=== PATIENT | female | born 2000 | race Caucasian/White ===

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

== ENCOUNTER 2022-06-29 21:35 | Emergency (ER) | payer MEDICAID, SELFPAY ==
[2022-06-29 21:36] VITALS: BP 119/89; PULSE 84; RESP 15; TEMP 36.3; O2SAT 100; BMI 39.2
--- NOTE | 2022-06-29 22:28 | EDS_ITS ---
HPI History of Present Illness Chief Complaint: Other, Pain/Inj Informant: patient and parent Narrative Narrative: Patient presents with several concerns today. 1 is that sometimes midday when she is at work she gets headaches. She is not having 1 now. She thinks it is related to her allergies because at work they open the doors to get fresh air in. 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 So she is exposed to lots of chemicals. She has been having these headaches off and on for about a month since she started her new job a month ago. Again, no headache now. Sometimes when the headaches bad she feels mildly nauseated but has never vomited. She has no nausea or vomiting now. Patient is also concerned that over the last 6 or 8 months her menstrual cycles have gotten somewhat irregular and last longer. Her last menstrual cycle was the through 05 June. She is not on her menstrual cycle now. She has no pelvic pain or discomfort now. Patient is also concerned that she has soreness along her back. This is also started since she started her new job. She repetitively lifts 20-60 or occasionally 70 pounds. It is worse with lifting. She is also fallen asleep on a chair a couple times recently. The back is worse if she moves or twists. She has never had numbness tingling weakness. She complains of some mild constipation on occasion but no stool incontinence. No change in urination at all. She has never had a fever through any of this. Her back does gets more sore with motion or palpation. It is mostly lumbar but occasionally will be in the upper back depending on how she moves. She saw urgent care on Tuesday. They started prednisone at 40 mg a day. She took that for 2 days but felt like it made her heart race so she stopped. [facility] Medical History Asthma Home Medications albuterol sulfate 90 mcg/actuation aerosol inhaler (Ventolin HFA) 2 puff inhalation Q4H PRN PRN ASTHMA 12/24/13 [History Last Taken 10/12/17] fluoxetine 10 mg capsule 40 mg PO DAILY AXIETY 10/26/16 [History Last Taken 02/28/18] fluticasone propionate 50 mcg/actuation nasal spray,suspension 2 spray DAILY 10/26/16 [History Last Taken 02/28/18] fexofenadine 180 mg tablet (Fanta Allergy) 180 mg PO DAILY ALLERGIES 10/12/17 [History Last Taken 02/28/18] magnesium oxide 400 mg PO DAILY 02/01/19 [History Last Taken Unknown] prednisone 20 mg tablet (Deltasone) 40 mg PO DAILY #10 tabs 02/01/19 [Rx Last Taken Unknown] cyclobenzaprine 10 mg tablet 10 mg PO BID PRN muscle spasm #10 tabs 06/29/22 [Rx Last Taken Unknown] naproxen 500 mg tablet 500 mg PO BID #14 tabs 06/29/22 [Rx Last Taken Unknown] Allergy/AdvReac Type Severity Reaction Status Date / Time No Known Allergies Allergy Verified 06/29/22 21:40 Social History Smoking Status: Never smoker ROS ROS ED Constitutional Constitutional ED: Denies chills or fever(s) Eyes Eyes: Denies blurry vision, change in vision or diplopia ENT ENT ED: Denies rhinorrhea or sore throat Cardiovascular Cardiovascular: Denies chest pain Respiratory/Chest Respiratory/Chest: Denies cough, dyspnea or sputum Gastrointestinal Gastrointestinal: Reports constipation and nausea; Denies abdominal pain, diarrhea, melena or vomiting Genitourinary Genitourinary ED: Denies dysuria, hematuria or urinary frequency Musculoskeletal Musculoskeletal: Reports back pain and myalgias Integumentary Denies rash Neurologic Neurologic: Reports headache(s); Denies paresthesias or weakness Endocrine Endocrinology: Denies polydipsia or polyuria Hematologic/Lymphatic Hematologic/Lymphatic: Denies easy bleeding or easy bruising Allergic/Immunologic Allergic/Immunologic ED: Denies urticaria EXAM Physical Exam Const Vital Signs: 06/29/22 21:36 06/29/22 21:52 Temperature 97.4 F L Temperature Source Temporal Pulse Rate 84 Respiratory Rate 15 Respiratory Pattern Normal Blood Pressure 119/89 H Blood Pressure Mean 99 Pulse Ox 100 Oxygen Delivery Method Room Air Positive well nourished and well developed General Appearance ED: well developed and NAD HEENT Reports moist mucous membranes Negative for trauma or tenderness Eyes PERRL and EOMs intact bilaterally General Eye ED: Negative for scleral icterus Neck no lymphadenopathy, supple and no JVD Neck Narrative: No meningismus Resp normal respiratory effort and clear to auscultation bilaterally Auscultation: Negative for rales, rhonchi or wheezes Cardio regular rate and regular rhythm GI normal to inspection, nondistended, normoactive bowel sounds, non-tender and non-distended Back/Spine Back/Spine Narrative: Patient does have diffuse paraspinal muscular tenderness even with light palpation. This is not really CVA tenderness. I see no erythema lesions or rashes. No vesicles. Extremity normal to inspection Extremity Narrative: No tenderness edema or cords. Neuro Sensorium / Orientation: alert Psych mental status grossly normal Skin no rashes or lesions noted and no wounds MDM MDM MDM Narrative Medical decision making narrative: Did do blood work. She has a nonspecific elevation of white count. But there is no indication of viral or bacterial illness. Hemoglobin and platelets are normal. Electrolytes are unremarkable. Liver function test including alk phos is normal. is negative. Urine is clean. There is no sign of rhabdo. By history and exam this patient has musculoskeletal back pain. It sore when she moves or twists or press on the area. She has a new job where she is doing a lot of lifting. Patient will be placed on nonsteroidals and muscle relaxants. She will use muscle relaxants at night. I have encouraged her to follow-up with her primary doctor. They also bring up that she has had irregular menstrual cycles. At the end of the visit mom brings up that she has gained weight from 165 to about 235 pounds in 6 or 8 months. I think this also contri butes to the sore back. Mother agrees. But I also stated that she could have polycystic ovarian syndrome contributing to some of this weight gain and irregular menstrual cycles. This is something that can be worked up as an outpatient. She has no pelvic symptoms at all. Lab Data Attestation: I reviewed the patient's lab results. Labs: Laboratory Results - last 24 hr 06/29/22 06/29/22 06/29/22 22:20 22:20 22:20 WBC 13.4 H RBC 4.35 Hgb 12.1 Hct 38.1 MCV 87.6 MCH 27.8 MCHC 31.8 L RDW Std Deviation 43.1 RDW Coeff of Daniel 13.5 Plt Count 299 MPV 9.7 Immature Gran % (Auto) 0.400 Neut % (Auto) 65.6 Lymph % (Auto) 25.8 Cla[place]orne % (Auto) 7.1 Eos % (Auto) 0.8 Baso % (Auto) 0.3 Absolute Neuts (auto) 8.8 H Absolute Lymphs (auto) 3.46 Nucleated RBC % 0 Sodium 141 Potassium 3.6 Chloride 107 Carbon Dioxide 27.0 Anion Gap 7 BUN 12 Creatinine 0.77 Estim Creat Clear Calc 105.74 Est GFR (MDRD) Af Amer 124 Est GFR (MDRD) Non-Af 102 BUN/Creatinine Ratio 15.6 Glucose 91 Calcium 9.0 Total Bilirubin 0.10 L AST 15 ALT 45 Alkaline Phosphatase 76 Total Protein 7.3 Albumin 3.2 Globulin 4.1 Albumin/Globulin Ratio 0.8 L Serum , Qual NEGATIVE Urine Color Urine Clarity Urine pH Ur Specific [place] Urine Protein Urine Glucose (UA) Urine Ketones Urine Occult Blood Urine Nitrite Urine Bilirubin Urine Urobilinogen Ur Leukocyte Esterase Urine RBC Urine WBC Ur Squamous Epith Cells Urine Bacteria Urine Mucus 06/29/22 22:33 WBC RBC Hgb Hct MCV MCH MCHC RDW Std Deviation RDW Coeff of Daniel Plt Count MPV Immature Gran % (Auto) Neut % (Auto) Lymph % (Auto) [place] % (Auto) Eos % (Auto) Baso % (Auto) Absolute Neuts (auto) Absolute Lymphs (auto) Nucleated RBC % Sodium Potassium Chloride Carbon Dioxide Anion Gap BUN Creatinine Estim Creat Clear Calc Est GFR (MDRD) Af Amer Est GFR (MDRD) Non-Af BUN/Creatinine Ratio Glucose Calcium Total Bilirubin AST ALT Alkaline Phosphatase Total Protein Albumin Globulin Albumin/Globulin Ratio Serum , Qual Urine Color Straw Urine Clarity Clear Urine pH 6.5 Ur Specific [place] 1.015 Urine Protein Negative Urine Glucose (UA) Normal Urine Ketones Negative Urine Occult Blood Negative Urine Nitrite Negative Urine Bilirubin Negative Urine Urobilinogen Normal Ur Leukocyte Esterase Negative Urine RBC 0 SEEN Urine WBC 0 SEEN Ur Squamous Epith Cells 0-5 SEEN Urine Bacteria 1+ Urine Mucus 0 SEEN Discharge Plan Triage Chief Complaint: Other, Pain/Inj ED Provider: Roberto Jesus Dx/Rx/DC Orders Clinical Impression: Myofascial low back pain Instructions: ED Back Care Tips, ED Back Pain (Acute or Chronic) Prescriptions: New cyclobenzaprine 10 mg tablet 10 mg PO BID PRN (Reason: muscle spasm) Qty: 10 0RF naproxen 500 mg tablet 500 mg PO BID Qty: 14 0RF No Action albuterol sulfate [Ventolin HFA] 1 INHALER inhaler 2 puff inhalation Q4H PRN PRN (Reason: ASTHMA) fluoxetine 10 MG capsule 40 mg PO DAILY fluticasone propionate 1 SPRAY spray,suspension 2 spray NASAL DAILY fexofenadine [Fanta Allergy] 180 MG tablet 180 mg PO DAILY magnesium oxide 400 MG tablet 400 mg PO DAILY prednisone [Deltasone] 20 MG tablet 40 mg PO DAILY Qty: 10 0RF Rx Instructions: With food Primary Care Provider: Jessica Randall Referrals: Eugenia Mckinley MD [Med Staff - Active Staff] - As soon as possible Jessica Randall MD [Primary Care Provider] - As soon as possible Disposition Disposition: Home, Self Care
[2022-06-29 22:32] LABS: Absolute Lymphocyte Count 3.46 X10^3/uL (0.83-4.51); Absolute Neutrophil Count 8.8 X10^3/uL (2.0-7.7); Basophil# 0.04 X10^3/uL; Basophil% 0.3 % (0-1); Eosinophil# 0.11 X10^3/uL; Eosinophils% 0.8 % (0-5); Hematocrit 38.1 % (37-47); Hemoglobin 12.1 g/dL (12.0-15.0); Lymphocyte # 3.46 X10^3/ul (0.83-4.51); Lymphocyte % 25.8 % (19-41); Mean Corp Hgb Conc 31.8 g/dL (32-36); Mean Corpuscular Hgb 27.8 pg (27.0-32.0); Mean Corpuscular Volume 87.6 fL (81-99); Mean Platelet Vol. 9.7 fl (6.2-12.0); Monocyte# 0.95 X10^3/uL; Monocyte% 7.1 % (0-10); NRBC Flagged by Analyzer 0 % (0-5); Neutrophil # 8.78 X10^3/uL (2.7-7.7); Neutrophil % 65.6 % (47-70); Platelet Count 299 K/mm3 (150-450); RBC Distribution Width CV 13.5 % (11.6-14.6); RBC Distribution Width SD 43.1 fl (35.1-43.9); Red Blood Count 4.35 M/mm3 (4.2-5.4); White Blood Count 13.4 K/mm3 (4.4-11.0)
[2022-06-29 22:38] LABS: Mucous, Urine 0 SEEN /hpf (<or=2+); Red Blood Cells-Urine 0 SEEN /hpf (0-5); White Blood Cells 0 SEEN /hpf (0-5)
[2022-06-29 22:41] LABS: Color, Urine Straw (Yellow); Glucose, Dipstick Normal (Normal); Ketone-Dipstick Negative (Negative); Leukocyte Esterase-Dipstick Negative /ul (Negative); Nitrite-Dipstick Negative (Negative); Occult Blood-Urine Negative /ul (Negative); Protein-Dipstick Negative (Negative); Specific Gravity, Urine 1.015 (1.002-1.030); Urine Bilirubin Dipstick Negative (Negative); Urine Clarity Clear (Clear); Urine Urobilinogen Normal (Normal); Urine pH 6.5 (5.0 - 8.0)
[2022-06-29 22:49] LABS: ALB/GLOB Ratio 0.8 RATIO (0.9-2.4); AST(SGOT) 15 U/L (15-37); Alanine Aminotransfer ALT/SGPT 45 U/L (13-56); Albumin, Serum 3.2 g/dL (3.2-5.0); Alkaline Phosphatase 76 U/L (45-117); Anion Gap 7 (5-15); BUN 12 mg/dL (7-18); BUN/Creat Ratio 15.6 RATIO (10-20); Chloride 107 mmol/L (98-107); Creatinine, Serum 0.77 mg/dL (0.55-1.02); EST Glomerular Filtration Rate 102 mL/min (>60); Est Glom Filt Rate - Afr Amer 124 mL/min (>60); Estimated Creatinine Clearance 105.74 ml/min; Globulin 4.1 g/dL (2.2-4.2); Glucose 91 mg/dL (74-106); Potassium 3.6 mmol/L (3.5-5.1); Protein, Total 7.3 g/dL (6.4-8.2); Sodium Level 141 mmol/L (136-145)
[2022-06-29 22:57] LABS: Bacteria 1+ /hpf (None Seen); Squamous Epithelial Cells - UA 0-5 SEEN /hpf (5-10)
[2022-06-29 23:06] LABS: Internal QC Validated? YES +Cl - CLEAR BKGD; Pregnancy, Serum, hCG Quali. NEGATIVE Negative
[2022-06-29 23:55] VITALS: BP 102/73; PULSE 76; RESP 16; O2SAT 99
[2022-06-30] MEDS: Naproxen 500 MG Tablet PO (01:27)
[2022-06-30] MEDS: cycloBENZAPRine HCl 10 MG Tablet PO (01:27)
== END 2022-06-30 01:30 | disposition home or self-care (01) ==
PROVIDERS: Emergency Provider Emergency Medicine; PCP Pediatrics; Visit Provider Emergency Medicine
DX: M54.50 Low back pain, unspecified (principal); N92.6 Irregular menstruation, unspecified; Z79.52 Long term (current) use of systemic steroids; J45.909 Unspecified asthma, uncomplicated
CPT/HCPCS: 80053; 81001; 84703; 85025; 99284; A4216

== ENCOUNTER 2022-08-24 09:33 | Emergency (ER) | payer MEDICAID, SELFPAY ==
[2022-08-24 09:34] VITALS: BP 134/83; PULSE 92; RESP 16; TEMP 36.2; O2SAT 100; BMI 39.4
--- NOTE | 2022-08-24 09:43 | ED.VIS.GI ---
HPI HPI - GI History of Present Illness Chief Complaint: Abd Pain Detail of Chief Complaint: Intermittent sharp upper abdominal pain Informant: patient and family Abdominal Pain/Flank Pain Onset: Days (Onset August 18) Context: Sudden Onset Timing: Intermittent (2 to 5 minutes in duration) and Waxes and wanes Quality: Sharp Location: RUQ and LUQ Current Severity: Mild Maximum Severity: Moderate Worsened by: Nothing Relieved by: Nothing Nausea/Vomiting/Emesis GI Symptom: Positive for Nausea; Negative for Vomiting Diarrhea/Melena/Hematochezia GI Symptom: Negative for Diarrhea, Melena or Hematochezia Associated Symptoms Associated Symptoms: Negative for Dysuria, Frequency, Hematuria or Urgency Narrative Narrative: Patient is a 21-year-old female who presents with sharp intermittent upper abdominal pain that radiates to her back and lower quadrants that started on August night. Duration is 2 to 5 minutes. She does work at daycare. Numerous children at the daycare have been sick with viral type symptoms and RSV. She does endorse rhinorrhea congestion and mild sore throat. She denies headache, neck pain or neck stiffness. She denies rash. There is a family history cholelithiasis. She did denies intolerance to greasy or fried foods. She has not noted change in the color, consistency or size of her stool. She denies urologic symptoms. There are no alleviating, precipitating or exacerbating factors. Per mother she has a history of GERD. Prior similar symptoms: No Recent Illness/Hospitalization: No [facility] Medical History Asthma Home Medications albuterol sulfate 90 mcg/actuation aerosol inhaler (Ventolin HFA) 2 puff inhalation Q4H PRN PRN ASTHMA 12/24/13 [History Last Taken 10/12/17] fluoxetine 10 mg capsule 40 mg PO DAILY AXIETY 10/26/16 [History Last Taken 02/28/18] fluticasone propionate 50 mcg/actuation nasal spray,suspension 2 spray DAILY 10/26/16 [History Last Taken 02/28/18] fexofenadine 180 mg tablet (Fanta Allergy) 180 mg PO DAILY ALLERGIES 10/12/17 [History Last Taken 02/28/18] magnesium oxide 400 mg PO DAILY 02/01/19 [History Last Taken Unknown] prednisone 20 mg tablet (Deltasone) 40 mg PO DAILY #10 tabs 02/01/19 [Rx Last Taken Unknown] cyclobenzaprine 10 mg tablet 10 mg PO BID PRN muscle spasm #10 tabs 06/29/22 [Rx Last Taken Unknown] naproxen 500 mg tablet 500 mg PO BID #14 tabs 06/29/22 [Rx Last Taken Unknown] pantoprazole 40 mg tablet,delayed release (Protonix) 40 mg PO DAILY #14 tabs 08/24/22 [Rx Last Taken Unknown] Allergy/AdvReac Type Severity Reaction Status Date / Time No Known Allergies Allergy Verified 08/24/22 09:33 Surgical History no surgical history no surgical history (Tonsillectomy) Social History (Updated 08/24/22 @ 09:[address] Sanjeev Kevin MD) household members: family Smoking Status: Never smoker substance use type: does not use ROS ROS ED Constitutional Constitutional ED: Denies chills, fever(s), subjective, sweats or weight loss ENT ENT ED: Reports rhinorrhea; Denies ear pain or sore throat Cardiovascular Cardiovascular: Denies chest pain, orthopnea, palpitations or paroxysmal nocturnal dyspnea Respiratory/Chest Respiratory/Chest: Denies cough, dyspnea, dyspnea on exertion, orthopnea, paroxysmal nocturnal dyspnea or sputum Gastrointestinal Gastrointestinal: Reports abdominal pain and nausea; Denies constipation, diarrhea, melena or vomiting Genitourinary Genitourinary ED: Denies dysuria, hematuria or urinary frequency Musculoskeletal Musculoskeletal: Denies arthralgias, back pain, myalgias or neck pain Integumentary Denies Abrasions or rash Neurologic Neurologic: Denies headache(s) or paresthesias Psychiatric Psychiatric: Reports depression; Denies anxiety or suicidal thoughts Endocrine Endocrinology: Denies polydipsia, polyphagia or polyuria EXAM Physical Exam Const Vital Signs: 08/24/22 09:34 Temperature 97.1 F L Temperature Source Temporal Pulse Rate 92 Respiratory Rate 16 Blood Pressure 134/83 H Blood Pressure Mean 100 Pulse Ox 100 Oxygen Delivery Method Room Air Positive well nourished, well developed and obese General Appearance ED: well developed, NAD and pallor Nutritional Appearance: obese HEENT Reports TM's clear and moist mucous membranes HEENT Narrative: Ears normal. Nares patent. Uvula midline. No erythema exudate the posterior pharynx. normocephalic and atraumatic Tympanic Membrane ED: Yes TM's clear Eyes PERRL and EOMs intact bilaterally General Eye ED: Negative for pale conjunctiva or scleral icterus Neck no lymphadenopathy, supple and no JVD Neck Narrative: Trachea is midline. There is no in-store extra rider. Resp normal respiratory effort and clear to auscultation bilaterally Cardio regular rate, regular rhythm, S1 normal heart sound, S2 normal heart sound and no murmurs GI non-distended and no masses; Negative for non-tender Auscultation: hypoactive bowel sounds Palpation: soft and tender epigastric, McBurney's point, suprapubic and Reyes's sign Back/Spine no CVA tenderness Cervical Spine: Negative for cervical spine tenderness Thoracic Spine / Upper Back: Negative for thoracic spinal tenderness Lumbar Spine / Lower Back: Negative for lumbar spinal tenderness Extremity full ROM General Extremety ED: Negative for edema or tenderness General Extremity: Negative for edema Neuro No CN's II-XII intact bilaterally and No moves all extremities Sensorium / Orientation: alert Psych Mood & Affect: depressed Skin no wounds General Skin Exam: pallor; Negative for jaundice MDM MDM MDM Narrative Medical decision making narrative: Suspect patient has a viral illness. Because there is strong family history of cholelithiasis will obtain comprehensive metabolic panel to assess liver enzymes. Lipase was ordered as well as CBC. Differential diagnosis is viral illness, cholelithiasis, choledocholithiasis, GERD, esophagitis. Lab Data Attestation: I reviewed the patient's lab results. Lab results narrative: CBC and differential are unremarkable. Comprehensive metabolic panel is normal. Lipase is normal. Labs: Laboratory Results - last 24 hr 08/24/22 08/24/22 09:53 09:53 WBC 8.5 RBC 4.66 Hgb 12.7 Hct 39.8 MCV 85.4 MCH 27.3 MCHC 31.9 L RDW Std Deviation 42.5 RDW Coeff of Daniel 13.8 Plt Count 293 MPV 9.7 Immature Gran % (Auto) 0.200 Neut % (Auto) 75.1 H Lymph % (Auto) 15.2 L [place] % (Auto) 6.5 Eos % (Auto) 2.8 Baso % (Auto) 0.2 Absolute Neuts (auto) 6.4 Absolute Lymphs (auto) 1.29 Nucleated RBC % 0 Sodium 139 Potassium 3.9 Chloride 107 Carbon Dioxide 26.0 Anion Gap 6 BUN 8 Creatinine 0.68 Estim Creat Clear Calc 119.74 Est GFR (MDRD) Af Amer 143 Est GFR (MDRD) Non-Af 118 BUN/Creatinine Ratio 11.8 Glucose 92 Calcium 8.5 Total Bilirubin 0.20 AST 16 ALT 51 Alkaline Phosphatase 67 Total Protein 6.8 Albumin 3.1 L Globulin 3.7 Albumin/Globulin Ratio 0.8 L Lipase 70 L Treatment and Re-Evaluation Narrative: Patient was informed the cause of her pain is unknown. Discharge Plan Triage Chief Complaint: Abd Pain ED Provider: Sanjeev Kevin Dx/Rx/DC Orders Clinical Impression: Intermittent right upper quadrant abdominal pain, Intermittent left upper quadrant abdominal pain Prescriptions: New pantoprazole [Protonix] 40 mg tablet,delayed release (DR/EC) 40 mg PO DAILY Qty: 14 0RF No Action albuterol sulfate [Ventolin HFA] 1 INHALER inhaler 2 puff inhalation Q4H PRN PRN (Reason: ASTHMA) fluoxetine 10 MG capsule 40 mg PO DAILY fluticasone propionate 1 SPRAY spray,suspension 2 spray NASAL DAILY fexofenadine [Fanta Allergy] 180 MG tablet 180 mg PO DAILY magnesium oxide 400 MG tablet 400 mg PO DAILY prednisone [Deltasone] 20 MG tablet 40 mg PO DAILY Qty: 10 0RF Rx Instructions: With food cyclobenzaprine 10 mg tablet 10 mg PO BID PRN (Reason: muscle spasm) Qty: 10 0RF naproxen 500 mg tablet 500 mg PO BID Qty: 14 0RF Primary Care Provider: Jessica Randall Referrals: Jessica Randall MD [Primary Care Provider] - 1 Week if not improving Disposition Disposition: Home, Self Care
[2022-08-24 10:03] LABS: Absolute Lymphocyte Count 1.29 X10^3/uL (0.83-4.51); Absolute Neutrophil Count 6.4 X10^3/uL (2.0-7.7); Basophil# 0.02 X10^3/uL; Basophil% 0.2 % (0-1); Eosinophil# 0.24 X10^3/uL; Eosinophils% 2.8 % (0-5); Hematocrit 39.8 % (37-47); Hemoglobin 12.7 g/dL (12.0-15.0); Lymphocyte # 1.29 X10^3/ul (0.83-4.51); Lymphocyte % 15.2 % (19-41); Mean Corp Hgb Conc 31.9 g/dL (32-36); Mean Corpuscular Hgb 27.3 pg (27.0-32.0); Mean Corpuscular Volume 85.4 fL (81-99); Mean Platelet Vol. 9.7 fl (6.2-12.0); Monocyte# 0.55 X10^3/uL; Monocyte% 6.5 % (0-10); NRBC Flagged by Analyzer 0 % (0-5); Neutrophil # 6.37 X10^3/uL (2.7-7.7); Neutrophil % 75.1 % (47-70); Platelet Count 293 K/mm3 (150-450); RBC Distribution Width CV 13.8 % (11.6-14.6); RBC Distribution Width SD 42.5 fl (35.1-43.9); Red Blood Count 4.66 M/mm3 (4.2-5.4); White Blood Count 8.5 K/mm3 (4.4-11.0)
[2022-08-24 10:22] LABS: ALB/GLOB Ratio 0.8 RATIO (0.9-2.4); AST(SGOT) 16 U/L (15-37); Alanine Aminotransfer ALT/SGPT 51 U/L (13-56); Albumin, Serum 3.1 g/dL (3.2-5.0); Alkaline Phosphatase 67 U/L (45-117); Anion Gap 6 (5-15); BUN 8 mg/dL (7-18); BUN/Creat Ratio 11.8 RATIO (10-20); Calcium,Total 8.5 mg/dL (8.5-10.1); Chloride 107 mmol/L (98-107); Creatinine, Serum 0.68 mg/dL (0.55-1.02); EST Glomerular Filtration Rate 118 mL/min (>60); Est Glom Filt Rate - Afr Amer 143 mL/min (>60); Estimated Creatinine Clearance 119.74 ml/min; Globulin 3.7 g/dL (2.2-4.2); Glucose 92 mg/dL (74-106); Lipase 70 U/L (73-393); Potassium 3.9 mmol/L (3.5-5.1); Protein, Total 6.8 g/dL (6.4-8.2); Sodium Level 139 mmol/L (136-145)
== END 2022-08-24 10:35 | disposition home or self-care (01) ==
PROVIDERS: Emergency Provider Emergency Medicine; PCP Pediatrics; Visit Provider Emergency Medicine
DX: R10.11 Right upper quadrant pain (principal); R10.12 Left upper quadrant pain; J45.909 Unspecified asthma, uncomplicated; J34.89 Other specified disorders of nose and nasal sinuses; R11.0 Nausea; F32.A Depression, unspecified; E66.9 Obesity, unspecified
CPT/HCPCS: 80053; 83690; 85025; 99283; A4216

== ENCOUNTER 2022-09-12 14:56 | Emergency (ER) | payer MEDICAID, SELFPAY ==
[2022-09-12 14:59] VITALS: BP 108/72; PULSE 120; RESP 18; TEMP 37.4; O2SAT 99; BMI 34.1
--- NOTE | 2022-09-12 15:20 | EX.ED.DYSGE1 ---
HPI History of Present Illness Chief Complaint: General Illness Narrative Narrative: 21-year-old female presenting with generalized illness for about a week. She states that she had a low-grade fever about a week ago. She now has a mild cough, malaise, body aches, chills. She takes Aleve for body aches and this helps however when it wears off it goes away. Patient states she does not alternate Tylenol. Patient does report that her symptoms have been going on since and she also works at a daycare. She has multiple sick contacts. Patient states that over the course of the week she has vomited a few times but she is able to hold down some food and fluids. She is also able to hold down the Aleve. She states that it now hurts in the left upper quadrant. She has had this in the past. She was told it is likely GERD. She states she was told by the ER physician that saw her at her last visit when she had a work-up. She has not made follow-up. She is not taking anything for acid reflux. [facility] Medical History Asthma Home Medications albuterol sulfate 90 mcg/actuation aerosol inhaler (Ventolin HFA) 2 puff inhalation Q4H PRN PRN ASTHMA 12/24/13 [History Last Taken 10/12/17] fluticasone propionate 50 mcg/actuation nasal spray,suspension 2 spray DAILY 10/26/16 [History Last Taken 02/28/18] fexofenadine 180 mg tablet (Fanta Allergy) 180 mg PO DAILY ALLERGIES 10/12/17 [History Last Taken 02/28/18] Allergy/AdvReac Type Severity Reaction Status Date / Time No Known Allergies Allergy Verified 09/12/22 15:42 Surgical History (Updated 09/12/22 @ 15:42 by Concepción Lua) History of tonsillectomy and adenoidectomy Social History household members: family Smoking Status: Never smoker substance use type: does not use ROS ROS ED Constitutional Constitutional ED: Denies chills or fever(s) Eyes Eyes: Denies change in vision ENT ENT ED: Reports sore throat Cardiovascular Cardiovascular: Denies chest pain or palpitations Respiratory/Chest Respiratory/Chest: Reports cough Gastrointestinal Gastrointestinal: Reports abdominal pain, nausea and vomiting Genitourinary Genitourinary ED: Denies dysuria or hematuria Musculoskeletal Musculoskeletal: Reports myalgias; Denies arthralgias Integumentary Denies abscess or Abrasions Neurologic Neurologic: Reports headache(s); Denies paresthesias or weakness Psychiatric Psychiatric: Denies anxiety or depression EXAM Physical Exam Const Vital Signs: 09/12/22 14:59 09/12/22 16:30 09/12/22 18:12 Temperature 99.3 F H 100.6 F H 99 F Temperature Source Temporal Temporal Temporal Pulse Rate 120 H 136 H 130 H Respiratory Rate 18 18 18 Blood Pressure 108/72 96/60 94/74 Blood Pressure Mean 84 72 80 Pulse Ox 99 96 97 Oxygen Delivery Method Room Air Room Air Room Air Positive well nourished General Appearance ED: Negative for pallor HEENT Reports moist mucous membranes Eyes PERRL and EOMs intact bilaterally General Eye ED: Negative for pale conjunctiva or scleral icterus Chest Wall inspection of chest normal Resp normal respiratory effort and clear to auscultation bilaterally Cardio regular rhythm Rate: tachycardic GI Palpation: tender LUQ Neuro oriented x3 and CN's II-XII intact bilaterally Sensorium / Orientation: alert Psych mental status grossly normal Skin no rashes or lesions noted and no wounds General Skin Exam: Negative for jaundice or pallor MDM MDM MDM Narrative Medical decision making narrative: Patient presenting with left-sided rib pain, cough, chills, generalized fatigue, nausea, vomiting. She initially presented without a fever but then developed a fever of 100.6. I felt that her symptoms are most likely viral however after having symptoms for a whole week I do not believe that testing would be necessary for COVID, influenza, RSV. Her pulse ox is normal and she is not tachypneic. Her lungs are clear to auscultation. I did obtain a chest x-ray which on my interpretation shows no acute cardiopulmonary process and radiologist agree. Basic labs were obtained and she has white blood cell count of 25.1. Her hemoglobin hematocrit are normal. Platelets are normal. Renal function electrolytes within normal limits. LFTs are normal and lipase is normal. Urinalysis was negative for infection. Monospot was negative. I did discuss with the patient that possibly she had an occult pneumonia on her chest x-ray and we can treat her as pneumonia versus getting a CAT scan and she preferred to have a CT scan of her chest. This was negative for pneumonia or other acute processes. She then stated that she thought maybe it was her gallbladder and explained to her that her pain was in the left upper quadrant/left ribs and I had no findings here. Her abdominal exam was otherwise benign. Her mother then stated that maybe she has appendicitis. I told her that she has not had any right lower quadrant pain or any indication that she has appendicitis. Her fever was treated with Toradol and Tylenol. Her nausea was treated with Zofran. She was given a liter normal saline. She does appear nontoxic although she continues to be a little tachycardic. I do suspect this is something viral in nature. I will prescribe her some Zofran and she is to continue to alternate Tylenol and ibuprofen at home. She request antibiotics for home so I will start her on Levaquin. Not really not sure if this is a pulmonary source. She will follow-up with Dr. Jessica Randall to ensure resolution Impression: 1. Leukocytosis 2. Nausea/vomiting 3. Febrile illness Lab Data Attestation: I reviewed the patient's lab results. Labs: Laboratory Results - last 24 hr 09/12/22 09/12/22 09/12/22 15:40 15:40 15:40 WBC 25.1 H RBC 4.92 Hgb 13.2 Hct 41.0 MCV 83.3 MCH 26.8 L MCHC 32.2 RDW Std Deviation 42.2 RDW Coeff of Daniel 14.0 Plt Count 377 MPV 9.8 Immature Gran % (Auto) 0.500 Neut % (Auto) 91.3 H Lymph % (Auto) 4.3 L [place] % (Auto) 3.7 Eos % (Auto) 0.0 Baso % (Auto) 0.2 Absolute Neuts (auto) 22.9 H Absolute Lymphs (auto) 1.09 Nucleated RBC % 0 Differential Comment SCANNED Sodium 135 L Potassium 3.9 Chloride 104 Carbon Dioxide 23.0 Anion Gap 8 BUN 9 Creatinine 1.02 Estim Creat Clear Calc 79.83 Est GFR (MDRD) Af Amer 89 Est GFR (MDRD) Non-Af 74 BUN/Creatinine Ratio 8.8 L Glucose 109 H Calcium 8.8 Total Bilirubin 0.60 AST 14 L ALT 45 Alkaline Phosphatase 85 Total Protein 8.0 Albumin 3.4 Globulin 4.6 H Albumin/Globulin Ratio 0.7 L Lipase 44 L Urine Color Urine Clarity Urine pH Ur Specific Mathews Urine Protein Urine Glucose (UA) Urine Ketones Urine Occult Blood Urine Nitrite Urine Bilirubin Urine Urobilinogen Ur Leukocyte Esterase Urine RBC Urine WBC Ur Squamous Epith Cells Urine Bacteria Urine Mucus Urine Test Monoscreen Negative 09/12/22 17:30 WBC RBC Hgb Hct MCV MCH MCHC RDW Std Deviation RDW Coeff of Daniel Plt Count MPV Immature Gran % (Auto) Neut % (Auto) Lymph % (Auto) [place] % (Auto) Eos % (Auto) Baso % (Auto) Absolute Neuts (auto) Absolute Lymphs (auto) Nucleated RBC % Differential Comment Sodium Potassium Chloride Carbon Dioxide Anion Gap BUN Creatinine Estim Creat Clear Calc Est GFR (MDRD) Af Amer Est GFR (MDRD) Non-Af BUN/Creatinine Ratio Glucose Calcium Total Bilirubin AST ALT Alkaline Phosphatase Total Protein Albumin Globulin Albumin/Globulin Ratio Lipase Urine Color Yellow Urine Clarity Sl. Cloudy Urine pH 7.0 Ur Specific Mathews 1.005 Urine Protein Negative Urine Glucose (UA) Normal Urine Ketones 5 H Urine Occult Blood 10 H Urine Nitrite Negative Urine Bilirubin Negative Urine Urobilinogen Normal Ur Leukocyte Esterase Negative Urine RBC 0-5 SEEN Urine WBC 0 SEEN Ur Squamous Epith Cells 0-5 SEEN Urine Bacteria 0 SEEN Urine Mucus 0 SEEN Urine Test Negative Monoscreen Radiography Diagnostic Testing: Clinical Impression(s) from Imaging Studies Chest X-Ray 09/12/22 15:45 IMPRESSION: No radiographic evidence of acute cardiopulmonary disease. Electronically Signed: Dee Abraham MD at 16:14 EST Reading Location ID and State: Tiara Jacobs MD Tel , Service support , Chest CT 09/12/22 18:28 IMPRESSION: 1. No acute findings. 2. Hepatic steatosis. Electronically Signed: Dee Abraham MD at 19:27 EST Reading Location ID and State: Tiara Jacobs MD Tel , Service support , Discharge Plan Triage Chief Complaint: General Illness ED Provider: Jd Arteaga Dx/Rx/DC Orders Prescriptions: No Action albuterol sulfate [Ventolin HFA] 1 INHALER inhaler 2 puff inhalation Q4H PRN PRN (Reason: ASTHMA) fluticasone propionate 1 SPRAY spray,suspension 2 spray NASAL DAILY fexofenadine [Fanta Allergy] 180 MG tablet 180 mg PO DAILY Primary Care Provider: Jessica Randall Referrals: Jessica Randall MD [Primary Care Provider] -
[2022-09-12] MEDS: Ondansetron 4 MG/2 ML Vial IV (15:39)
[2022-09-12] MEDS: Ketorolac 15 MG/ML Vial IV (15:39)
[2022-09-12] MEDS: 0.9% Normal Saline 1,000 ML 1000 ML IV (15:39)
--- NOTE | 2022-09-12 15:45 | RAD_ITS ---
INDICATION: cough EXAMINATION/TECHNIQUE: X-RAY - XR Chest 1 View COMPARISON: 02/01/2019. FINDINGS: LINES/DEVICES: None. LUNGS: No consolidation, edema or effusion. No pneumothorax. MEDIASTINUM AND CARDIOVASCULAR STRUCTURES: Cardiac silhouette not enlarged. Central airways and mediastinal contour are unremarkable. BONES AND SOFT TISSUES: Unremarkable. RAD/Chest 1 View (Portable) IMPRESSION: No radiographic evidence of acute cardiopulmonary disease. Electronically Signed: Dee Abraham MD at 16:14 EST Reading Location ID and State: [id number] / Tel , Service support ,
[2022-09-12 15:51] LABS: Absolute Lymphocyte Count 1.09 X10^3/uL (0.83-4.51); Absolute Neutrophil Count 22.9 X10^3/uL (2.0-7.7); Basophil# 0.06 X10^3/uL; Basophil% 0.2 % (0-1); Eosinophil# 0.01 X10^3/uL; Hemoglobin 13.2 g/dL (12.0-15.0); Lymphocyte # 1.09 X10^3/ul (0.83-4.51); Lymphocyte % 4.3 % (19-41); Mean Corp Hgb Conc 32.2 g/dL (32-36); Mean Corpuscular Hgb 26.8 pg (27.0-32.0); Mean Corpuscular Volume 83.3 fL (81-99); Mean Platelet Vol. 9.8 fl (6.2-12.0); Monocyte# 0.93 X10^3/uL; Monocyte% 3.7 % (0-10); NRBC Flagged by Analyzer 0 % (0-5); Neutrophil # 22.89 X10^3/uL (2.7-7.7); Neutrophil % 91.3 % (47-70); POSITIVE DIFFERENTIAL YES; Platelet Count 377 K/mm3 (150-450); RBC Distribution Width SD 42.2 fl (35.1-43.9); Red Blood Count 4.92 M/mm3 (4.2-5.4); White Blood Count 25.1 K/mm3 (4.4-11.0)
[2022-09-12 15:59] LABS: Differential Indicated SCAN CRITERIA MET
[2022-09-12 16:17] LABS: ALB/GLOB Ratio 0.7 RATIO (0.9-2.4); AST(SGOT) 14 U/L (15-37); Alanine Aminotransfer ALT/SGPT 45 U/L (13-56); Albumin, Serum 3.4 g/dL (3.2-5.0); Alkaline Phosphatase 85 U/L (45-117); Anion Gap 8 (5-15); BUN 9 mg/dL (7-18); BUN/Creat Ratio 8.8 RATIO (10-20); Calcium,Total 8.8 mg/dL (8.5-10.1); Chloride 104 mmol/L (98-107); Creatinine, Serum 1.02 mg/dL (0.55-1.02); EST Glomerular Filtration Rate 74 mL/min (>60); Est Glom Filt Rate - Afr Amer 89 mL/min (>60); Estimated Creatinine Clearance 79.83 ml/min; Globulin 4.6 g/dL (2.2-4.2); Glucose 109 mg/dL (74-106); Lipase 44 U/L (73-393); Potassium 3.9 mmol/L (3.5-5.1); Sodium Level 135 mmol/L (136-145)
[2022-09-12 16:30] VITALS: BP 96/60; PULSE 136; RESP 18; TEMP 38.1; O2SAT 96
[2022-09-12] MEDS: Acetaminophen 325 MG Tablet 1000 MG PO (16:56)
[2022-09-12 17:03] LABS: Differential Comment SCANNED
[2022-09-12 17:44] LABS: Bacteria 0 SEEN /hpf (None Seen); Mucous, Urine 0 SEEN /hpf (<or=2+); White Blood Cells 0 SEEN /hpf (0-5)
[2022-09-12 17:53] LABS: Color, Urine Yellow (Yellow); Glucose, Dipstick Normal (Normal); Ketone-Dipstick 5 mg/dl (Negative); Leukocyte Esterase-Dipstick Negative /ul (Negative); Nitrite-Dipstick Negative (Negative); Occult Blood-Urine 10 /ul (Negative); Protein-Dipstick Negative (Negative); Specific Gravity, Urine 1.005 (1.002-1.030); Urine Bilirubin Dipstick Negative (Negative); Urine Clarity Sl. Cloudy (Clear); Urine Urobilinogen Normal (Normal)
[2022-09-12 17:56] LABS: Internal QC Validated? YES +Cl - CLEAR BKGD; Pregnancy, Urine Negative Negative
[2022-09-12 18:12] VITALS: BP 94/74; PULSE 130; RESP 18; TEMP 37.2; O2SAT 97
[2022-09-12 18:15] LABS: Red Blood Cells-Urine 0-5 SEEN /hpf (0-5); Squamous Epithelial Cells - UA 0-5 SEEN /hpf (5-10)
--- NOTE | 2022-09-12 18:28 | CT_ITS ---
EXAM: CT CHEST WITHOUT INTRAVENOUS CONTRAST CLINICAL INDICATION: cough TECHNIQUE: Helically acquired images were obtained of the chest without intravenous contrast. This CT exam was performed using one or more of the following dose reduction techniques: automated exposure control, adjustment of the mA and/or kV according to patient size, and/or use of iterative reconstruction technique. This report was created using [employer] report generation technology. COMPARISON: None. FINDINGS: LUNGS AND PLEURAL SPACES: Unremarkable. No mass. No consolidation or edema. No pleural effusion or thickening. No pneumothorax. HEART: Unremarkable. Heart size is normal. No pericardial effusion. No significant coronary artery calcifications. MEDIASTINUM: Unremarkable. No mediastinal or hilar adenopathy. Esophagus is unremarkable. No hiatal hernia. THYROID: Unremarkable. No thyroid lesions. BONES/JOINTS: Unremarkable. No suspicious lytic or blastic abnormality. VASCULATURE: Unremarkable. Thoracic aorta is non-dilated. LIVER: Diffuse fatty infiltration of the liver. No focal lesion. CT/Chest without Contrast IMPRESSION: 1. No acute findings. 2. Hepatic steatosis. Electronically Signed: Dee Abraham MD at 19:27 EST Reading Location ID and State: [id number] / Tel , Service support ,
[2022-09-12 20:36] LABS: Internal QC Validated? YES +Cl - CLEAR BKGD; Monotest Negative (Negative)
[2022-09-12 21:36] VITALS: BP 100/66; PULSE 107; RESP 16; TEMP 37.1; O2SAT 97
[2022-09-12] MEDS: levoFLOXacin 500 MG Tablet PO (21:42)
== END 2022-09-12 22:05 | disposition home or self-care (01) ==
PROVIDERS: Emergency Provider Student in an Organized Health Care Education/Training Program; PCP Pediatrics; Visit Provider Student in an Organized Health Care Education/Training Program
DX: R11.2 Nausea with vomiting, unspecified (principal); D72.829 Elevated white blood cell count, unspecified; R07.81 Pleurodynia; R53.83 Other fatigue; R10.12 Left upper quadrant pain; J45.909 Unspecified asthma, uncomplicated
CPT/HCPCS: 71045; 71250; 80053; 81001; 81025; 83690; 85025; 86308; 87880; 96361; 96374; 96375; 99284; J7030; A4216; J2405

== ENCOUNTER 2022-09-13 17:41 | Emergency (ER) | payer MEDICAID, SELFPAY ==
[2022-09-13 17:42] VITALS: BP 112/79; PULSE 117; RESP 16; TEMP 36.8; O2SAT 95; BMI 34.1
[2022-09-13 18:55] LABS: Absolute Lymphocyte Count 2.01 X10^3/uL (0.83-4.51); Absolute Neutrophil Count 20.4 X10^3/uL (2.0-7.7); Basophil# 0.06 X10^3/uL; Basophil% 0.2 % (0-1); Eosinophil# 0.02 X10^3/uL; Eosinophils% 0.1 % (0-5); Hemoglobin 12.2 g/dL (12.0-15.0); Lymphocyte # 2.01 X10^3/ul (0.83-4.51); Lymphocyte % 8.3 % (19-41); Mean Corp Hgb Conc 32.1 g/dL (32-36); Mean Corpuscular Hgb 26.5 pg (27.0-32.0); Mean Corpuscular Volume 82.4 fL (81-99); Mean Platelet Vol. 9.6 fl (6.2-12.0); Monocyte# 1.63 X10^3/uL; Monocyte% 6.7 % (0-10); NRBC Flagged by Analyzer 0 % (0-5); Neutrophil # 20.41 X10^3/uL (2.7-7.7); Neutrophil % 84.1 % (47-70); POSITIVE DIFFERENTIAL YES; Platelet Count 305 K/mm3 (150-450); RBC Distribution Width CV 14.3 % (11.6-14.6); RBC Distribution Width SD 42.4 fl (35.1-43.9); Red Blood Count 4.61 M/mm3 (4.2-5.4); White Blood Count 24.3 K/mm3 (4.4-11.0)
[2022-09-13 18:56] LABS: Differential Indicated SCAN CRITERIA MET
[2022-09-13 19:03] LABS: Internal QC Validated? YES +Cl - CLEAR BKGD; Pregnancy, Serum, hCG Quali. NEGATIVE Negative
[2022-09-13 19:07] LABS: Anion Gap 5 (5-15); BUN 7 mg/dL (7-18); BUN/Creat Ratio 8.7 RATIO (10-20); Calcium,Total 9.1 mg/dL (8.5-10.1); Chloride 107 mmol/L (98-107); EST Glomerular Filtration Rate 97 mL/min (>60); Est Glom Filt Rate - Afr Amer 117 mL/min (>60); Estimated Creatinine Clearance 101.78 ml/min; Glucose 100 mg/dL (74-106); Potassium 3.7 mmol/L (3.5-5.1); Sodium Level 136 mmol/L (136-145)
[2022-09-13 19:14] LABS: Differential Comment SEE COMMENTS
[2022-09-13 19:15] LABS: Anisocytosis RARE; Platelet Estimate ADEQUATE (ADEQ); Red Cell Morphology N CHROM NORMAL (NORM C&C)
[2022-09-13 19:22] LABS: AST(SGOT) 8 U/L (15-37); Alanine Aminotransfer ALT/SGPT 32 U/L (13-56); Albumin, Serum 3.2 g/dL (3.2-5.0); Alkaline Phosphatase 85 U/L (45-117); Bilirubin, Direct 0.19 mg/dL (0.00-0.30); Lipase 49 U/L (73-393); Protein, Total 8.2 g/dL (6.4-8.2)
--- NOTE | 2022-09-13 19:23 | ED.VIS.GI ---
HPI HPI - GI History of Present Illness Chief Complaint: Abd Pain Narrative Narrative: 21-year-old female presenting for the second day with similar symptoms. She states that she has had recent fever, chills, body aches. She had left lower rib pain and she has been coughing. She had a chest x-ray which was negative. Her blood work showed that she had an elevated white blood cell count but otherwise was all within normal limits. She had a CT scan of the chest which did not show any pneumonia. Since she had a high white blood cell count she was placed prophylactically on Levaquin. She has not taken the second dose yet. She supposed to take this at 9 PM. She reports that she still has the left-sided rib pain. Now she states it radiates [id number] across the upper abdomen along her diaphragm. She states she has had subjective fevers today but cannot check her temperature because she does not have a thermometer. She states that she just feels the heat rating off her. She slept most of the day today. She states she just does not want to eat or drink. She is not nauseous. She states her throat still sore today. She had a negative strep yesterday. He had a negative Monospot yesterday. Her symptoms have been ongoing for several days. She is outside the treatment window for treatment of COVID or influenza so she was not tested. Patient did have a documented fever yesterday while she was in the ER. She states she has been alternating Tylenol and ibuprofen. [facility] Medical History Asthma Home Medications albuterol sulfate 90 mcg/actuation aerosol inhaler (Ventolin HFA) 2 puff inhalation Q4H PRN PRN ASTHMA 12/24/13 [History Last Taken 10/12/17] fluticasone propionate 50 mcg/actuation nasal spray,suspension 2 spray DAILY 10/26/16 [History Last Taken 02/28/18] fexofenadine 180 mg tablet (Fanta Allergy) 180 mg PO DAILY ALLERGIES 10/12/17 [History Last Taken 02/28/18] famotidine 20 mg tablet (Acid Controller) 20 mg PO BID #10 tabs 09/12/22 [Rx Last Taken Unknown] levofloxacin 500 mg tablet 500 mg PO DAILY #7 tabs 09/12/22 [Rx Last Taken Unknown] ondansetron 4 mg disintegrating tablet 4 mg PO Q8H PRN nausea and vomiting #20 tabs 09/12/22 [Rx Last Taken Unknown] benzonatate 200 mg capsule 200 mg PO TID PRN cough #14 caps 09/13/22 [Rx Last Taken Unknown] Allergy/AdvReac Type Severity Reaction Status Date / Time No Known Allergies Allergy Verified 09/13/22 17:42 Surgical History History of tonsillectomy and adenoidectomy Social History household members: family Smoking Status: Never smoker substance use type: does not use ROS ROS ED Constitutional Constitutional ED: Reports chills and fever(s) ENT ENT ED: Reports rhinorrhea and sore throat Cardiovascular Cardiovascular: Denies chest pain Respiratory/Chest Respiratory/Chest: Reports cough; Denies dyspnea Gastrointestinal Gastrointestinal: Reports abdominal pain; Denies nausea or vomiting Genitourinary Genitourinary ED: Denies dysuria or hematuria Musculoskeletal Musculoskeletal: Denies arthralgias Integumentary Denies abscess or Abrasions Neurologic Neurologic: Denies headache(s) or paresthesias Psychiatric Psychiatric: Denies anxiety or depression EXAM Physical Exam Const Vital Signs: 09/13/22 17:42 Temperature 98.3 F Temperature Source Temporal Pulse Rate 117 H Respiratory Rate 16 Blood Pressure 112/79 Blood Pressure Mean 90 Pulse Ox 95 Oxygen Delivery Method Room Air MDM MDM MDM Narrative Medical decision making narrative: Patient presenting for the second in a row with intermittent right upper quadrant and left upper quadrant pain. She was seen in August for similar symptoms and her blood work was normal then. She was worked up yesterday and did have a leukocytosis, but her chest x-ray and her CT of her chest were negative. She was placed on Levaquin due to her symptoms. She reports subjective fevers today but has not checked her temperature. She states he tried to call up with her primary care physician but could not get in today and was referred back to the ER. She is not vomiting but she has decreased p.o. intake. Her white blood cell count today is decreased at 24.3. Hemoglobin hematocrit are stable. Platelets are normal. Renal function electrolytes are improved. LFTs again are normal. Lipase negative. Serum hCG negative. She had a urinalysis yesterday which was negative for infection. Her abdominal exam is benign. I counseled her I do not think she needs a CT scan I did offer 1. She is currently trying to figure out if she wants 1 and is discussing it with her mom. On reevaluation at 8:15 PM she states she wants to hold off on a CT scan. The symptoms have been going on since early August in her abdomen. These are unchanged. She is currently on Levaquin and only had 1 dose. She requested to go home but also requested Tessalon Perles for her cough. Again she has no identifiable pneumonia but is still having URI symptoms. I will speak to the on-call physician for Jessica Randall. She has follow-up arranged on Tuesday. Patient discharged in stable condition. Impression: 1. Leukocytosis?improving 2. Bilateral upper quadrant pain 3. URI Lab Data Attestation: I reviewed the patient's lab results. Labs: Laboratory Results - last 24 hr 09/13/22 09/13/22 09/13/22 18:28 18:38 18:38 WBC 24.3 H RBC 4.61 Hgb 12.2 Hct 38.0 MCV 82.4 MCH 26.5 L MCHC 32.1 RDW Std Deviation 42.4 RDW Coeff of Daniel 14.3 Plt Count 305 MPV 9.6 Immature Gran % (Auto) 0.600 Neut % (Auto) 84.1 H Lymph % (Auto) 8.3 L Meade % (Auto) 6.7 Eos % (Auto) 0.1 Baso % (Auto) 0.2 Absolute Neuts (auto) 20.4 H Absolute Lymphs (auto) 2.01 Nucleated RBC % 0 Differential Comment SEE COMMENTS Diff Path Review May foll Platelet Estimate ADEQUATE RBC Morphology N CHROM Anisocytosis RARE Sodium 136 Potassium 3.7 Chloride 107 Carbon Dioxide 24.0 Anion Gap 5 BUN 7 Creatinine 0.80 Estim Creat Clear Calc 101.78 Est GFR (MDRD) Af Amer 117 Est GFR (MDRD) Non-Af 97 BUN/Creatinine Ratio 8.7 L Glucose 100 Calcium 9.1 Total Bilirubin 0.50 Direct Bilirubin 0.19 AST 8 L ALT 32 Alkaline Phosphatase 85 Total Protein 8.2 Albumin 3.2 Globulin 5.0 H Lipase 49 L Serum , Qual 09/13/22 18:38 WBC RBC Hgb Hct MCV MCH MCHC RDW Std Deviation RDW Coeff of Daniel Plt Count MPV Immature Gran % (Auto) Neut % (Auto) Lymph % (Auto) Meade % (Auto) Eos % (Auto) Baso % (Auto) Absolute Neuts (auto) Absolute Lymphs (auto) Nucleated RBC % Differential Comment Diff Path Review Platelet Estimate RBC Morphology Anisocytosis Sodium Potassium Chloride Carbon Dioxide Anion Gap BUN Creatinine Estim Creat Clear Calc Est GFR (MDRD) Af Amer Est GFR (MDRD) Non-Af BUN/Creatinine Ratio Glucose Calcium Total Bilirubin Direct Bilirubin AST ALT Alkaline Phosphatase Total Protein Albumin Globulin Lipase Serum , Qual NEGATIVE Discharge Plan Triage Chief Complaint: Abd Pain ED Provider: Jd Arteaga Dx/Rx/DC Orders Instructions: ED Abdominal Pain Unkn Cause Fem Prescriptions: New benzonatate 200 mg capsule 200 mg PO TID PRN (Reason: cough) Qty: 14 0RF No Action albuterol sulfate [Ventolin HFA] 1 INHALER inhaler 2 puff inhalation Q4H PRN PRN (Reason: ASTHMA) fluticasone propionate 1 SPRAY spray,suspension 2 spray NASAL DAILY fexofenadine [Fanta Allergy] 180 MG tablet 180 mg PO DAILY levofloxacin 500 mg tablet 500 mg PO DAILY Qty: 7 0RF ondansetron 4 mg tablet,disintegrating 4 mg PO Q8H PRN (Reason: nausea and vomiting) Qty: 20 0RF famotidine [Acid Controller] 20 mg tablet 20 mg PO BID Qty: 10 0RF Stand Alone Forms: ED Work / School Excuse Primary Care Provider: Jessica Randall Referrals: Jessica Randall MD [Primary Care Provider] - Disposition Disposition: Home, Self Care
[2022-09-13 21:12] VITALS: BP 128/75; PULSE 90; RESP 15; O2SAT 99
[2022-09-15 09:36] LABS: Pathologist Review Reviewed
== END 2022-09-13 21:12 | disposition home or self-care (01) ==
PROVIDERS: Emergency Provider Student in an Organized Health Care Education/Training Program; PCP Pediatrics; Visit Provider Student in an Organized Health Care Education/Training Program
DX: J06.9 Acute upper respiratory infection, unspecified (principal); R07.81 Pleurodynia; R10.12 Left upper quadrant pain; R10.11 Right upper quadrant pain; J45.909 Unspecified asthma, uncomplicated
CPT/HCPCS: 80048; 80076; 83690; 84703; 85025; 99283; A4216

== ENCOUNTER 2022-12-15 22:34 | Emergency (ER) | payer MEDICAID, SELFPAY ==
[2022-12-15 22:35] VITALS: BP 125/74; PULSE 125; RESP 20; TEMP 36.8; O2SAT 97; BMI 37.7
[2022-12-15 23:14] VITALS: O2SAT 99
--- NOTE | 2022-12-15 23:23 | RAD_ITS ---
STUDY: X-RAY CHEST REASON FOR EXAM: Female, 22 years old. Chest pain/coughing TECHNIQUE: PA and lateral views of the chest. COMPARISON: September 12, 2022 chest x-ray FINDINGS: The lungs are clear and expanded. There is no demonstrated pleural abnormality. Normal size heart. Normal mediastinum and shanda. Normal visualized pulmonary arteries. Normal visualized aortic arch and descending thoracic aorta. Normal visualized thoracic spine. Normal visualized ribs, clavicles, and shoulders. There is no demonstrated abnormality of the visualized soft tissue structures of the upper abdomen. RAD/Chest PA and Lateral IMPRESSION: Normal x-ray examination of the chest. Electronically Signed: Evelia Reid MD at 0:12 EST Reading Location ID and State: [facility] / [place] Tel , Service support ,
--- NOTE | 2022-12-16 00:41 | EX.ED.DYSGE1 ---
HPI History of Present Illness Chief Complaint: Shortness of Breath Narrative Narrative: Patient is a 22-year-old female with past medical history of asthma. She states about a week ago she had upset stomach and was diagnosed with a viral stomach infection. She states over the past few days she has had congestion drainage and cough. She states she has been taking her inhaler without much symptom improvement and has concerned she may have developed pneumonia and secondary to this comes in for evaluation [facility] Medical History Asthma Home Medications albuterol sulfate 90 mcg/actuation aerosol inhaler (Ventolin HFA) 2 puff inhalation Q4H PRN PRN ASTHMA 12/24/13 [History Last Taken 10/12/17] fluticasone propionate 50 mcg/actuation nasal spray,suspension 2 spray DAILY 10/26/16 [History Last Taken 02/28/18] fexofenadine 180 mg tablet (Fanta Allergy) 180 mg PO DAILY ALLERGIES 10/12/17 [History Last Taken 02/28/18] famotidine 20 mg tablet (Acid Controller) 20 mg PO BID #10 tabs 09/12/22 [Rx Last Taken Unknown] levofloxacin 500 mg tablet 500 mg PO DAILY #7 tabs 09/12/22 [Rx Last Taken Unknown] ondansetron 4 mg disintegrating tablet 4 mg PO Q8H PRN nausea and vomiting #20 tabs 09/12/22 [Rx Last Taken Unknown] benzonatate 200 mg capsule 200 mg PO TID PRN cough #14 caps 09/13/22 [Rx Last Taken Unknown] azelastine 137 mcg (0.1 %) nasal spray aerosol 2 spray intranasal BID #30 mL 12/16/22 [Rx Last Taken Unknown] benzonatate 200 mg capsule 200 mg PO TID PRN cough #30 caps 12/16/22 [Rx Last Taken Unknown] Allergy/AdvReac Type Severity Reaction Status Date / Time No Known Allergies Allergy Verified 12/15/22 22:37 Surgical History History of tonsillectomy and adenoidectomy Social History household members: family Smoking Status: Never smoker substance use type: does not use ROS ROS ED Constitutional Constitutional ED: Reports chills, fever(s) and subjective ENT ENT ED: Reports rhinorrhea and sore throat Cardiovascular Cardiovascular: Denies chest pain Respiratory/Chest Respiratory/Chest: Reports cough and dyspnea Gastrointestinal Gastrointestinal: Denies abdominal pain, diarrhea, nausea or vomiting Genitourinary Genitourinary ED: Denies dysuria Musculoskeletal Musculoskeletal: Reports myalgias Integumentary Denies rash Neurologic Neurologic: Denies headache(s) Hematologic/Lymphatic Hematologic/Lymphatic: Denies easy bleeding or easy bruising EXAM Physical Exam Const Vital Signs: 12/15/22 22:35 12/15/22 23:14 12/15/22 23:18 Temperature 98.2 F Temperature Source Temporal Pulse Rate 125 H Respiratory Rate 20 H Respiratory Effort Short of Breath Labored Blood Pressure 125/74 H Blood Pressure Mean 91 Pulse Ox 97 99 Oxygen Delivery Method Room Air Room Air Positive well nourished, well developed and obese General Appearance ED: well developed Nutritional Appearance: obese HEENT Reports moist mucous membranes HEENT Narrative: Nasal mucosa is hyperemic and boggy with enlarged inferior nasal turbinates Cobblestoning is noted in the posterior pharynx consistent with sinus drainage without airway edema or compromise Bilateral TMs are retracted but show no secondary changes to suggest infection Eyes PERRL and EOMs intact bilaterally Neck supple and no JVD Neck Narrative: Positive anterior cervical lymphadenopathy present Chest Wall palpation of chest normal Resp normal respiratory effort Resp Narrative: Breath sounds are slightly diminished throughout with faint rhonchi in the bilateral bases but otherwise no signs of respiratory distress Cardio regular rhythm Rate: tachycardic GI normal to inspection, nondistended, normoactive bowel sounds, non-tender, non-distended and no masses Auscultation: normoactive bowel sounds Palpation: soft Extremity normal to inspection Extremity Narrative: No asymmetric edema no pitting edema negative Homans' sign bilaterally Neuro oriented x3 and CN's II-XII intact bilaterally Sensorium / Orientation: alert Psych mental status grossly normal Skin no rashes or lesions noted MDM MDM MDM Narrative Medical decision making narrative: Patient presented to the ER afebrile she is mildly tachycardic but otherwise in no acute respiratory distress and satting in the high 90s on room air. 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 With her exposures COVID and influenza will be obtained as well. However as she is afebrile and in no acute respiratory distress I do not believe there is need for blood work. Patient's chest x-ray revealed no obvious infiltrate and her viral swabs are negative. On reevaluation she remains in no acute respiratory distress satting in the high 90s on room air. She does not have pleuritic chest pain and no history of DVT/PE so I feel no need for CTA of the chest. At this time her history and exam is consistent with a viral URI but as she is not in respiratory distress or requiring supplemental oxygen can be given symptomatic medications and discharged home History & Record Review Discussion w/independent historian: Patient and Family Radiography Diagnostic Testing: Clinical Impression(s) from Imaging Studies Chest X-Ray 12/15/22 23:23 IMPRESSION: Normal x-ray examination of the chest. Electronically Signed: Evelia Reid MD at 0:12 EST Reading Location ID and State: [facility] / [place] Tel , Service support , Chest x-ray as interpreted by the emergency medicine physician reveals no acute infiltrate pneumothorax or pleural effusion Discharge Plan Triage Chief Complaint: Shortness of Breath ED Provider: Randall Jacobs Dx/Rx/DC Orders Clinical Impression: Acute upper respiratory infection, Asthma Instructions: ED URI, Viral W/ Wheezing (Adult) Prescriptions: New azelastine 137 mcg (0.1 %) aerosol,spray 2 spray intranasal BID Qty: 30 0RF Rx Instructions: administer into each nostril benzonatate 200 mg capsule 200 mg PO TID PRN (Reason: cough) Qty: 30 0RF No Action albuterol sulfate [Ventolin HFA] 1 INHALER inhaler 2 puff inhalation Q4H PRN PRN (Reason: ASTHMA) fluticasone propionate 1 SPRAY spray,suspension 2 spray NASAL DAILY fexofenadine [Fanta Allergy] 180 MG tablet 180 mg PO DAILY levofloxacin 500 mg tablet 500 mg PO DAILY Qty: 7 0RF ondansetron 4 mg tablet,disintegrating 4 mg PO Q8H PRN (Reason: nausea and vomiting) Qty: 20 0RF famotidine [Acid Controller] 20 mg tablet 20 mg PO BID Qty: 10 0RF benzonatate 200 mg capsule 200 mg PO TID PRN (Reason: cough) Qty: 14 0RF Stand Alone Forms: ED Work / School Excuse Primary Care Provider: Jessica Randall Referrals: Jessica Randall MD [Primary Care Provider] - Activity Restrictions/Additional Instructions: Your work-up today is negative for COVID and influenza as well as pneumonia. This indicates that your congestion and cough are related to an upper respiratory infection. This is a viral infection that would typically take 18 to 21 days to resolve. Use the medication as directed to help control symptoms and return to the ER should you have any further concerns Disposition Disposition: Home, Self Care Discharge Date/Time: 12/16/22 01:53
== END 2022-12-16 01:53 | disposition home or self-care (01) ==
PROVIDERS: Emergency Provider Emergency Medicine; PCP Pediatrics; Visit Provider Emergency Medicine
DX: J06.9 Acute upper respiratory infection, unspecified (principal); J45.909 Unspecified asthma, uncomplicated; E66.9 Obesity, unspecified; Z20.822 Contact with and (suspected) exposure to COVID-19
CPT/HCPCS: 71046; 87428; 99282

== ENCOUNTER 2022-12-18 10:28 | Emergency (ER) | payer MEDICAID, SELFPAY ==
[2022-12-18 10:29] VITALS: BP 112/90; PULSE 110; RESP 18; TEMP 36.1; O2SAT 100
[2022-12-18 10:45] VITALS: BMI 37.5
--- NOTE | 2022-12-18 11:21 | ED.VIS.DYS ---
HPI History of Present Illness Chief Complaint: Shortness of Breath Informant: patient and parent Narrative Narrative: Patient is a 22-year-old female with history of asthma and recent diagnosis of URI presenting with worsening shortness of breath and now chest pain. Patient states last week she developed a very upper respiratory tract infection. She went to an urgent care and had some type of viral swab that was positive. She states it was not influenza or COVID. She was given a prescription for 5-day burst of steroids and an inhaler which she did not think helped. She has been coughing up gunk intermittently. She finished her steroids and 3 days ago came back to the ER because she felt like she was getting worse. She was seen in our emergency room and had a negative chest x-ray as well as a negative flu and COVID test. Last night she started to feel worse with her breathing and more labored just walking to the bathroom. She states is a pressure on her chest. She also had some intermittent chest pain that radiates from the center of her chest to her left arm. She states this happens more when she cannot breathe. She also developed fevers yesterday. Denies any swelling of her legs. Her maternal grandmother had a history of blood clots but patient denies history of blood clots. Patient denies any leg swelling or estrogen use. [facility] Medical History Asthma Home Medications albuterol sulfate 90 mcg/actuation aerosol inhaler (Ventolin HFA) 2 puff inhalation Q4H PRN PRN ASTHMA 12/24/13 [History Last Taken 10/12/17] fluticasone propionate 50 mcg/actuation nasal spray,suspension 2 spray DAILY 10/26/16 [History Last Taken 02/28/18] fexofenadine 180 mg tablet (Fanta Allergy) 180 mg PO DAILY ALLERGIES 10/12/17 [History Last Taken 02/28/18] famotidine 20 mg tablet (Acid Controller) 20 mg PO BID #10 tabs 09/12/22 [Rx Last Taken Unknown] levofloxacin 500 mg tablet 500 mg PO DAILY #7 tabs 09/12/22 [Rx Last Taken Unknown] ondansetron 4 mg disintegrating tablet 4 mg PO Q8H PRN nausea and vomiting #20 tabs 09/12/22 [Rx Last Taken Unknown] benzonatate 200 mg capsule 200 mg PO TID PRN cough #14 caps 09/13/22 [Rx Last Taken Unknown] azelastine 137 mcg (0.1 %) nasal spray aerosol 2 spray intranasal BID #30 mL 12/16/22 [Rx Last Taken Unknown] benzonatate 200 mg capsule 200 mg PO TID PRN cough #30 caps 12/16/22 [Rx Last Taken Unknown] doxycycline hyclate 100 mg capsule 100 mg PO BID #14 caps 12/18/22 [Rx Last Taken Unknown] prednisone 10 mg tablets in a dose pack 10 mg PO DAILY #48 tabs 12/18/22 [Rx Last Taken Unknown] Allergy/AdvReac Type Severity Reaction Status Date / Time No Known Allergies Allergy Verified 12/18/22 10:32 Surgical History History of tonsillectomy and adenoidectomy Social History household members: family Smoking Status: Never smoker substance use type: does not use ROS ROS ED Constitutional Constitutional ED: Reports chills and fever(s) Eyes Eyes: Denies blurry vision ENT ENT ED: Reports sore throat and other Details: sore throat improved ; Denies rhinorrhea Cardiovascular Cardiovascular: Reports chest pain Respiratory/Chest Respiratory/Chest: Reports cough and dyspnea Gastrointestinal Gastrointestinal: Reports nausea, vomiting and other Details: posttussive ; Denies abdominal pain Musculoskeletal Musculoskeletal: Denies arthralgias or myalgias Integumentary Denies rash Neurologic Neurologic: Denies headache(s) or weakness Psychiatric Psychiatric: Denies anxiety Hematologic/Lymphatic Hematologic/Lymphatic: Denies easy bleeding or easy bruising EXAM Physical Exam Const Vital Signs: 12/18/22 10:29 12/18/22 10:40 12/18/22 12:31 Temperature 97 F L Temperature Source Temporal Pulse Rate 110 H Respiratory Rate 18 Respiratory Effort Normal Non-Labored Respiratory Depth Normal Respiratory Pattern Normal Blood Pressure 112/90 H Blood Pressure Mean 97 Pulse Ox 100 99 Oxygen Delivery Method Room Air Room Air Room Air 12/18/22 12:32 12/18/22 12:34 12/18/22 14:04 Temperature Temperature Source Pulse Rate 102 H 109 H Respiratory Rate 21 H 20 H Respiratory Effort Normal Non-Labored Respiratory Depth Normal Respiratory Pattern Normal Blood Pressure 102/80 103/67 Blood Pressure Mean 87 79 Pulse Ox 100 98 Oxygen Delivery Method Room Air Room Air Room Air 12/18/22 14:43 Temperature Temperature Source Pulse Rate 103 H Respiratory Rate 23 H Respiratory Effort Respiratory Depth Respiratory Pattern Blood Pressure 113/67 Blood Pressure Mean Pulse Ox 98 Oxygen Delivery Method Positive well nourished and well developed General Appearance ED: well developed and NAD HEENT Reports TM's clear and moist mucous membranes HEENT Narrative: Normal oropharynx atraumatic Tympanic Membrane ED: Yes TM's clear Eyes PERRL and EOMs intact bilaterally Neck supple, no meningeal signs and no JVD Resp normal respiratory effort and clear to auscultation bilaterally Resp Narrative: No wheezing, rhonchi or rales appreciated. Harsh bronchial cough intermittently on exam Cardio regular rhythm and no murmurs Rate: tachycardic GI non-tender and non-distended Extremity normal to inspection General Extremety ED: Negative for edema General Extremity: Negative for edema Neuro oriented x3 Sensorium / Orientation: alert Motor Exam: Negative for general weakness Psych mental status grossly normal Skin no wounds Rashes: no rashes MDM MDM MDM Narrative Medical decision making narrative: CoughPatient is evaluated for continued in the setting of a diagnosis of a viral upper respiratory tract infection. She is completed a course of steroids and is using albuterol at home but feels more short of breath especially at night. She is also now felt pressure in her chest. She has been off steroids for 5 days. She did have a negative chest x-ray yesterday. Patient states she previously had an outpatient nasal swab that diagnosed her viral illness however I do not see any encounters on [facility] or in our EMR to show this. Patient is tachycardic in the ER but has no other risk factors for pulmonary emboli. She is otherwise low risk. D-dimer is obtained which is 0.45, below the cutoff, so she does not require a CT PE and a feeling this effectively rules out a PE. She has a very mild leukocytosis of 13.0 which is nonspecific. She is a mild anemia of 11.9 which is again nonspecific does not explain her symptomatology. Troponin is negative, TSH is normal at 2.81 and she is a normal BMP. Chest x-ray obtained which is reviewed by myself as well as radiology as no acute process. Patient expresses concern since her symptoms are so bad night and wonders if she should be admitted to the hospital for further evaluation. Patient is counseled that likely this is a bronchitis which typically is worse in the evenings. She is ambulated with no hypoxia. At this time she does not meet any admission criteria. Patient is counseled this and agreeable. Due to her new onset of fever I will cover her with antibiotics (doxycycline) and also restart her on steroids. Patient has Tesradha Carrasco at home. Is counseled to continue to use [id number] medications such as Mucinex and Tylenol Cold and flu. She verbalizes agreement understand this plan. She is given return precautions. Discharged home in stable condition. Lab Data Attestation: I reviewed the patient's lab results. Labs: Laboratory Results - last 24 hr 12/18/22 12/18/22 12/18/22 11:35 11:35 11:35 WBC 13.0 H RBC 4.51 Hgb 11.9 L Hct 38.2 MCV 84.7 MCH 26.4 L MCHC 31.2 L RDW Std Deviation 48.2 H RDW Coeff of Daniel 15.5 H Plt Count 310 MPV 9.3 Immature Gran % (Auto) 0.600 Neut % (Auto) 78.5 H Lymph % (Auto) 13.0 L Rooks % (Auto) 6.5 Eos % (Auto) 1.2 Baso % (Auto) 0.2 Absolute Neuts (auto) 10.2 H Absolute Lymphs (auto) 1.68 Nucleated RBC % 0 D-Dimer Quant (PE/DVT) 0.45 Sodium 141 Potassium 4.0 Chloride 109 H Carbon Dioxide 25.0 Anion Gap 7 BUN 6 L Creatinine 0.65 Estim Creat Clear Calc 124.23 Est GFR (MDRD) Af Amer 150 Est GFR (MDRD) Non-Af 124 BUN/Creatinine Ratio 9.3 L Glucose 96 Calcium 9.1 Troponin I High Sens < 3 L TSH 2.81 Urine Test 12/18/22 13:06 WBC RBC Hgb Hct MCV MCH MCHC RDW Std Deviation RDW Coeff of Daniel Plt Count MPV Immature Gran % (Auto) Neut % (Auto) Lymph % (Auto) Rooks % (Auto) Eos % (Auto) Baso % (Auto) Absolute Neuts (auto) Absolute Lymphs (auto) Nucleated RBC % D-Dimer Quant (PE/DVT) Sodium Potassium Chloride Carbon Dioxide Anion Gap BUN Creatinine Estim Creat Clear Calc Est GFR (MDRD) Af Amer Est GFR (MDRD) Non-Af BUN/Creatinine Ratio Glucose Calcium Troponin I High Sens TSH Urine Test Negative Radiography Diagnostic Testing: Clinical Impression(s) from Imaging Studies Chest X-Ray 12/18/22 12:52 IMPRESSION: No radiographic evidence of acute cardiopulmonary disease. Electronically Signed: Chilango English MD at 13:06 EST , Rhythm Strip Rhythm Strip: Sinus Tach Rate: 106 Ectopy: None EKG Initial EKG: Attestation: I personally reviewed and interpreted this EKG as follows: Interpretation: Sinus Tachycardia Comments: Sinus tachycardia rate of 106 bpm Normal axis Normal intervals Normal ST segments Compared to prior EKG on 02/01/2019 patient is not tachycardic with no other acute changes Differential Diagnosis Chest pain/SOB: pulmonary embolism Reason(s) PE less likely: Positive for Well's <3 and D-Dimer negative, ACS ACS: Positive for no evidence of ACS based on cardiac biomarkers, EKG without ischemia and history not suggestive of ischemia pain, pneumothorax Reason(s) pneumothorax less likely: Positive for bilateral breath sounds and [employer] withhout PTX and pneumonia Reason(s) pneumonia less likely: Positive for no infiltrate on CXR Discharge Plan Triage Chief Complaint: Shortness of Breath ED Provider: Palak Jeffries Dx/Rx/DC Orders Clinical Impression: Acute upper respiratory infection, Bronchitis Instructions: ED Bronchitis with Wheezing (Adult) Prescriptions: New doxycycline hyclate 100 mg capsule 100 mg PO BID Qty: 14 0RF prednisone 10 mg tablets,dose pack 10 mg PO DAILY Qty: 48 0RF Rx Instructions: taper pack No Action albuterol sulfate [Ventolin HFA] 1 INHALER inhaler 2 puff inhalation Q4H PRN PRN (Reason: ASTHMA) fluticasone propionate 1 SPRAY spray,suspension 2 spray NASAL DAILY fexofenadine [Fanta Allergy] 180 MG tablet 180 mg PO DAILY levofloxacin 500 mg tablet 500 mg PO DAILY Qty: 7 0RF ondansetron 4 mg tablet,disintegrating 4 mg PO Q8H PRN (Reason: nausea and vomiting) Qty: 20 0RF famotidine [Acid Controller] 20 mg tablet 20 mg PO BID Qty: 10 0RF benzonatate 200 mg capsule 200 mg PO TID PRN (Reason: cough) Qty: 14 0RF azelastine 137 mcg (0.1 %) aerosol,spray 2 spray intranasal BID Qty: 30 0RF Rx Instructions: administer into each nostril benzonatate 200 mg capsule 200 mg PO TID PRN (Reason: cough) Qty: 30 0RF Primary Care Provider: Jessica Randall Referrals: Jessica Randall MD [Primary Care Provider] - Activity Restrictions/Additional Instructions: Your chest x-ray does not show signs of pneumonia. Your cardiac work-up is normal with no signs of heart stress. You do not have signs of a blood clot on your lungs. I suspect you have bronchitis which is continuing to cause your symptoms. It is possible he could be developing pneumonia given your fever yesterday. Your white blood cell count is minimally elevated at 13 which is nonspecific given your recent steroid course. I will place you back on a taper of steroids and start you on antibiotics. Continue using your nebulizer machine. Continue taking Tessalon Perles as well as [id number] cold and flu medicines. I recommend getting a home pulse oximeter to check your oxygen and make sure it is staying above 90%. Disposition Disposition: Home, Self Care Discharge Date/Time: 12/18/22 15:59
[2022-12-18 11:45] LABS: Absolute Lymphocyte Count 1.68 X10^3/uL (0.83-4.51); Absolute Neutrophil Count 10.2 X10^3/uL (2.0-7.7); Basophil# 0.03 X10^3/uL; Basophil% 0.2 % (0-1); Eosinophil# 0.15 X10^3/uL; Eosinophils% 1.2 % (0-5); Hematocrit 38.2 % (37-47); Hemoglobin 11.9 g/dL (12.0-15.0); Lymphocyte # 1.68 X10^3/ul (0.83-4.51); Mean Corp Hgb Conc 31.2 g/dL (32-36); Mean Corpuscular Hgb 26.4 pg (27.0-32.0); Mean Corpuscular Volume 84.7 fL (81-99); Mean Platelet Vol. 9.3 fl (6.2-12.0); Monocyte# 0.84 X10^3/uL; Monocyte% 6.5 % (0-10); NRBC Flagged by Analyzer 0 % (0-5); Neutrophil # 10.18 X10^3/uL (2.7-7.7); Neutrophil % 78.5 % (47-70); Platelet Count 310 K/mm3 (150-450); RBC Distribution Width CV 15.5 % (11.6-14.6); RBC Distribution Width SD 48.2 fl (35.1-43.9); Red Blood Count 4.51 M/mm3 (4.2-5.4)
[2022-12-18 12:06] LABS: D-Dimer Quantitative (DVT/PE) 0.45 FEU/ug/m (0.27-0.49)
[2022-12-18 12:07] LABS: Anion Gap 7 (5-15); BUN 6 mg/dL (7-18); BUN/Creat Ratio 9.3 RATIO (10-20); Calcium,Total 9.1 mg/dL (8.5-10.1); Chloride 109 mmol/L (98-107); Creatinine, Serum 0.65 mg/dL (0.55-1.02); EST Glomerular Filtration Rate 124 mL/min (>60); Est Glom Filt Rate - Afr Amer 150 mL/min (>60); Estimated Creatinine Clearance 124.23 ml/min; Glucose 96 mg/dL (74-106); Sodium Level 141 mmol/L (136-145); Thyroid Stim Hormone (TSH) 2.81 uIU/mL (0.358-3.74); Troponin-I HS < 3 pg/mL (3.0-54.0)
[2022-12-18 12:31] VITALS: O2SAT 99
[2022-12-18 12:32] VITALS: BP 102/80; PULSE 102; RESP 21; O2SAT 100
[2022-12-18 12:34] VITALS: O2SAT 100
--- NOTE | 2022-12-18 12:52 | RAD_ITS ---
INDICATION: Shortness of breath. EXAMINATION/TECHNIQUE: X-RAY - XR Chest 2 Views COMPARISON: 12/15/2022. FINDINGS: LINES/DEVICES: None. LUNGS: No consolidation, edema or effusion. No pneumothorax. MEDIASTINUM AND CARDIOVASCULAR STRUCTURES: Cardiac silhouette not enlarged. Central airways and mediastinal contour are unremarkable. BONES AND SOFT TISSUES: No demonstrated acute osseous changes. RAD/Chest PA and Lateral IMPRESSION: No radiographic evidence of acute cardiopulmonary disease. Electronically Signed: Chilango English MD at 13:06 EST ,
[2022-12-18 13:39] LABS: Internal QC Validated? YES +Cl - CLEAR BKGD; Pregnancy, Urine Negative Negative
[2022-12-18 14:04] VITALS: BP 103/67; PULSE 109; RESP 20; O2SAT 98
[2022-12-18 14:43] VITALS: BP 113/67; PULSE 103; RESP 23; O2SAT 98
--- NOTE | 2022-12-18 15:10 | ED.RN ---
PER DR. ZHU, VERBAL ORDER, HOME PULSE OX PROVIDED TO PT BY RESPIRATORY THERAPY.
== END 2022-12-18 15:59 | disposition home or self-care (01) ==
PROVIDERS: Emergency Provider Emergency Medicine; PCP Pediatrics; Visit Provider Emergency Medicine
DX: J06.9 Acute upper respiratory infection, unspecified (principal); J45.909 Unspecified asthma, uncomplicated; Z79.52 Long term (current) use of systemic steroids; Z20.822 Contact with and (suspected) exposure to COVID-19
CPT/HCPCS: 71046; 80048; 81025; 84443; 84484; 85025; 85379; 93005; 99285; A4216

== ENCOUNTER 2023-03-02 15:32 | Emergency (ER) | payer OTHER, MEDICAID, SELFPAY ==
[2023-03-02 15:33] VITALS: BP 122/87; PULSE 118; RESP 18; TEMP 36; O2SAT 98; BMI 35.4
--- NOTE | 2023-03-02 15:40 | ED.RN ---
LEFT MESSAGE FOR MANUEL AT [phone] AT [facility]. NO ANSWER AT THIS TIME. GAVE CALLBACK NUMBER
--- NOTE | 2023-03-02 15:50 | EX.ED.UPPERE ---
HPI History of Present Illness Chief Complaint: Upper Extremity Injury Informant: patient Occured/Mechanism Mechanism/Context: Yes injury Onset/Context/Timing Onset: Today Narrative Narrative: Patient presents secondary to right thumb injury. She is [id number]. She was sitting on the floor today at work and when she pushed off to stand up she felt a popping sensation in her right thumb. She has pain around the MCP joint. She reports intermittent paresthesias with arm position. She denies pain at the elbow or shoulder. [facility] Medical History Asthma Home Medications albuterol sulfate 90 mcg/actuation aerosol inhaler (Ventolin HFA) 2 puff inhalation Q4H PRN PRN ASTHMA 12/24/13 [History Last Taken 10/12/17] fluticasone propionate 50 mcg/actuation nasal spray,suspension 2 spray DAILY 10/26/16 [History Last Taken 02/28/18] fexofenadine 180 mg tablet (Fanta Allergy) 180 mg PO DAILY ALLERGIES 10/12/17 [History Last Taken 02/28/18] famotidine 20 mg tablet (Acid Controller) 20 mg PO BID #10 tabs 09/12/22 [Rx Last Taken Unknown] levofloxacin 500 mg tablet 500 mg PO DAILY #7 tabs 09/12/22 [Rx Last Taken Unknown] ondansetron 4 mg disintegrating tablet 4 mg PO Q8H PRN nausea and vomiting #20 tabs 09/12/22 [Rx Last Taken Unknown] benzonatate 200 mg capsule 200 mg PO TID PRN cough #14 caps 09/13/22 [Rx Last Taken Unknown] azelastine 137 mcg (0.1 %) nasal spray aerosol 2 spray intranasal BID #30 mL 12/16/22 [Rx Last Taken Unknown] benzonatate 200 mg capsule 200 mg PO TID PRN cough #30 caps 12/16/22 [Rx Last Taken Unknown] doxycycline hyclate 100 mg capsule 100 mg PO BID #14 caps 12/18/22 [Rx Last Taken Unknown] prednisone 10 mg tablets in a dose pack 10 mg PO DAILY #48 tabs 12/18/22 [Rx Last Taken Unknown] naproxen 500 mg tablet (Naprosyn) 500 mg PO BID PRN pain #20 tabs 03/02/23 [Rx Last Taken Unknown] Allergy/AdvReac Type Severity Reaction Status Date / Time No Known Allergies Allergy Verified 03/02/23 15:36 Surgical History History of tonsillectomy and adenoidectomy Social History household members: family Smoking Status: Never smoker substance use type: does not use ROS ROS ED Constitutional Constitutional ED: Denies chills or fever(s) Eyes Eyes: Denies change in vision ENT ENT ED: Denies sore throat Cardiovascular Cardiovascular: Denies chest pain Respiratory/Chest Respiratory/Chest: Denies cough or dyspnea Gastrointestinal Gastrointestinal: Denies abdominal pain, nausea or vomiting Musculoskeletal Musculoskeletal: Reports extremity pain; Denies back pain or neck pain Integumentary Denies Abrasions or rash Neurologic Neurologic: Reports paresthesias and weakness; Denies headache(s) Psychiatric Psychiatric: Denies anxiety or depression Allergic/Immunologic Allergic/Immunologic ED: Denies lip swelling or urticaria EXAM Physical Exam Const Vital Signs: 03/02/23 15:33 Temperature 96.8 F L Temperature Source Temporal Pulse Rate 118 H Respiratory Rate 18 Blood Pressure 122/87 H Blood Pressure Mean 98 Pulse Ox 98 Oxygen Delivery Method Room Air Positive well nourished and well developed General Appearance ED: well developed HEENT Reports normocephalic and head/scalp atraumatic Eyes EOMs intact bilaterally Neck supple Chest Wall inspection of chest normal Resp normal respiratory effort Cardio regular rate and regular rhythm Extremity Extremity Narrative: Tenderness palpation along the proximal right thumb and over the first metacarpal bone. No significant edema, erythema, ecchymosis. Good cap refill and sensation distally. Decreased range of motion secondary to pain. Neuro oriented x3 and no sensory deficits noted Sensorium / Orientation: alert Psych mental status grossly normal Skin no rashes or lesions noted MDM MDM MDM Narrative Medical decision making narrative: Right hand x-rays obtained to evaluate for fracture. Treatment and Re-Evaluation Narrative: Right hand x-ray per my interpretation reveals no obvious fracture. Radiology interpretation is reviewed and agrees. Patient will be placed in a thumb spica splint. Prescription for Naprosyn will be sent to the pharmacy. Discharge Plan Triage Chief Complaint: Upper Extremity Injury ED Provider: Tala Germain Dx/Rx/DC Orders Clinical Impression: Sprain of hand, thumb, right Instructions: ED Finger Sprain Prescriptions: New naproxen [Naprosyn] 500 mg tablet 500 mg PO BID PRN (Reason: pain) Qty: 20 0RF No Action albuterol sulfate [Ventolin HFA] 1 INHALER inhaler 2 puff inhalation Q4H PRN PRN (Reason: ASTHMA) fluticasone propionate 1 SPRAY spray,suspension 2 spray NASAL DAILY fexofenadine [Fanta Allergy] 180 MG tablet 180 mg PO DAILY levofloxacin 500 mg tablet 500 mg PO DAILY Qty: 7 0RF ondansetron 4 mg tablet,disintegrating 4 mg PO Q8H PRN (Reason: nausea and vomiting) Qty: 20 0RF famotidine [Acid Controller] 20 mg tablet 20 mg PO BID Qty: 10 0RF benzonatate 200 mg capsule 200 mg PO TID PRN (Reason: cough) Qty: 14 0RF azelastine 137 mcg (0.1 %) aerosol,spray 2 spray intranasal BID Qty: 30 0RF Rx Instructions: administer into each nostril benzonatate 200 mg capsule 200 mg PO TID PRN (Reason: cough) Qty: 30 0RF doxycycline hyclate 100 mg capsule 100 mg PO BID Qty: 14 0RF prednisone 10 mg tablets,dose pack 10 mg PO DAILY Qty: 48 0RF Rx Instructions: taper pack Stand Alone Forms: Work Status Form Primary Care Provider: Jessica Randall Referrals: [facility]Group of Physicians] - 3-5 Days Jessica Randall MD [Primary Care Provider] - Disposition Disposition: Home, Self Care
--- NOTE | 2023-03-02 15:52 | RAD_ITS ---
STUDY: X-RAY - RIGHT HAND REASON FOR EXAM: Female, 22 years old. injury TECHNIQUE: 3 view(s) of the hand. COMPARISON: None. FINDINGS: Normal radiocarpal articulation. Normal distal radioulnar joint. Normal visualized carpal bones. Normal carpal articulations Normal carpometacarpal articulation of the thumb. Normal second through fifth carpometacarpal joints. Normal metacarpi. Normal metacarpophalangeal joint of the thumb. Normal interphalangeal joint of the thumb. Normal proximal and distal phalanges of the thumb. Normal metacarpophalangeal joints of the second through fifth fingers. Normal proximal and distal interphalangeal joints of the second through fifth fingers. Normal phalanges of the second through fifth fingers. The soft tissue structures are unremarkable. RAD/Hand Min 3 Views IMPRESSION: Normal x-ray examination of the hand. Electronically Signed: Paul Segundo MD at 16:09 EDT ,
== END 2023-03-02 16:45 | disposition home or self-care (01) ==
PROVIDERS: Emergency Provider Emergency Medicine; PCP Pediatrics; Visit Provider Emergency Medicine
DX: S63.601A Unspecified sprain of right thumb, initial encounter (principal); R20.2 Paresthesia of skin; J45.909 Unspecified asthma, uncomplicated; X50.9XXA Other and unspecified overexertion or strenuous movements or postures, initial encounter
CPT/HCPCS: 73130; 99283

== ENCOUNTER 2023-04-12 18:26 | Emergency (ER) | payer MEDICAID, SELFPAY ==
[2023-04-12 18:27] VITALS: BP 114/78; PULSE 132; RESP 18; TEMP 36.7; O2SAT 98; BMI 35.9
--- NOTE | 2023-04-12 18:43 | ED.VIS.DYS ---
HPI History of Present Illness Chief Complaint: Shortness of Breath [facility] Medical History Asthma Home Medications albuterol sulfate 90 mcg/actuation aerosol inhaler (Ventolin HFA) 2 puff inhalation Q4H PRN PRN ASTHMA 12/24/13 [History Last Taken 10/12/17] fluticasone propionate 50 mcg/actuation nasal spray,suspension 2 spray DAILY 10/26/16 [History Last Taken 02/28/18] fexofenadine 180 mg tablet (Fanta Allergy) 180 mg PO DAILY ALLERGIES 10/12/17 [History Last Taken 02/28/18] famotidine 20 mg tablet (Acid Controller) 20 mg PO BID #10 tabs 09/12/22 [Rx Last Taken Unknown] levofloxacin 500 mg tablet 500 mg PO DAILY #7 tabs 09/12/22 [Rx Last Taken Unknown] ondansetron 4 mg disintegrating tablet 4 mg PO Q8H PRN nausea and vomiting #20 tabs 09/12/22 [Rx Last Taken Unknown] benzonatate 200 mg capsule 200 mg PO TID PRN cough #14 caps 09/13/22 [Rx Last Taken Unknown] azelastine 137 mcg (0.1 %) nasal spray aerosol 2 spray intranasal BID #30 mL 12/16/22 [Rx Last Taken Unknown] benzonatate 200 mg capsule 200 mg PO TID PRN cough #30 caps 12/16/22 [Rx Last Taken Unknown] doxycycline hyclate 100 mg capsule 100 mg PO BID #14 caps 12/18/22 [Rx Last Taken Unknown] prednisone 10 mg tablets in a dose pack 10 mg PO DAILY #48 tabs 12/18/22 [Rx Last Taken Unknown] naproxen 500 mg tablet (Naprosyn) 500 mg PO BID PRN pain #20 tabs 03/02/23 [Rx Last Taken Unknown] Allergy/AdvReac Type Severity Reaction Status Date / Time No Known Allergies Allergy Verified 03/02/23 15:36 Surgical History History of tonsillectomy and adenoidectomy Social History household members: family Smoking Status: Never smoker substance use type: does not use EXAM Physical Exam Const Vital Signs: 04/12/23 18:27 04/12/23 19:19 04/12/23 19:19 Temperature 98.1 F Temperature Source Temporal Pulse Rate 132 H Respiratory Rate 18 Respiratory Effort Short of Breath Respiratory Pattern Normal Blood Pressure 114/78 Blood Pressure Mean 90 Pulse Ox 98 97 Oxygen Delivery Method Room Air Room Air 04/12/23 19:22 04/12/23 20:30 Temperature Temperature Source Pulse Rate 131 H 124 H Respiratory Rate 18 20 H Respiratory Effort Respiratory Pattern Normal Blood Pressure 100/74 Blood Pressure Mean 82 Pulse Ox 98 Oxygen Delivery Method Room Air MDM MDM MDM Narrative Medical decision making narrative: HISTORY OF PRESENT ILLNESS: 22-year-old female here with shortness of breath. Notes cute onset of chest pain approximate 45 minutes prior to arrival. States the pain is midsternal. Is not pleuritic. It is not exertional. States he was walking a parade earlier today. States has history of asthma. She denies any recent illness. The patient denies recent surgery in the last 4 weeks or immobilization in the last 3 days, denies previous diagnosis of DVT or PE, hemoptysis, unilateral leg swelling or malignancy with treatment the last 6 months. No estrogen use noted. Patient denies sudden onset of pain, no tearing sensation, no migratory symptoms, no new numbness, weakness or loss of sensation. Patient denies family history or personal history of Marfan syndrome or Petra-Danlos REVIEW OF SYSTEMS: Pertinent positives: Chest pain, shortness of breath Pertinent negatives: Syncope, focal weakness, lower extremity edema PHYSICAL EXAM: Nursing triage notes reviewed, Vital signs reviewed Constitutional: please see mdm HENT: MMM Eyes: Pupils equal round and reactive to light, Extraocular muscles intact Neck: No stridor, no JVD, full neck ROM Lungs: Clear to auscultation, No wheezing or rales. No increased work of breathing, no conversational dyspnea, no accessory muscle use, no nasal flaring. No respiratory distress noted Heart: Regular rate and rhythm, No murmurs, No rubs and No gallops, 2+ distal pulses (radial, femoral, posterior tibial) in all extremities Abdomen: Soft, there is no tenderness, rigidity, rebound or guarding, no obvious peritoneal signs, no palpable pulsatile abdominal masses, no auscultated abdominal bruit : No CVAT Extremities: No edema Neuro: No focal neurological deficits, cranial nerves II through XII intact, 5/5 strength in all extremities. Intact sensation to light touch in all extremities, 2+ reflexes bilateral patella tendons. Normal gait. No ataxia. Skin: No rash or lesions noted MEDICAL DECISION MAKING: Chief Complaint: Chest pain, shortness of breath External records reviewed: Seen in December 2022 for shortness of breath, chest pain. Had a broad work-up at that time including D-dimer troponin chest x-ray Labs TSH. Negative work-up. Discharged with a diagnosis of bronchitis Factors affecting care: Asthma Social determinants of health: Patient is a non-smoker History obtained from others: The patient's mom Consults: none ALL IMAGES (IF OBTAINED) HAVE BEEN PERSONALLY REVIEWED AND INTERPRETED BY MYSELF. Initial EKG with sinus tachycardia, normal axis, normal intervals, no STEMI CBC with leukocytosis downtrending from prior, no severe anemia or thrombocytopenia BMP without evidence of significant electrolyte abnormalities, no anion gap, no acute kidney injury. D-dimer negative making VTE less likely Troponin negative x2 Urine test is negative BNP within normal limits MDM Narrative: Patient was hemodynamically stable, afebrile, nontoxic-appearing. Exam without focal lung findings. No stigmata of VTE. I considered the following differential diagnosis: ACS, arrhythmia, anemia, pneumonia, PE I considered pulmonary embolism however the patient low risk Wells score despite initial tachycardia. Low suspicion for VTE at this time. I obtained a broad lab and imaging work-up to further elucidate the etiology of the patient complaints. Labs images remarkable for no evidence of myocardial ischemia, VTE, anemia, there is evidence of elevation in white blood cell count however this is downtrending from prior. EKG was nonischemic. Chest x-ray without evidence of pneumonia or heart failure. No clear etiology to explain the patient's symptoms. She was noted to be persistently tachycardic (prior ED visits patient was also tachycardic). We discussed ongoing ED evaluation, IV fluids, possible admission however patient refused. She is alert and orient x3, the patient displayed capacity to make her medical decisions. In the presence of her mother she refused admission at this time and decided to be discharged with instructions to take oral fluids and follow with her primary care physician for further outpatient evaluation. The patient and/or family, caregivers express understanding. The patient and/or family, caregivers agrees with the plan. I completed a HEART Score to screen for Major Adverse Cardiac Event (MACE) in this patient. The evidence indicates that the patient is very low risk for MACE and this is consistent with my clinical intuition. The risk of further workup or hospitalization for MACE is likely higher than the risk of the patient having a MACE. It is, therefore, in the patient?s best interest not to do additional emergent testing or to be hospitalized for MACE at this time. Shared Decision-Making No hospitalization indicated I have discussed with the patient my clinical impression and the result of the HEART Score to screen for MACE, as well as the risks of further testing and hospitalization. The HEART Score shows that the risk for MACE is less than 1%. Although the risk of MACE has not been completely eliminated, the risks of further testing or hospitalization for MACE likely exceed any potential benefit, and the patient agrees with not pursuing further emergent evaluation or hospitalization for MACE at this time. Total critical care time today provided was at least 0 minutes. This excludes separately billable procedures. Critical care time (if documented) is secondary to the patient having high probability of clinically significant/life threatening deterioration in the patient's condition which required my urgent intervention. Lab Data Attestation: I reviewed the patient's lab results. Labs: Laboratory Results - last 24 hr 04/12/23 04/12/23 04/12/23 19:06 20:20 21:43 WBC 15.6 H RBC 4.48 Hgb 12.0 Hct 38.2 MCV 85.3 MCH 26.8 L MCHC 31.4 L RDW Std Deviation 45.5 H RDW Coeff of Daniel 14.6 Plt Count 317 MPV 10.0 Immature Gran % (Auto) 0.300 Neut % (Auto) 81.5 H Lymph % (Auto) 11.9 L [place] % (Auto) 5.6 Eos % (Auto) 0.4 Baso % (Auto) 0.3 Absolute Neuts (auto) 12.7 H Absolute Lymphs (auto) 1.86 Nucleated RBC % 0 D-Dimer Quant (PE/DVT) 0.44 Sodium 137 Potassium 3.8 Chloride 107 Carbon Dioxide 25.0 Anion Gap 5 BUN 9 Creatinine 0.78 Estim Creat Clear Calc 103.53 Est GFR (MDRD) Af Amer 120 Est GFR (MDRD) Non-Af 100 BUN/Creatinine Ratio 11.5 Glucose 83 Calcium 8.9 Troponin I High Sens 10 15 B-Natriuretic Peptide 14.1 Urine Test Negative Radiography Chest X-Ray - ED: Read by ED Physician Diagnostic Testing: Clinical Impression(s) from Imaging Studies Chest X-Ray 04/12/23 19:15 IMPRESSION: No acute disease Electronically Signed: Randall Baum MD at 20:06 EDT Reading Location ID and State: [facility] / MD Tel , Service support , I have personally reviewed the patient's chest x-ray. Chest x-ray is unremarkable for pulmonary edema, pneumothorax, pneumonia or focal cardiopulmonary abnormality. Discharge Plan Triage Chief Complaint: Shortness of Breath ED Provider: Tom Hein Dx/Rx/DC Orders Clinical Impression: Chest pain, Shortness of breath, Tachycardia Instructions: ED Chest Pain, Uncertain Cause, ED Dyspnea Prescriptions: No Action albuterol sulfate [Ventolin HFA] 1 INHALER inhaler 2 puff inhalation Q4H PRN PRN (Reason: ASTHMA) fluticasone propionate 1 SPRAY spray,suspension 2 spray NASAL DAILY fexofenadine [Fanta Allergy] 180 MG tablet 180 mg PO DAILY levofloxacin 500 mg tablet 500 mg PO DAILY Qty: 7 0RF ondansetron 4 mg tablet,disintegrating 4 mg PO Q8H PRN (Reason: nausea and vomiting) Qty: 20 0RF famotidine [Acid Controller] 20 mg tablet 20 mg PO BID Qty: 10 0RF benzonatate 200 mg capsule 200 mg PO TID PRN (Reason: cough) Qty: 14 0RF azelastine 137 mcg (0.1 %) aerosol,spray 2 spray intranasal BID Qty: 30 0RF Rx Instructions: administer into each nostril benzonatate 200 mg capsule 200 mg PO TID PRN (Reason: cough) Qty: 30 0RF doxycycline hyclate 100 mg capsule 100 mg PO BID Qty: 14 0RF prednisone 10 mg tablets,dose pack 10 mg PO DAILY Qty: 48 0RF Rx Instructions: taper pack naproxen [Naprosyn] 500 mg tablet 500 mg PO BID PRN (Reason: pain) Qty: 20 0RF Primary Care Provider: Jessica Randall Referrals: Jessica Randall MD [Primary Care Provider] - Activity Restrictions/Additional Instructions: Thank you for trusting us with your care today! Please take Tylenol (2 pills, 650 mg), ibuprofen (2 pills, 400 mg) every 6 hours as needed for pain and fever control. Please return to the emergency department if your symptoms change or worsen. Specifically if you develop chest pain, you lose conscious, worsening shortness of breath, blue discoloration of your skin. Please follow with your primary care physician for further outpatient evaluation and management. Disposition Disposition: Home, Self Care Discharge Date/Time: 04/12/23 22:42
--- NOTE | 2023-04-12 19:00 | EKG12_ITS ---
Test Reason : DYSRHYTHMIA Blood Pressure : / mmHG Vent. Rate : 122 BPM Atrial Rate : 122 BPM P-R Int : 148 ms QRS Dur : 088 ms QT Int : 294 ms P-R-T Axes : 020 047 010 degrees QTc Int : 418 ms Sinus tachycardia Otherwise normal ECG When compared with ECG of 18-DEC-2022 11:20, T wave inversion now evident in Inferior leads Confirmed by DYLLAN CUI, JODI ([id number]), manuscript editor DIRK GOLDSTEIN ([id number]) on 04/15/2023 8:57:41 AM Referred By: MAXIM Confirmed By:JODI MIJARES MD
--- NOTE | 2023-04-12 19:15 | RAD_ITS ---
EXAM: XR CHEST, 1 VIEW CLINICAL INDICATION: chest pain TECHNIQUE: Frontal view of the chest. COMPARISON: No relevant prior studies available. FINDINGS: LUNGS AND PLEURAL SPACES: Mild subsegmental atelectasis at the left lower lobe. No pneumothorax. No effusion. HEART: Unremarkable. Cardiac silhouette not enlarged. MEDIASTINUM: Central airways and mediastinal contour are unremarkable. BONES/JOINTS: Unremarkable. SOFT TISSUES: Unremarkable. RAD/Chest 1 View (Portable) IMPRESSION: No acute disease Electronically Signed: Randall Baum MD at 20:06 EDT ,
[2023-04-12 19:19] VITALS: O2SAT 97
[2023-04-12 19:22] VITALS: PULSE 131; RESP 18
[2023-04-12] MEDS: Albuterol 2.5 MG/3 ML VIAL.NEB. INHALATION (19:22)
[2023-04-12] MEDS: 0.9% Normal Saline 1,000 ML 999 ML IV (19:52)
[2023-04-12 20:12] LABS: Absolute Lymphocyte Count 1.86 X10^3/uL (0.83-4.51); Absolute Neutrophil Count 12.7 X10^3/uL (2.0-7.7); Basophil# 0.05 X10^3/uL; Basophil% 0.3 % (0-1); Eosinophil# 0.06 X10^3/uL; Eosinophils% 0.4 % (0-5); Hematocrit 38.2 % (37-47); Lymphocyte # 1.86 X10^3/ul (0.83-4.51); Lymphocyte % 11.9 % (19-41); Mean Corp Hgb Conc 31.4 g/dL (32-36); Mean Corpuscular Hgb 26.8 pg (27.0-32.0); Mean Corpuscular Volume 85.3 fL (81-99); Monocyte# 0.88 X10^3/uL; Monocyte% 5.6 % (0-10); NRBC Flagged by Analyzer 0 % (0-5); Neutrophil # 12.69 X10^3/uL (2.7-7.7); Neutrophil % 81.5 % (47-70); Platelet Count 317 K/mm3 (150-450); RBC Distribution Width CV 14.6 % (11.6-14.6); RBC Distribution Width SD 45.5 fl (35.1-43.9); Red Blood Count 4.48 M/mm3 (4.2-5.4); White Blood Count 15.6 K/mm3 (4.4-11.0)
[2023-04-12 20:21] LABS: D-Dimer Quantitative (DVT/PE) 0.44 FEU/ug/m (0.27-0.49)
[2023-04-12 20:29] LABS: Anion Gap 5 (5-15); BUN 9 mg/dL (7-18); BUN/Creat Ratio 11.5 RATIO (10-20); Calcium,Total 8.9 mg/dL (8.5-10.1); Chloride 107 mmol/L (98-107); Creatinine, Serum 0.78 mg/dL (0.55-1.02); EST Glomerular Filtration Rate 100 mL/min (>60); Est Glom Filt Rate - Afr Amer 120 mL/min (>60); Estimated Creatinine Clearance 103.53 ml/min; Glucose 83 mg/dL (74-106); Potassium 3.8 mmol/L (3.5-5.1); Sodium Level 137 mmol/L (136-145); Troponin-I HS 10 pg/mL (3.0-54.0); Troponin-I HS (w/2H Reflex) 10 pg/mL (3.0-54.0)
[2023-04-12 20:30] VITALS: BP 100/74; PULSE 124; RESP 20; O2SAT 98
[2023-04-12 20:30] LABS: Internal QC Validated? YES +Cl - CLEAR BKGD; Pregnancy, Urine Negative Negative
[2023-04-12 20:37] LABS: BNP,B-Type NATRIURETIC PEPTIDE 14.1 pg/mL (0-100)
[2023-04-12 21:17] LABS: Reflex Troponin-HS? (from REC) Y
[2023-04-12 22:25] LABS: Troponin-I HS 15 pg/mL (3.0-54.0)
[2023-04-12 22:41] VITALS: BP 122/72; PULSE 115; RESP 18; O2SAT 98
== END 2023-04-12 22:42 | disposition home or self-care (01) ==
PROVIDERS: Emergency Provider Emergency Medicine; PCP Pediatrics; Visit Provider Emergency Medicine
DX: R07.9 Chest pain, unspecified (principal); J45.909 Unspecified asthma, uncomplicated; R00.0 Tachycardia, unspecified; R06.02 Shortness of breath
CPT/HCPCS: 71045; 80048; 81025; 83880; 84484; 85025; 85379; 93005; 94640; 96360; 99284; J7030; A4216

== ENCOUNTER 2023-05-01 16:15 | Emergency (ER) | payer MEDICAID, SELFPAY ==
[2023-05-01 16:17] VITALS: BP 116/73; PULSE 91; RESP 18; TEMP 36.8; O2SAT 100; BMI 33.8
--- NOTE | 2023-05-01 16:28 | CT_ITS ---
INDICATION: lower abd pain EXAMINATION: CT ABDOMEN AND PELVIS with CONTRAST - CT Abdomen And Pelvis W/ Contrast Injection TECHNIQUE: Multiple axial images were obtained of the abdomen and pelvis following administration of IV contrast. Planar reconstructions obtained. A radiation dose optimization technique was used for this scan. RADIATION DOSAGE (If Supplied By Facility): CTDIvol = ( 17.91 ) mGy, DLP = ( 1210.58 ) mGycm IV Contrast dosage and agent: 100 mL Isovue 300 Oral contrast: None. COMPARISON: No pertinent previous studies for comparison.. FINDINGS: LOWER THORAX: Minimal atelectasis at the lung bases, no consolidation, no effusion. Cardiac contour is normal, no pericardial effusion. No coronary vascular calcifications noted. HEPATOBILIARY: Liver: The liver is homogeneous and shows no evidence of focal lesion. Diffuse hepatic steatosis noted. Gallbladder: The gallbladder is unremarkable. Pancreas: Pancreas is normal size configuration and density. No mass is noted. Spleen: The spleen is homogeneous and normal in size. . BOWEL: Stomach: The stomach is normal in size configuration, no evidence of focal masses, abnormal calcifications. No hiatal hernia noted. Bowel: Small and large have normal configuration, no masses or bowel obstruction noted. Appendix: The visualized appendix has normal appearance.: GENITOURINARY: Adrenals: Both adrenal glands are normal in size. Kidneys: Kidneys appear symmetric in size. No calcifications are seen in the collecting system. There is no hydronephrosis or surrounding fluid. Bladder: Normal Pelvic organs: Uterus and pelvic sidewalls have normal appearance, there is trace likely physiologic fluid within the cul-de-sac. RETROPERITONEUM: There is normal appearance of the abdominal aorta and inferior vena cava. LYMPH NODES: No evidence of retroperitoneal or para-aortic masses fluid collections or adenopathy. PERITONEAL CAVITY: No ascites noted ANTERIOR ABDOMINAL WALL: Normal, no hernia identified. BONES AND SOFT TISSUES: The skeleton shows no evidence for fractures or destructive lesions. OTHER: None CT/Abdomen/Pelvis W IV Cont ONLY IMPRESSION: 1. No masses bowel obstruction abscess free fluid or free air. 2. Normal appendix. No evidence diverticulitis. 3. Hepatic steatosis without hepatic masses. No cholelithiasis or duct dilatation. 4. No evidence of obstructive uropathy. 5. Trace fluid likely physiologic within the cul-de-sac. Electronically Signed: Hernan Love MD at 17:29 EDT ,
--- NOTE | 2023-05-01 16:29 | EDS_ITS ---
HPI HPI - GI History of Present Illness Chief Complaint: Abd Pain Detail of Chief Complaint: 4-day history of left lower quadrant abdominal pain. Informant: patient Abdominal Pain/Flank Pain Onset: Days Context: Gradual Onset Timing: Continuous Quality: Cramping Location: LLQ Current Severity: Mild Maximum Severity: Mild Nausea/Vomiting/Emesis GI Symptom: Positive for Nausea; Negative for Vomiting Onset: Days Severity: Mild Diarrhea/Melena/Hematochezia GI Symptom: Positive for Diarrhea; Negative for Melena or Hematochezia Onset: Days Stool Quality: Positive for Loose Severity: Mild Associated Symptoms Associated Symptoms: Negative for Dysuria, Frequency, Hematuria or Urgency Narrative Narrative: 22-year-old female past medical history of asthma. No prior abdominal surgeries. No prior . Complaining of 3 to 4-day history of lower abdominal pain primarily left lower quadrant. Denies fever. Mild nausea. Loose stools. No dysuria. No vaginal bleeding or discharge. Last menstrual period was about 2 weeks ago. Does not believe she is . Prior similar symptoms: Yes Recent Illness/Hospitalization: No PFSH PFSH Medical History Asthma Home Medications albuterol sulfate 90 mcg/actuation aerosol inhaler (Ventolin HFA) 2 puff inhalation Q4H PRN PRN ASTHMA 12/24/13 [History Last Taken 10/12/17] fluticasone propionate 50 mcg/actuation nasal spray,suspension 2 spray DAILY 10/26/16 [History Last Taken 02/28/18] fexofenadine 180 mg tablet (Fanta Allergy) 180 mg PO DAILY ALLERGIES 10/12/17 [History Last Taken 02/28/18] famotidine 20 mg tablet (Acid Controller) 20 mg PO BID #10 tabs 09/12/22 [Rx Last Taken Unknown] levofloxacin 500 mg tablet 500 mg PO DAILY #7 tabs 09/12/22 [Rx Last Taken U nknown] ondansetron 4 mg disintegrating tablet 4 mg PO Q8H PRN nausea and vomiting #20 tabs 09/12/22 [Rx Last Taken Unknown] benzonatate 200 mg capsule 200 mg PO TID PRN cough #14 caps 09/13/22 [Rx Last Taken Unknown] azelastine 137 mcg (0.1 %) nasal spray aerosol 2 spray intranasal BID #30 mL 12/16/22 [Rx Last Taken Unknown] benzonatate 200 mg capsule 200 mg PO TID PRN cough #30 caps 12/16/22 [Rx Last Taken Unknown] doxycycline hyclate 100 mg capsule 100 mg PO BID #14 caps 12/18/22 [Rx Last Taken Unknown] prednisone 10 mg tablets in a dose pack 10 mg PO DAILY #48 tabs 12/18/22 [Rx Last Taken Unknown] naproxen 500 mg tablet (Naprosyn) 500 mg PO BID PRN pain #20 tabs 03/02/23 [Rx Last Taken Unknown] Allergy/AdvReac Type Severity Reaction Status Date / Time No Known Allergies Allergy Verified 05/01/23 16:17 Surgical History History of tonsillectomy and adenoidectomy Social History household members: family Smoking Status: Never smoker substance use type: does not use ROS ROS ED ROS Narrative Lower abdominal pain. Nausea. Loose stools. Review of Systems ROS Unobtainable: Denies due to encephalopathy Constitutional Constitutional ED: Denies fever(s) ENT ENT ED: Denies ear pain Cardiovascular Cardiovascular: Denies chest pain Respiratory/Chest Respiratory/Chest: Denies cough or dyspnea Gastrointestinal Gastrointestinal: Reports abdominal pain, diarrhea and nausea; Denies constipation, melena or vomiting Genitourinary Genitourinary ED: Denies dysuria or hematuria Musculoskeletal Musculoskeletal: Denies arthralgias Integumentary Denies abscess Neurologic Neurologic: Denies headache(s) Psychiatric Psychiatric: Denies anxiety Endocrine Endocrinology: Denies polydipsia Hematologic/Lymphatic Hematologic/Lymphatic: Denies easy bleeding Allergic/Immunologic Allergic/Immunologic ED: Denies mouth swelling EXAM Physical Exam Narrative Exam Narrative: 22 female no acute distress. Vital signs stable afebrile. HEENT exam unremarkable. Moist extremities. Lungs clear. Heart regular rhythm no murmur. Abdomen soft nondistended normal bowel sounds no peritoneal signs. Diffusely tender more so in the left lower quadrant. No peritoneal signs. No hernia or mass. No right upper or right lower quadrant tenderness. No distention or obstruction. Positive bowel sounds. Moving all 4 extremities. Back nontender. Awake and alert. Const Vital Signs: 05/01/23 16:17 Temperature 98.3 F Temperature Source Temporal Pulse Rate 91 Respiratory Rate 18 Blood Pressure 116/73 Blood Pressure Mean 87 Pulse Ox 100 Oxygen Delivery Method Room Air Positive well nourished and well developed; Negative for cachectic, contractures or unkempt General Appearance ED: well developed and NAD; Negative for unkempt, cachectic, contractures or pallor Nutritional Appearance: Negative for cachectic HEENT Reports moist mucous membranes; Denies dry mucous membranes normocephalic and atraumatic; Negative for trauma or tenderness Mouth ED: No dry mucous membranes Mouth: No dry mucous membranes Eyes PERRL and EOMs intact bilaterally General Eye ED: Negative for pale conjunctiva or scleral icterus Neck no lymphadenopathy, supple and no JVD General: Negative for tenderness Carotids: Negative for other Lymph Lymphatic: Negative for other Resp normal respiratory effort and clear to auscultation bilaterally Effort and Inspection: Negative for respiratory distress Auscultation: Negative for rales, rhonchi or wheezes Cardio regular rate, regular rhythm, S1 normal heart sound, S2 normal heart sound and no murmurs Rhythm: Negative for abnormal rhythm GI non-distended and no masses; Negative for non-tender Inspection: Negative for abdominal distention Auscultation: normoactive bowel sounds Palpation: soft; Negative for rigid, hepatomegaly, splenomegaly, hernia, mass, pulsatile mass or rebound tenderness present Back/Spine no CVA tenderness General Back: Negative for CVA tenderness Cervical Spine: Negative for cervical spine tenderness Thoracic Spine / Upper Back: Negative for thoracic spinal tenderness Lumbar Spine / Lower Back: Negative for lumbar spinal tenderness Extremity full ROM General Extremety ED: Negative for edema or tenderness General Extremity: Negative for edema Neuro CN's II-XII intact bilaterally and moves all extremities Sensorium / Orientation: alert, oriented to person, oriented to place and oriented to time; Negative for orientation impaired, confused, lethargic or stuporous Motor Exam: strength 5/5 throughout Psych mental status grossly normal and thought process normal Appearance: Negative for unkempt Attitude: No agitated Mood & Affect: Negative for depressed, anxious or tearful Skin no wounds General Skin Exam: Negative for jaundice or pallor Rashes: no rashes Trauma: Negative for abrasion Nails: Negative for discolored MDM MDM MDM Narrative Medical decision making narrative: 22-year-old left lower quadrant abdominal pain. CAT scan labs are pending. Repeat exam patient doing well at 5:35 PM. Went over all of her test results are basically unremarkable without a specific diagnosis. As was her CAT scan. She will be discharged home with outpatient follow-up. Lab Data Attestation: I reviewed the patient's lab results. Lab results narrative: CBC shows no other white count 13.4. H&H 12.7 and 39. Platelets 375. Electrolytes show a gap of 4 normal BUN and creatinine. Liver enzymes are unremarkable. Lipase normal at 21. Glucose 84. Serum test negative. UA negative. No white cells nor nitrates or bacteria. CAT scan abdomen pelvis with IV contrast shows no acute abnormality. Labs: Laboratory Results - last 24 hr 05/01/23 05/01/23 16:40 17:10 WBC 13.4 H RBC 4.69 Hgb 12.7 Hct 39.8 MCV 84.9 MCH 27.1 MCHC 31.9 L RDW Std Deviation 43.5 RDW Coeff of Daniel 14.1 Plt Count 375 MPV 9.6 Immature Gran % (Auto) 0.400 Neut % (Auto) 77.1 H Lymph % (Auto) 14.8 L Campbell % (Auto) 6.9 Eos % (Auto) 0.5 Baso % (Auto) 0.3 Absolute Neuts (auto) 10.3 H Absolute Lymphs (auto) 1.98 Nucleated RBC % 0 Sodium 139 Potassium 3.8 Chloride 107 Carbon Dioxide 28.0 Anion Gap 4 L BUN 7 Creatinine 0.81 Estim Creat Clear Calc 99.69 Est GFR (MDRD) Af Amer 115 Est GFR (MDRD) Non-Af 95 BUN/Creatinine Ratio 8.6 L Glucose 84 Calcium 8.7 Total Bilirubin 0.30 AST 10 L ALT 34 Alkaline Phosphatase 79 Total Protein 7.4 Albumin 3.3 Globulin 4.1 Albumin/Globulin Ratio 0.8 L Lipase 21 Serum , Qual NEGATIVE Urine Color Yellow Urine Clarity Sl. Cloudy Urine pH 7.0 Ur Specific [place] 1.010 Urine Protein Negative Urine Glucose (UA) Normal Urine Ketones Negative Urine Occult Blood Negative Urine Nitrite Negative Urine Bilirubin Negative Urine Urobilinogen Normal Ur Leukocyte Esterase Negative Urine RBC 0 SEEN Urine WBC 0 SEEN Ur Squamous Epith Cells 5-10 SEEN Urine Bacteria 0 SEEN Urine Mucus 0 SEEN Radiography Diagnostic Testing: Clinical Impression(s) from Imaging Studies Abdomen/Pelvis CT 05/01/23 16:28 IMPRESSION: 1. No masses bowel obstruction abscess free fluid or free air. 2. Normal appendix. No evidence diverticulitis. 3. Hepatic steatosis without hepatic masses. No cholelithiasis or duct dilatation. 4. No evidence of obstructive uropathy. 5. Trace fluid likely physiologic within the cul-de-sac. Electronically Signed: Hernan Love MD at 17:29 EDT , Discharge Plan Triage Chief Complaint: Abd Pain ED Provider: Ramone Tomas Dx/Rx/DC Orders Clinical Impression: Abdominal pain Instructions: Abdominal Pain Prescriptions: No Action albuterol sulfate [Ventolin HFA] 1 INHALER inhaler 2 puff inhalation Q4H PRN PRN (Reason: ASTHMA) fluticasone propionate 1 SPRAY spray,suspension 2 spray NASAL DAILY fexofenadine [Fanta Allergy] 180 MG tablet 180 mg PO DAILY levofloxacin 500 mg tablet 500 mg PO DAILY Qty: 7 0RF ondansetron 4 mg tablet,disintegrating 4 mg PO Q8H PRN (Reason: nausea and vomiting) Qty: 20 0RF famotidine [Acid Controller] 20 mg tablet 20 mg PO BID Qty: 10 0RF benzonatate 200 mg capsule 200 mg PO TID PRN (Reason: cough) Qty: 14 0RF azelastine 137 mcg (0.1 %) aerosol,spray 2 spray intranasal BID Qty: 30 0RF Rx Instructions: administer into each nostril benzonatate 200 mg capsule 200 mg PO TID PRN (Reason: cough) Qty: 30 0RF doxycycline hyclate 100 mg capsule 100 mg PO BID Qty: 14 0RF prednisone 10 mg tablets,dose pack 10 mg PO DAILY Qty: 48 0RF Rx Instructions: taper pack naproxen [Naprosyn] 500 mg tablet 500 mg PO BID PRN (Reason: pain) Qty: 20 0RF Primary Care Provider: Jessica Randall Referrals: Jessica Randall MD [Primary Care Provider] - 1 Week if not improving Activity Restrictions/Additional Instructions: Your labs and CAT scan were unremarkable. No specific diagnosis for your pain. Motrin and Tylenol for pain. Follow-up with your primary care physician if not improving. Disposition Disposition: Home, Self Care
[2023-05-01 16:56] LABS: Absolute Lymphocyte Count 1.98 X10^3/uL (0.83-4.51); Absolute Neutrophil Count 10.3 X10^3/uL (2.0-7.7); Basophil# 0.04 X10^3/uL; Basophil% 0.3 % (0-1); Eosinophil# 0.07 X10^3/uL; Eosinophils% 0.5 % (0-5); Hematocrit 39.8 % (37-47); Hemoglobin 12.7 g/dL (12.0-15.0); Lymphocyte # 1.98 X10^3/ul (0.83-4.51); Lymphocyte % 14.8 % (19-41); Mean Corp Hgb Conc 31.9 g/dL (32-36); Mean Corpuscular Hgb 27.1 pg (27.0-32.0); Mean Corpuscular Volume 84.9 fL (81-99); Mean Platelet Vol. 9.6 fl (6.2-12.0); Monocyte# 0.93 X10^3/uL; Monocyte% 6.9 % (0-10); NRBC Flagged by Analyzer 0 % (0-5); Neutrophil # 10.34 X10^3/uL (2.7-7.7); Neutrophil % 77.1 % (47-70); Platelet Count 375 K/mm3 (150-450); RBC Distribution Width CV 14.1 % (11.6-14.6); RBC Distribution Width SD 43.5 fl (35.1-43.9); Red Blood Count 4.69 M/mm3 (4.2-5.4); White Blood Count 13.4 K/mm3 (4.4-11.0)
[2023-05-01 17:11] LABS: Internal QC Validated? YES +Cl - CLEAR BKGD; Pregnancy, Serum, hCG Quali. NEGATIVE Negative
[2023-05-01 17:14] LABS: ALB/GLOB Ratio 0.8 RATIO (0.9-2.4); AST(SGOT) 10 U/L (15-37); Alanine Aminotransfer ALT/SGPT 34 U/L (13-56); Albumin, Serum 3.3 g/dL (3.2-5.0); Alkaline Phosphatase 79 U/L (45-117); Anion Gap 4 (5-15); BUN 7 mg/dL (7-18); BUN/Creat Ratio 8.6 RATIO (10-20); Calcium,Total 8.7 mg/dL (8.5-10.1); Chloride 107 mmol/L (98-107); Creatinine, Serum 0.81 mg/dL (0.55-1.02); EST Glomerular Filtration Rate 95 mL/min (>60); Est Glom Filt Rate - Afr Amer 115 mL/min (>60); Estimated Creatinine Clearance 99.69 ml/min; Globulin 4.1 g/dL (2.2-4.2); Glucose 84 mg/dL (74-106); Lipase 21 U/L (13-75); Potassium 3.8 mmol/L (3.5-5.1); Protein, Total 7.4 g/dL (6.4-8.2); Sodium Level 139 mmol/L (136-145)
[2023-05-01 17:16] LABS: Bacteria 0 SEEN /hpf (None Seen); Mucous, Urine 0 SEEN /hpf (<or=2+); Red Blood Cells-Urine 0 SEEN /hpf (0-5); White Blood Cells 0 SEEN /hpf (0-5)
[2023-05-01 17:17] LABS: Color, Urine Yellow (Yellow); Glucose, Dipstick Normal (Normal); Ketone-Dipstick Negative (Negative); Leukocyte Esterase-Dipstick Negative /ul (Negative); Nitrite-Dipstick Negative (Negative); Occult Blood-Urine Negative /ul (Negative); Protein-Dipstick Negative (Negative); Urine Bilirubin Dipstick Negative (Negative); Urine Clarity Sl. Cloudy (Clear); Urine Urobilinogen Normal (Normal)
[2023-05-01 17:26] LABS: Squamous Epithelial Cells - UA 5-10 SEEN /hpf (5-10)
== END 2023-05-01 17:45 | disposition home or self-care (01) ==
PROVIDERS: Emergency Provider Emergency Medicine; PCP Pediatrics; Visit Provider Emergency Medicine
DX: R10.32 Left lower quadrant pain (principal); R11.0 Nausea; R19.7 Diarrhea, unspecified; J45.909 Unspecified asthma, uncomplicated
CPT/HCPCS: 74177; 80053; 81001; 83690; 84703; 85025; 99283; Q9967

== ENCOUNTER 2023-06-19 17:26 | Emergency (ER) | payer MEDICAID, SELFPAY ==
[2023-06-19 17:27] VITALS: BP 117/76; PULSE 85; RESP 16; TEMP 36.4; O2SAT 100; BMI 32.9
--- NOTE | 2023-06-19 19:12 | EX.ED.DYSGE1 ---
HPI <ZACH Lorenzana - Last Filed: 06/19/23 19:20> History of Present Illness Chief Complaint: Allergic Reaction Narrative Narrative: Patient is a 22-year-old female with history of asthma presents the emergency department after getting stung in the left side of the face by a bee. Patient states that she was driving, a bee went through the window, striking the left side of her face and has a stinger stuck in her cheek. She was concerned secondary to feeling some burning sensation in her face, she denied any shortness of breath or breathing issues. She is concerned because both her mother and father are severely allergic to bees. She is here for evaluation [facility] <ZACH Lorenzana - Last Filed: 06/19/23 19:20> [facility] Medical History Asthma Home Medications albuterol sulfate 90 mcg/actuation aerosol inhaler (Ventolin HFA) 2 puff inhalation Q4H PRN PRN ASTHMA 12/24/13 [History Last Taken 10/12/17] fluticasone propionate 50 mcg/actuation nasal spray,suspension 2 spray DAILY 10/26/16 [History Last Taken 02/28/18] fexofenadine 180 mg tablet (Fanta Allergy) 180 mg PO DAILY ALLERGIES 10/12/17 [History Last Taken 02/28/18] famotidine 20 mg tablet (Acid Controller) 20 mg PO BID #10 tabs 09/12/22 [Rx Last Taken Unknown] levofloxacin 500 mg tablet 500 mg PO DAILY #7 tabs 09/12/22 [Rx Last Taken Unknown] ondansetron 4 mg disintegrating tablet 4 mg PO Q8H PRN nausea and vomiting #20 tabs 09/12/22 [Rx Last Taken Unknown] benzonatate 200 mg capsule 200 mg PO TID PRN cough #14 caps 09/13/22 [Rx Last Taken Unknown] azelastine 137 mcg (0.1 %) nasal spray aerosol 2 spray intranasal BID #30 mL 12/16/22 [Rx Last Taken Unknown] benzonatate 200 mg capsule 200 mg PO TID PRN cough #30 caps 12/16/22 [Rx Last Taken Unknown] doxycycline hyclate 100 mg capsule 100 mg PO BID #14 caps 12/18/22 [Rx Last Taken Unknown] prednisone 10 mg tablets in a dose pack 10 mg PO DAILY #48 tabs 12/18/22 [Rx Last Taken Unknown] naproxen 500 mg tablet (Naprosyn) 500 mg PO BID PRN pain #20 tabs 03/02/23 [Rx Last Taken Unknown] Allergy/AdvReac Type Severity Reaction Status Date / Time No Known Allergies Allergy Verified 05/01/23 16:17 Surgical History History of tonsillectomy and adenoidectomy Social History household members: family Smoking Status: Never smoker substance use type: does not use ROS <ZACH Lorenzana - Last Filed: 06/19/23 19:20> ROS ED ROS Narrative Constitutional: Negative for fever, chills, weight loss, weakness Eyes: Negative for vision loss, vision change, double vision ENT: Negative for any sore throat, ear pain, congestion Cardiovascular: Negative for any chest pain, tightness, palpitations Respiratory: Negative for any cough, sputum production, hemoptysis, dyspnea, dyspnea on exertion, orthopnea Gastrointestinal: Negative for any abdominal pain, nausea, vomiting, diarrhea, constipation, blood in stool, blood in vomit : Negative for any urinary frequency, dysuria, retention, blood in urine Muscle skeletal: Negative for any muscle joint pain, stiffness, myalgias, arthralgias, neck pain, back pain Neurological: Negative for any headache, syncope, numbness or tingling, dizziness. Positive for foreign body left cheek Skin: Negative for any rashes, lumps, itching, abrasions, lacerations Psychiatric: Negative for any depression, anxiety, stress, suicidal ideation, homicidal ideation Hematologic: Negative for any easy bruising, excessive bruising, easy bleeding Allergies: Negative for any eczema, hives, rash EXAM <ZACH Lorenzana - Last Filed: 06/19/23 19:20> Physical Exam Narrative Exam Narrative: Vital signs reviewed. HEET: Head normocephalic atraumatic, TMs clear bilaterally. Posterior pharynx is clear, moist mucous membranes. Nares clear bilaterally. Patient has what appears to be some debris in the left cheek. Patient has no swelling, no erythema, no lip swelling. Patient's vital signs are stable. Negative for any trismus. Neck: Supple with no lymphadenopathy or tenderness. No signs of meningismus, negative jolt sign. Cardiac: Regular rate and rhythm no murmurs gallops or rubs, equal peripheral pulses bilaterally. Respiratory: Lungs clear to auscultation bilaterally. No chest tenderness. Abdomen: Soft, nontender, nondistended. No abdominal bruit or pulsatile masses. No hepatosplenomegaly Extremities: No peripheral edema, no signs of gross trauma or deformity. Active full range of motion of all extremities. Neuro: Cranial nerves II through XII intact, no focal neurological deficits. Skin: Clean dry and intact with no rash, purpura, petechiae, vesicles or pustules. Backs/flank: No CVA tenderness, no midline spinal tenderness, no deformity. Psych: Normal mood and affect. No SI, HI or acute psychosis. Const Vital Signs: 06/19/23 17:27 Temperature 97.6 F L Temperature Source Temporal Pulse Rate 85 Respiratory Rate 16 Blood Pressure 117/76 Blood Pressure Mean 89 Pulse Ox 100 Oxygen Delivery Method Room Air Positive well nourished and well developed General Appearance ED: well developed <Dr. Ramone Tomas MD - Last Filed: 06/19/23 19:23> Physical Exam Const Vital Signs: 06/19/23 17:27 Temperature 97.6 F L Temperature Source Temporal Pulse Rate 85 Respiratory Rate 16 Blood Pressure 117/76 Blood Pressure Mean 89 Pulse Ox 100 Oxygen Delivery Method Room Air MDM <ZACH Lorenzana - Last Filed: 06/19/23 19:20> [facility] Treatment and Re-Evaluation :: Patient appears generally well, patient appears nontoxic, vital signs are stable. Patient presents to the emergency department after getting stung by a bee 3 hours ago the left side of her face. She was concerned because she does have a foreign body like sensation to the left side of her cheek. Patient does have a small black area to the left side of her cheek. I was able to use a 22-gauge needle and get it out. Is unsure if this is a stinger or a small pebble. However there is no swelling, redness. There is no evidence of any anaphylaxis or allergic reaction. Patient had the area cleansed, she will follow-up outpatient. All questions answered, patient stable for discharge <Dr. Ramone Tomas MD - Last Filed: 06/19/23 19:23> [facility] MDM Narrative Medical decision making narrative: I have personally performed a face to face assessment of the patient and have reviewed the BREE Note. I performed a substantive portion of the visit including all aspects of the following. My merritt findings include: History is [bee sting left cheek about 3 and half hours ago. Family history of allergic reactions.] Exam is [22-year-old female no acute distress vital signs stable afebrile. HEENT exam something was removed from her face by her [employer]ICAL [employer]ODUCT [employer]NAGER. Currently there is no signs of allergic reaction. No significant trauma. Lungs clear. Heart regular rhythm. Otherwise exam normal.] Medical Decision Making [watch for any signs of allergic reaction. Is been 3 and half hours. She does not need any medication at this time.] Other additions or changes: [None] Discharge Plan Triage Chief Complaint: Allergic Reaction ED Midlevel Provider: Jasiel Caal ED Provider: Ramone Tomsa Dx/Rx/DC Orders Clinical Impression: Accidental bee sting Instructions: ED BEE STING General Allergic Rxn Prescriptions: No Action albuterol sulfate [Ventolin HFA] 1 INHALER inhaler 2 puff inhalation Q4H PRN PRN (Reason: ASTHMA) fluticasone propionate 1 SPRAY spray,suspension 2 spray NASAL DAILY fexofenadine [Fanta Allergy] 180 MG tablet 180 mg PO DAILY levofloxacin 500 mg tablet 500 mg PO DAILY Qty: 7 0RF ondansetron 4 mg tablet,disintegrating 4 mg PO Q8H PRN (Reason: nausea and vomiting) Qty: 20 0RF famotidine [Acid Controller] 20 mg tablet 20 mg PO BID Qty: 10 0RF benzonatate 200 mg capsule 200 mg PO TID PRN (Reason: cough) Qty: 14 0RF azelastine 137 mcg (0.1 %) aerosol,spray 2 spray intranasal BID Qty: 30 0RF Rx Instructions: administer into each nostril benzonatate 200 mg capsule 200 mg PO TID PRN (Reason: cough) Qty: 30 0RF doxycycline hyclate 100 mg capsule 100 mg PO BID Qty: 14 0RF prednisone 10 mg tablets,dose pack 10 mg PO DAILY Qty: 48 0RF Rx Instructions: taper pack naproxen [Naprosyn] 500 mg tablet 500 mg PO BID PRN (Reason: pain) Qty: 20 0RF Primary Care Provider: Jessica Randall Referrals: Jessica Randall MD [Primary Care Provider] - Activity Restrictions/Additional Instructions: Please follow-up outpatient. Disposition Disposition: Home, Self Care
== END 2023-06-19 19:24 | disposition home or self-care (01) ==
PROVIDERS: Emergency Provider Emergency Medicine; PCP Pediatrics; Visit Provider Emergency Medicine
DX: T63.441A Toxic effect of venom of bees, accidental (unintentional), initial encounter (principal)
CPT/HCPCS: 99282

== ENCOUNTER 2023-08-19 16:21 | Emergency (ER) | payer MEDICAID, SELFPAY ==
[2023-08-19 16:22] VITALS: BP 137/101; PULSE 80; RESP 14; TEMP 36.2; O2SAT 100; BMI 33.8
--- NOTE | 2023-08-19 17:31 | RAD_ITS ---
STUDY: X-RAY - LEFT WRIST REASON FOR EXAM: Female, 22 years old. Injury/Pain TECHNIQUE: 3 view(s) of the wrist were obtained. COMPARISON: None. FINDINGS: Normal visualized distal radius and ulna. Normal radiocarpal articulation. Normal distal radioulnar articulation. Normal carpal bones. Normal carpal articulations. Normal carpometacarpal articulation of the thumb. Normal second through fifth carpometacarpal articulations. Normal visualized metacarpal bones. The soft tissue structures are unremarkable. RAD/Wrist min 3 Views IMPRESSION: Normal x-ray examination of the wrist. Electronically Signed: Hernan Zavaleta MD at 18:09 EST ,
--- NOTE | 2023-08-19 17:49 | EX.ED.UPPERE ---
HPI History of Present Illness HPI Narrative: Patient presents with left wrist injury that occurred yesterday. Patient states she was attempting to change a lock on her door when her dog came up and hit her from behind. Patient states her wrist went into the door. Patient denies any paresthesias or weakness. Patient states her pain is mainly over the ulnar aspect of her left wrist. Patient describes it as aching. Patient states it is worse with movement. Patient states it is better with rest. Patient denies any head injury or loss of consciousness. Patient denies any other injuries. Chief Complaint: Upper Extremity Injury Informant: patient Occured/Mechanism Mechanism/Context: Yes direct blow Onset/Context/Timing Onset: Yesterday Context: Sudden Onset Timing: Continuous Quality of Pain: Aching Location: Left wrist Worsened by: Movement Relieved by: Rest Associated Symptoms Associated Symptoms: Negative for Parasthesia, Weakness or Loss of Funtion [facility] Medical History Asthma Home Medications albuterol sulfate 90 mcg/actuation aerosol inhaler (Ventolin HFA) 2 puff inhalation Q4H PRN PRN ASTHMA 12/24/13 [History Last Taken 10/12/17] fluticasone propionate 50 mcg/actuation nasal spray,suspension 2 spray DAILY 10/26/16 [History Last Taken 02/28/18] fexofenadine 180 mg tablet (Fanta Allergy) 180 mg PO DAILY ALLERGIES 10/12/17 [History Last Taken 02/28/18] famotidine 20 mg tablet (Acid Controller) 20 mg PO BID #10 tabs 09/12/22 [Rx Last Taken Unknown] levofloxacin 500 mg tablet 500 mg PO DAILY #7 tabs 09/12/22 [Rx Last Taken Unknown] ondansetron 4 mg disintegrating tablet 4 mg PO Q8H PRN nausea and vomiting #20 tabs 09/12/22 [Rx Last Taken Unknown] benzonatate 200 mg capsule 200 mg PO TID PRN cough #14 caps 09/13/22 [Rx Last Taken Unknown] azelastine 137 mcg (0.1 %) nasal spray aerosol 2 spray intranasal BID #30 mL 12/16/22 [Rx Last Taken Unknown] benzonatate 200 mg capsule 200 mg PO TID PRN cough #30 caps 03/09/23 [Rx Last Taken Unknown] doxycycline hyclate 100 mg capsule 100 mg PO BID #14 caps 12/18/22 [Rx Last Taken Unknown] prednisone 10 mg tablets in a dose pack 10 mg PO DAILY #48 tabs 12/18/22 [Rx Last Taken Unknown] naproxen 500 mg tablet (Naprosyn) 500 mg PO BID PRN pain #20 tabs 03/02/23 [Rx Last Taken Unknown] Allergy/AdvReac Type Severity Reaction Status Date / Time No Known Allergies Allergy Verified 08/19/23 16:21 Surgical History History of tonsillectomy and adenoidectomy Social History household members: family Smoking Status: Never smoker substance use type: does not use ROS ROS ED Constitutional Constitutional ED: Denies chills or fever(s) Eyes Eyes: Denies blurry vision or change in vision ENT ENT ED: Denies rhinorrhea or sore throat Cardiovascular Cardiovascular: Denies chest pain or palpitations Respiratory/Chest Respiratory/Chest: Denies cough or dyspnea Gastrointestinal Gastrointestinal: Denies nausea or vomiting Genitourinary Genitourinary ED: Denies dysuria or hematuria Musculoskeletal Musculoskeletal: Denies back pain or neck pain Integumentary Denies abscess or rash Neurologic Neurologic: Denies headache(s) or weakness Allergic/Immunologic Allergic/Immunologic ED: Denies mouth swelling or urticaria EXAM Physical Exam Const Vital Signs: 08/19/23 16:22 Temperature 97.2 F L Temperature Source Temporal Pulse Rate 80 Respiratory Rate 14 Blood Pressure 137/101 H Blood Pressure Mean 113 Pulse Ox 100 Oxygen Delivery Method Room Air Positive well nourished, well developed and obese General Appearance ED: well developed and NAD Nutritional Appearance: obese HEENT Reports moist mucous membranes Neck full ROM and supple Extremity Extremity Narrative: There is tenderness over the ulnar aspect of the left wrist. There is no bony crepitance or step-off. There is no obvious deformity noted. Range of motion was slightly limited in all motions of the left wrist secondary to pain. Strength is 5/5 in the radial, median, and ulnar areas. Capillary refill was less than 2 seconds in all digits. Radial pulses are equal bilaterally. Sensation was intact to light touch in the radial, median, and ulnar areas. Neuro oriented x3, CN's II-XII intact bilaterally, moves all extremities, no focal motor deficits and no sensory deficits noted Sensorium / Orientation: alert Motor Exam: strength 5/5 throughout Psych mental status grossly normal MDM MDM MDM Narrative Medical decision making narrative: Differential diagnosis includes fracture and contusion. X-rays of the left wrist will be obtained to assess for fracture. Radiography Diagnostic Testing: X-rays of the left wrist were obtained. There are 3 views. On my independent interpretation, there is no acute fracture. There is no dislocation. There is no soft tissue swelling. Radiologist also interpreted the x-rays and agrees. Treatment and Re-Evaluation Narrative: Patient was advised of her findings. Patient was given a cock-up wrist splint. Patient was instructed to ice and elevate the left wrist. Patient was instructed to follow-up with her primary care physician in 5 to 7 days. Patient was instructed take Tylenol or ibuprofen as needed for pain. Patient understood and was agreeable with the plan. All questions were answered. Discharge Plan Triage Chief Complaint: Upper Extremity Injury ED Provider: Alex Farias Dx/Rx/DC Orders Clinical Impression: Contusion of left wrist, initial encounter Instructions: ED Contusion, Upper Extremity Prescriptions: No Action albuterol sulfate [Ventolin HFA] 1 INHALER inhaler 2 puff inhalation Q4H PRN PRN (Reason: ASTHMA) fluticasone propionate 1 SPRAY spray,suspension 2 spray NASAL DAILY fexofenadine [Fanta Allergy] 180 MG tablet 180 mg PO DAILY levofloxacin 500 mg tablet 500 mg PO DAILY Qty: 7 0RF ondansetron 4 mg tablet,disintegrating 4 mg PO Q8H PRN (Reason: nausea and vomiting) Qty: 20 0RF famotidine [Acid Controller] 20 mg tablet 20 mg PO BID Qty: 10 0RF benzonatate 200 mg capsule 200 mg PO TID PRN (Reason: cough) Qty: 14 0RF azelastine 137 mcg (0.1 %) aerosol,spray 2 spray intranasal BID Qty: 30 0RF Rx Instructions: administer into each nostril benzonatate 200 mg capsule 200 mg PO TID PRN (Reason: cough) Qty: 30 0RF doxycycline hyclate 100 mg capsule 100 mg PO BID Qty: 14 0RF prednisone 10 mg tablets,dose pack 10 mg PO DAILY Qty: 48 0RF Rx Instructions: taper pack naproxen [Naprosyn] 500 mg tablet 500 mg PO BID PRN (Reason: pain) Qty: 20 0RF Primary Care Provider: Ko Beasley Referrals: Ko Beasley MD [Primary Care Provider] - 5-7 Days Disposition Disposition: Home, Self Care
== END 2023-08-19 18:51 | disposition home or self-care (01) ==
PROVIDERS: Emergency Provider Emergency Medicine; PCP Family Medicine; Visit Provider Emergency Medicine
DX: S60.212A Contusion of left wrist, initial encounter (principal); J45.909 Unspecified asthma, uncomplicated; E66.9 Obesity, unspecified; W22.09XA Striking against other stationary object, initial encounter
CPT/HCPCS: 73110; 99283

== ENCOUNTER 2023-11-07 16:30 | Emergency (ER) | payer MEDICAID, SELFPAY ==
[2023-11-07 16:30] VITALS: BP 133/80; PULSE 139; RESP 18; TEMP 36.9; O2SAT 98; BMI 34.7
[2023-11-07 17:53] VITALS: BP 107/77; PULSE 125; RESP 20; O2SAT 98
[2023-11-07 18:14] VITALS: O2SAT 99
[2023-11-07] MEDS: predniSONE 20 MG Tablet 60 MG PO (18:23)
[2023-11-07] MEDS: Ipratropium/Albuterol Sulfate 3 ML AMPUL.NEB INHALATION (18:26)
[2023-11-07 18:27] VITALS: PULSE 120; RESP 16
--- NOTE | 2023-11-07 18:38 | EX.ED.VIS.UR ---
HPI HPI - URI History of Present Illness Chief Complaint: Cough Detail of Chief Complaint: 22-year-old female history of asthma With URI symptoms. 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 URI symptoms since Tuesday. Fever 100.5. No vomiting or diarrhea. No hemoptysis. Prior similar symptoms: Yes Recent Illness/Hospitalization: No ROS ROS ED ROS Narrative Cough. Fever. Wheezing. Review of Systems ROS Unobtainable: Denies due to encephalopathy Constitutional Constitutional ED: Denies chills Eyes Eyes: Denies blurry vision ENT ENT ED: Denies ear pain or sore throat Cardiovascular Cardiovascular: Denies chest pain Respiratory/Chest Respiratory/Chest: Reports cough and dyspnea Gastrointestinal Gastrointestinal: Denies abdominal pain Genitourinary Genitourinary ED: Denies dysuria or hematuria Musculoskeletal Musculoskeletal: Denies arthralgias Integumentary Denies abscess or Abrasions Neurologic Neurologic: Denies headache(s) Psychiatric Psychiatric: Denies anxiety or depression Endocrine Endocrinology: Denies cold intolerance Hematologic/Lymphatic Hematologic/Lymphatic: Denies easy bleeding or easy bruising Allergic/Immunologic Allergic/Immunologic ED: Denies mouth swelling or tongue swelling PFSH PFSH Medical History Asthma Home Medications albuterol sulfate 90 mcg/actuation aerosol inhaler (Ventolin HFA) 2 puff inhalation Q4H PRN PRN ASTHMA 12/24/13 [History Last Taken 10/12/17] fluticasone propionate 50 mcg/actuation nasal spray,suspension 2 spray DAILY 10/26/16 [History Last Taken 02/28/18] fexofenadine 180 mg tablet (Fanta Allergy) 180 mg PO DAILY ALLERGIES 10/12/17 [History Last Taken 02/28/18] famotidine 20 mg tablet (Acid Controller) 20 mg PO BID #10 tabs 09/12/22 [Rx Last Taken Unknown] levofloxacin 500 mg tablet 500 mg PO DAILY #7 tabs 09/12/22 [Rx Last Taken Unknown] ondansetron 4 mg disintegrating tablet 4 mg PO Q8H PRN nausea and vomiting #20 tabs 09/12/22 [Rx Last Taken Unknown] benzonatate 200 mg capsule 200 mg PO TID PRN cough #14 caps 09/13/22 [Rx Last Taken Unknown] azelastine 137 mcg (0.1 %) nasal spray aerosol 2 spray intranasal BID #30 mL 12/16/22 [Rx Last Taken Unknown] benzonatate 200 mg capsule 200 mg PO TID PRN cough #30 caps 12/16/22 [Rx Last Taken Unknown] doxycycline hyclate 100 mg capsule 100 mg PO BID #14 caps 12/18/22 [Rx Last Taken Unknown] prednisone 10 mg tablets in a dose pack 10 mg PO DAILY #48 tabs 12/18/22 [Rx Last Taken Unknown] naproxen 500 mg tablet (Naprosyn) 500 mg PO BID PRN pain #20 tabs 03/02/23 [Rx Last Taken Unknown] albuterol sulfate 2.5 mg/3 mL (0.083 %) solution for nebulization 2.5 mg (3 mL) inhalation Q4H PRN #25 vials 11/07/23 [Rx Last Taken Unknown] albuterol sulfate 90 mcg/actuation aerosol inhaler (Proventil HFA) 2 inh inhalation Q4H PRN shortness of breath or wheezing #8.5 grams 11/07/23 [Rx Last Taken Unknown] prednisone 20 mg tablet 40 mg (2 x 20 mg) PO DAILY 7 days #14 tabs 11/07/23 [Rx Last Taken Unknown] Allergy/AdvReac Type Severity Reaction Status Date / Time No Known Allergies Allergy Verified 11/07/23 16:30 Surgical History History of tonsillectomy and adenoidectomy Social History household members: family Smoking Status: Never smoker substance use type: does not use EXAM Physical Exam Narrative Exam Narrative: 22-year-old female no acute distress. Vital signs stable afebrile. Pulse ox 90% on room air no signs hypoxia. HEENT exam normal. Moist with membranes. TMs normal. Neck nontender no lymphadenopathy. Lungs scattered expiratory wheezes. No rales or rhonchi. Dry cough. Heart tachycardic no murmur. Abdomen soft nontender. Moving all 4 extremities. Nontender no edema. Neurologically she is awake and alert. Const Vital Signs: 11/07/23 16:30 11/07/23 17:53 11/07/23 18:14 Temperature 98.5 F Temperature Source Temporal Pulse Rate 139 H 125 H Respiratory Rate 18 20 H Respiratory Effort Normal Non-Labored Respiratory Depth Normal Respiratory Pattern Normal Blood Pressure 133/80 H 107/77 Blood Pressure Mean 97 87 Pulse Ox 98 98 Oxygen Delivery Method Room Air Room Air Room Air 11/07/23 18:27 Temperature Temperature Source Pulse Rate 120 H Respiratory Rate 16 Respiratory Effort Respiratory Depth Respiratory Pattern Normal Blood Pressure Blood Pressure Mean Pulse Ox Oxygen Delivery Method Positive well nourished and well developed; Negative for obese, cachectic or contractures General Appearance ED: well developed and NAD; Negative for cachectic, contractures, cyanotic, diaphoretic or pallor Nutritional Appearance: Negative for cachectic or obese HEENT Reports moist mucous membranes; Denies dry mucous membranes normocephalic and atraumatic; Negative for scalp tenderness Face and Sinus: Negative for sinus tenderness Mouth ED: No dry mucous membranes Mouth: No dry mucous membranes Teeth and Gingiva: Negative for caries Throat: posterior oropharynx normal Eyes PERRL and EOMs intact bilaterally General Eye ED: Negative for pale conjunctiva, scleral icterus or other Neck no lymphadenopathy, supple, no meningeal signs and no JVD General: Negative for anterior neck swelling or lymphadenopathy Resp normal respiratory effort and No clear to auscultation bilaterally Effort and Inspection: Negative for retractions Auscultation: wheezes; Negative for rales or rhonchi Cardio S1 normal heart sound, S2 normal heart sound and no murmurs Rate: tachycardic Rhythm: regular rhythm GI non-tender, non-distended and no masses Inspection: Negative for abdominal distention Auscultation: normoactive bowel sounds Palpation: soft; Negative for tender or guarding Back/Spine no CVA tenderness and normal ROM General Back: Negative for CVA tenderness Cervical Spine: Negative for cervical spine tenderness Thoracic Spine / Upper Back: Negative for thoracic spinal tenderness Lumbar Spine / Lower Back: Negative for lumbar spinal tenderness Sacrum: Negative for tenderness Extremity normal to inspection and full ROM General Extremety ED: Negative for cyanosis, tenderness or other findings General Extremity: Negative for cyanosis or other findings Neuro oriented x3 and CN's II-XII intact bilaterally Sensorium / Orientation: alert, oriented to person, oriented to place and oriented to time; Negative for orientation impaired, lethargic or stuporous Motor Exam: strength 5/5 throughout Psych mental status grossly normal Appearance: Negative for other Attitude: No agitated Mood & Affect: Negative for depressed, anxious or tearful Skin General Skin Exam: Negative for jaundice or pallor Lesions: no lesions Rashes: no rashes Trauma: Negative for abrasion MDM MDM MDM Narrative Medical decision making narrative: 22-year-old with URI symptoms exacerbation of asthma. Treated with DuoNeb aerosol and oral prednisone. Her RSV was positive. She rewritten a prescription for prednisone for 7 days, Proventil inhaler and albuterol treatments for her nebulizer at home. They are comfortable not getting a chest x-ray. History & Record Review Discussion w/independent historian: Patient and Family Additional record(s) reviewed:: Prior inpatient record, Prior outpatient record and Prior ED visit Lab Data Attestation: I reviewed the patient's lab results. Lab results narrative: RSV positive. COVID and flu negative. Discharge Plan Triage Chief Complaint: Cough ED Provider: Ramone Tomas Dx/Rx/DC Orders Clinical Impression: RSV bronchitis, Acute asthma flare Instructions: RSV (Respiratory Syncytial Virus), Asthma Prescriptions: New prednisone 20 mg tablet 40 mg PO DAILY 7 Days Qty: 14 0RF albuterol sulfate [Proventil HFA] 90 mcg/actuation HFA aerosol inhaler 2 inh inhalation Q4H PRN (Reason: shortness of breath or wheezing) Qty: 8.5 1RF albuterol sulfate 2.5 mg /3 mL (0.083 %) solution for nebulization 2.5 mg inhalation Q4H PRN Qty: 25 0RF Rx Instructions: Use q4 hours and PRN for wheezing No Action albuterol sulfate [Ventolin HFA] 1 INHALER inhaler 2 puff inhalation Q4H PRN PRN (Reason: ASTHMA) fluticasone propionate 1 SPRAY spray,suspension 2 spray NASAL DAILY fexofenadine [Fanta Allergy] 180 MG tablet 180 mg PO DAILY levofloxacin 500 mg tablet 500 mg PO DAILY Qty: 7 0RF ondansetron 4 mg tablet,disintegrating 4 mg PO Q8H PRN (Reason: nausea and vomiting) Qty: 20 0RF famotidine [Acid Controller] 20 mg tablet 20 mg PO BID Qty: 10 0RF benzonatate 200 mg capsule 200 mg PO TID PRN (Reason: cough) Qty: 14 0RF azelastine 137 mcg (0.1 %) aerosol,spray 2 spray intranasal BID Qty: 30 0RF Rx Instructions: administer into each nostril benzonatate 200 mg capsule 200 mg PO TID PRN (Reason: cough) Qty: 30 0RF doxycycline hyclate 100 mg capsule 100 mg PO BID Qty: 14 0RF prednisone 10 mg tablets,dose pack 10 mg PO DAILY Qty: 48 0RF Rx Instructions: taper pack naproxen [Naprosyn] 500 mg tablet 500 mg PO BID PRN (Reason: pain) Qty: 20 0RF Primary Care Provider: Ko Beasley Referrals: Ko Beasley MD [Primary Care Provider] - 3-5 Days if not improving Activity Restrictions/Additional Instructions: Prednisone 40 mg a day for the next 7 days. Proventil inhaler as needed. Albuterol aerosol nebulizer treatments as needed. Follow-up with your doctor if not improving or return if worse. Disposition Disposition: Home, Self Care
[2023-11-07] MEDS: Acetaminophen 500 MG Tablet 1000 MG PO (18:47)
[2023-11-07 18:48] VITALS: BP 103/76; PULSE 129; RESP 26; O2SAT 99
--- OUTSIDE RECORDS SUMMARY | 2023-11-07 18:51 | XMS RPT_ITS | CCD ---
Author Name Unknown Address [address] [place] [address] Organization [facility] Care Team Providers Care District Loss Prevention Manager Name Role Phone Aneesh De Luna Unavailable Unavailable Aneesh De Luna Unavailable Unavailable Jamaal Anguiano Unavailable Unavailable Aneesh De Luna Unavailable Unavailable Aneesh De Luna Unavailable Unavailable Jamaal Anguiano Unavailable Unavailable Pk Leslie N Unavailable Unavailable Jamaal Anguiano Primary Care Provider Jamaal Anguiano MD Primary Care Provider (Miriam), [place] Unavailable JAMAAL ANGUIANO Primary Care Unavailable REFERRED, SELF Referring Unavailable BERHANE ZAVALA Attending Unavailable JAMAAL ANGUIANO Primary Care Unavailable REFERRED, SELF Referring Unavailable JAMAAL ANGUIANO Attending Unavailable JAMAAL ANGUIANO Attending Unavailable JAMAAL ANGUIANO Primary Care Unavailable JAMAAL ANGUIANO Referring Unavailable JAMAAL ANGUIANO Primary Care Unavailable REFERRED, SELF Referring Unavailable JAMAAL ANGUIANO Attending Unavailable Jamaal Anguiano Primary Care Provider Alan Del Toro MD Primary Care Provider AALN DEL TORO Primary Care Unavailable ENEDELIA ISAACS Attending Unavailable JAMAAL ANGUIANO Primary Care Unavailable JAMAAL ANGUIANO Primary Care Unavailable ALAN DEL TORO Primary Care Unavailable ALAN DEL TORO Primary Care Unavailable ALAN DEL TORO Primary Care Unavailable ENEDELIA ISAACS Referring Unavailable Allergies Allergy Classification Reported Allergen(s) Allergy Type Date of Onset Reaction(s) Facility (2 sources) Other; Translations: [OTHER] Propensity to adverse reactions 1 Other (See Comments) [facility] Work Phone: Medications Current Medications Medication Drug Class(es) Dates Sig (Normalized) Sig (Original) albuterol 0.83 mg/ml inhalation solution (10 sources) beta2-Adrenergic Agonist Start: 09-17-2022 End: 09-17-2023 albuterol (VENTOLIN) (2.5 MG/3ML) 0.083% nebulizer solution Use 3 mL (2.5 mg) by nebulization every 4 hours as needed for Wheezing or Shortness of Breath 60 Each 1 09/17/2022 09/17/2023 Active Completed/Discontinued Medications Medication Drug Class(es) Dates Sig (Normalized) Sig (Original) acetaminophen 325 mg / guaiFENesin 200 mg / phenylephrine hydrochloride 5 mg oral tablet (2 sources) alpha-1 Adrenergic Agonist Start: 01-11-2018 End: 07-21-2022 Phenylephrine-Aceta minophen-GG (TYLENOL COLD HEAD CONGEST SEVR) 5-325-200 mg tab Indications: Viral URI Take 1 Dose by mouth as directed. 30 tablet 0 01/11/2018 07/21/2022 Discontinued Problems Active Problems Problem Classification Problem Date Documented Date Episodic/Chronic Abdominal pain (2 sources) Upper abdominal pain; Translations: [Upper abdominal pain, unspecified] Onset: 08-31-2022 Episodic Anxiety disorders (1 source) Anxiety disorder; Translations: [Anxiety disorder, unspecified] Onset: 06-15-2017 11-19-2021 Chronic Asthma (3 sources) Asthma; Translations: [Unspecified asthma, uncomplicated] Onset: 05-17-2011 11-19-2021 Chronic Inflammation; infection of eye (except that caused by tuberculosis or sexually transmitteddisease) (1 source) Acute conjunctivitis of right eye; Translations: [Unspecified acute conjunctivitis, right eye] Episodic Nausea and vomiting (2 sources) Nausea and vomiting; Translations: [Nausea with vomiting, unspecified] Episodic Other nervous system disorders (1 source) Disturbance of attention; Translations: [Attention and concentration deficit] Onset: 12-22-2012 12-31-2012 Chronic Other screening for suspected conditions (not mental disorders or infectious disease) (5 sources) Patient encounter status; Translations: [Encounter for screening for lipoid disorders] Onset: 07-26-2023 07-26-2023 Episodic Other upper respiratory disease (1 source) Allergic rhinitis; Translations: [Allergic rhinitis, unspecified] Onset: 06-24-2009 11-19-2021 Chronic Other upper respiratory infections (3 sources) Sore throat symptom; Translations: [Acute pharyngitis, unspecified] Episodic Spondylosis; intervertebral disc disorders; other back problems (2 sources) Low back pain; Translations: [Low back pain without sciatica, unspecified back pain laterality, unspecified chronicity] Onset: 07-05-2022 Episodic Unclassified (1 source) Unknown / UNK(Unknown) Onset: 09-04-2018 Past or Other Problems Problem Classification Problem Date Documented Da te Episodic/Chronic Allergic reactions (1 source) Idiopathic urticaria; Translations: [Idiopathic urticaria] Onset: 8 Resolved: 5 11-26-2014 Episodic Congestive heart failure; nonhypertensive (1 source) Congestive heart failure; nonhypertensive Onset: 8 Esophageal disorders (1 source) Gastroesophageal reflux disease; Translations: [Gastro-esophageal reflux disease without esophagitis] Onset: 0 Resolved: 5 11-26-2014 Chronic Genitourinary symptoms and ill-defined conditions (1 source) Urinary incontinence; Translations: [Unspecified urinary incontinence] Onset: 0 Resolved: 5 11-19-2021 Chronic Mood disorders (1 source) Mood swings; Translations: [Emotional lability] Onset: 1 12-31-2012 Episodic Other gastrointestinal disorders (1 source) Constipation; Translations: [Constipation, unspecified] Onset: 2 Resolved: 5 11-19-2021 Episodic Other nutritional; endocrine; and metabolic disorders (1 source) Childhood obesity; Translations: [Body mass index (BMI) pediatric, greater than or equal to 95th percentile for age] Onset: 6 09-29-2016 Episodic Results Test Name Value Interpretation Reference Range Facil ity Vital Signs Date Time Vital Sign Value Performing Clinician Facility 09-09-2023 18:49-0500 Body temperature 98.29 [degF] Giovanna Mckinley APRN.CNP Work Phone: [facility] 09-09-2023 18:49-0500 Body weight 96.62 kg Giovanna Mckinley APRN.CNP Work Phone: [facility] 09-09-2023 18:49-0500 Diastolic blood pressure 82 mm[Hg] Giovanna Mckinley APRN.MISSION WORKER Work Phone: [facility] 09-09-2023 18:49-0500 Heart rate 90 /min Giovanna Mckinley APRN.MISSION WORKER Work Phone: [facility] 09-09-2023 18:49-0500 Respiratory rate 16 /min Giovanna Mckinley APRN.MISSION WORKER Work Phone: [facility] 09-09-2023 18:49-0500 SaO2% (BldA) [Mass fraction] 100 % Giovanna Mckinley APRN.MISSION WORKER Work Phone: [facility] 09-09-2023 18:49-0500 Systolic blood pressure 126 mm[Hg] Giovanna Mckinley APRN.MISSION WORKER Work Phone: [facility] 07-26-2023 07:48-0400 Body height 162.6 cm Enedelia Isaacs APRN.MISSION WORKER Work Phone: [facility] 07-26-2023 07:48-0400 Body weight 90.27 kg Enedelia Isaacs APRN.MISSION WORKER Work Phone: [facility] 07-26-2023 07:48-0400 Diastolic blood pressure 80 mm[Hg] Enedelia Isaacs APRN.MISSION WORKER Work Phone: [facility] 07-26-2023 07:48-0400 Heart rate 70 /min Enedelia Isaacs APRN.MISSION WORKER Work Phone: [facility] 07-26-2023 07:48-0400 Respiratory rate 14 /min Enedelia Isaacs APRN.MISSION WORKER Work Phone: [facility] 07-26-2023 07:48-0400 Systolic blood pressure 112 mm[Hg] Enedelia Isaacs APRN.MISSION WORKER Work Phone: [facility] 03-09-2023 16:24-0400 Body temperature 98.91 [degF] Maricruz Velazquez PA-C Work Phone: [facility] 03-09-2023 16:24-0400 Body weight 96.8 kg Maricruz Athy PA-C Work Phone: [facility] 03-09-2023 16:24-0400 Diastolic blood pressure 82 mm[Hg] Maricruz Athy PA-C Work Phone: [facility] 03-09-2023 16:24-0400 Heart rate 103 /min Maricruz Athy PA-C Work Phone: [facility] 03-09-2023 16:24-0400 Respiratory rate 22 /min Maricruz Athy PA-C Work Phone: [facility] 03-09-2023 16:24-0400 SaO2% (BldA) [Mass fraction] 97 % Maricruz Athy PA-C Work Phone: [facility] 03-09-2023 16:24-0400 Systolic blood pressure 110 mm[Hg] Maricruz Athy PA-C Work Phone: [facility] 02-09-2023 16:42-0400 Body temperature 98.01 [degF] Krislyn Aberegg PA Work Phone: [facility] 02-09-2023 16:42-0400 Body weight 97.8 kg Krislyn Aberegg PA Work Phone: [facility] 02-09-2023 16:42-0400 Diastolic blood pressure 76 mm[Hg] Krislyn Aberegg PA Work Phone: [facility] 02-09-2023 16:42-0400 Heart rate 115 /min Krislyn Aberegg PA Work Phone: [facility] 02-09-2023 16:42-0400 Respiratory rate 21 /min Krislyn Aberegg PA Work Phone: [facility] 02-09-2023 16:42-0400 SaO2% (BldA) [Mass fraction] 97 % Krislyn Aberegg PA Work Phone: [facility] 02-09-2023 16:42-0400 Systolic blood pressure 120 mm[Hg] Perfecto BONILLA Work Phone: [facility] 07-21-2022 11:24-0400 Body temperature 98.01 [degF] Adelso Richardson MD Work Phone: [facility] 07-21-2022 11:24-0400 Body weight 107.14 kg Adelso Richardson MD Work Phone: [facility] 07-21-2022 11:24-0400 Diastolic blood pressure 78 mm[Hg] Adelso Richardson MD Work Phone: [facility] 07-21-2022 11:24-0400 Heart rate 95 /min Adelso Richardson MD Work Phone: [facility] 07-21-2022 11:24-0400 Respiratory rate 21 /min Adelso Richardson MD Work Phone: [facility] 07-21-2022 11:24-0400 SaO2% (BldA) [Mass fraction] 97 % dAelso Richardson MD Work Phone: [facility] 07-21-2022 11:24-0400 Systolic blood pressure 120 mm[Hg] Adelso Richardson MD Work Phone: [facility] 06-27-2022 11:25-0400 Body temperature 98.2 [degF] Alan Dotson COMMERCIAL BAKER HELPER.MISSION WORKER Work Phone: [facility] 06-27-2022 11:25-0400 Body weight 106.59 kg Alan Dotson COMMERCIAL BAKER HELPER.MISSION WORKER Work Phone: [facility] 06-27-2022 11:25-0400 Diastolic blood pressure 76 mm[Hg] Alan Dotson COMMERCIAL BAKER HELPER.MISSION WORKER Work Phone: [facility] 06-27-2022 11:25-0400 Heart rate 96 /min Alan Dotson COMMERCIAL BAKER HELPER.MISSION WORKER Work Phone: [facility] 06-27-2022 11:25-0400 Respiratory rate 16 /min Alan Dotson COMMERCIAL BAKER HELPER.MISSION WORKER Work Phone: [facility] 06-27-2022 11:25-0400 SaO2% (BldA) [Mass fraction] 97 % Alan Dotson APRN.MISSION WORKER Work Phone: [facility] 06-27-2022 11:25-0400 Systolic blood pressure 120 mm[Hg] Alan Dotson APRN.MISSION WORKER Work Phone: [facility] 07-11-2019 03:36-0400 Body surface area Derived from formula [facility] [place]) Encounters Encounter Date Encounter Type Care Provider Facility Start: 10-12-2023 End: 10-12-2023 ambulatory ALAN DEL TORO Facility:[facility] Start: 09-10-2023 Telephone encounter Giovanna Mckinley APRN.MISSION WORKER Work Phone: [facility] Procedures Date Procedure Procedure Detail Performing Clinician Start: 09-09-2023 STREP A MOLECULAR (POC) Alan Dotson APRN.MISSION WORKER Work Phone: Start: 03-09-2023 STREP A MOLECULAR (POC) Maricruz Velazquez PA-C Work Phone: Start: 09-17-2022 COMPLETE BLOOD COUNT WITH DIFFERENTIAL Jamaal Anguiano MD Work Phone: Start: 09-17-2022 Comprehensive metabo lic 2000 panel - Serum or Plasma Jamaal Anguiano MD Work Phone: Start: 09-17-2022 Manual Differential panel - Blood Jamaal Anguiano MD Work Phone: Plan of Treatment Date Care Activity Detail Author Start: 11-26-2024 Tetanus Diphtheria a nd Pertussis Vaccines (7 - Td or Tdap) Tetanus Diphtheria and Pertussis Vaccines (7 - Td or Tdap) [facility] Start: 11-26-2024 Urine microalbumin profile DTaP,Tdap,Td Vaccine (7 - Td or Tdap) [facility] Start: 07-26-2024 Chlamydia Screening (18-24) Chlamydia Screening (18-24) [facility] Immunizations Immunization Date Immunization Notes Care Provider Mabel chawla 11-26-2014 meningococcal polysaccharide (groups A, C, Y and W-135) diphtheria toxoid conjugate vaccine (MCV4P) Jamaal Anguiano MD Work Phone: [facility] 11-26-2014 tetanus toxoid, redu karley diphtheria toxoid, and acellular pertussis vaccine, adsorbed Jamaal Anguiano MD Work Phone: [facility] 11-22-2012 influenza virus vacc ine, split virus (incl. purified surface antigen) Jamaal Anguiano MD Work Phone: [facility] 11-22-2012 influenza, seasonal, injectable, preservative free Enedelia Knoble COMMERCIAL BAKER HELPER.MISSION WORKER Work Phone: [facility] 11-22-2012 influenza virus vacc ine, unspecified formulation Enedelia Knoble COMMERCIAL BAKER HELPER.MISSION WORKER Work Phone: [facility] 06-29-2011 influenza virus vacc ine, split virus (incl. purified surface antigen) Jamaal Anguiano MD Work Phone: [facility] 06-29-2011 influenza, seasonal, injectable, preservative free Enedelia Knoble COMMERCIAL BAKER HELPER.MISSION WORKER Work Phone: [facility] 07-20-2010 influenza virus vacc ine, split virus (incl. purified surface antigen) Jamaal Anguiano MD Work Phone: [facility] 07-20-2010 influenza, seasonal, injectable, preservative free Enedelia Knoble COMMERCIAL BAKER HELPER.MISSION WORKER Work Phone: [facility] 09-17-2009 influenza virus vacc ine, split virus (incl. purified surface antigen) Jamaal Anguiano MD Work Phone: [facility] 09-17-2009 influenza, seasonal, injectable, preservative free Enedelia Knoble COMMERCIAL BAKER HELPER.MISSION WORKER Work Phone: [facility] 10-08-2008 influenza virus vacc ine, unspecified formulation Jamaal Anguiano MD Work Phone: [facility] 10-08-2008 influenza virus vacc ine, whole virus Enedelia Knoble COMMERCIAL BAKER HELPER.MISSION WORKER Work Phone: [facility] 12-29-2007 diphtheria, tetanus toxoids and acellular pertussis vaccine Jamaal Anguiano MD Work Phone: [facility] 12-29-2007 diphtheria, tetanus toxoids and acellular pertussis vaccine, unspecified formulation Enedelia Isaacs APRN.MISSION WORKER Work Phone: [facility] 12-29-2007 measles, mumps and rubella virus vaccine Jamaal Anguiano MD Work Phone: [facility] 12-29-2007 poliovirus vaccine, inactivated Jamaal Anguiano MD Work Phone: [facility] 12-29-2007 varicella virus vaccine Adonay Anguiano MD Work Phone: [facility] 08-14-2004 influenza virus vacc ine, unspecified formulation Jamaal Anguiano MD Work Phone: [facility] 08-14-2004 influenza virus vacc ine, whole virus Enedelia Isaacs APRN.MISSION WORKER Work Phone: [facility] 02-24-2004 diphtheria, tetanus toxoids and acellular pertussis vaccine Jamaal Anguiano MD Work Phone: [facility] 02-24-2004 diphtheria, tetanus toxoids and acellular pertussis vaccine, unspecified formulation Enedelia Isaacs APRN.MISSION WORKER Work Phone: [facility] 02-24-2004 varicella virus vaccine Adonay Anguiano MD Work Phone: [facility] 11-22-2003 haemophilus influenz ae type b conjugate and Hepatitis B vaccine Jamaal Anguiano MD Work Phone: [facility] 11-22-2003 measles, mumps and rubella virus vaccine Jamaal Anguiano MD Work Phone: [facility] 11-22-2003 poliovirus vaccine, inactivated Jamaal Anguiano MD Work Phone: [facility] 08-27-2003 influenza virus vacc ine, unspecified formulation Jamaal Anguiano MD Work Phone: [facility] 08-27-2003 influenza virus vacc ine, whole virus Enedelia Isaacs APRN.MISSION WORKER Work Phone: [facility] 05-27-2003 diphtheria, tetanus toxoids and acellular pertussis vaccine Jamaal Anguiano MD Work Phone: [facility] 05-27-2003 diphtheria, tetanus toxoids and acellular pertussis vaccine, unspecified formulation Enedelia Isaacs APRN.MISSION WORKER Work Phone: [facility] 05-27-2003 haemophilus influenz ae type b vaccine, PRP-T conjugate Jamaal Anguiano MD Work Phone: [facility] 05-27-2003 pneumococcal conjuga te vaccine, 7 valent Jamaal Anguiano MD Work Phone: [facility] 03-26-2003 diphtheria, tetanus toxoids and acellular pertussis vaccine Jamaal Anguiano MD Work Phone: [facility] 03-26-2003 diphtheria, tetanus toxoids and acellular pertussis vaccine, unspecified formulation Enedelia Isaacs APRN.MISSION WORKER Work Phone: [facility] 03-26-2003 haemophilus influenz ae type b vaccine, PRP-T conjugate Jamaal Anguiano MD Work Phone: [facility] 03-26-2003 pneumococcal conjuga te vaccine, 7 valtori Anguiano MD Work Phone: [facility] 03-26-2003 poliovirus vaccine, inactivated Jamaal Anguiano MD Work Phone: [facility] 01-21-2003 diphtheria, tetanus toxoids and acellular pertussis vaccine Jamaal Anguiano MD Work Phone: [facility] 01-21-2003 diphtheria, tetanus toxoids and acellular pertussis vaccine, unspecified formulation Enedelia Isaacs APRN.MISSION WORKER Work Phone: [facility] 01-21-2003 haemophilus influenz ae type b conjugate and Hepatitis B vaccine Jamaal Anguiano MD Work Phone: [facility] 01-21-2003 pneumococcal conjuga te vaccine, 7 valtori Anguiano MD Work Phone: [facility] 01-21-2003 poliovirus vaccine, inactivated Jamaal Anguiano MD Work Phone: [facility] 2002 hepatitis B vaccine, pediatric or pediatric/adolescent dosage Jamaal Anguiano MD Work Phone: [facility] Payers Date Payer Category Payer Medicaid [id number] 2022 Unknown [id number] 2017 Medicaid [id number] 2006 Unknown 2002 Unknown [id number] [id number] 2002 Unknown [id number] [id number] 2002 Unknown [id number] [id number] 2002 Unknown [id number] [id number]. [id number] Unknown [id number] Social History Date Type Detail Facility Start: 06-27-2022 End: 09-15-2022 Tobacco smoking status NHIS Never smoked tobacco [facility] Work Phone: Start: 06-27-2022 End: 09-15-2022 Tobacco use and exposure Smokeless tobacco non-user [facility] Work Phone: Start: 2002 Sex Assigned At Not on file [facility] Start: 07-11-2022 End: 09-17-2022 Exposure to SARS-CoV-2 (event) Not sure [facility] Start: 09-17-2022 Alcohol intake Current non-dr head sulfide operator of alcohol (finding) [facility] Start: 07-26-2023 Alcohol intake Lifetime non-d shaheen (finding) [facility] Start: 03-09-2023 End: 07-26-2023 History of Social function [facility] Work Phone: Start: 03-09-2023 End: 07-26-2023 Tobacco use panel [facility] Work Phone: Adult Depression Screening Assessment 0 [facility] Work Phone: NEGATED: Highlighted rowStart: MADISONF History of tobacco use Passive smoker [facility] Clinical Notes 06-27-2022 to 10-12-2023 Telephone Encounter - Giovanna Mckinley APRN.CNP - 09/10/2023 8:15 AM Giovanna Koch APRN.CNP - 09/09/2023 7:03 PM ESTTelephone Encounter - Workman Sophie Rodriguez - 07/28/2023 9:56 AM EDT Note Date & Type Note Facility 10-12-2023 Note HNO ID: [id number] Author: Alan Dotson APRN.MISSION WORKER Service: ? Author Type: Nurse Practitioner Type: Progress Notes Filed: 10/12/2023 5:00 PM Note Text: Subjective HPI Nontoxic-appearing female presents urgent care chief complaint nasal congestion cough body aches chills fatigue. Did vomit 1 time today. Has a transient headache. No OTC medication use. Mother sick similar signs symptoms. She was in contact with individuals tested positive for COVID-19. Denies any fevers productive cough chest pain shortness of breath hemoptysis blood in vomit abdominal pain change in bowel or bladder habits. Past medical history prescription medications allergies reviewed. .Patient presents with: Nasal Congestion: drainage, cough x 2 days, vomited today PAST MEDICAL HISTORY Diagnosis Date Intermittent asthma Migraine headache PAST SURGICAL HISTORY Procedure Laterality Date ADENOIDECTOMY PRIMARY Adenoidectomy TONSILLECTOMY PRIMARY/SECONDARY Tonsillectomy ALLERGIES Patient has no known allergies. MEDICATIONS fluticasone (FLONASE) 50 mcg/actuation nasal spray Use 2 Sprays in each nostril once daily. Rinse mouth after use. albuterol HFA (PROVENTIL HFA, VENTOLIN HFA) 90 mcg/actuation inhaler Inhale 2 Puffs as instructed. fluticasone (FLOVENT) 110 mcg/actuation inhaler Inhale 1 Puff as instructed twice daily. No family history on file. Social History Tobacco Use Smoking status: Never Smokeless tobacco: Never Substance Use Topics Alcohol use: Never Drug use: Never BP 102/68 Pulse 102 Temp 36.7 ?C (98 ?F) Resp 16 Wt 97.1 kg (214 lb) SpO2 97% BMI 36.73 kg/m? Review of Systems Constitutional: Positive for chills and malaise/fatigue. Negative for fever. HENT: Positive for congestion. Negative for ear discharge, ear pain, sinus pain and sore throat. Eyes: Negative for blurred vision, pain, discharge and redness. Respiratory: Positive for cough. Negative for hemoptysis, sputum production, shortness of breath, wheezing and stridor. Cardiovascular: Negative for chest pain. Gastrointestinal: Positive for nausea and vomiting. Negative for abdominal pain and diarrhea. Musculoskeletal: Positive for myalgias. Skin: Negative for itching and rash. Neurological: Positive for headaches. Negative for dizziness. Objective Physical Exam Constitutional: General: She is not in acute distress. Appearance: She is not diaphoretic. HENT: Head: Normocephalic. Jaw: No trismus, tenderness, swelling or pain on movement. Nose: Congestion present. Mouth/Throat: Mouth: Mucous membranes are moist. Pharynx: Oropharynx is clear. Uvula midline. No pharyngeal swelling, oropharyngeal exudate, posterior oropharyngeal erythema or uvula swelling. Eyes: Conjunctiva/sclera: Conjunctivae normal. Pupils: Pupils are equal, round, and reactive to light. Cardiovascular: Rate and Rhythm: Normal rate and regular rhythm. Heart sounds: Normal heart sounds. Pulmonary: Effort: Pulmonary effort is normal. No tachypnea, accessory muscle usage or respiratory distress. Breath sounds: Normal breath sounds. No stridor. No wheezing, rhonchi or rales. Abdominal: General: There is no distension. Palpations: Abdomen is soft. Tenderness: There is no abdominal tenderness. There is no guarding or rebound. Musculoskeletal: Cervical back: Normal range of motion and neck supple. No edema, erythema, rigidity or tenderness. No pain with movement. Normal range of motion. Lymphadenopathy: Cervical: No cervical adenopathy. Skin: General: Skin is warm and dry. Neurological: Mental Status: She is alert and oriented to person, place, and time. ASSESSMENT/PLAN: 1. Viral illness - ICD9: 079.99, ICD10: B34.9 - Discussed viral etiology and rationale for treatment. - Symptomatic treatment with prn analgesia - Supportive care with fluids and rest - COVID AND INFLUENZA A/B NAAT, ROUTINE Patient will follow up with primary care provider as needed. Patient was instructed to immediately proceed to emergency room for any new, worsening, or symptoms lasting longer than anticipated. The patient's clinical presentation is otherwise unremarkable at this time. Based on exam and clinical finding, the patient is stable for discharge. Plan of care was discussed with patient. Patient verbalizes understanding and agrees to plan of care. This note was generated using [employer] software. It may contain errors in wording, punctuation, or spelling. Alan Dotson APRN.[facility] 09-10-2023 Miscellaneous Notes Call patient notified of negative viral results. documented in this encounter [facility] 09-09-2023 Note HNO ID: [id number] Author: Giovanna Mckinley APRN.[facility] Service: ? Author Type: Nurse Practitioner Type: Progress Notes Filed: 09/09/2023 7:14 PM Note Text: CC: Patient presents with: Sore Throat: Cough, head congestion and sore throat x 2 days HPI: Hernan Carr is a 22 year old female who presents to the office with complaint of head congestion, cough, nonproductive, and sore throat for a few days. Symptoms are worsening Associated symptoms includes sore throat. Denies fever, nausea, vomiting , and diarrhea. Treatments tried include nothing so far. with no relief of symptoms. Sick contacts: unknown. History of asthma, frequent episodes of bronchitis, chronic bronchitis, bronchiectasis or COPD: No Smoker: No Seasonal/environmental allergies: No The ROS is otherwise negative. The patient's pmh, medications, allergies, and past visits are reviewed. PHYSICAL EXAM: BP 126/82 Pulse 90 Temp 36.8 ?C (98.3 ?F) Resp 16 Wt 96.6 kg (213 lb) SpO2 100% BMI 36.56 kg/m? General appearance: alert, cooperative, pleasant, in no acute distress Head: Normocephalic Eyes: EOM's intact, conjunctiva pink and moist, no icterus, sclera white, non-injected Ears: Right ear: External ear/canal- Normal, TM - clear with good landmarks. Left ear: External ear/canal- Normal, TM - clear with good landmarks Oropharynx:moist without lesions, No erythema, exudates or tonsillar hypertrophy. Heart: Negative. RRR without obvious murmur, gallop, or rubs. No ectopy. Lungs: clear to auscultation, without rales or wheeze, good air exchange PAST MEDICAL HISTORY Diagnosis Date Intermittent asthma Migraine headache PAST SURGICAL HISTORY Procedure Laterality Date ADENOIDECTOMY PRIMARY Adenoidectomy TONSILLECTOMY PRIMARY/SECONDARY Tonsillectomy ALLERGIES Patient has no known allergies. MEDICATIONS fluticasone (FLONASE) 50 mcg/actuation nasal spray Use 2 Sprays in each nostril once daily. Rinse mouth after use. albuterol HFA (PROVENTIL HFA, VENTOLIN HFA) 90 mcg/actuation inhaler Inhale 2 Puffs as instructed. fluticasone (FLOVENT) 110 mcg/actuation inhaler Inhale 1 Puff as instructed twice daily. No family history on file. Social History Tobacco Use Smoking status: Never Smokeless tobacco: Never Substance Use Topics Alcohol use: Never Drug use: Never ASSESSMENT/PLAN: 1. Sore throat - ICD9: 462, ICD10: J02.9 (primary diagnosis) - STREP A MOLECULAR (POC) - neg 2. URI, acute - ICD9: 465.9, ICD10: J06.9 - COVID AND INFLUENZA A/B AND RSV NAAT, ROUTINE . Potential red flag symptoms discussed with the patient. Reviewed appropriate action plan to take if red flag symptoms occur. Patient agreeable to treatment plan. Giovanna Mckinley APRN.[facility] 09-09-2023 History of Presen t illness Narrative CC: Patient presents with: Sore Throat: Cough, head congestion and sore throat x 2 days HPI: Hernan Carr is a 22 year old female who presents to the office with complaint of head congestion, cough, nonproductive, and sore throat for a few days. Symptoms are worsening Associated symptoms includes sore throat. Denies fever, nausea, vomiting , and diarrhea. Treatments tried include nothing so far. with no relief of symptoms. Sick contacts: unknown. History of asthma, frequent episodes of bronchitis, chronic bronchitis, bronchiectasis or COPD: No Smoker: No Seasonal/environmental allergies: No The ROS is otherwise negative. The patient's pmh, medications, allergies, and past visits are reviewed. PHYSICAL EXAM: BP 126/82 Pulse 90 Temp 36.8 C (98.3 F) Resp 16 Wt 96.6 kg (213 lb) SpO2 100% BMI 36.56 kg/m General appearance: alert, cooperative, pleasant, in no acute distress Head: Normocephalic Eyes: EOM's intact, conjunctiva pink and moist, no icterus, sclera white, non-injected Ears: Right ear: External ear/canal- Normal, TM - clear with good landmarks. Left ear: External ear/canal- Normal, TM - clear with good landmarks Oropharynx:moist without lesions, No erythema, exudates or tonsillar hypertrophy. Heart: Negative. RRR without obvious murmur, gallop, or rubs. No ectopy. Lungs: clear to auscultation, without rales or wheeze, good air exchange PAST MEDICAL HISTORY Diagnosis Date Intermittent asthma Migraine headache PAST SURGICAL HISTORY Procedure Laterality Date ADENOIDECTOMY PRIMARY <AGE 12 11/16 Adenoidectomy TONSILLECTOMY PRIMARY/SECONDARY <AGE 12 11/16 Tonsillectomy ALLERGIES Patient has no known allergies. MEDICATIONS fluticasone (FLONASE) 50 mcg/actuation nasal spray Use 2 Sprays in each nostril once daily. Rinse mouth after use. albuterol HFA (PROVENTIL HFA, VENTOLIN HFA) 90 mcg/actuation inhaler Inhale 2 Puffs as instructed. fluticasone (FLOVENT) 110 mcg/actuation inhaler Inhale 1 Puff as instructed twice daily. No family history on file. Social History Tobacco Use Smoking status: Never Smokeless tobacco: Never Substance Use Topics Alcohol use: Never Drug use: Never ASSESSMENT/PLAN: 1. Sore throat - ICD9: 462, ICD10: J02.9 (primary diagnosis) - STREP A MOLECULAR (POC) - neg 2. URI, acute - ICD9: 465.9, ICD10: J06.9 - COVID & INFLUENZA A/B & RSV NAAT, ROUTINE . Potential red flag symptoms discussed with the patient. Reviewed appropriate action plan to take if red flag symptoms occur. Patient agreeable to treatment plan. Giovanna Mckinley APRN.[employer] WORK[employer] documented in this encounter [facility] 08-23-2023 Note HNO ID: [id number] Author: Elizabeth Estevez LPN Service: ? Author Type: ? Type: Progress Notes Filed: 08/23/2023 10:56 AM Note Text: Scan on 08/19/2023 6:13 PM by ProviderJose Alfredo PA-C: X-ray Scan on 08/19/2023 11:24 PM by Provider, GENE Veliz: Consultation - Emergency Medicine [facility] 07-28-2023 Miscellaneous Notes Patient notified and verbalized understanding Sophie Mccormick Cma Please let patient know her labs are normal. documented in this encounter [facility] 07-26-2023 Note HNO ID: [id number] Author: Enedelia Isaacs APRN.[facility] Service: ? Author Type: Nurse Practitioner Type: Progress Notes Filed: 07/26/2023 8:15 AM Note Text: Chief Complaint Patient presents with: Establish [facility] HPI Hernan Carr is a 22 year old female who presents here today for Above Complaints.. Patient presents to establish care. Past medical history, appointments, medications, allergies reviewed. Previous Medical History PAST MEDICAL HISTORY Diagnosis Date Intermittent asthma Migraine headache Previous Surgical History PAST SURGICAL HISTORY Procedure Laterality Date ADENOIDECTOMY PRIMARY Adenoidectomy TONSILLECTOMY PRIMARY/SECONDARY Tonsillectomy Family History No family history on file. Patient Allergies ALLERGIES No Known Allergies Current Medications Current Outpatient Medications on File Prior to Visit Medication Sig fluticasone (FLONASE) 50 mcg/actuation nasal spray Use 2 Sprays in each nostril once daily. Rinse mouth after use. albuterol HFA (PROVENTIL HFA, VENTOLIN HFA) 90 mcg/actuation inhaler Inhale 2 Puffs as instructed. fluticasone (FLOVENT) 110 mcg/actuation inhaler Inhale 1 Puff as instructed twice daily. No current facility-administered medications on file prior to visit. Social History Social History Tobacco Use Smoking status: Never Smokeless tobacco: Never Review of Symptoms REVIEW OF SYSTEMS GENERAL: No weight loss, malaise or fevers HEENT: No changes in hearing or vision, no nose bleeds or other nasal problems NECK: Negative for lumps, goiter, pain and significant neck swelling RESPIRATORY: Negative for cough, hemoptysis, wheezing, COPD, dyspnea or shortness of breath CARDIOVASCULAR: Negative for chest pain, leg swelling, hypertension, CHF or palpitations GI: Positive for nausea after eating intermittent, previous workup negative : No history of dysuria, frequency or incontinence [employer] WRITER: Negative for abnormal vaginal bleeding, abnormal vaginal discharge MUSCULOSKELETAL: Negative for joint pain or swelling, back pain or muscle pain, joint pain or swelling, and muscle pain SKIN: Negative for lesions, rash, and itching PSYCH: Positive for sleep issues HEMATOLOGY/LYMPHOLOGY: Negative for prolonged bleeding, bruising easily or swollen nodes ENDOCRINE: Negative for cold or heat intolerance, polyuria, polydipsia and goiter NEURO: Tension headaches EXAM: BP 112/80 Pulse 70 Resp 14 Ht 162.6 cm (5' 4 ) Wt 90.3 kg (199 lb) BMI 34.16 kg/m? General Appearance: Well appearing, alert, in no acute distress, well-hydrated, well nourished.. Skin: Skin color, texture, turgor normal, no suspicious rashes or lesions. Lungs: Lungs clear to auscultation. No wheezing, rhonchi, rales.. Heart: RRR without murmur, gallop, or rubs. No ectopy. Abdomen: Normal abdominal exam, Abdomen soft, non-tender. Bowel sounds normal. No masses, organomegaly Musculoskeletal: No joint swelling, deformity, or tenderness. Peripheral Pulses: Normal. Neurologic: Gait normal. Reflexes normal and symmetric. Sensation grossly intact.. Health Maintenance List Covid-19 Vaccine(1) Never done HPV Vaccine(1 - 2-dose series) Never done Meningococcal B Vaccine: Consider Based On Risk(1 of 2 - Patient Seeks Protection) Never done GC (Gonorrhea) Screening (18-24) Never done Hepatitis C Screening Never done HIV Screening Never done Chlamydia Screening (18-24) Never done Depression Assessment Never done Influenza Vaccine(1) due on 04/08/2024 DTaP,Tdap,Td Vaccine(7 - Td or Tdap) due on 11/26/2024 Hepatitis B Vaccine Completed ASSESSMENT/PLAN: 1. Wellness examination - ICD9: V70.0, ICD10: Z00.00 (primary diagnosis) - Counseled on healthy diet and regular exercise - Calcium intake with supplements or by diet of 1000 mg/day for under 50, 4802-4757 mg/day for 50+ - Discussed need and benefit for weight loss. BMI 34.16 kg/(m2) - Depression screening tool completed and reviewed with patient. Based on score and interview, patient is not at risk for depression and recommended no further intervention at this time. - Follow up for annual exam in one year - CBC + DIFF - COMP METABOLIC PANEL 2. Encounter for lipid screening for cardiovascular disease - ICD9: V77.91, V81.2, ICD10: Z13.220, Z13.6 - LIPID PANEL BASIC 3. Screening for diabetes mellitus - ICD9: V77.1, ICD10: Z13.1 - HGB A1C 4. Mild intermittent asthma, uncomplicated - ICD9: 493.90, ICD10: J45.20 - Mild intermittent asthma stable - Continue current medications - Avoidance of triggers recommended Enedelia Isaacs APRN.[facility] 07-26-2023 History of Presen t illness Narrative Chief Complaint Patient presents with: [facility] Hernan Carr is a 22 year old female who presents here today for Above Complaints.. Patient presents to [facility]. Past medical history, appointments, medications, allergies reviewed. Previous Medical History PAST MEDICAL HISTORY Diagnosis Date Intermittent asthma Migraine headache Previous Surgical History PAST SURGICAL HISTORY Procedure Laterality Date ADENOIDECTOMY PRIMARY <AGE 12 11/16 Adenoidectomy TONSILLECTOMY PRIMARY/SECONDARY <AGE 12 11/16 Tonsillectomy Family History No family history on file. Patient Allergies ALLERGIES No Known Allergies Current Medications Current Outpatient Medications on File Prior to Visit Medication Sig fluticasone (FLONASE) 50 mcg/actuation nasal spray Use 2 Sprays in each nostril once daily. Rinse mouth after use. albuterol HFA (PROVENTIL HFA, VENTOLIN HFA) 90 mcg/actuation inhaler Inhale 2 Puffs as instructed. fluticasone (FLOVENT) 110 mcg/actuation inhaler Inhale 1 Puff as instructed twice daily. No current facility-administered medications on file prior to visit. Social History Social History Tobacco Use Smoking status: Never Smokeless tobacco: Never Review of Symptoms REVIEW OF SYSTEMS GENERAL: No weight loss, malaise or fevers HEENT: No changes in hearing or vision, no nose bleeds or other nasal problems NECK: Negative for lumps, goiter, pain and significant neck swelling RESPIRATORY: Negative for cough, hemoptysis, wheezing, COPD, dyspnea or shortness of breath CARDIOVASCULAR: Negative for chest pain, leg swelling, hypertension, CHF or palpitations GI: Positive for nausea after eating intermittent, previous workup negative : No history of dysuria, frequency or incontinence [employer] WRITER: Negative for abnormal vaginal bleeding, abnormal vaginal discharge MUSCULOSKELETAL: Negative for joint pain or swelling, back pain or muscle pain, joint pain or swelling, and muscle pain SKIN: Negative for lesions, rash, and itching PSYCH: Positive for sleep issues HEMATOLOGY/LYMPHOLOGY: Negative for prolonged bleeding, bruising easily or swollen nodes ENDOCRINE: Negative for cold or heat intolerance, polyuria, polydipsia and goiter NEURO: Tension headaches EXAM: BP 112/80 Pulse 70 Resp 14 Ht 162.6 cm (5' 4 ) Wt 90.3 kg (199 lb) BMI 34.16 kg/m General Appearance: Well appearing, alert, in no acute distress, well-hydrated, well nourished.. Skin: Skin color, texture, turgor normal, no suspicious rashes or lesions. Lungs: Lungs clear to auscultation. No wheezing, rhonchi, rales.. Heart: RRR without murmur, gallop, or rubs. No ectopy. Abdomen: Normal abdominal exam, Abdomen soft, non-tender. Bowel sounds normal. No masses, organomegaly Musculoskeletal: No joint swelling, deformity, or tenderness. Peripheral Pulses: Normal. Neurologic: Gait normal. Reflexes normal and symmetric. Sensation grossly intact.. Health Maintenance List Covid-19 Vaccine(1) Never done HPV Vaccine(1 - 2-dose series) Never done Meningococcal B Vaccine: Consider Based On Risk(1 of 2 - Patient Seeks Protection) Never done GC (Gonorrhea) Screening (18-24) Never done Hepatitis C Screening Never done HIV Screening Never done Chlamydia Screening (18-24) Never done Depression Assessment Never done Influenza Vaccine(1) due on 04/08/2024 DTaP,Tdap,Td Vaccine(7 - Td or Tdap) due on 11/26/2024 Hepatitis B Vaccine Completed ASSESSMENT/PLAN: 1. Wellness examination - ICD9: V70.0, ICD10: Z00.00 (primary diagnosis) - Counseled on healthy diet and regular exercise - Calcium intake with supplements or by diet of 1000 mg/day for under 50, 5598-7272 mg/day for 50+ - Discussed need and benefit for weight loss. BMI 34.16 kg/(m^2) - Depression screening tool completed and reviewed with patient. Based on score and interview, patient is not at risk for depression and recommended no further intervention at this time. - Follow up for annual exam in one year - CBC + DIFF - COMP METABOLIC PANEL 2. Encounter for lipid screening for cardiovascular disease - ICD9: V77.91, V81.2, ICD10: Z13.220, Z13.6 - LIPID PANEL BASIC 3. Screening for diabetes mellitus - ICD9: V77.1, ICD10: Z13.1 - HGB A1C 4. Mild intermittent asthma, uncomplicated - ICD9: 493.90, ICD10: J45.20 - Mild intermittent asthma stable - Continue current medications - Avoidance of triggers recommended Enedelia Isaacs APRN.MISSION WORKER documented in this encounter [facility] 03-09-2023 Note HNO ID: [id number] Author: Maricruz Velazquez PA-C Service: ? Author Type: Physician Powder Room Attendant Type: Progress Notes Filed: 03/09/2023 5:38 PM Note Text: This note was created using [employer]. Subjective Hernan Carr is a 22 year old female. HPI Patient presents with a sore throat for 2 days as well as right eye redness and itchiness. Some mild congestion. Denies cough. 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 No fever. No vomiting or diarrhea. No abdominal pain. Does not wear contacts. Does not think she got anything in her eye. Review of Systems Constitutional: Negative. HENT: Positive for congestion and sore throat. Negative for ear pain, rhinorrhea, sinus pressure and sinus pain. Eyes: Positive for discharge, redness and itching. Respiratory: Negative. Cardiovascular: Negative. Gastrointestinal: Negative. Genitourinary: Negative. Musculoskeletal: Negative. All other systems reviewed and are negative. PAST MEDICAL HISTORY Diagnosis Date Intermittent asthma Migraine headache Current Outpatient Medications Medication Sig Dispense Refill fluticasone (FLONASE) 50 mcg/actuation nasal spray Use 2 Sprays in each nostril once daily. Rinse mouth after use. 1 Bottle 11 FLUoxetine (PROZAC) 40 mg capsule Take 40 mg by mouth once daily. FLUTICASONE PROPIONATE (FLONASE NASAL) Use in the nose. albuterol HFA (PROVENTIL HFA, VENTOLIN HFA) 90 mcg/actuation inhaler Inhale 2 Puffs as instructed. fluticasone (FLOVENT) 110 mcg/actuation inhaler Inhale 1 Puff as instructed twice daily. trimethoprim-polymyxin (POLYTRIM) 10,000 unit- 1 mg/mL ophthalmic solution Use 1 Drop in the right eye four times daily for 7 days. 10 mL 0 famotidine (PEPCID) 40 mg tablet Take 1 tablet by mouth once daily. (Patient not taking: Reported on 03/09/2023) 15 tablet 0 ondansetron orally disintegrating (ZOFRAN ODT) 4 mg disintegrating tablet Take 1 tablet by mouth every 6 hours as needed for nausea/vomiting. (Patient not taking: Reported on 03/09/2023) 9 tablet 0 TOPIRAMATE (TOPAMAX ORAL) Take by mouth. (Patient not taking: Reported on 02/09/2023) FEXOFENADINE HCL (ABHAY ORAL) Take by mouth. (Patient not taking: Reported on 06/27/2022) No current facility-administered medications for this visit. PAST SURGICAL HISTORY Procedure Laterality Date ADENOIDECTOMY PRIMARY Adenoidectomy TONSILLECTOMY PRIMARY/SECONDARY Tonsillectomy No family history on file. Social History Tobacco Use Smoking status: Never Smokeless tobacco: Never Objective BP 110/82 Pulse 103 Temp 37.2 ?C (98.9 ?F) Resp 22 Wt 96.8 kg (213 lb 6.4 oz) SpO2 97% Physical Exam Vitals reviewed. Constitutional: Appearance: Normal appearance. HENT: Head: Normocephalic and atraumatic. Right Ear: Tympanic membrane, ear canal and external ear normal. Left Ear: Tympanic membrane, ear canal and external ear normal. Nose: Nose normal. Mouth/Throat: Pharynx: Oropharynx is clear. Eyes: General: No scleral icterus. Right eye: Discharge present. Left eye: No discharge. Extraocular Movements: Extraocular movements intact. Pupils: Pupils are equal, round, and reactive to light. Comments: Exam of the right eye reveals mild erythema of the conjunctiva. Some tearing. Mild injection of the sclera. No foreign body visualized. PERRLA and EOMI. Left eye unremarkable. Cardiovascular: Rate and Rhythm: Normal rate and regular rhythm. Heart sounds: Normal heart sounds. Pulmonary: Effort: Pulmonary effort is normal. Breath sounds: Normal breath sounds. Musculoskeletal: Cervical back: Neck supple. Skin: General: Skin is warm and dry. Findings: No rash. Neurological: Mental Status: She is alert. Assessment and Plan ASSESSMENT/PLAN: 1. Sore throat - ICD9: 462, ICD10: J02.9 (primary diagnosis) - Alere Strep Test neg, no culture pending - STREP A MOLECULAR (POC) 2. Acute conjunctivitis of right eye, unspecified acute conjunctivitis type - ICD9: 372.00, ICD10: H10.31 Discussed likelihood of viral conjunctivitis , polytrim rx given if not improving or worsening. - see medication orders - course and contagiousness issues discussed, including hand washing. - Instructed to call if high fever, development of periorbital redness or swelling, eye pain, visual changes, concerns or if symptoms persist. Maricruz Velazquez PA-C [facility] 03-09-2023 History of Presen t illness Narrative This note was created using [employer]. Subjective Hernan Carr is a 22 year old female. HPI Patient presents with a sore throat for 2 days as well as right eye redness and itchiness. Some mild congestion. Denies cough. 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 No fever. No vomiting or diarrhea. No abdominal pain. Does not wear contacts. Does not think she got anything in her eye. Review of Systems Constitutional: Negative. HENT: Positive for congestion and sore throat. Negative for ear pain, rhinorrhea, sinus pressure and sinus pain. Eyes: Positive for discharge, redness and itching. Respiratory: Negative. Cardiovascular: Negative. Gastrointestinal: Negative. Genitourinary: Negative. Musculoskeletal: Negative. All other systems reviewed and are negative. PAST MEDICAL HISTORY Diagnosis Date Intermittent asthma Migraine headache Current Outpatient Medications Medication Sig Dispense Refill fluticasone (FLONASE) 50 mcg/actuation nasal spray Use 2 Sprays in each nostril once daily. Rinse mouth after use. 1 Bottle 11 FLUoxetine (PROZAC) 40 mg capsule Take 40 mg by mouth once daily. FLUTICASONE PROPIONATE (FLONASE NASAL) Use in the nose. albuterol HFA (PROVENTIL HFA, VENTOLIN HFA) 90 mcg/actuation inhaler Inhale 2 Puffs as instructed. fluticasone (FLOVENT) 110 mcg/actuation inhaler Inhale 1 Puff as instructed twice daily. trimethoprim-polymyxin (POLYTRIM) 10,000 unit- 1 mg/mL ophthalmic solution Use 1 Drop in the right eye four times daily for 7 days. 10 mL 0 famotidine (PEPCID) 40 mg tablet Take 1 tablet by mouth once daily. (Patient not taking: Reported on 03/09/2023) 15 tablet 0 ondansetron orally disintegrating (ZOFRAN ODT) 4 mg disintegrating tablet Take 1 tablet by mouth every 6 hours as needed for nausea/vomiting. (Patient not taking: Reported on 03/09/2023) 9 tablet 0 TOPIRAMATE (TOPAMAX ORAL) Take by mouth. (Patient not taking: Reported on 02/09/2023) FEXOFENADINE HCL (ABHAY ORAL) Take by mouth. (Patient not taking: Reported on 06/27/2022) No current facility-administered medications for this visit. PAST SURGICAL HISTORY Procedure Laterality Date ADENOIDECTOMY PRIMARY <AGE 12 11/16 Adenoidectomy TONSILLECTOMY PRIMARY/SECONDARY <AGE 12 11/16 Tonsillectomy No family history on file. Social History Tobacco Use Smoking status: Never Smokeless tobacco: Never Objective BP 110/82 Pulse 103 Temp 37.2 C (98.9 F) Resp 22 Wt 96.8 kg (213 lb 6.4 oz) SpO2 97% Physical Exam Vitals reviewed. Constitutional: Appearance: Normal appearance. HENT: Head: Normocephalic and atraumatic. Right Ear: Tympanic membrane, ear canal and external ear normal. Left Ear: Tympanic membrane, ear canal and external ear normal. Nose: Nose normal. Mouth/Throat: Pharynx: Oropharynx is clear. Eyes: General: No scleral icterus. Right eye: Discharge present. Left eye: No discharge. Extraocular Movements: Extraocular movements intact. Pupils: Pupils are equal, round, and reactive to light. Comments: Exam of the right eye reveals mild erythema of the conjunctiva. Some tearing. Mild injection of the sclera. No foreign body visualized. PERRLA and EOMI. Left eye unremarkable. Cardiovascular: Rate and Rhythm: Normal rate and regular rhythm. Heart sounds: Normal heart sounds. Pulmonary: Effort: Pulmonary effort is normal. Breath sounds: Normal breath sounds. Musculoskeletal: Cervical back: Neck supple. Skin: General: Skin is warm and dry. Findings: No rash. Neurological: Mental Status: She is alert. Assessment and Plan ASSESSMENT/PLAN: 1. Sore throat - ICD9: 462, ICD10: J02.9 (primary diagnosis) - Alere Strep Test neg, no culture pending - STREP A MOLECULAR (POC) 2. Acute conjunctivitis of right eye, unspecified acute conjunctivitis type - ICD9: 372.00, ICD10: H10.31 Discussed likelihood of viral conjunctivitis , polytrim rx given if not improving or worsening. - see medication orders - course and contagiousness issues discussed, including hand washing. - Instructed to call if high fever, development of periorbital redness or swelling, eye pain, visual changes, concerns or if symptoms persist. Maricruz Velazquez PA-C documented in this encounter [facility] 02-09-2023 Note HNO ID: [id number] Author: IRENE Andujar Service: ? Author Type: Physician Powder Room Attendant Type: Progress Notes Filed: 02/09/2023 4:58 PM Note Text: This note was created using [employer]. Subjective Hernan Carr is a 22 year old female. HPI 22-year-old female presents for nausea and vomiting. Patient states that she had an episode of vomiting yesterday. She has had intermittent nausea throughout the week. She states that she thought it may be stress related. She denies any history of anxiety or depression. No thoughts of harming herself or anybody else. She states that she has been stressed recently between jobs and occasionally gets nauseous. She does work at a daycare. She denies any cough or URI symptoms. She was recently treated for sinus and ear infection. She states that she still has a little bit of ear pain, but it is improved. She denies any concern for and declines test. No abdominal pain. No diarrhea. No urinary symptoms. No fevers. No other complaints PAST MEDICAL HISTORY Diagnosis Date Intermittent asthma Migraine headache PAST SURGICAL HISTORY Procedure Laterality Date ADENOIDECTOMY PRIMARY Adenoidectomy TONSILLECTOMY PRIMARY/SECONDARY Tonsillectomy ALLERGIES Patient has no known allergies. MEDICATIONS ondansetron orally disintegrating (ZOFRAN ODT) 4 mg disintegrating tablet Take 1 tablet by mouth every 6 hours as needed for nausea/vomiting. fluticasone (FLONASE) 50 mcg/actuation nasal spray Use 2 Sprays in each nostril once daily. Rinse mouth after use. FLUoxetine (PROZAC) 40 mg capsule Take 40 mg by mouth once daily. FLUTICASONE PROPIONATE (FLONASE NASAL) Use in the nose. albuterol HFA (PROVENTIL HFA, VENTOLIN HFA) 90 mcg/actuation inhaler Inhale 2 Puffs as instructed. fluticasone (FLOVENT) 110 mcg/actuation inhaler Inhale 1 Puff as instructed twice daily. famotidine (PEPCID) 40 mg tablet Take 1 tablet by mouth once daily. TOPIRAMATE (TOPAMAX ORAL) Take by mouth. (Patient not taking: Reported on 02/09/2023) FEXOFENADINE HCL (ABHAY ORAL) Take by mouth. (Patient not taking: Reported on 06/27/2022) No family history on file. Social History Tobacco Use Smoking status: Never Smokeless tobacco: Never Review of Systems Constitutional: Negative for chills and fever. HENT: Positive for ear pain. Negative for congestion and sore throat. Respiratory: Negative for cough and shortness of breath. Cardiovascular: Negative for chest pain. Gastrointestinal: Positive for nausea and vomiting. Negative for abdominal pain and diarrhea. Objective BP 120/76 Pulse 115 Temp 36.7 ?C (98 ?F) Resp 21 Wt 97.8 kg (215 lb 9.6 oz) SpO2 97% Physical Exam Vitals and nursing note reviewed. Constitutional: General: She is not in acute distress. Appearance: Normal appearance. She is not toxic-appearing. HENT: Right Ear: Tympanic membrane and ear canal normal. Left Ear: Tympanic membrane and ear canal normal. Mouth/Throat: Mouth: Mucous membranes are moist. Eyes: Conjunctiva/sclera: Conjunctivae normal. Cardiovascular: Rate and Rhythm: Normal rate and regular rhythm. Pulmonary: Effort: Pulmonary effort is normal. Breath sounds: Normal breath sounds. Abdominal: General: Abdomen is flat. Palpations: Abdomen is soft. Tenderness: There is no abdominal tenderness. Skin: General: Skin is warm and dry. Neurological: Mental Status: She is alert. Assessment and Plan ASSESSMENT/PLAN: 1. Nausea and vomiting, unspecified vomiting type - ICD9: 787.01, ICD10: R11.2 -Declines test, no concern for . -Rx for Pepcid. Nausea/vomiting is intermittent and vomiting acid. -Possibly stress related per patient's concern. Advised to follow-up with PCP regarding this if it continues -Declines COVID/flu swab Diagnosis and treatment plan were discussed and questions were answered to the patient's satisfaction. Pt acknowledged understanding of concepts and follow up plan. Specific signs and symptoms that would indicate the need for higher level of care were discussed in detail warranting prompt ER evaluation. IRENE Andujar [facility] 02-09-2023 History of Presen t illness Narrative This note was created using [employer]. Subjective Hernan Carr is a 22 year old female. HPI 22-year-old female presents for nausea and vomiting. Patient states that she had an episode of vomiting yesterday. She has had intermittent nausea throughout the week. She states that she thought it may be stress related. She denies any history of anxiety or depression. No thoughts of harming herself or anybody else. She states that she has been stressed recently between jobs and occasionally gets nauseous. She does work at a daycare. She denies any cough or URI symptoms. She was recently treated for sinus and ear infection. She states that she still has a little bit of ear pain, but it is improved. She denies any concern for and declines test. No abdominal pain. No diarrhea. No urinary symptoms. No fevers. No other complaints PAST MEDICAL HISTORY Diagnosis Date Intermittent asthma Migraine headache PAST SURGICAL HISTORY Procedure Laterality Date ADENOIDECTOMY PRIMARY <AGE 12 11/16 Adenoidectomy TONSILLECTOMY PRIMARY/SECONDARY <AGE 12 11/16 Tonsillectomy ALLERGIES Patient has no known allergies. MEDICATIONS ondansetron orally disintegrating (ZOFRAN ODT) 4 mg disintegrating tablet Take 1 tablet by mouth every 6 hours as needed for nausea/vomiting. fluticasone (FLONASE) 50 mcg/actuation nasal spray Use 2 Sprays in each nostril once daily. Rinse mouth after use. FLUoxetine (PROZAC) 40 mg capsule Take 40 mg by mouth once daily. FLUTICASONE PROPIONATE (FLONASE NASAL) Use in the nose. albuterol HFA (PROVENTIL HFA, VENTOLIN HFA) 90 mcg/actuation inhaler Inhale 2 Puffs as instructed. fluticasone (FLOVENT) 110 mcg/actuation inhaler Inhale 1 Puff as instructed twice daily. famotidine (PEPCID) 40 mg tablet Take 1 tablet by mouth once daily. TOPIRAMATE (TOPAMAX ORAL) Take by mouth. (Patient not taking: Reported on 02/09/2023) FEXOFENADINE HCL (ABHAY ORAL) Take by mouth. (Patient not taking: Reported on 06/27/2022) No family history on file. Social History Tobacco Use Smoking status: Never Smokeless tobacco: Never Review of Systems Constitutional: Negative for chills and fever. HENT: Positive for ear pain. Negative for congestion and sore throat. Respiratory: Negative for cough and shortness of breath. Cardiovascular: Negative for chest pain. Gastrointestinal: Positive for nausea and vomiting. Negative for abdominal pain and diarrhea. Objective BP 120/76 Pulse 115 Temp 36.7 C (98 F) Resp 21 Wt 97.8 kg (215 lb 9.6 oz) SpO2 97% Physical Exam Vitals and nursing note reviewed. Constitutional: General: She is not in acute distress. Appearance: Normal appearance. She is not toxic-appearing. HENT: Right Ear: Tympanic membrane and ear canal normal. Left Ear: Tympanic membrane and ear canal normal. Mouth/Throat: Mouth: Mucous membranes are moist. Eyes: Conjunctiva/sclera: Conjunctivae normal. Cardiovascular: Rate and Rhythm: Normal rate and regular rhythm. Pulmonary: Effort: Pulmonary effort is normal. Breath sounds: Normal breath sounds. Abdominal: General: Abdomen is flat. Palpations: Abdomen is soft. Tenderness: There is no abdominal tenderness. Skin: General: Skin is warm and dry. Neurological: Mental Status: She is alert. Assessment and Plan ASSESSMENT/PLAN: 1. Nausea and vomiting, unspecified vomiting type - ICD9: 787.01, ICD10: R11.2 -Declines test, no concern for . -Rx for Pepcid. Nausea/vomiting is intermittent and vomiting acid. -Possibly stress related per patient's concern. Advised to follow-up with PCP regarding this if it continues -Declines COVID/flu swab Diagnosis and treatment plan were discussed and questions were answered to the patient's satisfaction. Pt acknowledged understanding of concepts and follow up plan. Specific signs and symptoms that would indicate the need for higher level of care were discussed in detail warranting prompt ER evaluation. IRENE Andujar documented in this encounter [facility] 07-21-2022 History of Presen t illness Narrative Patient presents with: Nausea & Vomiting: X 4 days HPI: Feeling sick for 4 days. Positive symptoms: Nausea, Vomiting, chills/hot, resolved bad headache, mild Cough/Sore throat/Nasal Congestion, earaches Negative symptoms: Diarrhea, OTC: tums, routine allergy medicine Had COVID illness 06/04/22. MEDICATIONS: Current Outpatient Medications Medication Sig TOPIRAMATE (TOPAMAX ORAL) Take by mouth. fluticasone (FLONASE) 50 mcg/actuation nasal spray Use 2 Sprays in each nostril once daily. Rinse mouth after use. FLUoxetine (PROZAC) 40 mg capsule Take 40 mg by mouth once daily. FLUTICASONE PROPIONATE (FLONASE NASAL) Use in the nose. albuterol HFA (PROVENTIL HFA, VENTOLIN HFA) 90 mcg/actuation inhaler Inhale 2 Puffs as instructed. fluticasone (FLOVENT) 110 mcg/actuation inhaler Inhale 1 Puff as instructed twice daily. FEXOFENADINE HCL (ABHAY ORAL) Take by mouth. (Patient not taking: Reported on 06/27/2022) No current facility-administered medications for this visit. ALLERGIES: ALLERGIES No Known Allergies VITALS: BP 120/78 Pulse 95 Temp 36.7 C (98 F) Resp 21 Wt 107.1 kg (236 lb 3.2 oz) SpO2 97% PHYSICAL EXAM: GEN: mildly ill appearing HEENT: PERRL, EOMI, conjunctiva clear Ears: canals clear. TMs without erythema, bulge, or effusion Sinuses: pressure over sinuses Throat: moist mucous membranes, no erythema, no exudate Neck: supple, no thyromegaly, no lymphadenopathy HEART: regular rate and rhythm, no murmurs LUNGS: clear to auscultation, no wheezes or crackles, no increased WOB ABD: Soft, non-distended, non-tender, no masses ASSESSMENT/PLAN: 1. Nausea and vomiting, unspecified vomiting type - ICD9: 787.01, ICD10: R11.2 Hydration with fluids encouraged. Resume normal solid intake as tolerated. Follow up in the ER with signs of dehydration, increasing abdominal pain, high fever, or blood in vomit or stool. - ONDANSETRON 4 MG DISINTEGRATING TABLET Adelso Richardson MD documented in this encounter [facility] 06-27-2022 History of Presen t illness Narrative Images from the original note were not included. Subjective HPI Nontoxic-appearing female presents urgent care chief complaint lower back pain. Duration of symptoms 1 week. Associated symptoms lower back pain radiating up into mid to upper back. History of back pain from her job similar to this. Has not used any OTC medications. Rates pain 6-7 out of 10. States pain is worse with movement. Improved by rest. Did take Aleve yesterday this did help. States that her job she lifts 50 to 60 pounds on a regular basis. She does a lot of bending. Denies any specific injury. No radiculopathy. Denies any saddle anesthesia or incontinence fever body aches chills nausea vomiting abdominal pain change in bowel or bladder habits or rashes. Past medical history prescription medication use allergies reviewed. Denies chance of is not breast-feeding. .Patient presents with: Back Pain: low back into upper left back into arm x 1 week No past medical history on file. PAST SURGICAL HISTORY Procedure Laterality Date ADENOIDECTOMY PRIMARY <AGE 12 11/16 Adenoidectomy TONSILLECTOMY PRIMARY/SECONDARY <AGE 12 11/16 Tonsillectomy ALLERGIES Patient has no known allergies. MEDICATIONS TOPIRAMATE (TOPAMAX ORAL) Take by mouth. fluticasone (FLONASE) 50 mcg/actuation nasal spray Use 2 Sprays in each nostril once daily. Rinse mouth after use. FLUoxetine (PROZAC) 40 mg capsule Take 40 mg by mouth once daily. FLUTICASONE PROPIONATE (FLONASE NASAL) Use in the nose. albuterol HFA (PROVENTIL HFA, VENTOLIN HFA) 90 mcg/actuation inhaler Inhale 2 Puffs as instructed. fluticasone (FLOVENT) 110 mcg/actuation inhaler Inhale 1 Puff as instructed twice daily. Magnesium 30 mg tablet Take 30 mg by mouth twice daily. (Patient not taking: Reported on 06/27/2022) Mrokyzqyethif-Cfrwovikgpxpf-HJ (TYLENOL COLD HEAD CONGEST SEVR) 5-325-200 mg tab Take 1 Dose by mouth as directed. (Patient not taking: Reported on 06/27/2022) FEXOFENADINE HCL (ABHAY ORAL) Take by mouth. (Patient not taking: Reported on 06/27/2022) No family history on file. Social History Tobacco Use Smoking status: Never Smokeless tobacco: Never BP 120/76 Pulse 96 Temp 36.8 C (98.2 F) Resp 16 Wt 106.6 kg (235 lb) SpO2 97% Review of Systems Constitutional: Negative for chills, fever and malaise/fatigue. HENT: Negative for congestion, ear discharge, ear pain, sinus pain and sore throat. Eyes: Negative for blurred vision, pain, discharge and redness. Respiratory: Negative for cough, hemoptysis, sputum production, shortness of breath, wheezing and stridor. Cardiovascular: Negative for chest pain. Gastrointestinal: Negative for abdominal pain, diarrhea, nausea and vomiting. Genitourinary: Negative. Musculoskeletal: Positive for back pain. Negative for myalgias. Skin: Negative for itching and rash. Neurological: Positive for headaches. Negative for dizziness. Objective Physical Exam Constitutional: General: She is not in acute distress. Appearance: She is not diaphoretic. HENT: Head: Normocephalic. Mouth/Throat: Mouth: Mucous membranes are moist. Pharynx: Oropharynx is clear. No oropharyngeal exudate or posterior oropharyngeal erythema. Eyes: Conjunctiva/sclera: Conjunctivae normal. Pupils: Pupils are equal, round, and reactive to light. Cardiovascular: Rate and Rhythm: Normal rate and regular rhythm. Heart sounds: Normal heart sounds. Pulmonary: Effort: Pulmonary effort is normal. No tachypnea, accessory muscle usage or respiratory distress. Breath sounds: Normal breath sounds. No stridor. No wheezing, rhonchi or rales. Abdominal: Palpations: Abdomen is soft. Tenderness: There is no abdominal tenderness. Musculoskeletal: Cervical back: Normal range of motion and neck supple. No rigidity or tenderness. Thoracic back: No swelling, edema, deformity, signs of trauma, tenderness or bony tenderness. Decreased range of motion. Lumbar back: Tenderness present. No swelling, edema, signs of trauma or bony tenderness. Normal range of motion. Negative right straight leg raise test and negative left straight leg raise test. Back: Comments: Pain with palpation to highlighted area. No spinal tenderness. No erythema no edema. No radiculopathy. Patient able to stand on toes rock on heels. Lymphadenopathy: Cervical: No cervical adenopathy. Skin: General: Skin is warm and dry. Neurological: Mental Status: She is alert and oriented to person, place, and time. ASSESSMENT/PLAN: 1. Low back pain without sciatica, unspecified back pain laterality, unspecified chronicity - ICD9: 724.2, ICD10: M54.50 Patient diagnosed with lower back pain. Will be placed on prednisone burst. Will not take with NSAIDs. Has tolerated this medication in the past. Red flags discussed for reevaluation. Patient was educated on supportive therapies. Patient will follow up with primary care provider as needed. Patient was instructed to immediately proceed to emergency room for any new, worsening, or symptoms lasting longer than anticipated. The patient's clinical presentation is otherwise unremarkable at this time. Based on exam and clinical finding, the patient is stable for discharge. Plan of care was discussed with patient. Patient verbalizes understanding and agrees to plan of care. This note was generated using [employer] software. It may contain errors in wording, punctuation, or spelling. Alan Dotson APRN.VJ documented in this encounter [facility] documented in this encounter [facility] note* Diagnosis Nausea and vomiting, unspecified vomiting type- Primary documented in this encounter [facility] note* Diagnosis Pain of upper abdomen Abdominal pain, other specified site documented in this encounter [facility] note* Diagnosis Nausea and vomiting, unspecified vomiting type- Primary documented in this encounter [facility] note* Diagnosis Sore throat- Primary Acute pharyngitis Acute conjunctivitis of right eye, unspecified acute conjunctivitis type documented in this encounter [facility] note* Diagnosis Wellness examination- Primary Encounter for lipid screening for cardiovascular disease Screening for lipoid disorders Screening for diabetes mellitus Mild intermittent asthma, uncomplicated Unspecified asthma documented in this encounter [facility] note* Diagnosis Sore throat- Primary Acute pharyngitis URI, acute Acute upper respiratory infections of unspecified site documented in this encounter [facility] Summary Purpose Family History No Family History Records FoundNo Family History Records FoundNo Family History Records FoundNo Family History Records FoundNo Family History Records Found Advance Directives No Advanced Directives Records FoundNo Advanced Directives Records FoundNo Advanced Directives Records FoundNo Advanced Directives Records FoundNo Advanced Directives Records Found Health Concerns Infection Onset Date Last Indicated Resolved Time COVID-19 Rule-Out 09/09/2023 09/09/2023 Infection Onset Date Last Indicated Resolved Time COVID-19 Rule-Out 09/09/2023 09/09/2023 09/10/2023 2:52 AM EST Additional Source Comments INFORMATION SOURCE (unrecogn ized section and content) DATE CREATED AUTHOR AUTHOR'S ORGANIZ ATION 09/18/2018 [facility] Delphine Emery DATE CREATED AUTHOR AUTHOR'S ORGANIZ ATION 08/27/2019 [facility] ([place]) DATE CREATED AUTHOR AUTHOR'S ORGANIZ ATION 09/21/2022 [facility] DATE CREATED AUTHOR AUTHOR'S ORGANIZ ATION 10/14/2023 [facility] Source Comments (unrecognize d section and content) In the event this informatio n is protected by the Federal Confidentiality of Alcohol and Drug Abuse Patient Records regulations: The Federal rules restrict any use of the information to criminally investigate or prosecute any alcohol or drug abuse patient.[facility] the event this information is protected by the Federal Confidentiality of Alcohol and Drug Abuse Patient Records regulations: The Federal rules restrict any use of the information to criminally investigate or prosecute any alcohol or drug abuse patient.[facility] the event this information is protected by the Federal Confidentiality of Alcohol and Drug Abuse Patient Records regulations: The Federal rules restrict any use of the information to criminally investigate or prosecute any alcohol or drug abuse patient.[facility] the event this information is protected by the Federal Confidentiality of Alcohol and Drug Abuse Patient Records regulations: The Federal rules restrict any use of the information to criminally investigate or prosecute any alcohol or drug abuse patient.[facility] the event this information is protected by the Federal Confidentiality of Alcohol and Drug Abuse Patient Records regulations: The Federal rules restrict any use of the information to criminally investigate or prosecute any alcohol or drug abuse patient.[facility] the event this information is protected by the Federal Confidentiality of Alcohol and Drug Abuse Patient Records regulations: The Federal rules restrict any use of the information to criminally investigate or prosecute any alcohol or drug abuse patient.[facility] the event this information is protected by the Federal Confidentiality of Alcohol and Drug Abuse Patient Records regulations: The Federal rules restrict any use of the information to criminally investigate or prosecute any alcohol or drug abuse patient.[facility] the event this information is protected by the Federal Confidentiality of Alcohol and Drug Abuse Patient Records regulations: The Federal rules restrict any use of the information to criminally investigate or prosecute any alcohol or drug abuse patient.[facility] Reason for Visit (unrecogniz ed section and content) Reason Comments Nausea & Vomiting X 4 days Reason Comments Nausea & Vomiting CAPUTO, right ear pain X 2 days Reason Comments Conjunctivitis Right eye redness, s ore throat x 2 days Reason Comments Establish Care Reason Comments Results Reason Comments Sore Throat Cough, head congesti on and sore throat x 2 days Care Teams (unrecognized sec tion and content) District Loss Prevention Manager Relationship Specialty Start Date End Date Jamaal Anguiano PCP - General 11/04/06 District Loss Prevention Manager Relationship Specialty Start Date End Date Jamaal Anguiano MD [address] [place] [address] PCP - General 06/15/17 ([place])[address] [place] [id number] 01/08/11 District Loss Prevention Manager Relationship Specialty Start Date End Date Jamaal Anguiano PCP - General 11/04/06 District Loss Prevention Manager Relationship Specialty Start Date End Date Alan Del Toro MD [address] [place], [place] [phone] PCP - General Family Medicine 07/19/23 District Loss Prevention Manager Relationship Specialty Start Date End Date Alan Del Toro MD [address] [place], [place] [id number] PCP - General Family Medicine 07/19/23 District Loss Prevention Manager Relationship Specialty Start Date End Date Alan Del Toro MD [address] [place], [place] [phone] PCP - General Family Medicine 07/19/23 District Loss Prevention Manager Relationship Specialty Start Date End Date Alan Del Toro MD [address] [place] [id number] PCP - General Family Medicine 07/19/23 FOR RECORDS PERTAINING TO PATIENTS WHO ARE OR HAVE BEEN ENROLLED IN A CHEMICAL DEPENDENCY/SUBSTANCEABUSE PROGRAM, SOME INFORMATION MAY BE OMITTED. This clinical summary was aggregated from multiple sources. Caution should be exercised in using it in the provision of clinical care. This summary normalizes information from multiple sources, and as a consequence, information in this document may materially change the coding, format and clinical context of patient data. In addition, data may be omitted in some cases. CLINICAL DECISIONS SHOULD BE BASED ON THE PRIMARY CLINICAL RECORDS. [facility]. provides no warranty or guarantee of the accuracy or completeness of information in this document.
== END 2023-11-07 18:52 | disposition home or self-care (01) ==
LOC: ED 18:48
PROVIDERS: Emergency Provider Emergency Medicine; PCP Family Medicine; Visit Provider Emergency Medicine
DX: J45.901 Unspecified asthma with (acute) exacerbation (principal); J20.5 Acute bronchitis due to respiratory syncytial virus
CPT/HCPCS: 87631; 94640; 99282

== ENCOUNTER 2023-11-09 18:24 | Emergency (ER) | payer MEDICAID, SELFPAY ==
[2023-11-09 18:26] VITALS: BP 123/81; PULSE 94; RESP 18; TEMP 36.6; O2SAT 100; BMI 35.1
--- NOTE | 2023-11-09 20:50 | EDS_ITS ---
HPI HPI - URI History of Present Illness Chief Complaint: Shortness of Breath Detail of Chief Complaint: History of asthma. Tuesday diagnosed with RSV. Informant: patient and parent Onset/Context/Timing Onset: Days Context: Gradual Onset Timing: Continuous Current Severity: Mild Maximum Severity: Mild Associated Symptoms Associated Symptoms: Positive for Nonproductive cough Narrative Narrative: 22-year-old female history of asthma diagnosed Tuesday with RSV placed on prednisone 40 mg a day close using her inhaler no belies her at home. She has had a nonproductive cough. And just at times having trouble breathing. No hemoptysis. No leg pain or swelling. No history of DVT nor PE nor cardiac disease. Prior similar symptoms: Yes Recent Illness/Hospitalization: No ROS ROS ED ROS Narrative Cough. Wheezing. Review of Systems ROS Unobtainable: Denies due to encephalopathy Constitutional Constitutional ED: Denies chills Eyes Eyes: Denies blurry vision ENT ENT ED: Denies ear pain Cardiovascular Cardiovascular: Denies chest pain Respiratory/Chest Respiratory/Chest: Reports cough and dyspnea Gastrointestinal Gastrointestinal: Denies abdominal pain, constipation, diarrhea, melena, nausea or vomiting Genitourinary Genitourinary ED: Denies dysuria or hematuria Integumentary Denies abscess Neurologic Neurologic: Denies headache(s) Psychiatric Psychiatric: Denies anxiety Endocrine Endocrinology: Denies cold intolerance Hematologic/Lymphatic Hematologic/Lymphatic: Denies easy bleeding, easy bruising or lymphadenopathy Allergic/Immunologic Allergic/Immunologic ED: Denies mouth swelling, tongue swelling or urticaria PFSH PFS Medical History Asthma Home Medications albuterol sulfate 90 mcg/actuation aerosol inhaler (Ventolin HFA) 2 puff inhalation Q4H PRN PRN ASTHMA 12/24/13 [History Last Taken 10/12/17] fluticasone propionate 50 mcg/actuation nasal spray,suspension 2 spray DAILY 10/26/16 [History Last Taken 02/28/18] fexofenadine 180 mg tablet (Fanta Allergy) 180 mg PO DAILY ALLERGIES 10/12/17 [History Last Taken 02/28/18] famotidine 20 mg tablet (Acid Controller) 20 mg PO BID #10 tabs 09/12/22 [Rx Last Taken Unknown] levofloxacin 500 mg tablet 500 mg PO DAILY #7 tabs 09/12/22 [Rx Last Taken Unknown] ondansetron 4 mg disintegrating tablet 4 mg PO Q8H PRN nausea and vomiting #20 tabs 09/12/22 [Rx Last Taken Unknown] benzonatate 200 mg capsule 200 mg PO TID PRN cough #14 caps 09/13/22 [Rx Last Taken Unknown] azelastine 137 mcg (0.1 %) nasal spray aerosol 2 spray intranasal BID #30 mL 12/16/22 [Rx Last Taken Unknown] benzonatate 200 mg capsule 200 mg PO TID PRN cough #30 caps 12/16/22 [Rx Last T aken Unknown] doxycycline hyclate 100 mg capsule 100 mg PO BID #14 caps 12/18/22 [Rx Last Taken Unknown] prednisone 10 mg tablets in a dose pack 10 mg PO DAILY #48 tabs 12/18/22 [Rx Last Taken Unknown] naproxen 500 mg tablet (Naprosyn) 500 mg PO BID PRN pain #20 tabs 03/02/23 [Rx Last Taken Unknown] albuterol sulfate 2.5 mg/3 mL (0.083 %) solution for nebulization 2.5 mg (3 mL) inhalation Q4H PRN #25 vials 11/07/23 [Rx Last Taken Unknown] albuterol sulfate 90 mcg/actuation aerosol inhaler (Proventil HFA) 2 inh inhalation Q4H PRN shortness of breath or wheezing #8.5 grams 11/07/23 [Rx Last Taken Unknown] prednisone 20 mg tablet 40 mg (2 x 20 mg) PO DAILY 7 days #14 tabs 11/07/23 [Rx Last Taken Unknown] benzonatate 100 mg capsule 100 mg PO BID PRN cough #10 caps 11/09/23 [Rx Last Taken Unknown] Allergy/AdvReac Type Severity Reaction Status Date / Time No Known Allergies Allergy Verified 11/09/23 18:26 Surgical History History of tonsillectomy and adenoidectomy Social History household members: family Smoking Status: Never smoker substance use type: does not use EXAM Physical Exam Narrative Exam Narrative: 22-year-old female vital signs stable afebrile. Pulse ox 100% on room air no signs hypoxia. H EENT exam unremarkable. Moist extremities. TMs normal. Neck nontender no lymphadenopathy. Lungs currently she has no rales, rhonchi or whe ezing. Equal symmetrical. Mildly prolonged expiratory phase. Heart regular rhythm rate about 95 no murmur. Chest wall and ribs nontender. Abdomen soft nontender. Moving all 4 extremities. Calves are nontender without edema or cords. Back nontender. Neurologically she is awake alert. No distress. Const Vital Signs: 11/09/23 18:26 11/09/23 20:54 11/09/23 21:19 Temperature 98 F Temperature Source Temporal Pulse Rate 94 98 Respiratory Rate 18 24 H Respiratory Effort Normal Non-Labored Respiratory Depth Normal Respiratory Pattern Tachypnea Normal Blood Pressure 123/81 H Blood Pressure Mean 95 Pulse Ox 100 Oxygen Delivery Method Room Air Room Air Positive well nourished and well developed; Negative for cachectic or contractures General Appearance ED: well developed and NAD; Negative for cachectic, contractures, cyanotic, diaphoretic or pallor Nutritional Appearance: Negative for cachectic HEENT Reports moist mucous membranes; Denies dry mucous membranes normocephalic and atraumatic; Negative for scalp tenderness Face and Sinus: Negative for sinus tenderness Mouth ED: No dry mucous membranes Mouth: No dry mucous membranes Teeth and Gingiva: Negative for caries Throat: posterior oropharynx normal Eyes PERRL and EOMs intact bilaterally General Eye ED: Negative for pale conjunctiva or scleral icterus Neck no lymphadenopathy, supple, no meningeal signs and no JVD General: Negative for anterior neck swelling, lymphadenopathy or other Resp normal respiratory effort and clear to auscultation bilaterally Resp Narrative: Prolonged expiratory phase but no wheezing at this time. Effort and Inspection: Negative for retractions Auscultation: Negative for rales, rhonchi, wheezes or diminished lung sounds Cardio S1 normal heart sound, S2 normal heart sound and no murmurs Rate: regular rate; Negative for tachycardic Rhythm: regular rhythm; Negative for abnormal rhythm GI non-tender, non-distended and no masses Inspection: Negative for abdominal distention Auscultation: normoactive bowel sounds Palpation: soft; Negative for tender or guarding Back/Spine no CVA tenderness and normal ROM General Back: Negative for CVA tenderness Cervical Spine: Negative for cervical spine tenderness Thoracic Spine / Upper Back: Negative for thoracic spinal tenderness Lumbar Spine / Lower Back: Negative for lumbar spinal tenderness Sacrum: Negative for tenderness Extremity normal to inspection and full ROM General Extremety ED: Negative for cyanosis, tenderness or other findings General Extremity: Negative for cyanosis or other findings Neuro oriented x3 and CN's II-XII intact bilaterally Sensorium / Orientation: alert, oriented to person, oriented to place and oriented to time; Negative for orientation impaired, lethargic or stuporous Motor Exam: strength 5/5 throughout; Negative for general weakness or strength abnormal Psych mental status grossly normal Appearance: Negative for other Attitude: No agitated Mood & Affect: Negative for depressed, anxious or tearful Skin General Skin Exam: Negative for jaundice or pallor Lesions: no lesions Rashes: no rashes Trauma: Negative for abrasion, laceration or puncture MDM MDM MDM Narrative Medical decision making narrative: 22-year-old female history of asthma with RSV. Clinically the not look bad. I will obtain a chest x-ray and give her DuoNeb aerosol. She is already on steroids at home. Repeat exam patient is doing well at 10:05 AM. She is not wheezing. She clini sincere looks comfortable. She has not had labored breathing. She will be discharged home. Continue her prednisone, nebulizer and inhaler. Mom wanted me to write for her for a couple more days off work and also [employer] which she will do. History & Record Review Discussion w/independent historian: Patient and Family Additional record(s) reviewed:: Prior inpatient record, Prior outpatient record, Prior ED visit and Prior labs Radiography Chest X-Ray - ED: 1 View, Read by ED Physician, Heart, Lungs, Mediastinum, Bony Structures and No Acute Disease Diagnostic Testing: Clinical Impression(s) from Imaging Studies Chest X-Ray 11/09/23 21:10 IMPRESSION: No radiographic evidence of acute cardiopulmonary disease. Electronically Signed: Vikram Steve MD at 21:51 EST , Chest x-ray, portable, single view interpreted by myself. Normal cardiac silhouette. Normal mediastinum. Normal lung araujo. shows no acute abnormality no infiltrate. Also read by the radiologist and agrees. Discharge Plan Triage Chief Complaint: Shortness of Breath ED Provider: Ramone Tomas Dx/Rx/DC Orders Clinical Impression: RSV bronchitis, Acute asthma flare Instructions: RSV (Respiratory Syncytial Virus), ED Asthma, Acute (Adult) Prescriptions: New benzonatate 100 mg capsule 100 mg PO BID PRN (Reason: cough) Qty: 10 0RF No Action albuterol sulfate [Ventolin HFA] 1 INHALER inhaler 2 puff inhalation Q4H PRN PRN (Reason: ASTHMA) fluticasone propionate 1 SPRAY spray,suspension 2 spray NASAL DAILY fexofenadine [Fanta Allergy] 180 MG tablet 180 mg PO DAILY levofloxacin 500 mg tablet 500 mg PO DAILY Qty: 7 0RF ondansetron 4 mg tablet,disintegrating 4 mg PO Q8H PRN (Reason: nausea and vomiting) Qty: 20 0RF famotidine [Acid Controller] 20 mg tablet 20 mg PO BID Qty: 10 0RF benzonatate 200 mg capsule 200 mg PO TID PRN (Reason: cough) Qty: 14 0RF azelastine 137 mcg (0.1 %) aerosol,spray 2 spray intranasal BID Qty: 30 0RF Rx Instructions: administer into each nostril benzonatate 200 mg capsule 200 mg PO TID PRN (Reason: cough) Qty: 30 0RF doxycycline hyclate 100 mg capsule 100 mg PO BID Qty: 14 0RF prednisone 10 mg tablets,dose pack 10 mg PO DAILY Qty: 48 0RF Rx Instructions: taper pack naproxen [Naprosyn] 500 mg tablet 500 mg PO BID PRN (Reason: pain) Qty: 20 0RF prednisone 20 mg tablet 40 mg PO DAILY 7 Days Qty: 14 0RF albuterol sulfate [Proventil HFA] 90 mcg/actuation HFA aerosol inhaler 2 inh inhalation Q4H PRN (Reason: shortness of breath or wheezing) Qty: 8.5 1RF albuterol sulfate 2.5 mg /3 mL (0.083 %) solution for nebulization 2.5 mg inhalation Q4H PRN Qty: 25 0RF Rx Instructions: Use q4 hours and PRN for wheezing Primary Care Provider: Ko Beasley Referrals: Ko Beasley MD [Primary Care Provider] - 3-5 Days if not improving Activity Restrictions/Additional Instructions: Continue your prednisone 40 mg a day. Continue using your inhaler or nebulizer at home. Follow-up with your doctor if not improving. return if worse. T Disposition Disposition: Home, Self Care
[2023-11-09 20:54] VITALS: PULSE 98; RESP 24
[2023-11-09] MEDS: Ipratropium/Albuterol Sulfate 3 ML AMPUL.NEB INHALATION (20:54)
--- OUTSIDE RECORDS SUMMARY | 2023-11-09 20:54 | XMS RPT_ITS | CCD ---
Author Name Unknown Address [address] [place] [address] Organization [facility] Care Team Providers Care Lehr Stripper Name Role Phone Aneesh De Luna Unavailable [...] Attending Unavailable Jamaal Anguiano Primary Care Provider [phone] Alan Del Toro MD Primary Care Provider [phone] ALAN DEL TORO Primary Care Unavailable ENEDELIA [...] to adverse reactions 1 Other (See Comments) [facility] Work Phone: Medications Current Medications Medication [...] 98.29 [degF] Giovanna Mckinley APRN.CNP Work Phone: [facility] 09-09-2023 18:49-0500 Body weight 96.62 kg Giovanna Mckinley APRN.CNP Work Phone: [facility] 09-09-2023 18:49-0500 Diastolic blood pressure 82 mm[Hg] Giovanna Mckinley APRN.PRECONSTRUCTION MANAGER Work Phone: [facility] 09-09-2023 18:49-0500 Heart rate 90 /min Giovanna Mckinley APRN.PRECONSTRUCTION MANAGER Work Phone: [facility] 09-09-2023 18:49-0500 Respiratory rate 16 /min Giovanna Mckinley APRN.PRECONSTRUCTION MANAGER Work Phone: [facility] 09-09-2023 18:49-0500 SaO2% (BldA) [Mass fraction] 100 % Giovanna Mckinley APRN.PRECONSTRUCTION MANAGER Work Phone: [facility] 09-09-2023 18:49-0500 Systolic blood pressure 126 mm[Hg] Giovanna Mckinley APRN.PRECONSTRUCTION MANAGER Work Phone: [facility] 07-26-2023 07:48-0400 Body height 162.6 cm Enedelia Isaacs APRN.PRECONSTRUCTION MANAGER Work Phone: [facility] 07-26-2023 07:48-0400 Body weight 90.27 kg Enedelia Isaacs APRN.PRECONSTRUCTION MANAGER Work Phone: [facility] 07-26-2023 07:48-0400 Diastolic blood pressure 80 mm[Hg] Enedelia Isaacs APRN.PRECONSTRUCTION MANAGER Work Phone: [facility] 07-26-2023 07:48-0400 Heart rate 70 /min Enedelia Isaacs APRN.PRECONSTRUCTION MANAGER Work Phone: [facility] 07-26-2023 07:48-0400 Respiratory rate 14 /min Enedelia Isaacs APRN.PRECONSTRUCTION MANAGER Work Phone: [facility] 07-26-2023 07:48-0400 Systolic blood pressure 112 mm[Hg] Enedelia Isaacs APRN.PRECONSTRUCTION MANAGER Work Phone: [facility] 03-09-2023 16:24-0400 Body temperature 98.91 [degF] Maricruz Velazquez PA-C Work Phone: [facility] 03-09-2023 16:24-0400 Body weight 96.8 kg Maricruz Athy PA-C Work Phone: [facility] 03-09-2023 16:24-0400 Diastolic blood pressure 82 mm[Hg] Maricruz Athy PA-C Work Phone: [facility] 03-09-2023 16:24-0400 Heart rate 103 /min Maricruz Athy PA-C Work Phone: [facility] 03-09-2023 16:24-0400 Respiratory rate 22 /min Maricruz Athy PA-C Work Phone: [facility] 03-09-2023 16:24-0400 SaO2% (BldA) [Mass fraction] 97 % Maricruz Athy PA-C Work Phone: [facility] 03-09-2023 16:24-0400 Systolic blood pressure 110 mm[Hg] Maricruz Athy PA-C Work Phone: [facility] 02-09-2023 16:42-0400 Body temperature 98.01 [degF] Krislyn Aberegg PA Work Phone: [facility] 02-09-2023 16:42-0400 Body weight 97.8 kg Krislyn Aberegg PA Work Phone: [facility] 02-09-2023 16:42-0400 Diastolic blood pressure 76 mm[Hg] Krislyn Aberegg PA Work Phone: [facility] 02-09-2023 16:42-0400 Heart rate 115 /min Krislyn Aberegg PA Work Phone: [facility] 02-09-2023 16:42-0400 Respiratory rate 21 /min Krislyn Aberegg PA Work Phone: [facility] 02-09-2023 16:42-0400 SaO2% (BldA) [Mass fraction] 97 % Krislyn Aberegg PA Work Phone: [facility] 02-09-2023 16:42-0400 Systolic blood pressure 120 mm[Hg] Perfecto BONILLA Work Phone: [facility] 07-21-2022 11:24-0400 Body temperature 98.01 [degF] Adelso Richardson MD Work Phone: [facility] 07-21-2022 11:24-0400 Body weight 107.14 kg Adelso Richardson MD Work Phone: [facility] 07-21-2022 11:24-0400 Diastolic blood pressure 78 mm[Hg] Adelso Richardson MD Work Phone: [facility] 07-21-2022 11:24-0400 Heart rate 95 /min Adelso Richardson MD Work Phone: [facility] 07-21-2022 11:24-0400 Respiratory rate 21 /min Adelso Richardson MD Work Phone: [facility] 07-21-2022 11:24-0400 SaO2% (BldA) [Mass fraction] 97 % Adelso Richardson MD Work Phone: [facility] 07-21-2022 11:24-0400 Systolic blood pressure 120 mm[Hg] Adelso Richardson MD Work Phone: [facility] 06-27-2022 11:25-0400 Body temperature 98.2 [degF] Alan Dotson INFANTRY UNIT LEADER.PRECONSTRUCTION MANAGER Work Phone: [facility] 06-27-2022 11:25-0400 Body weight 106.59 kg Alan Dotson INFANTRY UNIT LEADER.PRECONSTRUCTION MANAGER Work Phone: [facility] 06-27-2022 11:25-0400 Diastolic blood pressure 76 mm[Hg] Alan Dotson INFANTRY UNIT LEADER.PRECONSTRUCTION MANAGER Work Phone: [facility] 06-27-2022 11:25-0400 Heart rate 96 /min Alan Dotson INFANTRY UNIT LEADER.PRECONSTRUCTION MANAGER Work Phone: [facility] 06-27-2022 11:25-0400 Respiratory rate 16 /min Alan Dotson INFANTRY UNIT LEADER.PRECONSTRUCTION MANAGER Work Phone: [facility] 06-27-2022 11:25-0400 SaO2% (BldA) [Mass fraction] 97 % Alan Dotson APRN.PRECONSTRUCTION MANAGER Work Phone: [facility] 06-27-2022 11:25-0400 Systolic blood pressure 120 mm[Hg] Aaln Dotson APRN.PRECONSTRUCTION MANAGER Work Phone: [facility] 07-11-2019 03:36-0400 Body surface area Derived from formula [facility] Encounters Encounter Date Encounter Type Care Provider Facility Start: 10-12-2023 End: 10-12-2023 ambulatory ALAN DEL TORO Facility:[facility] Start: 09-10-2023 Telephone encounter Giovanna Mckinley APRN.PRECONSTRUCTION MANAGER Work Phone: [facility] Procedures Date Procedure Procedure Detail Performing Clinician Start: 09-09-2023 STREP A MOLECULAR (POC) Alan Dotson APRN.PRECONSTRUCTION MANAGER Work Phone: Start: 03-09-2023 STREP A MOLECULAR [...] Pertussis Vaccines (7 - Td or Tdap) [facility] Start: 11-26-2024 Urine microalbumin profile DTaP,Tdap,Td Vaccine (7 - Td or Tdap) [facility] Start: 07-26-2024 Chlamydia Screening (18-24) Chlamydia Screening (18-24) [facility] Immunizations Immunization Date Immunization Notes Care Provider Mabel chawla 11-26-2014 meningococcal polysaccharide (groups A, C, Y and W-135) diphtheria toxoid conjugate vaccine (MCV4P) Jamaal Anguiano MD Work Phone: [facility] 11-26-2014 tetanus toxoid, redu karley diphtheria toxoid, and acellular pertussis vaccine, adsorbed Jamaal Anguiano MD Work Phone: [facility] 11-22-2012 influenza virus vacc ine, split virus (incl. purified surface antigen) Jamaal Anguiano MD Work Phone: [facility] 11-22-2012 influenza, seasonal, injectable, preservative free Enedelia Knoble INFANTRY UNIT LEADER.PRECONSTRUCTION MANAGER Work Phone: [facility] 11-22-2012 influenza virus vacc ine, unspecified formulation Enedelia Knoble INFANTRY UNIT LEADER.PRECONSTRUCTION MANAGER Work Phone: [facility] 06-29-2011 influenza virus vacc ine, split virus (incl. purified surface antigen) Jamaal Anguiano MD Work Phone: [facility] 06-29-2011 influenza, seasonal, injectable, preservative free Enedelia Knoble INFANTRY UNIT LEADER.PRECONSTRUCTION MANAGER Work Phone: [facility] 07-20-2010 influenza virus vacc ine, split virus (incl. purified surface antigen) Jamaal Anguiano MD Work Phone: [facility] 07-20-2010 influenza, seasonal, injectable, preservative free Enedelia Knoble INFANTRY UNIT LEADER.PRECONSTRUCTION MANAGER Work Phone: [facility] 09-17-2009 influenza virus vacc ine, split virus (incl. purified surface antigen) Jamaal Anguiano MD Work Phone: [facility] 09-17-2009 influenza, seasonal, injectable, preservative free Enedelia Knoble INFANTRY UNIT LEADER.PRECONSTRUCTION MANAGER Work Phone: [facility] 10-08-2008 influenza virus vacc ine, unspecified formulation Jamaal Anguiano MD Work Phone: [facility] 10-08-2008 influenza virus vacc ine, whole virus Enedelia Knoble INFANTRY UNIT LEADER.PRECONSTRUCTION MANAGER Work Phone: [facility] 12-29-2007 diphtheria, tetanus toxoids and acellular pertussis vaccine Jamaal Anguiano MD Work Phone: [facility] 12-29-2007 diphtheria, tetanus toxoids and acellular pertussis vaccine, unspecified formulation Enedelia Isaacs APRN.PRECONSTRUCTION MANAGER Work Phone: [facility] 12-29-2007 measles, mumps and rubella virus vaccine Jamaal Anguiano MD Work Phone: [facility] 12-29-2007 poliovirus vaccine, inactivated Jamaal Anguiano MD Work Phone: [facility] 12-29-2007 varicella virus vaccine Adonay Anguiano MD Work Phone: [facility] 08-14-2004 influenza virus vacc ine, unspecified formulation Jamaal Anguiano MD Work Phone: [facility] 08-14-2004 influenza virus vacc ine, whole virus Enedelia Isaacs APRN.PRECONSTRUCTION MANAGER Work Phone: [facility] 02-24-2004 diphtheria, tetanus toxoids and acellular pertussis vaccine Jamaal Anguiano MD Work Phone: [facility] 02-24-2004 diphtheria, tetanus toxoids and acellular pertussis vaccine, unspecified formulation Enedelia Isaacs APRN.PRECONSTRUCTION MANAGER Work Phone: [facility] 02-24-2004 varicella virus vaccine Adonay Anguiano MD Work Phone: [facility] 11-22-2003 haemophilus influenz ae type b conjugate and Hepatitis B vaccine Jamaal Anguiano MD Work Phone: [facility] 11-22-2003 measles, mumps and rubella virus vaccine Jamaal Anguiano MD Work Phone: [facility] 11-22-2003 poliovirus vaccine, inactivated Jamaal Anguiano MD Work Phone: [facility] 08-27-2003 influenza virus vacc ine, unspecified formulation Jamaal Anguiano MD Work Phone: [facility] 08-27-2003 influenza virus vacc ine, whole virus Enedelia Isaacs APRN.PRECONSTRUCTION MANAGER Work Phone: [facility] 05-27-2003 diphtheria, tetanus toxoids and acellular pertussis vaccine Jamaal Anguiano MD Work Phone: [facility] 05-27-2003 diphtheria, tetanus toxoids and acellular pertussis vaccine, unspecified formulation Enedelia Isaacs APRN.PRECONSTRUCTION MANAGER Work Phone: [facility] 05-27-2003 haemophilus influenz ae type b vaccine, PRP-T conjugate Jamaal Anguiano MD Work Phone: [facility] 05-27-2003 pneumococcal conjuga te vaccine, 7 valent Jamaal Anguiano MD Work Phone: [facility] 03-26-2003 diphtheria, tetanus toxoids and acellular pertussis vaccine Jamaal Anguiano MD Work Phone: [facility] 03-26-2003 diphtheria, tetanus toxoids and acellular pertussis vaccine, unspecified formulation Enedelia Isaacs APRN.PRECONSTRUCTION MANAGER Work Phone: [facility] 03-26-2003 haemophilus influenz ae type b vaccine, PRP-T conjugate Jamaal Anguiano MD Work Phone: [facility] 03-26-2003 pneumococcal conjuga te vaccine, 7 valtori Anguiano MD Work Phone: [facility] 03-26-2003 poliovirus vaccine, inactivated Jamaal Anguiano MD Work Phone: [facility] 01-21-2003 diphtheria, tetanus toxoids and acellular pertussis vaccine Jamaal Anguiano MD Work Phone: [facility] 01-21-2003 diphtheria, tetanus toxoids and acellular pertussis vaccine, unspecified formulation Enedelia Isaacs APRN.PRECONSTRUCTION MANAGER Work Phone: [facility] 01-21-2003 haemophilus influenz ae type b conjugate and Hepatitis B vaccine Jamaal Anguiano MD Work Phone: [facility] 01-21-2003 pneumococcal conjuga te vaccine, 7 valtori Anguiano MD Work Phone: [facility] 01-21-2003 poliovirus vaccine, inactivated Jamaal Anguiano MD Work Phone: [facility] 2002 hepatitis B vaccine, pediatric or pediatric/adolescent dosage Jamaal Anguiano MD Work Phone: [facility] Payers Date Payer Category Payer Medicaid [id number] 2022 Unknown [id number] 2017 Medicaid [id number] 2006 Unknown 2002 Unknown [id number] 2002 Unknown [id number] 2002 Unknown [id number] [id number] 2002 Unknown [id number] [id number] Unknown [id number] Social History Date Type Detail Facility Start: 06-27-2022 End: 09-15-2022 Tobacco smoking status NHIS Never smoked tobacco [facility] Work Phone: Start: 06-27-2022 End: 09-15-2022 Tobacco use and exposure Smokeless tobacco non-user [facility] Work Phone: Start: 2002 Sex Assigned At Not on file [facility] Start: 07-11-2022 End: 09-17-2022 Exposure to SARS-CoV-2 (event) Not sure [facility] Start: 09-17-2022 Alcohol intake Current non-dr bandoleer packer of alcohol (finding) [facility] Start: 07-26-2023 Alcohol intake Lifetime non-d shaheen (finding) [facility] Start: 03-09-2023 End: 07-26-2023 History of Social function [facility] Work Phone: Start: 03-09-2023 End: 07-26-2023 Tobacco use panel [facility] Work Phone: Adult Depression Screening Assessment 0 [facility] Work Phone: NEGATED: Highlighted rowStart: MADISONF History of tobacco use Passive smoker [facility] Clinical Notes 06-27-2022 to 10-12-2023 Telephone Encounter - Giovanna Mckinley APRN.CNP - 09/10/2023 8:15 AM Giovanna Koch APRN.CNP - 09/09/2023 7:03 PM ESTTelephone Encounter - Workman Sophie Rodriguez - 07/28/2023 9:56 AM EDT Note Date & Type Note Facility 10-12-2023 Note HNO ID: [id number] Author: Alan Dotson APRN.PRECONSTRUCTION MANAGER Service: ? Author Type: Nurse Practitioner Type: [...] of care. This note was generated using [employer] software. It may contain errors in wording, punctuation, or spelling. Alan Dotson APRN.VJ [facility] 09-10-2023 Miscellaneous Notes Call patient notified of negative viral results. documented in this encounter [facility] 09-09-2023 Note HNO ID: [id number] Author: Giovanna Mckinley APRN.VJ Service: ? Author [...] Patient agreeable to treatment plan. Giovanna Mckinley APRN.[facility] 09-09-2023 History of Presen t illness [...] Patient agreeable to treatment plan. Giovanna Mckinley APRN.PRECONSTRUCTION MANAGER documented in this encounter [facility] 08-23-2023 Note HNO ID: [id number] Author: Elizabeth Estevez LPN Service: ? Author Type: ? Type: Progress Notes Filed: 08/23/2023 10:56 AM Note Text: Scan on 08/19/2023 6:13 PM by ProviderJose Alfredo PA-C: X-ray Scan on 08/19/2023 11:24 PM by Provider, GENE Veliz: Consultation - Emergency Medicine [facility] 07-28-2023 Miscellaneous Notes Patient notified and verbalized understanding Sophie Mccormick Cma Please let patient know her labs are normal. documented in this encounter [facility] 07-26-2023 Note HNO ID: [id number] Author: Enedelia Isaacs APRN.VJ Service: ? Author Type: Nurse Practitioner Type: Progress Notes Filed: 07/26/2023 8:15 AM Note Text: Chief Complaint Patient presents with: [facility]ish [facility] HPI Hernan Carr is a 22 year [...] No history of dysuria, frequency or incontinence CLOTH WINDER: Negative for abnormal vaginal bleeding, abnormal vaginal [...] diet of 1000 mg/day for under 50, 3363-2155 mg/day for 50+ - Discussed need and [...] - Avoidance of triggers recommended Enedelia Isaacs APRN.[facility] 07-26-2023 History of Presen t illness Narrative Chief Complaint Patient presents with: [facility] Hernan Carr is a 22 year old female who presents here today for Above Complaints.. Patient presents to [facility]. Past medical history, appointments, medications, allergies reviewed. [...] No history of dysuria, frequency or incontinence CLOTH WINDER: Negative for abnormal vaginal bleeding, abnormal vaginal [...] diet of 1000 mg/day for under 50, 2813-8620 mg/day for 50+ - Discussed need and [...] - Avoidance of triggers recommended Enedelia Isaacs APRN.PRECONSTRUCTION MANAGER documented in this encounter [facility] 03-09-2023 Note HNO ID: [id number] Author: Maricruz Velazquez PA-C Service: ? Author Type: Physician Bench Precision Assembler Type: Progress Notes Filed: 03/09/2023 5:38 PM Note Text: This note was created using [employer]. Subjective Hernan Carr is a 22 year [...] or if symptoms persist. Maricruz Velazquez PA-C [facility] 03-09-2023 History of Presen t illness Narrative This note was created using [employer]. Subjective Hernan Carr is a 22 year [...] Maricruz Velazquez PA-C documented in this encounter [facility] 02-09-2023 Note HNO ID: [id number] Author: IRENE Andujar Service: ? Author Type: Physician Bench Precision Assembler Type: Progress Notes Filed: 02/09/2023 4:58 PM Note Text: This note was created using [employer]. Subjective Hernan Carr is a 22 year [...] detail warranting prompt ER evaluation. IRENE Andujar [facility] 02-09-2023 History of Presen t illness Narrative This note was created using [employer]. Subjective Hernan Carr is a 22 year [...] evaluation. IRENE Andujar documented in this encounter [facility] 07-21-2022 History of Presen t [...] stool. - ONDANSETRON 4 MG DISINTEGRATING TABLET Adeslo Richardson MD documented in this encounter [facility] 06-27-2022 History of Presen t [...] daily. (Patient not taking: Reported on 06/27/2022) Ubynsxdqgecls-[id number] (TYLENOL COLD HEAD CONGEST SEVR) 5-325-200 mg [...] of care. This note was generated using [employer] software. It may contain errors in wording, punctuation, or spelling. Alan Dotson APRN.VJ documented in this encounter [facility] documented in this encounter [facility] note* Diagnosis Nausea and vomiting, unspecified vomiting type- Primary documented in this encounter [facility] note* Diagnosis Pain of upper abdomen Abdominal pain, other specified site documented in this encounter [facility] note* Diagnosis Nausea and vomiting, unspecified vomiting type- Primary documented in this encounter [facility] note* Diagnosis Sore throat- Primary Acute pharyngitis Acute conjunctivitis of right eye, unspecified acute conjunctivitis type documented in this encounter [facility] note* Diagnosis Wellness examination- Primary Encounter for lipid screening for cardiovascular disease Screening for lipoid disorders Screening for diabetes mellitus Mild intermittent asthma, uncomplicated Unspecified asthma documented in this encounter [facility] note* Diagnosis Sore throat- Primary Acute pharyngitis URI, acute Acute upper respiratory infections of unspecified site documented in this encounter [facility] Summary Purpose Family History No [...] DATE CREATED AUTHOR AUTHOR'S ORGANIZ ATION 09/18/2018 [facility] Delphine Emery DATE CREATED AUTHOR AUTHOR'S ORGANIZ ATION 08/27/2019 [facility] ([place]) DATE CREATED AUTHOR AUTHOR'S ORGANIZ ATION 09/21/2022 [facility] DATE CREATED AUTHOR AUTHOR'S ORGANIZ ATION 10/14/2023 [facility] Source Comments (unrecognize d section and content) In the event this informatio n is protected by the Federal Confidentiality of Alcohol and Drug Abuse Patient Records regulations: The Federal rules restrict any use of the information to criminally investigate or prosecute any alcohol or drug abuse patient.[facility] the event this information is protected by the Federal Confidentiality of Alcohol and Drug Abuse Patient Records regulations: The Federal rules restrict any use of the information to criminally investigate or prosecute any alcohol or drug abuse patient.[facility] the event this information is protected by the Federal Confidentiality of Alcohol and Drug Abuse Patient Records regulations: The Federal rules restrict any use of the information to criminally investigate or prosecute any alcohol or drug abuse patient.[facility] the event this information is protected by the Federal Confidentiality of Alcohol and Drug Abuse Patient Records regulations: The Federal rules restrict any use of the information to criminally investigate or prosecute any alcohol or drug abuse patient.[facility] the event this information is protected by the Federal Confidentiality of Alcohol and Drug Abuse Patient Records regulations: The Federal rules restrict any use of the information to criminally investigate or prosecute any alcohol or drug abuse patient.[facility] the event this information is protected by the Federal Confidentiality of Alcohol and Drug Abuse Patient Records regulations: The Federal rules restrict any use of the information to criminally investigate or prosecute any alcohol or drug abuse patient.[facility] the event this information is protected by the Federal Confidentiality of Alcohol and Drug Abuse Patient Records regulations: The Federal rules restrict any use of the information to criminally investigate or prosecute any alcohol or drug abuse patient.[facility] the event this information is protected by the Federal Confidentiality of Alcohol and Drug Abuse Patient Records regulations: The Federal rules restrict any use of the information to criminally investigate or prosecute any alcohol or drug abuse patient.[facility] Reason for Visit (unrecogniz ed [...] Care Teams (unrecognized sec tion and content) Lehr Stripper Relationship Specialty Start Date End Date Jamaal Anguiano PCP - General 11/04/06 Lehr Stripper Relationship Specialty Start Date End Date Jamaal Anguiano MD [address] [place] [address] PCP - General 06/15/17 ([place])[address] [place] [phone] 01/08/11 Lehr Stripper Relationship Specialty Start Date End Date Jamaal Anguiano PCP - General 11/04/06 Lehr Stripper Relationship Specialty Start Date End Date Alan Del Toro MD [address] [place], [place] [id number] PCP - General Family Medicine 07/19/23 Lehr Stripper Relationship Specialty Start Date End Date Alan Del Toro MD [address] [place], [place] [id number] PCP - General Family Medicine 07/19/23 Lehr Stripper Relationship Specialty Start Date End Date Alan Del Toro MD [address] [place], [place] [id number] PCP - General Family Medicine 07/19/23 Lehr Stripper Relationship Specialty Start Date End Date Alan Del Toro MD [address] [place] [address] PCP - General Family Medicine 07/19/23 FOR [...] BE BASED ON THE PRIMARY CLINICAL RECORDS. [facility] [employer] [facility]. provides no warranty or guarantee of the accuracy or completeness of information in this document.
--- NOTE | 2023-11-09 21:10 | RAD_ITS ---
EXAM: XR CHEST, 1 VIEW CLINICAL INDICATION: dyspnea TECHNIQUE: Frontal view of the chest. COMPARISON: 04/12/2023 FINDINGS: LUNGS AND PLEURAL SPACES: Unremarkable. No consolidation or edema. No pneumothorax. No effusion. HEART: Unremarkable. Cardiac silhouette not enlarged. MEDIASTINUM: Central airways and mediastinal contour are unremarkable. BONES/JOINTS: Unremarkable. No acute fracture. SOFT TISSUES: Unremarkable. RAD/Chest 1 View (Portable) IMPRESSION: No radiographic evidence of acute cardiopulmonary disease. Electronically Signed: Vikram Steve MD at 21:51 EST ,
== END 2023-11-09 22:20 | disposition home or self-care (01) ==
PROVIDERS: Emergency Provider Emergency Medicine; PCP Family Medicine; Visit Provider Emergency Medicine
DX: J45.901 Unspecified asthma with (acute) exacerbation (principal); J20.5 Acute bronchitis due to respiratory syncytial virus
CPT/HCPCS: 71045; 94640; 99282

== ENCOUNTER 2023-12-10 18:23 | Emergency (ER) | payer MEDICAID, SELFPAY ==
[2023-12-10 18:24] VITALS: BP 111/80; PULSE 99; RESP 18; TEMP 36.6; O2SAT 98
--- OUTSIDE RECORDS SUMMARY | 2023-12-10 18:42 | XMS RPT_ITS | CCD ---
Author Name Unknown Address [address] [place] [address] Organization [facility] Care Team Providers Care Pilot Can Router Name Role Phone Aneesh De Luna Unavailable Unavailable Aneesh De Luna Unavailable Unavailable Jamaal Anguiano Unavailable Unavailable Aneesh De Luna Unavailable Unavailable Aneesh De Luna Unavailable Unavailable Jamaal Anguiano Unavailable Unavailable Pk Leslie Unavailable Unavailable Jamaal Anguiano Primary Care Provider Jamaal Anguiano MD Primary Care Provider ([place]), [place] Unavailable JAMAAL ANGUIANO Primary Care Unavailable [...] Alan Del Toro MD Primary Care Provider [phone] ALAN DEL TORO Primary Care Unavailable ENEDELIA [...] to adverse reactions 1 Other (See Comments) [facility] Work Phone: Medications Current Medications Medication Drug Class(es) Dates Sig (Normalized) Sig (Original) albuterol 0.83 mg/ml inhalation solution (12 sources) beta2-Adrenergic Agonist Start: 09-17-2022 End: 09-17-2023 [...] [Unspecified asthma, uncomplicated] Onset: 05-17-2011 11-19-2021 Chronic Genitourinary symptoms and ill-defined conditions (1 source) Scalding pain on urination ; Translations: [Dysuria] 11-24-2023 Episodic Inflammation; infection of eye (except that caused by tuberculosis or sexually transmitteddisease) (1 source) Acute conjunctivitis of right eye; Translations: [Unspecified acute conjunctivitis, right eye] Episodic Nausea and vomiting (2 sources) Nausea and vomiting; Translations: [Nausea with vomiting, unspecified] Episodic Other nervous system disorders (1 source) Disturbance of attention; Translations: [Attention and concentration deficit] Onset: 12-22-2012 12-31-2012 Chronic Other upper respiratory disease (1 source) Allergic [...] (1 source) Unknown / UNK(Unknown) Onset: 09-04-2018 Viral infection (1 source) Viral disease; Translations: [Viral infection, unspecified] 11-24-2023 Episodic Past or Other Problems Problem Classification Problem [...] percentile for age] Onset: 6 09-29-2016 Episodic Other screening for suspected conditions (not mental disorders or infectious disease) (5 sources) Patient encounter status; Translations: [Encounter for screening for lipoid disorders] Onset: 3 07-26-2023 Episodic Results Test Name Value Interpretation Reference Range Facil ity Vital Signs Date Time Vital Sign Value Performing Clinician Facility 11-24-2023 19:56-0500 Body temperature 99 [degF] Alan Dotson APRN.EMPLOYMENT SUPERVISOR Work Phone: [facility] 11-24-2023 19:56-0500 Body weight 97.07 kg Alan Poekeerthi LIQUEFACTION AND REGASIFICATION HELPER.EMPLOYMENT SUPERVISOR Work Phone: [facility] 11-24-2023 19:56-0500 Diastolic blood pressure 76 mm[Hg] Alan Dotson LIQUEFACTION AND REGASIFICATION HELPER.EMPLOYMENT SUPERVISOR Work Phone: [facility] 11-24-2023 19:56-0500 Heart rate 109 /min Alan Cristishaunakeerthi LIQUEFACTION AND REGASIFICATION HELPER.EMPLOYMENT SUPERVISOR Work Phone: [facility] 11-24-2023 19:56-0500 Respiratory rate 18 /min Alan Poekeerthi LIQUEFACTION AND REGASIFICATION HELPER.EMPLOYMENT SUPERVISOR Work Phone: [facility] 11-24-2023 19:56-0500 SaO2% (BldA) [Mass fraction] 98 % Alan Cristishaunakeerthi LIQUEFACTION AND REGASIFICATION HELPER.EMPLOYMENT SUPERVISOR Work Phone: [facility] 11-24-2023 19:56-0500 Systolic blood pressure 103 mm[Hg] Alan Poekeerthi LIQUEFACTION AND REGASIFICATION HELPER.EMPLOYMENT SUPERVISOR Work Phone: [facility] 09-09-2023 18:49-0500 Body temperature 98.29 [degF] Giovanna Mckinley APRN.EMPLOYMENT SUPERVISOR Work Phone: [facility] 09-09-2023 18:49-0500 Body weight 96.62 kg Giovanna Mckinley APRN.EMPLOYMENT SUPERVISOR Work Phone: [facility] 09-09-2023 18:49-0500 Diastolic blood pressure 82 mm[Hg] Giovanna Mckinley LIQUEFACTION AND REGASIFICATION HELPER.EMPLOYMENT SUPERVISOR Work Phone: [facility] 09-09-2023 18:49-0500 Heart rate 90 /min Giovanna Mckinley APRN.EMPLOYMENT SUPERVISOR Work Phone: [facility] 09-09-2023 18:49-0500 Respiratory rate 16 /min Giovanna Mckinley APRN.EMPLOYMENT SUPERVISOR Work Phone: [facility] 09-09-2023 18:49-0500 SaO2% (BldA) [Mass fraction] 100 % Giovanna Mckinley APRN.EMPLOYMENT SUPERVISOR Work Phone: [facility] 09-09-2023 18:49-0500 Systolic blood pressure 126 mm[Hg] Giovanna Mckinley APRN.EMPLOYMENT SUPERVISOR Work Phone: [facility] 07-26-2023 07:48-0400 Body height 162.6 cm Enedelia Isaacs APRN.EMPLOYMENT SUPERVISOR Work Phone: [facility] 07-26-2023 07:48-0400 Body weight 90.27 kg Enedelia Isaacs APRN.EMPLOYMENT SUPERVISOR Work Phone: [facility] 07-26-2023 07:48-0400 Diastolic blood pressure 80 mm[Hg] Enedelia Isaacs APRN.EMPLOYMENT SUPERVISOR Work Phone: [facility] 07-26-2023 07:48-0400 Heart rate 70 /min Enedelia Isaacs APRN.EMPLOYMENT SUPERVISOR Work Phone: [facility] 07-26-2023 07:48-0400 Respiratory rate 14 /min Enedelia Isaacs APRN.EMPLOYMENT SUPERVISOR Work Phone: [facility] 07-26-2023 07:48-0400 Systolic blood pressure 112 mm[Hg] Enedelia Isaacs APRN.EMPLOYMENT SUPERVISOR Work Phone: [facility] 03-09-2023 16:24-0400 Body temperature 98.91 [degF] Maricruz Athy PA-C Work Phone: [facility] 03-09-2023 16:24-0400 Body weight 96.8 kg Maricruz Athy PA-C Work Phone: [facility] 03-09-2023 16:24-0400 Diastolic blood pressure 82 mm[Hg] Maricruz Athy PA-C Work Phone: [facility] 03-09-2023 16:24-0400 Heart rate 103 /min Maricruz Athy PA-C Work Phone: [facility] 03-09-2023 16:24-0400 Respiratory rate 22 /min Maricruz Athy PA-C Work Phone: [facility] 03-09-2023 16:24-0400 SaO2% (BldA) [Mass fraction] 97 % Maricruz Athy PA-C Work Phone: [facility] 03-09-2023 16:24-0400 Systolic blood pressure 110 mm[Hg] Maricruz Athy PA-C Work Phone: [facility] 02-09-2023 16:42-0400 Body temperature 98.01 [degF] Krislyn Aberegg PA Work Phone: [facility] 02-09-2023 16:42-0400 Body weight 97.8 kg Krislyn Aberegg PA Work Phone: [facility] 02-09-2023 16:42-0400 Diastolic blood pressure 76 mm[Hg] Krislyn Aberegg PA Work Phone: [facility] 02-09-2023 16:42-0400 Heart rate 115 /min Krislyn Aberegg PA Work Phone: [facility] 02-09-2023 16:42-0400 Respiratory rate 21 /min Krislyn Aberegg PA Work Phone: [facility] 02-09-2023 16:42-0400 SaO2% (BldA) [Mass fraction] 97 % Krislyn Aberegg PA Work Phone: [facility] 02-09-2023 16:42-0400 Systolic blood pressure 120 mm[Hg] Krislyn Aberegg PA Work Phone: [facility] 07-21-2022 11:24-0400 Body temperature 98.01 [degF] Adelso Richardson MD Work Phone: [facility] 07-21-2022 11:24-0400 Body weight 107.14 kg Adelso Richardson MD Work Phone: [facility] 07-21-2022 11:24-0400 Diastolic blood pressure 78 mm[Hg] Adelso Richardson MD Work Phone: [facility] 07-21-2022 11:24-0400 Heart rate 95 /min Adelso Richardson MD Work Phone: [facility] 07-21-2022 11:24-0400 Respiratory rate 21 /min Adelso Richardson MD Work Phone: [facility] 07-21-2022 11:24-0400 SaO2% (BldA) [Mass fraction] 97 % Adelso Richardson MD Work Phone: [facility] 07-21-2022 11:24-0400 Systolic blood pressure 120 mm[Hg] Adelso Richardson MD Work Phone: [facility] 06-27-2022 11:25-0400 Body temperature 98.2 [degF] Alan Cristilekeerthi LIQUEFACTION AND REGASIFICATION HELPER.EMPLOYMENT SUPERVISOR Work Phone: [facility] 06-27-2022 11:25-0400 Body weight 106.59 kg Alan Pendvenancio LIQUEFACTION AND REGASIFICATION HELPER.EMPLOYMENT SUPERVISOR Work Phone: [facility] 06-27-2022 11:25-0400 Diastolic blood pressure 76 mm[Hg] Alan Pendlebury LIQUEFACTION AND REGASIFICATION HELPER.EMPLOYMENT SUPERVISOR Work Phone: [facility] 06-27-2022 11:25-0400 Heart rate 96 /min Alan Pendlekeerthi LIQUEFACTION AND REGASIFICATION HELPER.EMPLOYMENT SUPERVISOR Work Phone: [facility] 06-27-2022 11:25-0400 Respiratory rate 16 /min Alan Pendlekeerthi LIQUEFACTION AND REGASIFICATION HELPER.EMPLOYMENT SUPERVISOR Work Phone: [facility] 06-27-2022 11:25-0400 SaO2% (BldA) [Mass fraction] 97 % Alan Pendvenancio LIQUEFACTION AND REGASIFICATION HELPER.EMPLOYMENT SUPERVISOR Work Phone: [facility] 06-27-2022 11:25-0400 Systolic blood pressure 120 mm[Hg] Alan Cristilekeerthi LIQUEFACTION AND REGASIFICATION HELPER.EMPLOYMENT SUPERVISOR Work Phone: [facility] 07-11-2019 03:36-0400 Body surface area Derived from formula [facility] ([place]) Encounters Encounter Date Encounter Type Care Provider Facility Start: 11-26-2023 Telephone encounter Giovanna Elías ELDER.EMPLOYMENT SUPERVISOR Work Phone: [facility] Procedures Date Procedure Procedure Detail Performing Clinician Start: 11-24-2023 Urnls dip stick/tabl et rgnt auto w/o microscopy Alan Dotson APRN.EMPLOYMENT SUPERVISOR Work Phone: Start: 09-09-2023 STREP A MOLECULAR (POC) Alan Dotson APRN.EMPLOYMENT SUPERVISOR Work Phone: Start: 03-09-2023 STREP A MOLECULAR [...] Pertussis Vaccines (7 - Td or Tdap) [facility] Start: 11-26-2024 Urine microalbumin profile DTaP,Tdap,Td Vaccine (7 - Td or Tdap) [facility] Start: 07-26-2024 Chlamydia Screening (18-24) Chlamydia Screening (18-24) [facility] Immunizations Immunization Date Immunization Notes Care Provider Fa cility 11-26-2014 meningococcal polysaccharide (groups A, C, Y and W-135) diphtheria toxoid conjugate vaccine (MCV4P) Jamaal Anguiano MD Work Phone: [facility] 11-26-2014 tetanus toxoid, redu karley diphtheria toxoid, and acellular pertussis vaccine, adsorbed Jamaal Anguiano MD Work Phone: [facility] 11-22-2012 influenza virus vacc ine, split virus (incl. purified surface antigen) Jamaal Anguiano MD Work Phone: [facility] 11-22-2012 influenza, seasonal, injectable, preservative free Enedelia Knoble LIQUEFACTION AND REGASIFICATION HELPER.EMPLOYMENT SUPERVISOR Work Phone: [facility] 11-22-2012 influenza virus vacc ine, unspecified formulation Enedelia Knoble LIQUEFACTION AND REGASIFICATION HELPER.EMPLOYMENT SUPERVISOR Work Phone: [facility] 06-29-2011 influenza virus vacc ine, split virus (incl. purified surface antigen) Jamaal Anguiano MD Work Phone: [facility] 06-29-2011 influenza, seasonal, injectable, preservative free Enedelia Knoble LIQUEFACTION AND REGASIFICATION HELPER.EMPLOYMENT SUPERVISOR Work Phone: [facility] 07-20-2010 influenza virus vacc ine, split virus (incl. purified surface antigen) Jamaal Anguiano MD Work Phone: [facility] 07-20-2010 influenza, seasonal, injectable, preservative free Enedelia Knoble LIQUEFACTION AND REGASIFICATION HELPER.EMPLOYMENT SUPERVISOR Work Phone: [facility] 09-17-2009 influenza virus vacc ine, split virus (incl. purified surface antigen) Jamaal Anguiano MD Work Phone: [facility] 09-17-2009 influenza, seasonal, injectable, preservative free Enedelia Knoble LIQUEFACTION AND REGASIFICATION HELPER.EMPLOYMENT SUPERVISOR Work Phone: [facility] 10-08-2008 influenza virus vacc ine, unspecified formulation Jamaal Anguiano MD Work Phone: [facility] 10-08-2008 influenza virus vacc ine, whole virus Enedelia Knoble LIQUEFACTION AND REGASIFICATION HELPER.EMPLOYMENT SUPERVISOR Work Phone: [facility] 12-29-2007 diphtheria, tetanus toxoids and acellular pertussis vaccine Jamaal Anguiano MD Work Phone: [facility] 12-29-2007 diphtheria, tetanus toxoids and acellular pertussis vaccine, unspecified formulation Enedelia Knoble LIQUEFACTION AND REGASIFICATION HELPER.EMPLOYMENT SUPERVISOR Work Phone: [facility] 12-29-2007 measles, mumps and rubella virus vaccine Jamaal Anguiano MD Work Phone: [facility] 12-29-2007 poliovirus vaccine, inactivated Jamaal Anguiano MD Work Phone: [facility] 12-29-2007 varicella virus vaccine Adonay Anguiano MD Work Phone: [facility] 08-14-2004 influenza virus vacc ine, unspecified formulation Jamaal Anguiano MD Work Phone: [facility] 08-14-2004 influenza virus vacc ine, whole virus Enedelia Isaacs APRN.EMPLOYMENT SUPERVISOR Work Phone: [facility] 02-24-2004 diphtheria, tetanus toxoids and acellular pertussis vaccine Jamaal Anguiano MD Work Phone: [facility] 02-24-2004 diphtheria, tetanus toxoids and acellular pertussis vaccine, unspecified formulation Enedelia Isaacs APRN.EMPLOYMENT SUPERVISOR Work Phone: [facility] 02-24-2004 varicella virus vaccine Adonay Anguiano MD Work Phone: [facility] 11-22-2003 haemophilus influenz ae type b conjugate and Hepatitis B vaccine Jamaal Anguiano MD Work Phone: [facility] 11-22-2003 measles, mumps and rubella virus vaccine Jamaal Anguiano MD Work Phone: [facility] 11-22-2003 poliovirus vaccine, inactivated Jamaal Anguiano MD Work Phone: [facility] 08-27-2003 influenza virus vacc ine, unspecified formulation Jamaal Anguiano MD Work Phone: [facility] 08-27-2003 influenza virus vacc ine, whole virus Enedelia Isaacs APRN.EMPLOYMENT SUPERVISOR Work Phone: [facility] 05-27-2003 diphtheria, tetanus toxoids and acellular pertussis vaccine Jamaal Anguiano MD Work Phone: [facility] 05-27-2003 diphtheria, tetanus toxoids and acellular pertussis vaccine, unspecified formulation Enedelia Isaacs APRN.EMPLOYMENT SUPERVISOR Work Phone: [facility] 05-27-2003 haemophilus influenz ae type b vaccine, PRP-T conjugate Jamaal Anguiano MD Work Phone: [facility] 05-27-2003 pneumococcal conjuga te vaccine, 7 valent Jamaal Anguiano MD Work Phone: [facility] 03-26-2003 diphtheria, tetanus toxoids and acellular pertussis vaccine Jamaal Anguiano MD Work Phone: [facility] 03-26-2003 diphtheria, tetanus toxoids and acellular pertussis vaccine, unspecified formulation Enedleia Isaacs APRN.EMPLOYMENT SUPERVISOR Work Phone: [facility] 03-26-2003 haemophilus influenz ae type b vaccine, PRP-T conjugate Jamaal Anguiano MD Work Phone: [facility] 03-26-2003 pneumococcal conjuga te vaccine, 7 ruthent Jamaal Anguiano MD Work Phone: [facility] 03-26-2003 poliovirus vaccine, inactivated Jamaal Anguiano MD Work Phone: [facility] 01-21-2003 diphtheria, tetanus toxoids and acellular pertussis vaccine Jamaal Anguiano MD Work Phone: [facility] 01-21-2003 diphtheria, tetanus toxoids and acellular pertussis vaccine, unspecified formulation Enedelia Isaacs LIQUEFACTION AND REGASIFICATION HELPER.EMPLOYMENT SUPERVISOR Work Phone: [facility] 01-21-2003 haemophilus influenz ae type b conjugate and Hepatitis B vaccine Jamaal Anguiano MD Work Phone: [facility] 01-21-2003 pneumococcal conjuga te vaccine, 7 noam Anguiano MD Work Phone: [facility] 01-21-2003 poliovirus vaccine, inactivated Jamaal Anguiano MD Work Phone: [facility] 2002 hepatitis B vaccine, pediatric or pediatric/adolescent dosage Jamaal Anguiano MD Work Phone: [facility] Payers Date Payer Category Payer Medicaid [id number] 2022 Unknown [id number] 2017 Medicaid [id number] 2006 Unknown 2002 Unknown [id number] 2002 Unknown [id number] 2002 Unknown [id number] [id number] 2002 Unknown [id number] [id number] Unknown [id number] Social History Date Type Detail Facility Start: 06-27-2022 End: 09-15-2022 Tobacco smoking status NHIS Never smoked tobacco [facility] Work Phone: Start: 06-27-2022 End: 09-15-2022 Tobacco use and exposure Smokeless tobacco non-user [facility] Work Phone: Start: 2002 Sex Assigned At Not on file [facility] Start: 07-11-2022 End: 09-17-2022 Exposure to SARS-CoV-2 (event) Not sure [facility] Start: 09-17-2022 Alcohol intake Current non-dr dulser of alcohol (finding) [facility] Start: 07-26-2023 End: 11-24-2023 Alcohol intake Lifetime non-drinker (finding) [facility] Start: 07-26-2023 End: 11-24-2023 History of Social function [facility] Work Phone: Start: 07-26-2023 End: 11-24-2023 Tobacco use panel [facility] Work Phone: Adult Depression Screening Assessment 0 [facility] Work Phone: NEGATED: Highlighted rowStart: MADISONF History of tobacco use Passive smoker [facility] Clinical Notes 06-27-2022 to 11-27-2023 Telephone Encounter - Breanna Figueroa - 11/27/2023 12:09 PM ESTTelephone Encounter - Jennifer Tinsley MA - 11/26/2023 1:42 PM Alan Florence APRN.VJ - 11/24/2023 7:58 PM EST Note Date & Type Note Facility 11-27-2023 Miscellaneous Notes Patient given results and verbalized understanding of instructions given. Breanna Figueroa Left message for pt to call back. Jennifer Tinsley MA Please call and notify patient that urine culture did not grow any bacteria. If patient's symptoms are not improving patient needs to follow-up with either PCP or BIOMETRIC FINGERPRINTING TECHNICIAN. documented in this encounter [facility] 11-24-2023 Note HNO ID: [id number] Author: ALAN DOTSON APRN.VJ Service: ? Author Type: Nurse Practitioner Type: Progress Notes Filed: 11/24/2023 20:14 Note Text: Subjective HPI Nontoxic-appearing female presents urgent care chief complaint nausea vomiting loose stools body aches chills burning with urination and frequency urgency lower abdominal pain. Duration of symptom 1 day. Associated symptoms listed above. Has not used any OTC medications. History of UTIs this feels similar. Denies any high fevers productive cough chest pain shortness of breath or rashes. Past medical history prescription medications allergies reviewed. Denies chance of . Is not breast-feeding. BP 103/76 Pulse 109 Temp 37.2 ?C (99 ?F) Resp 18 Wt 97.1 kg (214 lb) LMP 11/17/2023 (Exact Date) SpO2 98% BMI 36.73 kg/m? Hr 90 .Patient presents with: Nausea AND Vomiting: Diarrhea, body aches, chills, x 1 day Urinary Problem: Burning with urination, low abd cramping x day PAST MEDICAL HISTORY Diagnosis Date Intermittent asthma [...] Inhale 1 Puff as instructed twice daily. History reviewed. No pertinent family history. Social History Tobacco Use Smoking status: Never Smokeless tobacco: Never Substance Use Topics Alcohol use: Never Drug use: Never Review of Systems Constitutional: Positive for chills and malaise/fatigue. Negative for fever. HENT: Negative for congestion, ear discharge, ear pain, sinus pain and sore throat. Eyes: Negative for blurred vision, pain, discharge and redness. Respiratory: Negative for cough, hemoptysis, sputum production, shortness of breath, wheezing and stridor. Cardiovascular: Negative for chest pain. Gastrointestinal: Positive for abdominal pain, diarrhea, nausea and vomiting. Musculoskeletal: Positive for myalgias. Skin: Negative for itching and rash. Neurological: Negative for dizziness and headaches. Objective Physical Exam Constitutional: General: She is not in acute distress. Appearance: She is not diaphoretic. HENT: Head: Normocephalic. Jaw: No trismus, tenderness, swelling or pain on movement. Mouth/Throat: Mouth: Mucous membranes are moist. Pharynx: [...] Palpations: Abdomen is soft. Tenderness: There is generalized abdominal tenderness. There is no right CVA tenderness, left CVA tenderness, guarding or rebound. Musculoskeletal: Cervical back: Normal range of motion and neck supple. No edema, erythema, rigidity or tenderness. No pain with movement. Normal range of motion. Lymphadenopathy: Cervical: No cervical adenopathy. Skin: General: Skin is warm and dry. Neurological: Mental Status: She is alert and oriented to person, place, and time. ASSESSMENT/PLAN: 1. Burning with urination - ICD9: 788.1, ICD10: R30.0 (primary diagnosis) - UA DIP, URINE (POC) - URINE CULTURE 2. Viral illness - ICD9: 079.99, ICD10: B34.9 Patient nontoxic-appearing. Hemodynamically stable. No evidence of bacterial infection noted on urine dip. Generalized tenderness that was mild upon palpation. Symptoms are progressively improving. Last vomited 6 hours ago. No blood in vomit. No evidence of acute abdomen. No evidence of pyelonephritis or acute cystitis. Treat conservatively at this time. Culture urine. Treat according to culture results. Red flags for ER evaluation discussed. Patient was educated on supportive therapies. Patient will follow up with primary care provider as needed. Patient was instructed to immediately proceed to emergency room for any new, worsening, or symptoms lasting longer than anticipated. The patient's clinical presentation is otherwise unremarkable at this time. Based onexam and clinical finding, the patient is stable for discharge. Plan of care was discussed with patient. Patient verbalizes understanding and agrees to plan of care. This note was generated using (more content not included)... [facility] 11-24-2023 History of Presen t illness Narrative Subjective HPI Nontoxic-appearing female presents urgent care chief complaint nausea vomiting loose stools body aches chills burning with urination and frequency urgency lower abdominal pain. Duration of symptom 1 day. Associated symptoms listed above. Has not used any OTC medications. History of UTIs this feels similar. Denies any high fevers productive cough chest pain shortness of breath or rashes. Past medical history prescription medications allergies reviewed. Denies chance of . Is not breast-feeding. BP 103/76 Pulse 109 Temp 37.2 C (99 F) Resp 18 Wt 97.1 kg (214 lb) LMP 11/17/2023 (Exact Date) SpO2 98% BMI 36.73 kg/m Hr 90 .Patient presents with: Nausea & Vomiting: Diarrhea, body aches, chills, x 1 day Urinary Problem: Burning with urination, low abd cramping x day PAST MEDICAL HISTORY Diagnosis Date Intermittent asthma [...] Inhale 1 Puff as instructed twice daily. History reviewed. No pertinent family history. Social History Tobacco Use Smoking status: Never Smokeless tobacco: Never Substance Use Topics Alcohol use: Never Drug use: Never Review of Systems Constitutional: Positive for chills and malaise/fatigue. Negative for fever. HENT: Negative for congestion, ear discharge, ear pain, sinus pain and sore throat. Eyes: Negative for blurred vision, pain, discharge and redness. Respiratory: Negative for cough, hemoptysis, sputum production, shortness of breath, wheezing and stridor. Cardiovascular: Negative for chest pain. Gastrointestinal: Positive for abdominal pain, diarrhea, nausea and vomiting. Musculoskeletal: Positive for myalgias. Skin: Negative for itching and rash. Neurological: Negative for dizziness and headaches. Objective Physical Exam Constitutional: General: She is not in acute distress. Appearance: She is not diaphoretic. HENT: Head: Normocephalic. Jaw: No trismus, tenderness, swelling or pain on movement. Mouth/Throat: Mouth: Mucous membranes are moist. Pharynx: [...] Palpations: Abdomen is soft. Tenderness: There is generalized abdominal tenderness. There is no right CVA tenderness, left CVA tenderness, guarding or rebound. Musculoskeletal: Cervical back: Normal range of motion and neck supple. No edema, erythema, rigidity or tenderness. No pain with movement. Normal range of motion. Lymphadenopathy: Cervical: No cervical adenopathy. Skin: General: Skin is warm and dry. Neurological: Mental Status: She is alert and oriented to person, place, and time. ASSESSMENT/PLAN: 1. Burning with urination - ICD9: 788.1, ICD10: R30.0 (primary diagnosis) - UA DIP, URINE (POC) - URINE CULTURE 2. Viral illness - ICD9: 079.99, ICD10: B34.9 Patient nontoxic-appearing. Hemodynamically stable. No evidence of bacterial infection noted on urine dip. Generalized tenderness that was mild upon palpation. Symptoms are progressively improving. Last vomited 6 hours ago. No blood in vomit. No evidence of acute abdomen. No evidence of pyelonephritis or acute cystitis. Treat conservatively at this time. Culture urine. Treat according to culture results. Red flags for ER evaluation discussed. Patient was educated on supportive therapies. Patient [...] of care. This note was generated using naaptol software. It may contain errors in wording, punctuation, or spelling. Alan Dotson APRN.EMPLOYMENT SUPERVISOR documented in this encounter [facility] 11-10-2023 Note HNO ID: [id number] Author: BHAVESH STATON LPN Service: ? Author Type: LICENSED NURSE Type: Progress Notes Filed: 11/10/2023 07:43 Note Text: Scan on 11/09/2023 10:14 PM by ProviderJose Alfredo PAShantelC: Consultation - Emergency Medicine Scan on 11/09/2023 9:55 PM by ProviderJose Alfredo PAShantelC: X-ray [facility] 11-08-2023 Note HNO ID: [id number] Author: BHAVESH STATON LPN Service: ? Author Type: LICENSED NURSE Type: Progress Notes Filed: 11/08/2023 14:28 Note Text: Scan on 11/07/2023 6:53 PM by Provider, GENE Veliz: Consultation - Emergency Medicine [facility] 10-12-2023 Note HNO ID: [id number] Author: Alan Dotson APRN.VJ Service: ? Author Type: Nurse Practitioner [...] of care. This note was generated using naaptol software. It may contain errors in wording, punctuation, or spelling. Alan Dotson APRN.CNP [facility] 09-10-2023 Miscellaneous Notes Call patient notified of negative viral results. documented in this encounter [facility] 09-09-2023 Note HNO ID: [id number] Author: Giovanna Mckinley APRN.CNP Service: ? Author Type: Nurse Practitioner Type: Progress Notes Filed: 09/09/2023 7:14 PM Note Text: CC: Patient presents with: Sore Throat: Cough, head congestion and sore throat x 2 days HPI: Joanna Carr is a 22 year old female [...] Patient agreeable to treatment plan. Giovanna Mckinley APRN.[facility] 09-09-2023 History of Presen t illness Narrative CC: Patient presents with: Sore Throat: Cough, head congestion and sore throat x 2 days HPI: Joanna Carr is a 22 year old female [...] Patient agreeable to treatment plan. Giovanna Mckinley APRN.EMPLOYMENT SUPERVISOR documented in this encounter [facility] 08-23-2023 Note HNO ID: [id number] Author: Elizabeth Estevez LPN Service: ? Author Type: ? Type: Progress Notes Filed: 08/23/2023 10:56 AM Note Text: Scan on 08/19/2023 6:13 PM by ProviderJose Alfredo PA-C: X-ray Scan on 08/19/2023 11:24 PM by ProviderJose Alfredo PA-C: Consultation - Emergency Medicine [facility] 07-28-2023 Miscellaneous Notes Patient notified and verbalized understanding Sophie Mccormick Cma Please let patient know her labs are normal. documented in this encounter [facility] 07-26-2023 Note HNO ID: [id number] Author: Enedelia Isaacs APRN.VJ Service: ? Author Type: Nurse Practitioner Type: Progress Notes Filed: 07/26/2023 8:15 AM Note Text: Chief Complaint Patient presents with: [facility] Joanna Carr is a 22 year old female who presents here today for Above Complaints.. Patient presents to [facility]. 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 Patient presents to [facility]. 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 Author Type: Physician Law Instructor Type: Progress Notes Filed: 03/09/2023 5:38 PM Note Text: This note was created using [email or web address]. Subjective Joanna Carr is a 22 year old female. [...] or if symptoms persist. Maricruz Velazquez PA-C [facility] 03-09-2023 History of Presen t illness Narrative This note was created using [email or web address]. Subjective Joanna Carr is a 22 year old female. [...] Maricruz Velazquez PA-C documented in this encounter [facility] 02-09-2023 Note HNO ID: [id number] Author: IRENE Andujar Service: ? Author Type: Physician Law Instructor Type: Progress Notes Filed: 02/09/2023 4:58 PM Note Text: This note was created using [employer]. Subjective Joanna Carr is a 22 year old female. [...] detail warranting prompt ER evaluation. IRENE Andujar [facility] 02-09-2023 History of Presen t illness Narrative This note was created using [email or web address]. Subjective Joanna Carr is a 22 year old female. [...] evaluation. IRENE Andujar documented in this encounter [facility] 07-21-2022 History of Presen t illness Narrative [...] Adelso Richardson MD documented in this encounter [facility] 06-27-2022 History of Presen t illness Narrative [...] daily. (Patient not taking: Reported on 06/27/2022) Limweuzypnksj-Mdptfblmibuaa-FU (TYLENOL COLD HEAD CONGEST SEVR) 5-325-200 mg [...] of care. This note was generated using naaptol software. It may contain errors in wording, punctuation, or spelling. Alan Dotson APRN.VJ documented in this encounter [facility] documented in this encounter [facility] note* Diagnosis Nausea and vomiting, unspecified vomiting type- Primary documented in this encounter [facility] note* Diagnosis Pain of upper abdomen Abdominal pain, other specified site documented in this encounter [facility] note* Diagnosis Nausea and vomiting, unspecified vomiting type- Primary documented in this encounter [facility] note* Diagnosis Sore throat- Primary Acute pharyngitis Acute conjunctivitis of right eye, unspecified acute conjunctivitis type documented in this encounter [facility] note* Diagnosis Wellness examination- Primary Encounter for lipid screening for cardiovascular disease Screening for lipoid disorders Screening for diabetes mellitus Mild intermittent asthma, uncomplicated Unspecified asthma documented in this encounter [facility] note* Diagnosis Sore throat- Primary Acute pharyngitis URI, acute Acute upper respiratory infections of unspecified site documented in this encounter [facility] note* Diagnosis Burning with urination- Primary Dysuria Viral illness Unspecified viral infection, in conditions classified elsewhere and of unspecified site documented in this encounter [facility] Summary Purpose Family History No Family History [...] DATE CREATED AUTHOR AUTHOR'S ORGANIZ ATION 09/18/2018 [facility] christopher [place] DATE CREATED AUTHOR AUTHOR'S ORGANIZ ATION 08/27/2019 [facility] ([place]) DATE CREATED AUTHOR AUTHOR'S ORGANIZ ATION 09/21/2022 [facility] DATE CREATED AUTHOR AUTHOR'S ORGANIZ ATION 11/28/2023 [facility] Source Comments (unrecognize d section and content) In the event this informatio n is protected by the Federal Confidentiality of Alcohol and Drug Abuse Patient Records regulations: The Federal rules restrict any use of the information to criminally investigate or prosecute any alcohol or drug abuse patient.[facility] the event this information is protected by the Federal Confidentiality of Alcohol and Drug Abuse Patient Records regulations: The Federal rules restrict any use of the information to criminally investigate or prosecute any alcohol or drug abuse patient.[facility] the event this information is protected by the Federal Confidentiality of Alcohol and Drug Abuse Patient Records regulations: The Federal rules restrict any use of the information to criminally investigate or prosecute any alcohol or drug abuse patient.[facility] the event this information is protected by the Federal Confidentiality of Alcohol and Drug Abuse Patient Records regulations: The Federal rules restrict any use of the information to criminally investigate or prosecute any alcohol or drug abuse patient.[facility] the event this information is protected by the Federal Confidentiality of Alcohol and Drug Abuse Patient Records regulations: The Federal rules restrict any use of the information to criminally investigate or prosecute any alcohol or drug abuse patient.[facility] the event this information is protected by the Federal Confidentiality of Alcohol and Drug Abuse Patient Records regulations: The Federal rules restrict any use of the information to criminally investigate or prosecute any alcohol or drug abuse patient.[facility] the event this information is protected by the Federal Confidentiality of Alcohol and Drug Abuse Patient Records regulations: The Federal rules restrict any use of the information to criminally investigate or prosecute any alcohol or drug abuse patient.[facility] the event this information is protected by the Federal Confidentiality of Alcohol and Drug Abuse Patient Records regulations: The Federal rules restrict any use of the information to criminally investigate or prosecute any alcohol or drug abuse patient.[facility] the event this information is protected by the Federal Confidentiality of Alcohol and Drug Abuse Patient Records regulations: The Federal rules restrict any use of the information to criminally investigate or prosecute any alcohol or drug abuse patient.[facility] the event this information is protected by the Federal Confidentiality of Alcohol and Drug Abuse Patient Records regulations: The Federal rules restrict any use of the information to criminally investigate or prosecute any alcohol or drug abuse patient.[facility] Reason for Visit (unrecogniz ed section and content) Reason Comments Nausea & Vomiting X 4 days Reason Comments Nausea & Vomiting CAPUTO, right ear pain X 2 days Reason Comments Conjunctivitis Right eye redness, s ore throat x 2 days Reason Comments Establish Care Reason Comments Results Reason Comments Sore Throat Cough, head congesti on and sore throat x 2 days Reason Comments Nausea & Vomiting Diarrhea, body aches , chills, x 1 day Urinary Problem Burning with urinati on, low abd cramping x day Care Teams (unrecognized sec tion and content) Pilot Can Router Relationship Specialty Start Date End Date Jamaal Anguiano PCP - General 11/04/06 Pilot Can Router Relationship Specialty Start Date End Date Jamaal Anguiano MD [address] [place] [address] PCP - General 06/15/17 ([place]), [address] [place] [address] 01/08/11 Pilot Can Router Relationship Specialty Start Date End Date Jamaal Anguiano PCP - General 11/04/06 Pilot Can Router Relationship Specialty Start Date End Date Alan Del Toro MD [address] [place] [address] PCP - General Family Medicine 07/19/23 Pilot Can Router Relationship Specialty Start [place] [address] [place] [id number] PCP - General Family Medicine 07/19/23 Pilot Can Router Relationship Specialty Start Date End Date Alan Del Toro MD [address] [place] [id number] PCP - General Family Medicine 07/19/23 Pilot Can Router Relationship Specialty Start Date End Date Alan Del Toro MD [address] [place] [address] PCP - General Family Medicine 07/19/23 Pilot Can Router Relationship Specialty Start Date End Date Alan Del Toro MD [address] [place] [address] PCP - General Family Medicine 07/19/23 Pilot Can Router Relationship Specialty [place] [address] [place] [id number] PCP - General Family Medicine 07/19/23 FOR [...] BE BASED ON THE PRIMARY CLINICAL RECORDS. [employer] [facility]. provides no warranty or guarantee of the accuracy or completeness of information in this document.
--- NOTE | 2023-12-10 19:08 | EDS_ITS ---
HPI HPI - GI History of Present Illness Chief Complaint: Nausea/Vomiting/Diarrhea Narrative Narrative: 23-year-old female with nausea, vomiting, diarrhea since . 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 Patient states he has some abdominal cramping. She has not had a fever but also states her thermometer does not work. She has not a cough or shortness of breath. She states she has been able to drink fluids but anytime she tries to eat she vomits. Otherwise she states she is healthy. [facility] Medical History Asthma Home Medications albuterol sulfate 2.5 mg/3 mL (0.083 %) solution for nebulization 2.5 mg (3 mL) inhalation Q4H PRN #25 vials 11/07/23 [Rx Last Taken Unknown] albuterol sulfate 90 mcg/actuation aerosol inhaler (Proventil HFA) 2 inh inhalation Q4H PRN shortness of breath or wheezing #8.5 grams 11/07/23 [Rx Last Taken Unknown] ondansetron 4 mg disintegrating tablet 4 mg PO Q8H PRN PRN Nausea #14 tabs 12/10/23 [Rx Last Taken Unknown] Allergy/AdvReac Type Severity Reaction Status Date / Time No Known Allergies Allergy Verified 12/10/23 18:24 Surgical History History of tonsillectomy and adenoidectomy Social History household members: family Smoking Status: Never smoker substance use type: does not use ROS ROS ED Constitutional Constitutional ED: Reports chills; Denies fever(s) or sweats Eyes Eyes: Denies blurry vision or change in vision ENT ENT ED: Denies ear pain or sore throat Cardiovascular Cardiovascular: Denies chest pain, palpitations or racing heartbeat Respiratory/Chest Respiratory/Chest: Denies cough, dyspnea or sputum Gastrointestinal Gastrointestinal: Reports abdominal pain, diarrhea, nausea and vomiting; Denies constipation Genitourinary Genitourinary ED: Denies dysuria, hematuria or urinary frequency Musculoskeletal Musculoskeletal: Denies arthralgias, myalgias or neck pain Integumentary Denies abscess, Abrasions or rash Neurologic Neurologic: Denies headache(s), paresthesias or weakness Psychiatric Psychiatric: Denies anxiety, depression, suicidal ideation or suicidal thoughts Endocrine Endocrinology: Denies polydipsia or polyuria EXAM Physical Exam Const Vital Signs: 12/10/23 18:24 Temperature 97.8 F Temperature Source Temporal Pulse Rate 99 Respiratory Rate 18 Blood Pressure 111/80 Blood Pressure Mean 90 Pulse Ox 98 Oxygen Delivery Method Room Air Positive well nourished General Appearance ED: NAD HEENT Reports moist mucous membranes normocephalic and atraumatic Eyes PERRL and EOMs intact bilaterally Resp normal respiratory effort Cardio regular rate and regular rhythm GI non-tender and non-distended Neuro CN's II-XII intact bilaterally and moves all extremities Sensorium / Orientation: alert Psych mental status grossly normal and thought process normal Skin no wounds MDM MDM MDM Narrative Medical decision making narrative: Patient presenting with symptoms of a suspected viral nature. Discussed with the patient. She is offered testing but declines. She states she just wants to feel better. She is given Zofran and Bentyl. Will reevaluate. Patient feeling improved after treatment. She is medication. Return precautions discussed. Impression: 1 viral Discharge Plan Triage Chief Complaint: Nausea/Vomiting/Diarrhea ED Provider: Jd Arteaga Dx/Rx/DC Orders Instructions: ED Gastroenteritis, Viral (Adult) Prescriptions: New ondansetron 4 mg tablet,disintegrating 4 mg PO Q8H PRN PRN (Reason: Nausea) Qty: 14 0RF No Action albuterol sulfate [Proventil HFA] 90 mcg/actuation HFA aerosol inhaler 2 inh inhalation Q4H PRN (Reason: shortness of breath or wheezing) Qty: 8.5 1RF albuterol sulfate 2.5 mg /3 mL (0.083 %) solution for nebulization 2.5 mg inhalation Q4H PRN Qty: 25 0RF Rx Instructions: Use q4 hours and PRN for wheezing Stand Alone Forms: ED Work / School Excuse Primary Care Provider: Ko Beasley Referrals: Ko Beasley MD [Primary Care Provider] - Disposition Disposition: Home, Self Care Discharge Date/Time: 12/10/23 20:41
[2023-12-10 19:12] VITALS: BMI 35.7
[2023-12-10] MEDS: Dicyclomine 10 MG Capsule 20 MG PO (19:19)
[2023-12-10] MEDS: Ondansetron ODT 4 MG Tablet PO (19:19)
[2023-12-10 20:40] VITALS: BP 100/68; PULSE 64; RESP 16; TEMP 36.6; O2SAT 98
== END 2023-12-10 20:41 | disposition home or self-care (01) ==
PROVIDERS: Emergency Provider Student in an Organized Health Care Education/Training Program; PCP Family Medicine; Visit Provider Student in an Organized Health Care Education/Training Program
DX: B34.9 Viral infection, unspecified (principal); R11.2 Nausea with vomiting, unspecified; R19.7 Diarrhea, unspecified; J45.909 Unspecified asthma, uncomplicated
CPT/HCPCS: 99283

== ENCOUNTER 2023-12-27 20:37 | Emergency (ER) | payer MEDICAID, SELFPAY ==
[2023-12-27 20:38] VITALS: BP 121/86; PULSE 103; RESP 18; TEMP 36.6; O2SAT 95; BMI 34.7
--- NOTE | 2023-12-27 22:40 | RAD_ITS ---
EXAM: XR CHEST, 2 VIEWS CLINICAL INDICATION: cough cp TECHNIQUE: Frontal and lateral views of the chest. COMPARISON: Single view chest 11/09/2023. FINDINGS: LUNGS AND PLEURAL SPACES: Retrocardiac left basilar airspace disease. No pneumothorax. No effusion. HEART: Unremarkable. Cardiac silhouette not enlarged. MEDIASTINUM: Central airways and mediastinal contour are unremarkable. BONES/JOINTS: Unremarkable. No acute fracture. SOFT TISSUES: Unremarkable. RAD/Chest PA and Lateral IMPRESSION: Retrocardiac left basilar airspace disease. Findings may indicate atelectasis or pneumonia. Electronically Signed: Taye Vogel MD at 23:12 EDT ,
--- NOTE | 2023-12-27 22:46 | EX.ED.VIS.UR ---
HPI HPI - URI History of Present Illness Chief Complaint: Cold Sx Informant: patient Narrative Narrative: Patient has had cold symptoms for the past 24-48 hours. She has had headache, body aches, malaise, nonproductive cough, chest discomfort specially when she coughs. She has had some minor wheezing and has used her albuterol inhaler a couple times, she denies any severe dyspnea, consistent with her asthma. She denies any fevers or chills. She has been around several people workup been sick as well. She went to urgent care yesterday and had a negative COVID/influenza/RSV swab, and concerned because she feels like she is getting worse due to the wheezing and asthma involvement now. ROS ROS ED Constitutional Constitutional ED: Reports body ache(s), headache(s) and malaise; Denies chills or fever(s) ENT ENT ED: Reports ear pain bilateral, nasal congestion, rhinorrhea and sore throat Cardiovascular Cardiovascular: Reports chest pain; Denies palpitations Respiratory/Chest Respiratory/Chest: Reports cough, dyspnea and wheezing Gastrointestinal Gastrointestinal: Denies abdominal pain, diarrhea, nausea or vomiting Genitourinary Genitourinary ED: Denies dysuria or hematuria Musculoskeletal Musculoskeletal: Denies myalgias or neck pain Integumentary Denies abscess or rash Neurologic Neurologic: Reports headache(s); Denies paresthesias or weakness Psychiatric Psychiatric: Denies depression or suicidal thoughts Endocrine Endocrinology: Denies polydipsia or polyuria [facility] Medical History Asthma Home Medications albuterol sulfate 2.5 mg/3 mL (0.083 %) solution for nebulization 2.5 mg (3 mL) inhalation Q4H PRN #25 vials 11/07/23 [Rx Last Taken Unknown] albuterol sulfate 90 mcg/actuation aerosol inhaler (Proventil HFA) 2 inh inhalation Q4H PRN shortness of breath or wheezing #8.5 grams 11/07/23 [Rx Last Taken Unknown] ondansetron 4 mg disintegrating tablet 4 mg PO Q8H PRN PRN Nausea #14 tabs 12/10/23 [Rx Last Taken Unknown] amoxicillin 875 mg-potassium clavulanate 125 mg tablet 875 mg (0.875 x 875-125 mg) PO Q12H #20 TABLETS 12/27/23 [Rx Last Taken Unknown] prednisone 20 mg tablet 40 mg (2 x 20 mg) PO DAILY #10 TABLETS 12/27/23 [Rx Last Taken Unknown] Allergy/AdvReac Type Severity Reaction Status Date / Time No Known Allergies Allergy Verified 12/27/23 20:38 Surgical History History of tonsillectomy and adenoidectomy Social History household members: family Smoking Status: Never smoker substance use type: does not use EXAM Physical Exam Const Vital Signs: 12/27/23 20:38 12/27/23 22:39 Temperature 97.9 F Temperature Source Temporal Pulse Rate 103 H Respiratory Rate 18 Respiratory Effort Normal Non-Labored Respiratory Pattern Normal Blood Pressure 121/86 H Blood Pressure Mean 97 Pulse Ox 95 Positive well nourished and well developed General Appearance ED: well developed and NAD HEENT Reports moist mucous membranes HEENT Narrative: No trismus. No palpable lymphadenopathy. No sinus tenderness. Right TM and EAC are normal. The left EAC is normal, but the left tympanic membrane is erythematous. There is no bulging yet. normocephalic and atraumatic Throat: Negative for posterior oropharynx abnormal Eyes PERRL and EOMs intact bilaterally Neck no lymphadenopathy, supple and no meningeal signs Resp normal respiratory effort and clear to auscultation bilaterally Resp Narrative: Bronchitic cough. No respiratory distress. Speaking full sentences. Cardio no murmurs Rate: regular rate Rhythm: regular rhythm GI non-tender and non-distended Neuro oriented x3, CN's II-XII intact bilaterally and no sensory deficits noted Sensorium / Orientation: alert Motor Exam: strength 5/5 throughout Skin Lesions: no lesions Rashes: no rashes MDM MDM MDM Narrative Medical decision making narrative: Due to mild tachycardia 2 view chest x-ray was obtained to evaluate for possibility of pneumonia. My interpretation it is negative for acute consolidation/infiltrate. I reviewed the radiology interpretation, which is for possibly retrocardiac left airspace disease, this may indicate atelectasis, her lungs are clear and she is not hypoxic and treating her for ear infection anyway so I think it is academic but advised to follow-up if she does not get better. She is not currently wheezing but I think giving her a course steroids be reasonable, and antibiotics for the ear infection. I counseled her regarding the fact that her antibiotic may not likely solve the rest of this which is much more likely to be viral in etiology, given the history. 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 Radiography Diagnostic Testing: Clinical Impression(s) from Imaging Studies Chest X-Ray 12/27/23 22:40 IMPRESSION: Retrocardiac left basilar airspace disease. Findings may indicate atelectasis or pneumonia. Electronically Signed: Taye Vogel MD at 23:12 EDT , Discharge Plan Triage Chief Complaint: Cold Sx ED Provider: Dwayne Mena Dx/Rx/DC Orders Clinical Impression: Left acute otitis media, Acute viral syndrome, Acute asthma exacerbation Instructions: ED Otitis Media Adult Prescriptions: New prednisone 20 mg tablet 40 mg PO DAILY Qty: 10 0RF amoxicillin-pot clavulanate [amoxicillin-pot clavulanate] 875-125 mg tablet 875 mg PO Q12H Qty: 20 0RF No Action albuterol sulfate [Proventil HFA] 90 mcg/actuation HFA aerosol inhaler 2 inh inhalation Q4H PRN (Reason: shortness of breath or wheezing) Qty: 8.5 1RF albuterol sulfate 2.5 mg /3 mL (0.083 %) solution for nebulization 2.5 mg inhalation Q4H PRN Qty: 25 0RF Rx Instructions: Use q4 hours and PRN for wheezing ondansetron 4 mg tablet,disintegrating 4 mg PO Q8H PRN PRN (Reason: Nausea) Qty: 14 0RF Stand Alone Forms: ED Work / School Excuse Primary Care Provider: Ko Beasley Referrals: Ko Beasley MD [Primary Care Provider] - 1 Week if not improving Disposition Disposition: Home, Self Care
[2023-12-27 23:45] VITALS: BP 121/86; PULSE 103; RESP 18; TEMP 36.6; O2SAT 95
== END 2023-12-28 00:20 | disposition home or self-care (01) ==
PROVIDERS: Emergency Provider Emergency Medicine; PCP Family Medicine; Visit Provider Emergency Medicine
DX: J45.901 Unspecified asthma with (acute) exacerbation (principal); R51.9 Headache, unspecified; H66.93 Otitis media, unspecified, bilateral; B34.9 Viral infection, unspecified
CPT/HCPCS: 71046; 99282

== ENCOUNTER 2024-01-17 18:04 | Emergency (ER) | payer OTHER, SELFPAY ==
[2024-01-17 18:04] VITALS: BP 113/89; PULSE 87; RESP 16; TEMP 35.8; O2SAT 98; BMI 35.4
--- NOTE | 2024-01-17 19:28 | ED.RN ---
Per sample room supervisor Lauren Sutton, no drug tested needed.
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
--- NOTE | 2024-01-17 21:45 | RAD_ITS ---
INDICATION: right jaw pain EXAMINATION/TECHNIQUE: X-RAY - XR Mandible Complete 5 Views COMPARISON: FINDINGS: SOFT TISSUES: No soft tissue swelling or gas. No radiopaque foreign body. BONES/TMJs: No fracture or subluxation. No sclerotic or destructive changes observed. DENTITION: No acute abnormality. RAD/Mandible Min 4 Views IMPRESSION: No acute bony injury. Electronically Signed: Rohan Meneses DO at 22:01 EDT ,
[2024-01-17] MEDS: Ibuprofen 600 MG Tablet PO (22:02)
[2024-01-17 22:04] VITALS: BP 122/87; PULSE 85; RESP 17; O2SAT 100
== END 2024-01-17 22:38 | disposition home or self-care (01) ==
PROVIDERS: Emergency Provider Student in an Organized Health Care Education/Training Program; PCP Family Medicine; Visit Provider Student in an Organized Health Care Education/Training Program
DX: S00.83XA Contusion of other part of head, initial encounter (principal); R68.84 Jaw pain; K02.9 Dental caries, unspecified; J45.909 Unspecified asthma, uncomplicated; W22.8XXA Striking against or struck by other objects, initial encounter
CPT/HCPCS: 70110; 99282

== ENCOUNTER 2024-03-27 15:16 | Emergency (ER) | payer SELFPAY ==
[2024-03-27 15:17] VITALS: BP 123/93; PULSE 82; RESP 18; TEMP 36.3; O2SAT 100; BMI 36.3
--- NOTE | 2024-03-27 15:27 | EKG12_ITS ---
Test Reason : Blood Pressure : / mmHG Vent. Rate : 078 BPM Atrial Rate : 078 BPM P-R Int : 150 ms QRS Dur : 094 ms QT Int : 360 ms P-R-T Axes : 020 028 014 degrees QTc Int : 410 ms Normal sinus rhythm Incomplete right bundle branch block Borderline ECG Confirmed by DYLLAN CUI, JODI ([id number]), news copy editor DIRK GOLDSTEIN ([id number]) on 03/29/2024 8:21:09 AM Referred By: Confirmed By:JODI MIJARES MD
--- NOTE | 2024-03-27 15:28 | EDS_ITS ---
HPI History of Present Illness Chief Complaint: Chest Other Detail of Chief Complaint: Chest pain Informant: patient Narrative Narrative: Patient presents to the emergency department with complaint of chest pain that she noticed this morning. She describes a tightness across her chest. 07 February was a pinched nerve. Pain pretty continuous throughout the day. She has had no nausea or vomiting. She denies recent travel or surgery. 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 She has been using her inhaler but not get much pain relief or relief from her chest tightness. She not had a fever. Today she is felt chilled and normally she is hot all the time. She has not had a fever. [facility] Medical History Asthma Home Medications ?Medication ?Instructions ?Recorded ?Last Taken ?Type cetirizine 10 mg capsule (All Day 10 mg PO DAILY 01/17/24 Unknown History Allergy (cetirizine)) Allergy/AdvReac Type Severity Reaction Status Date / Time No Known Allergies Allergy Verified 03/27/24 15:17 Surgical History History of tonsillectomy and adenoidectomy Social History household members: family Smoking Status: Never smoker substance use type: does not use ROS ROS ED Review of Systems ROS Unobtainable: other Constitutional Constitutional ED: Reports lethargy; Denies chills, fever(s), sweats or weight loss Eyes Eyes: Denies blurry vision, change in vision or diplopia ENT ENT ED: Denies rhinorrhea or sore throat Cardiovascular Cardiovascular: Reports chest pain; Denies orthopnea or racing heartbeat Respiratory/Chest Respiratory/Chest: Reports cough and dyspnea; Denies dyspnea on exertion, orthopnea or sputum Gastrointestinal Gastrointestinal: Denies abdominal pain, diarrhea, nausea or vomiting Genitourinary Genitourinary ED: Denies dysuria, hematuria or urinary frequency Musculoskeletal Musculoskeletal: Denies arthralgias, back pain, myalgias or neck pain Integumentary Denies abscess, Abrasions or rash Neurologic Neurologic: Denies headache(s) or weakness Psychiatric Psychiatric: Denies anxiety, depression or suicidal thoughts Endocrine Endocrinology: Denies polydipsia, polyphagia or polyuria Hematologic/Lymphatic Hematologic/Lymphatic: Denies easy bleeding, easy bruising or lymphadenopathy Allergic/Immunologic Allergic/Immunologic ED: Denies mouth swelling, tongue swelling or urticaria EXAM Physical Exam Const Vital Signs: 03/27/24 15:17 Temperature 97.3 F L Temperature Source Temporal Pulse Rate 82 Respiratory Rate 18 Blood Pressure 123/93 H Blood Pressure Mean 103 Pulse Ox 100 Oxygen Delivery Method Room Air Positive well nourished and well developed General Appearance ED: well developed and NAD HEENT Reports TM's clear and moist mucous membranes normocephalic and atraumatic; Negative for trauma or tenderness Tympanic Membrane ED: Yes TM's clear Eyes PERRL and EOMs intact bilaterally General Eye ED: Negative for pale conjunctiva or scleral icterus Neck no lymphadenopathy, supple and no JVD General: Negative for tenderness Chest Wall inspection of chest normal and palpation of chest normal Chest: Negative for tenderness Resp normal respiratory effort and clear to auscultation bilaterally Effort and Inspection: Negative for respiratory distress or pain with movement Auscultation: Negative for rhonchi, wheezes or diminished lung sounds Cardio regular rate, regular rhythm, S1 normal heart sound, S2 normal heart sound and no murmurs Peripheral Pulses: pulses 2+ throughout GI normal to inspection, nondistended, normoactive bowel sounds, soft to palpation, non-tender, non-distended and no masses Back/Spine no CVA tenderness and no thoracic nor lumbar tenderness Extremity normal to inspection General Extremety ED: Negative for edema General Extremity: Negative for edema Neuro oriented x3, CN's II-XII intact bilaterally, no sensory deficits noted and gait normal Sensorium / Orientation: awake, alert, oriented to person, oriented to place and oriented to time Motor Exam: strength 5/5 throughout and strength abnormal Psych mental status grossly normal Skin no rashes or lesions noted and no wounds MDM MDM MDM Narrative Medical decision making narrative: Patient presents with left-sided chest pain. In the differential would be muscle strain versus pericarditis or pneumothorax or infectious process. Also P E would be in the differential. IV line established. CBC with differential white count 11.8 with hemoglobin of 13 and platelet count of 396. Patient's WBC count chronically elevated. Chemistries unremarkable. Troponin was normal less than 3. D-dimer was normal. Chest x-ray unremarkable. EKG showed sinus rhythm with no acute ST segment changes or evidence for pericarditis. This point etiol ogy of her pain unclear. Suspect possibly chest wall strain or pleurisy. Patient has no wheezing on exam and her inhaler has not been helping her so I do not think this is an asthma attack. Lab Data Attestation: I reviewed the patient's lab results. Labs: Laboratory Results - last 24 hr 03/27/24 15:35 WBC 11.8 H RBC 4.82 Hgb 13.1 Hct 41.7 MCV 86.5 MCH 27.2 MCHC 31.4 L RDW Std Deviation 43.9 RDW Coeff of Daniel 13.8 Plt Count 396 MPV 9.4 Immature Gran % (Auto) 0.400 Neut % (Auto) 75.6 H Lymph % (Auto) 17.9 L [place] % (Auto) 4.7 Eos % (Auto) 1.1 Baso % (Auto) 0.3 Absolute Neuts (auto) 8.9 H Absolute Lymphs (auto) 2.11 Nucleated RBC % 0 D-Dimer Quant (PE/DVT) 0.39 Sodium 138 Potassium 3.7 Chloride 106 Carbon Dioxide 28.0 Anion Gap 4 L BUN 11 Creatinine 0.70 Estim Creat Clear Calc 148.05 Est GFR (MDRD) Af Amer 135 Est GFR (MDRD) Non-Af 112 BUN/Creatinine Ratio 15.7 Glucose 100 Calcium 9.2 Troponin I High Sens < 3 L Radiography Diagnostic Testing: Clinical Impression(s) from Imaging Studies Chest X-Ray 03/27/24 15:55 IMPRESSION: Normal x-ray examination of the chest. Electronically Signed: Paul Segundo MD at 16:05 EDT , 1 view chest x-ray obtained interpreted by myself no evidence of infiltrate or pneumothorax or acute disease process. Radiology in agreement. EKG Initial EKG: Attestation: I personally reviewed and interpreted this EKG as follows: Comments: Sinus rhythm with ventricular rate of 78 bpm with incomplete right bundle branch block Discharge Plan Triage Chief Complaint: Chest Other ED Provider: Maurice Shoemaker Dx/Rx/DC Orders Clinical Impression: Chest pain Instructions: ED Chest Pain, Uncertain Cause, ED Pain, Acute, Uncertain Cause Prescriptions: No Action All Day Allergy (cetirizine) 10 mg capsule 10 mg PO DAILY Primary Care Provider: Ko Beasley Referrals: Ko Beasley MD [Primary Care Provider] - 5-7 Days Print Language: Salvadorean Disposition Disposition: Home, Self Care
[2024-03-27 15:49] LABS: Absolute Lymphocyte Count 2.11 X10^3/uL (0.83-4.51); Absolute Neutrophil Count 8.9 X10^3/uL (2.0-7.7); Basophil# 0.04 X10^3/uL; Basophil% 0.3 % (0-1); Eosinophil# 0.13 X10^3/uL; Eosinophils% 1.1 % (0-5); Hematocrit 41.7 % (37-47); Hemoglobin 13.1 g/dL (12.0-15.0); Lymphocyte # 2.11 X10^3/ul (0.83-4.51); Lymphocyte % 17.9 % (19-41); Mean Corp Hgb Conc 31.4 g/dL (32-36); Mean Corpuscular Hgb 27.2 pg (27.0-32.0); Mean Corpuscular Volume 86.5 fL (81-99); Mean Platelet Vol. 9.4 fl (6.2-12.0); Monocyte# 0.55 X10^3/uL; Monocyte% 4.7 % (0-10); NRBC Flagged by Analyzer 0 % (0-5); Neutrophil # 8.89 X10^3/uL (2.7-7.7); Neutrophil % 75.6 % (47-70); Platelet Count 396 K/mm3 (150-450); RBC Distribution Width CV 13.8 % (11.6-14.6); RBC Distribution Width SD 43.9 fl (35.1-43.9); Red Blood Count 4.82 M/mm3 (4.2-5.4); White Blood Count 11.8 K/mm3 (4.4-11.0)
--- NOTE | 2024-03-27 15:55 | RAD_ITS ---
STUDY: X-RAY CHEST REASON FOR EXAM: Female, 23 years old. chest pain, cough TECHNIQUE: Single AP portable view of the chest. COMPARISON: 12/27/2023. FINDINGS: The lungs are clear and expanded. There is no demonstrated pleural abnormality. Normal size heart. Normal mediastinum and shanda. Normal visualized pulmonary arteries. Normal visualized aortic arch and descending thoracic aorta. Normal visualized thoracic spine. Normal visualized ribs, clavicles, and shoulders. There is no demonstrated abnormality of the visualized soft tissue structures of the upper abdomen. RAD/Chest 1 View (Portable) IMPRESSION: Normal x-ray examination of the chest. Electronically Signed: Paul Segundo MD at 16:05 EDT ,
[2024-03-27 16:03] LABS: D-Dimer Quantitative (DVT/PE) 0.39 FEU/ug/m (0.27-0.49)
[2024-03-27 16:14] LABS: Anion Gap 4 (5-15); BUN 11 mg/dL (7-18); BUN/Creat Ratio 15.7 RATIO (10-20); Calcium,Total 9.2 mg/dL (8.5-10.1); Chloride 106 mmol/L (98-107); EST Glomerular Filtration Rate 112 mL/min (>60); Est Glom Filt Rate - Afr Amer 135 mL/min (>60); Estimated Creatinine Clearance 148.05 ml/min; Glucose 100 mg/dL (74-106); Potassium 3.7 mmol/L (3.5-5.1); Sodium Level 138 mmol/L (136-145); Troponin-I HS < 3 pg/mL (3.0-54.0)
[2024-03-27 17:16] VITALS: BP 124/78; PULSE 64; RESP 16; TEMP 36.4; O2SAT 99
== END 2024-03-27 17:24 | disposition home or self-care (01) ==
PROVIDERS: Emergency Provider Emergency Medicine; PCP Family Medicine; Visit Provider Emergency Medicine
DX: R07.9 Chest pain, unspecified (principal); J45.909 Unspecified asthma, uncomplicated
CPT/HCPCS: 71045; 80048; 84484; 85025; 85379; 87631; 93005; 99283

== ENCOUNTER 2024-11-12 21:12 | Emergency (ER) | payer BC, SELFPAY ==
[2024-11-12 21:13] VITALS: BP 120/87; PULSE 116; RESP 18; TEMP 36.8; O2SAT 97; BMI 34.2
--- NOTE | 2024-11-12 21:31 | EKG12_ITS ---
Test Reason : DYSRHYTHMIA Blood Pressure : */* mmHG Vent. Rate : 90 BPM Atrial Rate : 90 BPM P-R Int : 140 ms QRS Dur : 78 ms QT Int : 332 ms P-R-T Axes : 20 52 16 degrees QTcB Int : 406 ms Normal sinus rhythm Normal ECG Confirmed by DYLLAN CUI, JODI ([id number]), avid editor DIRK GOLDSTEIN ([id number]) on 11/13/2024 8:55:50 AM Referred By: Confirmed By: JODI MIJARES MD
--- NOTE | 2024-11-12 21:31 | RAD_ITS ---
PROCEDURE: CHEST 1 VIEW (PORTABLE) REASON FOR EXAM: Left-sided chest pain. TECHNIQUE: Frontal view of the chest. COMPARISON: None. FINDINGS: The cardiac and mediastinal contours are normal. The lungs are clear. RAD/Chest 1 View (Portable) IMPRESSION: NEGATIVE SINGLE VIEW OF THE CHEST. Reading Location: [id number]
[2024-11-12 21:50] LABS: Absolute Lymphocyte Count 2.09 X10^3/uL (0.83-4.51); Absolute Neutrophil Count 12.5 X10^3/uL (2.0-7.7); Basophil# 0.03 X10^3/uL; Basophil% 0.2 % (0-1); Eosinophil# 0.02 X10^3/uL; Eosinophils% 0.1 % (0-5); Hematocrit 40.3 % (37-47); Hemoglobin 12.8 g/dL (12.0-15.0); Lymphocyte # 2.09 X10^3/ul (0.83-4.51); Lymphocyte % 13.6 % (19-41); Mean Corp Hgb Conc 31.8 g/dL (32-36); Mean Corpuscular Hgb 27.3 pg (27.0-32.0); Mean Corpuscular Volume 85.9 fL (81-99); Mean Platelet Vol. 9.6 fl (6.2-12.0); Monocyte# 0.74 X10^3/uL; Monocyte% 4.8 % (0-10); NRBC Flagged by Analyzer 0 % (0-5); Neutrophil # 12.47 X10^3/uL (2.7-7.7); Platelet Count 371 K/mm3 (150-450); RBC Distribution Width CV 14.4 % (11.6-14.6); RBC Distribution Width SD 44.9 fl (35.1-43.9); Red Blood Count 4.69 M/mm3 (4.2-5.4); White Blood Count 15.4 K/mm3 (4.4-11.0)
[2024-11-12 22:05] LABS: Anion Gap 7 (5-15); BUN 15 mg/dL (7-18); BUN/Creat Ratio 18.3 RATIO (10-20); Calcium,Total 9.5 mg/dL (8.5-10.1); Chloride 106 mmol/L (98-107); Creatinine, Serum 0.82 mg/dL (0.55-1.02); EST Glomerular Filtration Rate 93 mL/min (>60); Est Glom Filt Rate - Afr Amer 113 mL/min (>60); Estimated Creatinine Clearance 122.43 ml/min; Glucose 106 mg/dL (74-106); Potassium 3.9 mmol/L (3.5-5.1); Sodium Level 137 mmol/L (136-145); Troponin-I HS (w/2H Reflex) 4 pg/mL (3.0-54.0)
[2024-11-12 23:12] VITALS: BP 113/79; PULSE 83; RESP 16; O2SAT 98
--- NOTE | 2024-11-12 23:16 | EDS_ITS ---
HPI History of Present Illness Chief Complaint: Chest Pain Informant: patient and family Narrative Narrative: Patient is a 23-year-old female with past medical history of asthma. She states she was at work this evening when she noticed some pain in the midsternal to left-sided chest. She denies any recent trauma or excessive activity. She denies any recent travel surgery or history of DVT/PE. She denies any history of illicit drug use or excessive stimulant use and she denies any history of cardiovascular disease in her family at a young age. However based on her chest pain she was unsure if this was cardiovascular or potential lung pathology associate with her asthma and therefore comes in for evaluation [facility] Medical History Asthma Home Medications ?Medication ?Instructions ?Recorded ?Last Taken ?Type cetirizine 10 mg capsule (All Day 10 mg PO DAILY 01/16 Unknown History Allergy (cetirizine)) Allergy/AdvReac Type Severity Reaction Status Date / Time No Known Allergies Allergy Verified 11/12/24 21:14 Surgical History History of tonsillectomy and adenoidectomy Social History household members: family Smoking Status: Never smoker substance use type: does not use ROS ROS ED Constitutional Constitutional ED: Denies chills or fever(s) ENT ENT ED: Denies sore throat Cardiovascular Cardiovascular: Reports chest pain; Denies palpitations or racing heartbeat Respiratory/Chest Respiratory/Chest: Denies cough or dyspnea Gastrointestinal Gastrointestinal: Denies abdominal pain, diarrhea, nausea or vomiting Genitourinary Genitourinary ED: Denies dysuria Musculoskeletal Musculoskeletal: Denies back pain Integumentary Denies rash Neurologic Neurologic: Denies headache(s) Hematologic/Lymphatic Hematologic/Lymphatic: Denies easy bleeding or easy bruising EXAM Physical Exam Const Vital Signs: 11/12/24 21:13 11/12/24 21:31 11/12/24 21:31 Temperature 98.2 F Temperature Source Oral Pulse Rate 116 H Respiratory Rate 18 Respiratory Effort Normal Non-Labored Blood Pressure 120/87 H Blood Pressure Mean 98 Pulse Ox 97 Oxygen Delivery Method Room Air Room Air Positive well nourished and well developed General Appearance ED: well developed; Negative for pallor HEENT HEENT Narrative: Normocephalic atraumatic Eyes PERRL and EOMs intact bilaterally General Eye ED: Negative for scleral icterus Neck supple Chest Wall Chest Narrative: There is reproducible pain along the sternum/left costal joints of the chest wall without bony deformity or crepitance or subcutaneous emphysema Resp normal respiratory effort and clear to auscultation bilaterally Cardio regular rate and regular rhythm Rate: other Other Details: Regular rate and rhythm without murmurs rubs or gallops Radial and carotid pulses are equal and symmetric GI normal to inspection, nondistended, normoactive bowel sounds, non-tender, non- distended and no masses Auscultation: normoactive bowel sounds Palpation: soft Extremity normal to inspection Extremity Narrative: No asymmetric edema no pitting edema negative Homans' sign bilaterally Neuro oriented x3, CN's II-XII intact bilaterally and no sensory deficits noted Sensorium / Orientation: alert Motor Exam: strength 5/5 throughout Psych mental status grossly normal Skin no rashes or lesions noted and no wounds General Skin Exam: Negative for jaundice or pallor MDM MDM MDM Narrative Medical decision making narrative: Patient arrived to the ER slightly tachycardic but this resolved without any treatment other than rest. She is low risk for cardiovascular disease but has differential diagnosis with her report of chest pain is acute coronary syndrome versus cardiac dysrhythmia versus myocarditis versus lung pathology such as pneumonia or pneumothorax. She does not have any risk factors for PE and at this time she is PERC negative and I do not feel the need for D-dimer or CTA. As patient has reproducible pain this is most likely costochondritis. As she is low risk for cardiovascular disease and does not have a dysrhythmia on the night monitor or on her EKG there is no need for further workup and she is otherwise safe for discharge. History & Record Review Discussion w/independent historian: Patient and Family Lab Data Attestation: I reviewed the patient's lab results. Labs: Laboratory Results - last 24 hr 11/12/24 21:40 WBC 15.4 H RBC 4.69 Hgb 12.8 Hct 40.3 MCV 85.9 MCH 27.3 MCHC 31.8 L RDW Std Deviation 44.9 H RDW Coeff of Daniel 14.4 Plt Count 371 MPV 9.6 Immature Gran % (Auto) 0.300 Neut % (Auto) 81.0 H Lymph % (Auto) 13.6 L [place] % (Auto) 4.8 Eos % (Auto) 0.1 Baso % (Auto) 0.2 Absolute Neuts (auto) 12.5 H Absolute Lymphs (auto) 2.09 Nucleated RBC % 0 Sodium 137 Potassium 3.9 Chloride 106 Carbon Dioxide 24.0 Anion Gap 7 BUN 15 Creatinine 0.82 Estim Creat Clear Calc 122.43 Est GFR (MDRD) Af Amer 113 Est GFR (MDRD) Non-Af 93 BUN/Creatinine Ratio 18.3 Glucose 106 Calcium 9.5 Troponin I High Sens 4 Radiography Diagnostic Testing: Clinical Impression(s) from Imaging Studies Chest X-Ray 11/12/24 21:31 IMPRESSION: NEGATIVE SINGLE VIEW OF THE CHEST. Reading Location: [facility] Chest x-ray as interpreted by the emergency medicine physician reveals no acute infiltrate pneumothorax or pleural effusion Discharge Plan Triage Chief Complaint: Chest Pain ED Provider: Randall Jacobs Dx/Rx/DC Orders Clinical Impression: Acute nonspecific chest pain with low risk of coronary artery disease, History of asthma Instructions: Costochondritis, ED Chest Pain, Uncertain Cause Prescriptions: No Action All Day Allergy (cetirizine) 10 mg capsule 10 mg PO DAILY Stand Alone Forms: Work / School Excuse Primary Care Provider: Ko Beasley Referrals: Ko Beasley MD [Primary Care Provider] - Print Language: Albanian Disposition Disposition: Home, Self Care Discharge Date/Time: 11/12/24 23:29
[2024-11-12 23:23] VITALS: BP 115/78; PULSE 82; RESP 16; TEMP 37; O2SAT 100
[2024-11-12 23:43] LABS: Reflex Troponin-HS? (from REC) Y
== END 2024-11-12 23:29 | disposition home or self-care (01) ==
PROVIDERS: Emergency Provider Emergency Medicine; PCP Family Medicine; Visit Provider Emergency Medicine
DX: R07.89 Other chest pain (principal); J45.909 Unspecified asthma, uncomplicated
CPT/HCPCS: 71045; 80048; 84484; 85025; 93005; 99284; A4216

== ENCOUNTER 2025-06-07 18:13 | Emergency (ER) | payer SELFPAY ==
[2025-06-07 18:14] VITALS: BP 122/79; PULSE 97; RESP 16; TEMP 36.7; O2SAT 99; BMI 35.9
[2025-06-07 23:03] VITALS: BP 117/83; PULSE 77; RESP 16; TEMP 37; O2SAT 99
[2025-06-07] MEDS: Oxymetazoline 0.05% 1 SPRAY SPRAY.BTL 2 SPRAY NASAL (23:34)
--- NOTE | 2025-06-07 23:34 | EDS_ITS ---
HPI HPI - URI History of Present Illness Chief Complaint: Nosebleed Detail of Chief Complaint: Nosebleed last 2 days. Onset/Context/Timing Onset: Today and Yesterday Context: Gradual Onset Timing: Intermittent Current Severity: Mild Maximum Severity: Mild Associated Symptoms Associated Symptoms: Positive for Nasal Congestion Narrative Narrative: 24-year-old female history of seasonal allergies and asthma. Has had nosebleeds in the past but not commonly. Not to this degree. Last 2 days has had intermittent moderate nosebleeds in her right naris only. No bruising. No hematuria. No blood in her stool. She is on no blood thinners. Denies any nasal trauma. Prior similar symptoms: No Recent Illness/Hospitalization: No ROS ROS ED ROS Narrative Denies recent illness. Constitutional Constitutional ED: Denies chills or fever(s) Eyes Eyes: Denies blurry vision ENT ENT ED: Denies ear pain Cardiovascular Cardiovascular: Denies chest pain or palpitations Respiratory/Chest Respiratory/Chest: Denies cough or dyspnea Gastrointestinal Gastrointestinal: Denies abdominal pain Genitourinary Genitourinary ED: Denies dysuria or hematuria Musculoskeletal Musculoskeletal: Denies arthralgias Integumentary Denies abscess Neurologic Neurologic: Denies headache(s) Psychiatric Psychiatric: Denies anxiety or depression Endocrine Endocrinology: Denies cold intolerance Hematologic/Lymphatic Hematologic/Lymphatic: Denies easy bleeding, easy bruising or lymphadenopathy Allergic/Immunologic Allergic/Immunologic ED: Denies mouth swelling, tongue swelling or urticaria [facility] Medical History Asthma Home Medications ?Medication ?Instructions ?Recorded ?Last Taken ?Type cetirizine 10 mg capsule (All Day 10 mg PO DAILY 01/16 Unknown History Allergy (cetirizine)) amoxicillin 500 mg capsule 500 mg PO BID 3 days #6 cap s 06/08/25 Unknown Rx Allergy/AdvReac Type Severity Reaction Status Date / Time No Known Allergies Allergy Verified 06/07/25 18:14 Surgical History History of tonsillectomy and adenoidectomy Social History household members: family Smoking Status: Never smoker substance use type: does not use EXAM Physical Exam Narrative Exam Narrative: 24-year-old female vital signs stable afebrile. No acute distress. H EENT exam pupils round react light. Moist mucous membranes posterior pharynx shows no blood or bleeding. Left naris there is no blood or bleeding. Left outer nose is pierced. Right naris there is dried blood on Diego box plexus. There is no active bleeding or clots. Neck nontender no lymphadenopathy. Lungs clear. Heart regular rhythm rate about 80 no murmur. Chest wall and ribs nontender. Abdomen soft nontender. Moving all 4 extremities. Nontender no edema. No bruising. No petechiae or purpura. Neurologically patient is awake and alert. Answering questions following commands. Const Vital Signs: 06/07/25 18:14 06/07/25 23:03 Temperature 98.0 F 98.6 F Temperature Source Oral Oral Pulse Rate 97 77 Respiratory Rate 16 16 Blood Pressure 122/79 H 117/83 H Blood Pressure Mean 93 94 Pulse Ox 99 99 Oxygen Delivery Method Room Air Room Air Positive well nourished and well developed; Negative for cachectic or contractures General Appearance ED: well developed and NAD; Negative for cachectic, con tractures, cyanotic, diaphoretic or pallor Nutritional Appearance: Negative for cachectic HEENT Reports moist mucous membranes HEENT Narrative: Dried blood right anterior naris. No active bleeding. No clots currently. Posterior pharynx normal. Left naris clean and dry. No blood or clots. normocephalic and atraumatic Throat: posterior oropharynx normal Eyes PERRL and EOMs intact bilaterally General Eye ED: Negative for pale conjunctiva or scleral icterus Neck no lymphadenopathy, supple, no meningeal signs and no JVD General: Negative for anterior neck swelling or lymphadenopathy Resp normal respiratory effort and clear to auscultation bilaterally Cardio S1 normal heart sound, S2 normal heart sound and no murmurs Rate: regular rate Rhythm: regular rhythm GI non-tender, non-distended and no masses Auscultation: normoactive bowel sounds Palpation: soft; Negative for tender or guarding Back/Spine no CVA tenderness and normal ROM General Back: Negative for CVA tenderness Cervical Spine: Negative for cervical spine tenderness Thoracic Spine / Upper Back: Negative for thoracic spinal tenderness Lumbar Spine / Lower Back: Negative for lumbar spinal tenderness Sacrum: Negative for tenderness Extremity normal to inspection and full ROM Neuro oriented x3 Sensorium / Orientation: alert, oriented to person, oriented to place and oriented to time; Negative for orientation impaired Motor Exam: strength 5/5 throughout Psych mental status grossly normal Skin General Skin Exam: Negative for jaundice or pallor Lesions: no lesions Rashes: no rashes MDM MDM MDM Narrative Medical decision making narrative: 24-year-old female anterior nosebleed on the right currently not actively bleeding. Afrin soaked cotton balls to be placed in both sides of her nose. I do not think she needs any blood clamps. She is on no anticoagulation. Otherwise exam is benign. I placed a right anterior nasal pack a Merocel pack in the right naris. Patient tolerated well. It was lubricated with antibiotic ointment. Nurses will place a dressing should be discharged to home. Back in for 3 days. Amoxicillin twice daily for 3 days. Follow-up with ENT as needed return if worse. History & Record Review Discussion w/independent historian: Patient Additional record(s) reviewed:: Prior inpatient record, Prior outpatient record, Prior ED visit and Prior labs Discharge Plan Triage Chief Complaint: Nosebleed ED Provider: Ramone Tomas Dx/Rx/DC Orders Clinical Impression: Anterior epistaxis Instructions: ED Epistaxis (Adult) Prescriptions: New amoxicillin 500 mg capsule 500 mg PO BID 3 Days Qty: 6 0RF No Action All Day Allergy (cetirizine) 10 mg capsule 10 mg PO DAILY Primary Care Provider: Ko Beasley Referrals: Ko Beasley MD [Primary Care Provider] - Adleso Mansfield MD [Med Staff - Active Staff] - 3-5 Days if not improving Activity Restrictions/Additional Instructions: Keep packing for 3 days you can gently remove it Tuesday night. Take the antibiotic amoxicillin twice a day for the next 3 days to prevent developing a sinus infection. Tylenol for pain. If you get a recurrent nosebleed hold pressure for 20 to 30 minutes if unable to stop return. Follow-up with ENT as needed if you continue to have recurrent nosebleeds. Print Language: Nepali Disposition Disposition: Home, Self Care
--- OUTSIDE RECORDS SUMMARY | 2025-06-08 00:19 | XMS RPT_ITS | CCD ---
Author Organization [facility] Care Team Providers Care Fiber Optics Technician Name Role Phone Aneesh De Luna Unavailable Unavailable Aneesh De Luna Unavailable Unavailable Jessica Anguiano Unavailable Unavailable Aneesh De Luna Unavailable Unavailable Aneesh De Luna Unavailable Unavailable Jessica Anguiano Unavailable Unavailable Pk Leslie Unavailable Unavailable Jessica Anguiano Primary Care Provider Jessica Anguiano MD Primary Care Provider (Miriam), [place] Unavailable JESSICA ANGUIANO Primary Care Unavailable REFERRED, SELF Referring Unavailable BERHANE ZAVALA Attending Unavailable JESSICA ANGUIANO Primary Care Unavailable REFERRED, SELF Referring Unavailable JESSICA ANGUIANO Attending Unavailable JESSICA ANGUIANO Attending Unavailable JESSICA ANGUIANO Primary Care Unavailable JESSICA ANGUIANO Referring Unavailable JESSICA ANGUIANO Primary Care Unavailable REFERRED, SELF Referring Unavailable JESSICA ANGUIANO Attending Unavailable Jessica Anguiano Primary Care Provider Ko eDl Toro MD Primary Care Provider Ko Del Toro MD Primary Care Provider [phone] Ko Del Toro MD Primary Care Provider [phone] JIL STOKES Attending Unavailable GENERIC PROVIDER, NO ASSIGNED PCP Primary Care Unavailable Ferny TAYLOR, Enedelia Unavailable Marylni Soto PA-C Unavailable KO DEL TORO Primary Care Unavailable KO DEL TORO Primary Care Unavailable KO DEL TORO Primary Care Unavailable KO DEL TORO Primary Care Unavailable KO DEL TORO Primary Care Unavailable Ko Del Toro Referring Unavailable Ko Del Toro Primary Care Unavailable Tsyon Li Attending Unavailable Ko Del Toro Primary Care Unavailable Jd Arteaga Attending Unavailable Ko Del Toro Primary Care Unavailable Dwayne Mena Attending Unavailable Ko Del Toro Primary Care Unavailable Jd Arteaga Attending Unavailable Ko Del Toro Primary Care Unavailable Maurice Shoemaker Attending Unavailable Ko Del Toro Primary Care Unavailable Randall Jacobs Attending Unavailable Ferny POOLEnedelia ZABALA Unavailable Charles MILLS Marylin Unavailable [phone] Allergies Allergy Classification Reported Allergen(s) Allergy Type Date of Onset Reaction(s) Facility (2 sources) Other; Translations: [OTHER] Propensity to adverse reactions 1 Other (See Comments) [facility] Work Phone: (1 source) ALLERGIES NOT ON FILE; Translations: [ALLERGIES NOT ON FILE] Propensity to adverse reactions (disorder) [facility] 2 Repository Medications Current Medications Medication Drug Class(es) Dates Sig (Normalized) Sig (Original) cephalexin 500 mg oral capsule (2 sources) Cephalosporin Antibacterial Start: 02-01-2024 End: 02-08-2024 take 1 capsule by mouth three times daily cephALEXin (KEFLEX) 500 mg capsule Take 1 capsule by mouth three times a day for 7 days. 21 capsule 0 02/01/2024 02/08/2024 Active cetirizine hydrochloride 10 mg oral tablet (3 sources) Histamine-1 Receptor Antagonist Start: 02-01-2024 End: 02-08-2024 take 1 tablet by mouth once daily cetirizine (ZYRTEC) 10 mg tablet Take 1 tablet by mouth once daily for 7 days. 7 tablet 0 02/01/2024 02/08/2024 Active Start: 01-17-2024 take 1 capsule by [facility] once daily Cetirizine (All Day Allergy (Cetirizine)) 10 mg capsule Active 10 MG PO DAILY January 17, 2024 12:00am cyclobenzaprine hydrochloride 10 mg oral tablet (3 sources) Muscle Relaxant Start: 06-29-2022 cyclobenzaprine (FLEXERIL) 10 MG tablet Take by mouth 0 06/29/2022 Active famotidine 40 mg oral tablet (15 sources) Histamine-2 Receptor Antagonist Start: 02-09-2023 End: 07-26-2023 take 1 tablet by mouth once daily famotidine (PEPCID) 40 mg tablet Take 1 tablet by mouth once daily. 15 tablet 0 02/09/2023 07/26/2023 Discontinued Start: 09-12-2022 End: 12-10-2023 take 1 tablet by mouth twice daily Famotidine (Acid Controller) 20 mg tablet Discontinued 20 MG PO TWICE A DAY September 12, 2022 1:00am December 10, 2023 8:14pm Comment on above: Take 1 tablet by bharat once daily. FLUoxetine 10 mg oral capsule (7 sources) Serotonin Reuptake Inhibitor Start: 10-26-2016 take 40 mg by mouth once daily Fluoxetine Active 40 MG PO DAILY October 26, 2016 12:00am End: 07-26-2023 take 1 capsule by mouth once daily FLUoxetine (PROZAC) 40 mg capsule Take 40 mg by mouth once daily. 0 07/26/2023 Discontinued Comment on above: Take 40 mg by mouth once daily. fluticasone propionate 0.05 mg/actuat metered dose nasal spray (20 sources) Corticosteroid Start: take 2 spray(s) by mouth once daily fluticasone (FLONASE) 50 mcg/actuation nasal spray Indications: Nasal congestion , Seasonal allergic rhinitis, unspecified trigger Use 2 Sprays in each nostril once daily. Rinse mouth after use. 1 Bottle 11 01/11/2018 Active Start: 05-19-2017 fluticasone (F LONASE) 50 MCG/ACT nasal spray 1 [place] by Each Nare route daily 16 g 11 05/19/2017 Active Start: 10-26-2016 End: 12-10-2023 Fluticasone Propionate Discontinued 2 SPRAY NASAL DAILY October 26, 2016 1:00am December 10, 2023 8:14pm take 1 puff(s) by in halation twice daily fluticasone (FLOVENT) 110 mcg/actuation inhaler Inhale 1 Puff as instructed twice daily. Active End: 07-26-2023 FLUTICASONE PROPIONATE (FLON ASE NASAL) Use in the nose. 0 07/26/2023 Discontinued FLUTICASONE PROP IONATE (FLONASE NASAL) Use in the nose. 0 Active Comment on above: Use in the nose. Inhale 1 Puff as ins tructed twice daily. Use 2 Sprays in each nostril once daily. Rinse mouth after use. magnesium oxide 400 mg oral tablet (2 sources) Start: 02-02-20 take 400 mg by mouth once daily Magnesium Oxide Active 400 MG PO DAILY January 31, 2019 11:00pm omeprazole 20 mg delayed release oral capsule (1 source) Proton Pump Inhibitor Start: 09-17-20 take 1 capsule by mouth once daily omeprazole (PRILOSEC) 20 MG capsule Take 1 Capsule (20 mg) by mouth daily 30 Capsule 2 09/17/2022 Active ondansetron 4 mg disintegrating oral tablet (20 sources) Serotonin-3 Receptor Antagonist Start: 11-14-19 take 1 tablet by mouth every six hours as needed ondansetron orally disintegrating (ZOFRAN ODT) 4 mg disintegrating tablet Take 1 tablet by mouth every 6 hours as needed for nausea/vomiting. 12 tablet 11/14/2024 Active Start: 07-21-2022 End: 01-17-2024 take 4 mg by mouth every eight hours as needed Ondansetron Discontinued 4 MG PO EVERY 8 HOURS NEEDED December 10, 2023 1:00am January 17, 2024 8:50pm Start: 07-21-2022 End: 07-26-2023 take 1 tablet by mouth every six hours as needed for nausea ondansetron orally disintegrating (ZOFRAN ODT) 4 mg disintegrating tablet Indications: Nausea and vomiting, unspecified vomiting type Take 1 tablet by mouth every 6 hours as needed for nausea/vomiting. 9 tablet 0 07/21/2022 07/26/2023 Discontinued Comment on above: Take 1 tablet by [facility] every 6 hours as needed for nausea/vomiting. pantoprazole 40 mg delayed release oral tablet (2 sources) Proton Pump Inhibitor Start: 08-24-20 pantoprazole (PROTONIX) 40 MG EC tablet Take by mouth 0 08/24/2022 Active polymyxin b 34291 unt/ml / trimethoprim 1 mg/ml ophthalmic solution (1 source) Dihydrofolate Reductase Inhibitor Antibacterial, Polymyxin-class Antibacterial Start: 03-09-20 End: 03-16-20 23 take 1 drop(s) into the eye(s) four times daily trimethoprim-polymy josé luis (POLYTRIM) 10,000 unit- 1 mg/mL ophthalmic solution Use 1 Drop in the right eye four times daily for 7 days. 10 mL 0 03/09/2023 03/16/2023 Active Comment on above: Use 1 Drop in the ri ght eye four times daily for 7 days. predniSONE 20 mg oral tablet (20 sources) Start: 02-01-20 End: 02-08-20 take 2 tablets by mouth once daily predniSONE (DELTASONE) 20 mg tablet Take 2 tablets by mouth once daily for 7 days. 14 tablet 0 02/01/2024 02/08/2024 Active Start: 12-27-2023 End: 01-17-2024 take 40 mg by mouth once daily Prednisone Discontinued 40 MG PO DAILY December 27, 2023 12:00am January 17, 2024 8:50pm Start: 11-07-2023 End: 12-10-2023 take 40 mg by mouth once daily Prednisone Discontinued 40 MG PO DAILY 14 November 07, 2023 1:00am December 10, 2023 8:14pm Start: 12-18-2022 End: 12-10-2023 take 10 mg by mouth once daily Prednisone Discontinued 10 MG PO DAILY December 18, 2022 1:00am December 10, 2023 8:14pm taper pack Start: 06-27-2022 End: 07-02-2022 take 4 tablets by mouth once daily predniSONE (DELTASONE) 10 MG tablet TAKE 4 TABLETS BY MOUTH ONCE DAILY FOR 5 DAYS. 0 06/27/2022 Active Start: 02-01-2019 take 2 tablets by mo [facility] once daily at mealtime Prednisone (Deltasone) 20 MG tablet Active 40 MG PO DAILY January 31, 2019 11:00pm With food Comment on above: Take 4 tablets by mo ut once daily for 5 days. topiramate (5 sources) End: 07-26-2023 TOPIRAMATE (TOPAMAX ORAL) Take by mouth. 0 07/26/2023 Discontinued TOPIRAMATE (TOPA MAX ORAL) Take by mouth. 0 Active Comment on above: Take by mouth. Completed/Discontinued Medications Medication Drug Class(es) Dates Sig (Normalized) Sig (Original) acetaminophen 325 mg / guaiFENesin 200 mg / phenylephrine hydrochloride 5 mg oral tablet (2 sources) alpha-1 Adrenergic Agonist Start: 01-11-2018 End: 07-21-2022 Phenylephrine-Acet aminophen-GG (TYLENOL COLD HEAD CONGEST SEVR) 5-325-200 mg tab Indications: Viral URI Take 1 Dose by mouth as directed. 30 tablet 0 01/11/2018 07/21/2022 Discontinued Comment on above: Take 1 Dose by mouth as directed. albuterol 0.83 mg/ml inhalation solution (20 sources) beta2-Adrenergic Agonist Start: 11-07-2023 End: 01-17-2024 take 2.5 mg by inhalation every four hours as needed for wheezing Albuterol Sulfate Discontinued 2.5 MG INHALATION EVERY 4 HOURS NEEDED November 07, 2023 1:00am January 17, 2024 8:50pm Use q4 hours and PRN for wheezing Start: 11-07-2023 End: 01-17-2024 Albuterol Sulfate (Proventil Hfa) 90 mcg/actuation HFA aerosol inhaler Discontinued 2 INH INHALATION Q4H 8.5 November 07, 2023 1:00am January 17, 2024 8:50pm Start: 09-17-2022 End: 09-17-2023 albuterol (VENTOLIN) (2.5 MG /3ML) 0.083% nebulizer solution Use 3 mL (2.5 mg) by nebulization every 4 hours as needed for Wheezing or Shortness of Breath 60 Each 1 09/17/2022 09/17/2023 Active Start: 05-27-2022 take 2 puff(s) by in halation every four hours as needed for cough albuterol 108 (90 Base) MCG/ACT inhaler Inhale 2 Puffs into the lungs every 4 hours as needed for Shortness of Breath or Cough Use with spacer. 1 Each 1 05/27/2022 Active Start: 12-24-2013 End: 12-10-2023 take 1 puff(s) by inhalation every four hours as needed Albuterol Sulfate (Ventolin Hfa) 1 INHALER inhaler Discontinued 2 PUFF INHALATION EVERY 4 HOURS NEEDED December 24, 2013 12:00am December 10, 2023 8:13pm Start: 12-24-2013 End: 12-10-2023 take 1 puff(s) by inhalation every four hours as needed Albuterol Sulfate (Ventolin Hfa) 1 INHALER inhaler Discontinued 2 PUFF INHALATION EVERY 4 HOURS NEEDED December 23, 2013 11:00pm December 10, 2023 7:13pm Start: 12-24-2013 take 1 puff(s) by in halation every four hours as needed Albuterol Sulfate (Ventolin Hfa) 1 INHALER inhaler Active 2 PUFF INHALATION EVERY 4 HOURS NEEDED December 24, 2013 12:00am Start: 12-24-2013 take 1 puff(s) by in halation every four hours as needed Albuterol Sulfate (Ventolin Hfa) 1 INHALER inhaler Active 2 PUFF INHALATION EVERY 4 HOURS NEEDED December 23, 2013 11:00pm Start: 12-24-2013 take 1 puff(s) by in halation every four hours as needed Albuterol Sulfate (Ventolin Hfa) 1 INHALER inhaler Active 2 PUFF INHALATION EVERY 4 HOURS NEEDED December 23, 2013 11:00pm albuterol HFA (P ROVENTIL HFA, VENTOLIN HFA) 90 mcg/actuation inhaler Inhale 2 Puffs as instructed. Active Comment on above: Inhale 2 Puffs as in structed. amoxicillin 875 mg / clavulanate 125 mg oral tablet (2 sources) Penicillin-class Antibacterial Start: 12-27-19 End: 01-17-20 24 take 875 mg by mouth every twelve hours Amoxicillin-Pot Clavulanate Discontinued 875 MG PO Q12H December 27, 2023 12:00am January 17, 2024 8:50pm azelastine hydrochloride 0.137 mg/actuat metered dose nasal spray (9 sources) Histamine-1 Receptor Antagonist Start: 12-17-19 End: 12-10-19 24 take 1 spray(s) nasal route twice daily Azelastine Discontinued 2 SPRAY INTRANASAL TWICE A DAY December 16, 2022 1:00am December 10, 2023 8:13pm administer into each nostril benzonatate 100 mg oral capsule (20 sources) Non-narcotic Antitussive Start: 11-09-19 End: 12-10-19 24 take 100 mg by mouth twice daily Benzonatate Discontinued 100 MG PO TWICE A DAY November 09, 2023 1:00am December 10, 2023 8:14pm Start: 09-13-2022 End: 12-10-2023 take 200 mg by mouth three times daily Benzonatate Discontinued 200 MG PO THREE TIMES A DAY December 16, 2022 1:00am December 10, 2023 8:14pm doxycycline hyclate 100 mg oral capsule (8 sources) Tetracycline-class Drug Start: 12-18-2022 End: 12-10-2023 take 100 mg by mouth twice daily Doxycycline Hyclate Discontinued 100 MG PO TWICE A DAY December 18, 2022 1:00am December 10, 2023 8:14pm fexofenadine hydrochloride 180 mg oral tablet (19 sources) Histamine-1 Receptor Antagonist Start: 10-12-2017 End: 12-10-2023 take 1 tablet by mouth once daily Fexofenadine (Fanta Allergy) 180 MG tablet Discontinued 180 MG PO DAILY October 12, 2017 1:00am December 10, 2023 8:14pm End: 07-26-2023 FEXOFENADINE HCL (FANTA OR AL) Take by mouth. 0 07/26/2023 Discontinued FEXOFENADINE HCL (FANTA ORAL) Take by mouth. 0 Active Comment on above: Take by mouth. levoFLOXacin 500 mg oral tablet (12 sources) Quinolone Antimicrobial Start: 09-12-20 End: 12-10-19 take 500 mg by mouth once daily Levofloxacin Discontinued 500 MG PO DAILY September 12, 2022 1:00am December 10, 2023 8:14pm magnesium gluconate 550 mg oral tablet (2 sources) End: 07-21-20 take 1 tablet by mouth twice daily Magnesium 30 mg tablet Take 30 mg by mouth twice daily. 0 07/21/2022 Discontinued Comment on above: Take 30 mg by mouth twice daily. naproxen 500 mg oral tablet (10 sources) Nonsteroidal Anti-inflammatory Drug Start: 03-02-20 23 End: 12-10-19 24 take 1 tablet by mouth twice daily Naproxen (Naprosyn) 500 mg tablet Discontinued 500 MG PO TWICE A DAY March 02, 2023 12:00am December 10, 2023 8:14pm Start: 06-29-2022 naproxen (NAPR OSYN) 500 MG tablet Take by mouth 0 06/29/2022 Active prednisoLONE 3 mg/ml oral solution (13 sources) Corticosteroid Start: 10-26-2016 End: 10-26-2016 take 30 mg by mouth twice daily Prednisolone Discontinued 30 MG PO TWICE A DAY October 26, 2016 1:00am October 26, 2016 11:07am Start on 10/27/2016 Problems Active Problems Problem Classification Problem Date Documented Date Episodic/Chronic Abdominal pain (20 sources) Right upper quadrant pain; Translations: [Right upper quadrant pain] Onset: 08-31-2022 Episodic Acute bronchitis (4 sources) Respiratory syncytial virus bronchitis; Translations: [Acute bronchitis due to respiratory syncytial virus] 11-07-2023 Episodic Anxiety disorders (1 source) Anxiety disorder; Translations: [Anxiety disorder, unspecified] Onset: 06-15-2017 11-19-2021 Chronic Asthma (17 sources) Asthma; Translations: [Unspecified asthma, uncomplicated] Onset: 05-17-2011 11-19-2021 Chronic Cardiac dysrhythmias (7 sources) Tachycardia; Translations: [Tachycardia, unspecified] 04-12-2023 Episodic Chronic obstructive pulmonary disease and bronchiectasis (8 sources) Bronchitis; Translations: [Bronchitis, not specified as acute or chronic] 12-18-2022 Episodic Genitourinary symptoms and ill-defined conditions (1 source) Scalding pain on urination ; Translations: [Dysuria] 11-24-2023 Episodic Inflammation; infection of eye (except that caused by tuberculosis or sexually transmitteddisease) (1 source) Acute conjunctivitis of right eye; Translations: [Unspecified acute conjunctivitis, right eye] Episodic Lymphadenitis (2 sources) Nonspecific mesenteric lymphadenitis; Translations: [Nonspecific mesenteric lymphadenitis] Onset: 05-11-2024 Episodic Noninfectious gastroenteritis (2 sources) Noninfective gastroenteritis and colitis, unspecified; Translations: [Noninfective gastroenteritis and colitis, unspecified] Onset: 05-11-2024 Episodic Nonspecific chest pain (9 sources) Chest pain; Translations: [Chest pain, unspecified] Onset: 04-12-2024 04-12-2023 Episodic Other injuries and conditions due to external causes (1 source) Injury of face; Translations: [Unspecified injury of face, initial encounter] 01-17-2024 Episodic Other lower respiratory disease (7 sources) Dyspnea; Translations: [Shortness of breath] 04-12-2023 Episodic Other nervous system disorders (1 source) Disturbance of attention; Translations: [Attention and concentration deficit] Onset: 12-22-2012 12-31-2012 Chronic Other screening for suspected conditions (not mental disorders or infectious disease) (2 sources) Patient encounter status; Translations: [Encounter for screening for lipoid disorders] 07-26-2023 Episodic Other upper respiratory disease (1 source) Allergic rhinitis; Translations: [Allergic rhinitis, unspecified] Onset: 06-24-2009 11-19-2021 Chronic Otitis media and related conditions (2 sources) Acute left otitis media; Translations: [Otitis media, unspecified, left ear] 12-27-2023 Episodic Poisoning by nonmedicinal substances (5 sources) Bee sting; Translations: [Toxic effect of venom of bees, accidental (unintentional), initial encounter] 06-19-2023 Episodic Spondylosis; intervertebral disc disorders; other back problems (15 sources) Low back pain; Translations: [Low back pain without sciatica, unspecified back pain laterality, unspecified chronicity] Onset: 07-05-2022 Episodic Sprains and strains (7 sources) Sprain of right thumb; Translations: [Unspecified sprain of right thumb, initial encounter] 03-10-2023 Episodic Superficial injury; contusion (5 sources) Contusion of left wrist; Translations: [Contusion of left wrist, initial encounter] 08-27-2023 Episodic Unclassified (1 source) Unknown / UNK(Unknown) Onset: 09-04-2018 Viral infection (4 sources) Viral disease; Translations: [Viral infection, unspecified] 11-24-2023 Episodic Past or Other Problems Problem Classification Problem Date Documented Da te Episodic/Chronic Allergic reactions (1 source) Idiopathic urticaria; Translations: [Idiopathic urticaria] Onset: 8 Resolved: 5 11-26-2014 Episodic Congestive heart failure; nonhypertensive (1 source) Congestive heart failure; nonhypertensive Onset: 8 Disorders of teeth and jaw (1 source) Jaw pain; Translations: [Jaw pain] Onset: Episodic Esophageal disorders (1 source) Gastroesophageal reflux disease; Translations: [Gastro-esophageal reflux disease without esophagitis] Onset: 0 Resolved: 5 11-26-2014 Chronic Genitourinary symptoms and ill-defined conditions (1 source) Urinary incontinence; Translations: [Unspecified urinary incontinence] Onset: 0 Resolved: 5 11-19-2021 Chronic Mood disorders (1 source) Mood swings; Translations: [Emotional lability] Onset: 1 12-31-2012 Episodic Nausea and vomiting (3 sources) Nausea and vomiting; Translations: [Nausea with vomiting, unspecified] Onset: 4 Episodic Other gastrointestinal disorders (1 source) Constipation; Translations: [Constipation, unspecified] Onset: 2 Resolved: 5 11-19-2021 Episodic Other nutritional; endocrine; and metabolic disorders (1 source) Childhood obesity; Translations: [Body mass index (BMI) pediatric, greater than or equal to 95th percentile for age] Onset: 6 09-29-2016 Episodic Other upper respiratory infections (14 sources) Acute upper respiratory infection; Translations: [Acute upper respiratory infection, unspecified] Onset: 4 12-16-2022 Episodic Results Test Name Value Interpretation Reference Range Facility [facility] 11-14-2024 CNOV Office Visit (UCWSTR ) ----- JOANNA SCHUSTER ([id number]) 4 F Date Time Provider Department 11/14/24 5:00 PM JENAE PETTIT [facility] During your visit today, we recorded the following information about you: Temperature Pulse Respiration Blood pressure 98.7 degrees 118/minute 18/minute 106/68 Weight 90.9 kg Jenae Pettit APRN.[facility] 11/14/2024 6:19 PM Addendum This note was created using NoteWriter. Subjective Joanna Garcia Kelyangela is a 23 year old female. 23 year old female with PMH migraines presents for illness. Acute onset yesterday +nausea +headache +fever +sore throat, +vomiting + diarrhea +body aches +fatigue Denies eye or nose Denies CP Denies dyspnea Of note, was in the ED this past Tuesday Was evaluted for chest pain They checked it all out and it was okay The history is provided by the patient. No chief bank examiner was used. Flu Like Symptoms This is a new problem. The current episode started yesterday. The problem occurs constantly. The problem has been gradually worsening. Associated symptoms include anorexia, chills, congestion, coughing, fatigue, a fever, headaches, nausea, a sore throat, swollen glands and vomiting. Pertinent negatives include no abdominal pain, arthralgias, change in bowel habit, chest pain, diaphoresis, joint swelling, myalgias, neck pain, numbness, rash, urinary symptoms, vertigo, visual change or weakness. Nothing aggravates the symptoms. She has tried nothing for the symptoms. The treatment provided no relief. PAST MEDICAL HISTORY Diagnosis Date Intermittent asthma [...] Inhale 1 Puff as instructed twice daily. ondansetron orally disintegrating (ZOFRAN ODT) 4 mg disintegrating tablet Take 1 tablet by mouth every 6 hours as needed for nausea/vomiting. No family history on file. Social History Tobacco Use Smoking status: Never Smokeless tobacco: Never Substance Use Topics Alcohol use: Never Drug use: Never Review of Systems Constitutional: Positive for chills, fatigue and fever. Negative for diaphoresis. HENT: Positive for congestion, postnasal drip, sinus pressure, sinus pain and sore throat. Eyes: Negative for pain, discharge, redness and itching. Respiratory: Positive for cough. Negative for apnea, choking and chest tightness. Cardiovascular: Negative for chest pain. Gastrointestinal: Positive for anorexia, nausea and vomiting. Negative for abdominal pain and change in bowel habit. Musculoskeletal: Negative for arthralgias, joint swelling, myalgias and neck pain. Skin: Negative for color change, pallor and rash. Allergic/Immunologic: Negative for environmental allergies, food allergies and immunocompromised state. Neurological: Positive for headaches. Negative for dizziness, vertigo, facial asymmetry, weakness, light-headedness and numbness. Hematological: Negative for adenopathy. Does not bruise/bleed easily. Psychiatric/Behavioral: Negative for agitation and behavioral problems. Objective BP 106/68 Pulse 118 Temp 37.1 ?C (98.7 ?F) Resp 18 Wt 90.9 kg (200 lb 6.4 oz) LMP 11/17/2023 (Exact Date) SpO2 96% BMI 34.40 kg/m? Physical Exam Vitals and nursing note reviewed. Constitutional: General: She is not in acute distress. Appearance: Normal appearance. She is normal weight. She is not ill-appearing, toxic-appearing or diaphoretic. HENT: Head: Normocephalic and atraumatic. Right Ear: Ear canal and external ear normal. Left Ear: Ear canal and external ear normal. Nose: Congestion present. No rhinorrhea. Mouth/Throat: Mouth: Mucous membranes are moist. Pharynx: Posterior oropharyngeal erythema present. No oropharyngeal exudate. Eyes: General: Right eye: No discharge. Left eye: No discharge. Extraocular Movements: Extraocular movements intact. Conjunctiva/sclera: Conjunctivae normal. Pupils: Pupils are equal, round, and reactive to light. Cardiovascular: Rate and Rhythm: Regular rhythm. Pulses: Normal pulses. Heart sounds: Normal heart sounds. No murmur heard. No friction rub. Pulmonary: Effort: Pulmonary effort is normal. No respiratory distress. Breath sounds: Normal breath sounds. No stridor. No wheezing, rhonchi or rales. Chest: Chest wall: No tenderness. Abdominal: General: Abdomen is flat. There is no distension. Palpations: Abdomen is soft. There is no mass. Tenderness: There is no abdo (more content not included)... Normal [facility] INFLUENZA A&B MOLECULAR (POC )on 11-14-2024 Flu A (POCT) Negative Negative [facility] Flu B (POCT) Negative Negative [facility] Procedural Control Valid [facility] Location:[address], [address] [facility] POINT OF CARE [facility] STREP A MOLECULAR (POC)on Procedural Control Valid [facility] Strep A (POCT) Negative Negative [facility] 12 Lead EKGon 11-12-2024 12 Lead EKG [facility] [address] [place] [address] 12 Lead EKG 11/12/24 2217 MR#: [id number] Acct: [id number] Name: JOANNA SCHUSTER Rep #: [id number] : 2000 23 From: Taye Pizarro MD Attending Dr: Status: DEP ER Ordering Dr: Randall Jacobs DO Date: 11/12/24 Location: ED Sex: F C Admitted: Test Reason : DYSRHYTHMIA Blood Pressure : */* mmHG Vent. Rate : 90 BPM Atrial Rate : 90 BPM P-R Int : 140 ms QRS Dur : 78 ms QT Int : 332 ms P-R-T Axes : 20 52 16 degrees QTcB Int : 406 ms Normal sinus rhythm Normal ECG Confirmed by DYLLAN CUI, TAYE ([id number]), editor trade journal DIRK GOLDSTEIN ([id number]) on 11/13/2024 8:55:50 AM Referred By: Confirmed By: TAYE PIZARRO MD 11/13/24 0855 Date Taye Pizarro MD CC: Dr. Ko Del Toro MD; Randall Jacobs DO Signed Normal [facility] Basic Metabolic Profile (BMP )on 11-12-2024 BUN/CRE 18.3 RATIO Normal 10-20 [facility] Comment on above: Performed By: #### L 501.5425, L100.0100, L500.2500 #### [facility] [address] [place], [address] CA,Total 9.5 mg/dL Normal 8.5-10.1 [facility] Comment on above: Performed By: #### L 501.5425, L100.0100, L500.2500 #### [facility] [address] [place], [address] Chloride [Moles/Vol] 106 mmol/L Normal 98-107 [facility] Comment on above: Performed By: #### L 501.5425, L100.0100, L500.2500 #### [facility] [address] [place], [address] CO2 [Moles/Vol] 24.0 mmol/L Normal 21.0-32.0 [facility] Comment on above: Performed By: #### L 501.5425, L100.0100, L500.2500 #### [facility] [address] [place], [address] Creatinine [Mass/Vol] 0.82 mg/dL Normal 0.55-1.02 [facility] Comment on above: Result Comment: The validity of the calculated GFR GFRAA in patients over 70 years has not been determined. Clinical correlation is essential. Performed By: #### L 501.5425, L100.0100, L500.2500 #### [facility] [address] [place], [address] ECRCL 122.43 ml/min Normal [facility] Comment on above: Performed By: #### L 501.5425, L100.0100, L500.2500 #### [facility] [address] [place], [address] EST GFR - AA 113 mL/min Normal >60 [facility] Comment on above: Result Comment: Afri can Australian GFR Calc Performed By: #### L 501.5425, L100.0100, L500.2500 #### [facility] [address] [place], [address] GAP 7 Normal 5-15 [facility] Comment on above: Performed By: #### L 501.5425, L100.0100, L500.2500 #### [facility] [address] [place], [address] GFR/1.73 sq M.predicted among non-blacks MDRD (S/P/Bld) [Vol rate/Area] 93 mL/min/{1.73_m2} Normal >60 [facility] Comment on above: Result Comment: Non- GFR Calc Performed By: #### L 501.5425, L100.0100, L500.2500 #### [facility] [address] [place], [address] Glucose [Mass/Vol] 106 mg/dL Normal 74-106 [facility] Comment on above: Result Comment: Fast ing Glucose result from 100 to 125 mg/dL suggests IMPAIRED HOMEOSTASIS per A.D.A. criteria. Performed By: #### L 501.5425, L100.0100, L500.2500 #### [facility] [address] [place], [address] Potassium [Moles/Vol] 3.9 mmol/L Normal 3.5-5.1 [facility] Comment on above: Performed By: #### L 501.5425, L100.0100, L500.2500 #### [facility] [address] [place], [address] Sodium [Moles/Vol] 137 mmol/L Normal 136-145 [facility] Comment on above: Performed By: #### L 501.5425, L100.0100, L500.2500 #### [facility] [address] [place], [address] Urea nitrogen [Mass/Vol] 15 mg/dL Normal 7-18 [facility] Comment on above: Performed By: #### L 501.5425, L100.0100, L500.2500 #### [facility] [address] [place], [address] CBC W/Diff, Automatedon 02-0 Absolute Lymph 2.09 X10 3/uL Normal 0.83-4.51 [facility] Comment on above: Performed By: #### L 501.5425, L100.0100, L500.2500 #### [facility] [address] [place], [address] Absolute Neut 12.5 X10 3/uL High 2.0-7.7 [facility] Comment on above: Performed By: #### L 501.5425, L100.0100, L500.2500 #### [facility] [address] [place], [address] Basophils/100 WBC (Bld) 0.2 % Normal 0-1 [facility] Comment on above: Performed By: #### L 501.5425, L100.0100, L500.2500 #### [facility] [address] [place], [address] Eosinophils/100 WBC (Bld) 0.1 % Normal 0-5 [facility] Comment on above: Performed By: #### L 501.5425, L100.0100, L500.2500 #### [facility] [address] [place], [address] Erythrocyte distribution width (RBC) [Ratio] 14.4 % Normal 11.6-14.6 [facility] Comment on above: Performed By: #### L 501.5425, L100.0100, L500.2500 #### [facility] [address] [place], [address] Hematocrit (Bld) [Volume fraction] 40.3 % Normal 37-47 [facility] Comment on above: Performed By: #### L 501.5425, L100.0100, L500.2500 #### [facility] [address] [place], [address] Hemoglobin (Bld) [Mass/Vol] 12.8 g/dL Normal 12.0-15.0 [facility] Comment on above: Performed By: #### L 501.5425, L100.0100, L500.2500 #### [facility] [address] [place], [address] IG% 0.300 Normal 0.0-0.9 [facility] Comment on above: Result Comment: IG% - Immature Granulocytes (promyelocytes, myelocytes and metamyelocytes) > 1% indicates that a LEFT SHIFT is Present. Performed By: #### L 501.5425, L100.0100, L500.2500 #### [facility] [address] [place], [address] Lymphocytes/100 WBC (Bld) 13.6 % Low 19-41 [facility] Comment on above: Performed By: #### L 501.5425, L100.0100, L500.2500 #### [facility] [address] [facility] [place], [address] MCH (RBC) [Entitic mass] 27.3 pg Normal 27.0-32.0 [facility] Comment on above: Performed By: #### L 501.5425, L100.0100, L500.2500 #### [facility] [address] [facility] [place], [address] MCHC (RBC) [Mass/Vol] 31.8 g/dL Low 32-36 [facility] Comment on above: Performed By: #### L 501.5425, L100.0100, L500.2500 #### [facility] [address] [facility] [place], [address] MCV (RBC) [Entitic vol] 85.9 fL Normal 81-99 [facility] Comment on above: Performed By: #### L 501.5425, L100.0100, L500.2500 #### [facility] [address] [facility] [place], [address] Monocytes/100 WBC (Bld) 4.8 % Normal 0-10 [facility] Comment on above: Performed By: #### L 501.5425, L100.0100, L500.2500 #### [facility] [address] [place], [address] Neutrophils/100 WBC (Bld) 81.0 % High 47-70 [facility] Comment on above: Performed By: #### L 501.5425, L100.0100, L500.2500 #### [facility] [address] [place], [address] Nucleated RBC (Bld) [#/Vol] 0 10*3/uL Normal 0-5 [facility] Comment on above: Performed By: #### L 501.5425, L100.0100, L500.2500 #### [facility] [address] [place], [address] Platelet mean volume (Bld) [Entitic vol] 9.6 fL Normal 6.2-12.0 [facility] Comment on above: Performed By: #### L 501.5425, L100.0100, L500.2500 #### [facility] [address] [place], [address] Platelets (Bld) [#/Vol] 371 10*3/uL Normal 150-450 [facility] Comment on above: Performed By: #### L 501.5425, L100.0100, L500.2500 #### [facility] [address] [place], [address] RBC (Bld) [#/Vol] 4.69 10*6/uL Normal 4.2-5.4 [facility] Comment on above: Performed By: #### L 501.5425, L100.0100, L500.2500 #### [facility] [address] [place], [address] RDW SD 44.9 fl High 35.1-43.9 [facility] Comment on above: Performed By: #### L 501.5425, L100.0100, L500.2500 #### [facility] [address] [place], [address] WBC (Bld) [#/Vol] 15.4 10*3/uL High 4.4-11.0 [facility] Comment on above: Performed By: #### L 501.5425, L100.0100, L500.2500 #### [facility] [address] [place], [address] Chest 1 View (Portable)on Chest 1 View (Portable) [facility] Imaging Services [address] [place] [address] Chest 1 View (Portable) MR#: [id number] Acct: [id number] Name: JOANNA SCHUSTER Rep #: [id number] : 2000 F 23 From: Kole De La Cruz MD PCP: Dr. Ko Del Toro MD Status: PRE ER Study: Chest 1 View (Portable) Date of Exam: 11/12/24 Exam# [id number] Ordering Dr: Provider,Ed P. PROCEDURE: CHEST 1 VIEW (PORTABLE) REASON FOR EXAM: Left-sided chest pain. TECHNIQUE: Frontal view of the chest. COMPARISON: None. FINDINGS: The cardiac and mediastinal contours are normal. The lungs are clear. RAD/Chest 1 View (Portable) IMPRESSION: NEGATIVE SINGLE VIEW OF THE CHEST. Reading Location: [facility] CC: Dr. 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 Ko Del Toro MD Status:DEP ER Location: ED HPI History of Present Illness Chief Complaint: Chest Pain Informant: patient and family Narrative Narrative: Patient is a 23-year-old female with past medical history of asthma. She states she was at work this evening when she noticed some pain in the midsternal to left-sided chest. She denies any recent trauma or excessive activity. She denies any recent travel surgery or history of DVT/PE. She denies any history of illicit drug use or excessive stimulant use and she denies any history of cardiovascular disease in her family at a young age. However based on her chest pain she was unsure if this was cardiovascular or potential lung pathology associate with her asthma and therefore comes in for evaluation [facility] Medical History Asthma Home Medications ???Medication ???Instructions ???Recorded ???Last Taken ???Type cetirizine 10 mg capsule (All Day 10 mg PO DAILY 01/17/24 Unknown H istory Allergy (cetirizine)) Allergy/AdvReac Type Severity Reaction Status Date / Time No Known Allergies Allergy Verified 11/12/24 21:14 Surgical History History of tonsillectomy and adenoidectomy Social History household members: family Smoking Status: Never smoker substance use type: does not use ROS ROS ED Constitutional Constitutional ED: Denies chills or fever(s) ENT ENT ED: Denies sore throat Cardiovascular Cardiovascular: Reports chest pain; Denies palpitations or racing heartbeat Respiratory/Chest Respiratory/Chest: Denies cough or dyspnea Gastrointestinal Gastrointestinal: Denies abdominal pain, diarrhea, nausea or vomiting Genitourinary Genitourinary ED: Denies dysuria Musculoskeletal Musculoskeletal: Denies back pain Integumentary Denies rash Neurologic Neurologic: Denies headache(s) Hematologic/Lymphatic Hematologic/Lymphatic: Denies easy bleeding or easy bruising EXAM Physical Exam Const Vital Signs: 11/12/24 21:13 11/12/24 21:31 11/12/24 21:31 Temperature 98.2 F Temperature Source Oral Pulse Rate 116 H Respiratory Rate 18 Respiratory Effort Normal Non-Labored Blood Pressure 120/87 H Blood Pressure Mean 98 Pulse Ox 97 Oxygen Delivery Method Room Air Room Air Positive well nourished and well developed General Appearance ED: well developed; Negative for pallor HEENT HEENT Narrative: Normocephalic atraumatic Eyes PERRL and EOMs intact bilaterally General Eye ED: Negative for scleral icterus Neck supple Chest Wall Chest Narrative: There is reproducible pain along the sternum/left costal joints of the chest wall without bony deformity or crepitance or subcutaneous emphysema Resp normal respiratory effort and clear to auscultation bilaterally Cardio regular rate and regular rhythm Rate: other Other Details: Regular rate and rhythm without murmurs rubs or gallops Radial and carotid pulses are equal and symmetric GI normal to inspection, nondistended, normoactive bowel sounds, non-tender, non-distended and no masses Auscultation: normoactive bowel sounds Palpation: soft Extremity normal to inspection Extremity Narrative: No asymmetric edema no pitting edema negative Homans' sign bilaterally Neuro oriented x3, CN's II-XII intact bilaterally and no sensory deficits noted Sensorium / Orientation: alert Motor Exam: strength 5/5 throughout Psych mental status grossly normal Skin no rashes or lesions noted and no wounds General Skin Exam: Negative for jaundice or pallor MDM MDM MDM Narrative Medical decision making narrative: Patient arrived to the ER slightly tachycardic but this resolved without any treatment other than rest. She is low risk for cardiovascular disease but has differential diagnosis with her report of chest pain is acute coronary syndrome versus cardiac dysrhythmia versus myocarditis versus lung pathology such as pneumonia or pneumothorax. She does not have any risk factors for PE and at this time she is PERC negative and I do not feel the need for D-dimer or CTA. As patient has reproducible pain this is most likely costochondritis. As she is low risk for cardiovascular disease and does not have a dysrhythmia on the cardiac/vascular sonographer or on her EKG there is no need for further workup and she is otherwise safe for discharge. History Record Review Discussion w/independent historian: (more content not included)... Normal [facility] L501.5425on 11-12-2024 TROPONIN-I HS 4 pg/mL Normal 3.0-54.0 [facility] Comment on above: Order Comment: 1Y Result Comment: Jasmin kennedy Note: New Test Units and Gender Specific Reference Ranges. For more information see Policy Stat Procedure [place] High Sensitivity Troponin (TNIH) and attachments. Performed By: #### L 501.5425, L100.0100, L500.2500 ####[facility] [address] [place], [address] [facility] 10-01-2024 [facility] ----- JOANNA SCHUSTER ([id number]) 4 F Date Time Provider Department 10/01/24 KO DEL TORO [facility] During your visit today, we recorded the following information about you: Bhavesh Staton LPN 10/01/2024 3:02 PM Signed Pt calling stating that she has a history of anxiety. Pt advises that she has a cat and a dog that are emotional support animals for this. She is wanting to know if Dr Del Toro can write a letter stating that she has anxiety and needs to have these Emotional Support animals. (She is trying to get into an apartment) Pt mentioned that she sees a counselor related to her anxiety. Advised her she should also check with counselor to see if that person would be willing to write this letter for her since they would be more aware of the situation since pt is newer to Dr Del Toro. She advises that she has an appointment with counselor on and will check then. Advised her to contact office if counselor can provide letter. Please let pt know if Dr Del Toro can write this letter for her. She is aware he is out of the office until 10/15/24. If agreeable she will pick up man letter from Med Rec. VICKY Anderson Jeffrey A, MD 10/07/2024 3:48 PM Signed Let patient know I do not write these letters for patient's that we have not developed a specific plan of care. She has no diagnosis of anxiety on her chart and has not been seen in the office since 07/26/2023 and even then there was no mention of her having anxiety as a past or on going problem. Her options are that she can go on line and purchase documentation for her pets that they are emotional support animals or find a appt complex that allows her to have pets. Bhavesh Staton LPN 10/08/2024 8:24 AM Signed Left message for pt to contact office. VICKY Anderson Barbara, RN 10/09/2024 10:58 AM Signed Called and left a voicemail for the patient to call back and ask for a nurse to receive the providers message. Pt also needs an appt for her physical as last seen 07/2023. Mary Guzman RN 10/11/2024 10:30 AM Signed Patient calls back and notified of provider response below. Patient voices understanding. Patient states that she will call back and set up appointment when she gets her work schedule. Mary Guzman RN Allergies As of Date: 10/01/2024 (No Known Allergies) Date Reviewed: 02/01/2024 Reviewed by: Lupe Castillo MA - Fully Assessed Reason for Visit: Letter [264] Prescriptions as of 10/11/2024 - fluticasone (FLONASE) 50 mcg/actuation nasal spray Use 2 Sprays in each nostril once daily. Rinse mouth after use. - albuterol HFA (PROVENTIL HFA, VENTOLIN HFA) 90 mcg/actuation inhaler Inhale 2 Puffs as instructed. - fluticasone (FLOVENT) 110 mcg/actuation inhaler Inhale 1 Puff as instructed twice daily. Problem List As Of Date: 10/01/2024 (None) Encounter Status:Closed by MARY GUZMAN on 10/11/24 Normal [facility] Office Visit Reporton 2023 Office Visit Report [facility] [address] 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 The previously reported component Lymphocytes % is no longer being reported. The previously reported component Monocytes % is no longer being reported. The previously reported component Eosinophils % is no longer being reported. The previously reported component Basophils % is no longer being reported. The previously reported component Absolute Neutrophils is no longer being reported. The previously reported component Absolute Lymphocytes is no longer being reported. The previously reported component Absolute Monocytes is no longer being reported. The previously reported component Absolute Eosinophils is no longer being reported. The previously reported component Absolute Basophils is no longer being reported. Performed By: #### 5 7021-8 #### MATA RICK ([id number]) [facility] ([facility]) [address] [place] [address] Hematocrit (Bld) [Volume fraction] 39.2 % Normal 36.0-46.0 [facility] Comment on above: Order Comment: The p reviously reported component Neutrophils % is no longer being reported. The previously reported component Lymphocytes % is no longer being reported. The previously reported component Monocytes % is no longer being reported. The previously reported component Eosinophils % is no longer being reported. The previously reported component Basophils % is no longer being reported. The previously reported component Absolute Neutrophils is no longer being reported. The previously reported component Absolute Lymphocytes is no longer being reported. The previously reported component Absolute Monocytes is no longer being reported. The previously reported component Absolute Eosinophils is no longer being reported. The previously reported component Absolute Basophils is no longer being reported. Performed By: #### 5 7021-8 #### ESPERANZA CABRERA ([id number]) [facility] ([facility]) [address] [place], [place] [id number] Hemoglobin (Bld) [Mass/Vol] 12.3 g/dL Normal 12.0-16.0 [facility] Comment on above: Order Comment: The p reviously reported component Neutrophils % is no longer being reported. The previously reported component Lymphocytes % is no longer being reported. The previously reported component Monocytes % is no longer being reported. The previously reported component Eosinophils % is no longer being reported. The previously reported component Basophils % is no longer being reported. The previously reported component Absolute Neutrophils is no longer being reported. The previously reported component Absolute Lymphocytes is no longer being reported. The previously reported component Absolute Monocytes is no longer being reported. The previously reported component Absolute Eosinophils is no longer being reported. The previously reported component Absolute Basophils is no longer being reported. Performed By: #### 5 7021-8 #### ESPERANZA CABRERA ([id number]) [facility] ([facility]) [address] [place], [place] [id number] Immature granulocytes (Bld) [#/Vol] 0.02 x10*3/uL Normal 0.00-0.70 [facility] Comment on above: Order Comment: The p reviously reported component Neutrophils % is no longer being reported. The previously reported component Lymphocytes % is no longer being reported. The previously reported component Monocytes % is no longer being reported. The previously reported component Eosinophils % is no longer being reported. The previously reported component Basophils % is no longer being reported. The previously reported component Absolute Neutrophils is no longer being reported. The previously reported component Absolute Lymphocytes is no longer being reported. The previously reported component Absolute Monocytes is no longer being reported. The previously reported component Absolute Eosinophils is no longer being reported. The previously reported component Absolute Basophils is no longer being reported. Performed By: #### 5 7021-8 #### ESPERANZA CABRERA ([id number]) [facility] ([facility]) [address] [place] [id number] Immature granulocytes/100 WBC (Bld) 0.2 % Normal 0.0-0.9 [facility] Comment on above: Order Comment: The p reviously reported component Neutrophils % is no longer being reported. The previously reported component Lymphocytes % is no longer being reported. The previously reported component Monocytes % is no longer being reported. The previously reported component Eosinophils % is no longer being reported. The previously reported component Basophils % is no longer being reported. The previously reported component Absolute Neutrophils is no longer being reported. The previously reported component Absolute Lymphocytes is no longer being reported. The previously reported component Absolute Monocytes is no longer being reported. The previously reported component Absolute Eosinophils is no longer being reported. The previously reported component Absolute Basophils is no longer being reported. Result Comment: Zenaida ture Granulocyte Count (IG) includes promyelocytes, myelocytes and metamyelocytes but does not include bands. Percent differential counts (%) should be interpreted in the context of the absolute cell counts (cells/UL). Performed By: #### 5 7021-8 #### ESPERANZA CABRERA ([id number]) [facility] ([facility]) [address] [place], [place] [id number] MCH (RBC) [Entitic mass] 27.3 pg Normal 26.0-34.0 [facility] Comment on above: Order Comment: The p reviously reported component Neutrophils % is no longer being reported. The previously reported component Lymphocytes % is no longer being reported. The previously reported component Monocytes % is no longer being reported. The previously reported component Eosinophils % is no longer being reported. The previously reported component Basophils % is no longer being reported. The previously reported component Absolute Neutrophils is no longer being reported. The previously reported component Absolute Lymphocytes is no longer being reported. The previously reported component Absolute Monocytes is no longer being reported. The previously reported component Absolute Eosinophils is no longer being reported. The previously reported component Absolute Basophils is no longer being reported. Performed By: #### 5 7021-8 #### ESPERANZA CABRERA ([id number]) [facility] ([facility]) [address] [place], [place] [address] MCHC (RBC) [Mass/Vol] 31.4 g/dL Low 32.0-36.0 [facility] Comment on above: Order Comment: The p reviously reported component Neutrophils % is no longer being reported. The previously reported component Lymphocytes % is no longer being reported. The previously reported component Monocytes % is no longer being reported. The previously reported component Eosinophils % is no longer being reported. The previously reported component Basophils % is no longer being reported. The previously reported component Absolute Neutrophils is no longer being reported. The previously reported component Absolute Lymphocytes is no longer being reported. The previously reported component Absolute Monocytes is no longer being reported. The previously reported component Absolute Eosinophils is no longer being reported. The previously reported component Absolute Basophils is no longer being reported. Performed By: #### 5 7021-8 #### ESPERANZA CABRERA ([id number]) [facility] ([facility]) [facility] [place] [address] MCV (RBC) [Entitic vol] 87 fL Normal 80-[address] [facility] Comment on above: Order Comment: The p reviously reported component Neutrophils % is no longer being reported. The previously reported component Lymphocytes % is no longer being reported. The previously reported component Monocytes % is no longer being reported. The previously reported component Eosinophils % is no longer being reported. The previously reported component Basophils % is no longer being reported. The previously reported component Absolute Neutrophils is no longer being reported. The previously reported component Absolute Lymphocytes is no longer being reported. The previously reported component Absolute Monocytes is no longer being reported. The previously reported component Absolute Eosinophils is no longer being reported. The previously reported component Absolute Basophils is no longer being reported. Performed By: #### 5 7021-8 #### ESPERANZA CABRERA ([id number]) [facility] ([facility]) [facility] [place] [address] Nucleated RBC/100 WBC (Bld) [Ratio] 0.0 /100 WBCs Normal 0.0-0.0 [facility] Comment on above: Order Comment: The p reviously reported component Neutrophils % is no longer being reported. The previously reported component Lymphocytes % is no longer being reported. The previously reported component Monocytes % is no longer being reported. The previously reported component Eosinophils % is no longer being reported. The previously reported component Basophils % is no longer being reported. The previously reported component Absolute Neutrophils is no longer being reported. The previously reported component Absolute Lymphocytes is no longer being reported. The previously reported component Absolute Monocytes is no longer being reported. The previously reported component Absolute Eosinophils is no longer being reported. The previously reported component Absolute Basophils is no longer being reported. Performed By: #### 5 7021-8 #### ESPERANZA CABRERA ([id number]) [facility] ([facility]) [facility] [place] [address] Platelets (Bld) [#/Vol] 338 x10*3/uL Normal 150-450 [facility] Comment on above: Order Comment: The p reviously reported component Neutrophils % is no longer being reported. The previously reported component Lymphocytes % is no longer being reported. The previously reported component Monocytes % is no longer being reported. The previously reported component Eosinophils % is no longer being reported. The previously reported component Basophils % is no longer being reported. The previously reported component Absolute Neutrophils is no longer being reported. The previously reported component Absolute Lymphocytes is no longer being reported. The previously reported component Absolute Monocytes is no longer being reported. The previously reported component Absolute Eosinophils is no longer being reported. The previously reported component Absolute Basophils is no longer being reported. Performed By: #### 5 7021-8 #### ESPERANZA CABRERA ([id number]) [facility] ([facility]) [address] [place] [address]2458 RBC (Bld) [#/Vol] 4.51 x10*6/uL Normal 4.00-5.20 [facility] Comment on above: Order Comment: The p reviously reported component Neutrophils % is no longer being reported. The previously reported component Lymphocytes % is no longer being reported. The previously reported component Monocytes % is no longer being reported. The previously reported component Eosinophils % is no longer being reported. The previously reported component Basophils % is no longer being reported. The previously reported component Absolute Neutrophils is no longer being reported. The previously reported component Absolute Lymphocytes is no longer being reported. The previously reported component Absolute Monocytes is no longer being reported. The previously reported component Absolute Eosinophils is no longer being reported. The previously reported component Absolute Basophils is no longer being reported. Performed By: #### 5 7021-8 #### ESPERANZA CABRERA ([id number]) [facility] ([facility]) [address] [place] [address] WBC (Bld) [#/Vol] 9.1 x10*3/uL Normal 4.4-11.3 [facility] Comment on above: Order Comment: The p reviously reported component Neutrophils % is no longer being reported. The previously reported component Lymphocytes % is no longer being reported. The previously reported component Monocytes % is no longer being reported. The previously reported component Eosinophils % is no longer being reported. The previously reported component Basophils % is no longer being reported. The previously reported component Absolute Neutrophils is no longer being reported. The previously reported component Absolute Lymphocytes is no longer being reported. The previously reported component Absolute Monocytes is no longer being reported. The previously reported component Absolute Eosinophils is no longer being reported. The previously reported component Absolute Basophils is no longer being reported. Performed By: #### 5 7021-8 #### MATA RICK ([id number]) [facility] ([facility]) [address] [place] [address] 13263 CNOVon 05-11-2024 CNOV Office Visit (UCTR ) ----- JOANNA SCHUSTER ([id number]) 4 F Date Time Provider Department 05/11/24 10:15 AM NA DWYER [facility] During your visit today, we recorded the following information about you: Na Dwyer PA 05/11/2024 10:10 AM Signed 23-year-old female presents for lower abdominal pain. Patient has been having lower abdominal pain for the past 4 days. States pain is a 7 out of 10. She does have tenderness on exam and states the pain is much worse with palpation. Did recommend evaluation in the emergency room due to abdominal pain. Patient's friend will take her now. Allergies As of Date: 05/11/2024 (No Known Allergies) Date Reviewed: 02/01/2024 Reviewed by: Lupe Castillo MA - Fully Assessed Primary Visit Diagnosis:Lower abdominal pain [R10.30] Prescriptions as of 05/11/2024 - fluticasone (FLONASE) 50 mcg/actuation nasal spray Use 2 Sprays in each nostril once daily. Rinse mouth after use. - albuterol HFA (PROVENTIL HFA, VENTOLIN HFA) 90 mcg/actuation inhaler Inhale 2 Puffs as instructed. - fluticasone (FLOVENT) 110 mcg/actuation inhaler Inhale 1 Puff as instructed twice daily. Problem List As Of Date: 05/11/2024 (None) Encounter Status:Closed by NA DWYER on 05/11/24 Normal [facility] CT ABDOMEN PELVIS W IV CONTR Yu 05-11-2024 CT ABDOMEN PELVIS W IV CONTRAST Interpreted By: Jasiel Villalta, STUDY: CT ABDOMEN PELVIS W IV CONTRAST; 05/11/2024 12:31 pm INDICATION: Signs/Symptoms:Lower abdominal pain. COMPARISON: None. ACCESSION NUMBER(S): [id number] ORDERING CLINICIAN: JIL STOKES TECHNIQUE: CT of the abdomen and pelvis was performed. Contiguous axial images were obtained at 3 mm slice thickness through the abdomen and pelvis. Coronal and sagittal reconstructions at 3 mm slice thickness were performed. Omnipaque 350 was injected intravenously. FINDINGS: LOWER CHEST: The visualized lung bases are unremarkable. ABDOMEN: LIVER: The hepatic parenchyma is homogeneous without evidence of focal liver lesions.The hepatic size is normal. SPLEEN: The spleen is normal in size and homogeneous. ADRENAL GLANDS: Bilateral adrenal glands appear normal. KIDNEYS AND URETERS: The renal cortices are unremarkable and the renal sizes within normal limits. The ureteral courses are unremarkable without dilatation or radiodense calculi. PANCREAS: The pancreas appears unremarkable, there is no ductal dilatation or masses. GALLBLADDER: No radiodense calculi, wall thickening or pericholecystic fluid. BILE DUCTS: There is no biliary dilatation or filling defects. VESSELS: The aorta and IVC are within normal limits. PERITONEUM AND RETROPERITONEUM: No ascites or free air, no fluid collection. The retroperitoneum appears unremarkable, and without significant adenopathy. There is a cluster of mesenteric nodes in the right lower quadrant, measuring up to approximately 1.1 cm in short axis. While nonspecific and probably reactive, these would suggest mesenteric adenitis. BOWEL: There is mild mural prominence of the terminal ileum, nonspecific but suggests ileitis. Other etiologies such as early Crohn's disease also not excluded. The bowel including the appendix otherwise is unremarkable without significant dilatation or mural thickening. PELVIS: BLADDER: The urinary bladder contour is smooth. REPRODUCTIVE ORGANS: No pelvic masses. BONE, ABDOMINAL WALL AND OTHER FINDINGS: No suspicious osseous lesions are identified. The abdominal wall soft tissues appear normal. IMPRESSION: 1. Findings suggestive of ileitis and mesenteric adenitis as described. MACRO: 1. None Signed by: Jasiel Villalta 05/11/2024 12:40 PM Dictation workstation: [id number] [facility] Choriogonadotropin.beta subu niton 05-11-2024 HCG.beta subunit Qn m[IU]/mL Normal <5 [facility] Comment on above: Order Comment: Total HCG measurement is performed using the Anabel [place] Access Immunoassay which detects intact HCG and free beta HCG subunit. This test is not indicated for use as a tumor marker. HCG testing is performed using a different test methodology at [facility] than other [facility]. Direct result comparison should only be made within the same method. Performed By: #### 2 1198-7 #### ESPERANZA CABRERA ([id number]) [facility] ([facility]) [address] [place] [address] Comprehensive metabolic 2000 panelon 05-11-2024 Albumin BCP dye [Mass/Vol] 3.8 g/dL Normal 3.4-5.0 [facility] Comment on above: Performed By: #### 2 4323-8 #### ESPERANZA CABRERA ([id number]) [facility] ([facility]) [facility] [place] [address] ALP [Catalytic activity/Vol] 61 U/L Normal 33-110 [facility] Comment on above: Performed By: #### 2 4323-8 #### ESPERANZA CABRERA ([id number]) [facility] ([facility]) [address] [place] [address] 49992 ALT With P-5'-P [Catalytic activity/Vol] 23 U/L Normal 7-45 [facility] Comment on above: Result Comment: Audra ents treated with Sulfasalazine may generate falsely decreased results for ALT. Performed By: #### 2 4323-8 #### ESPERANZA CABRERA ([id number]) [facility] ([facility]) [address] [place] [address] 93673 Anion gap [Moles/Vol] 9 mmol/L Low 10-20 [facility] Comment on above: Performed By: #### 2 4323-8 #### ESPERANZA CABRERA ([id number]) [facility] ([facility]) [address] [place] [address] 98588 AST With P-5'-P [Catalytic activity/Vol] 12 U/L Normal 9-39 [facility] Comment on above: Performed By: #### 2 4323-8 #### ESPERANZA CABRERA ([id number]) [facility] ([facility]) [address] [place] [address] 55389 Bilirubin [Mass/Vol] 0.4 mg/dL Normal 0.0-1.2 [facility] Comment on above: Performed By: #### 2 4323-8 #### ESPERANZA CABRERA ([id number]) [facility] ([facility]) [address] [place] [address] 84853 Calcium [Mass/Vol] 9.0 mg/dL Normal 8.6-10.3 [facility] Comment on above: Performed By: #### 2 4323-8 #### ESPERANZA CABRERA ([id number]) [facility] ([facility]) [address] [place] [address] 39254 Chloride [Moles/Vol] 105 mmol/L Normal 98-107 [facility] Comment on above: Performed By: #### 2 4323-8 #### ESPERANZA CABRERA ([id number]) [facility] ([facility]) [address] [place] [address] 26576 CO2 [Moles/Vol] 27 mmol/L Normal 21-32 [facility] Comment on above: Performed By: #### 2 4323-8 #### ESPERANZA CABRERA ([id number]) [facility] ([facility]) [address] [place] [address] Creatinine [Mass/Vol] 0.68 mg/dL Normal 0.50-1.05 [facility] Comment on above: Performed By: #### 2 4323-8 #### ESPERANZA CABRERA ([id number]) [facility] ([facility]) [address] [place] [address] 50772 GFR/1.73 sq M.predicted MDRD (S/P/Bld) [Vol rate/Area] mL/min/{1.73_m2} Normal >60 [facility] Comment on above: Result Comment: Calc ulations of estimated GFR are performed using the 2020 CKD-EPI Study Refit equation without the race variable for the IDMS-Traceable creatinine methods. https://jasn.asnjournals.org/content/early/ASN.624 4904472 Performed By: #### 2 4323-8 #### ESPERANZA CABRERA ([id number]) [facility] ([facility]) [address] [place] [address] 67070 Glucose [Mass/Vol] 82 mg/dL Normal 74-99 [facility] Comment on above: Performed By: #### 2 4323-8 #### ESPERANZA CABRERA ([id number]) [facility] ([facility]) [address] [place] [address] 73914 Potassium [Moles/Vol] 4.2 mmol/L Normal 3.5-5.3 [facility] Comment on above: Performed By: #### 2 4323-8 #### ESPERANZA CABRERA ([id number]) [facility] ([facility]) [address] [place] [address] 08942 Protein [Mass/Vol] 6.7 g/dL Normal 6.4-8.2 [facility] Comment on above: Performed By: #### 2 4323-8 #### ESPERANZA CABRERA ([id number]) [facility] ([facility]) [address] [place] [address] 09421 Sodium [Moles/Vol] 137 mmol/L Normal 136-145 [facility] Comment on above: Performed By: #### 2 4323-8 #### ESPERANZA CABRERA ([id number]) [facility] ([facility]) [address] [place] [address] Urea nitrogen [Mass/Vol] 9 mg/dL Normal 6-23 [facility] Comment on above: Performed By: #### 2 4323-8 #### ESPERANZA CABRERA ([id number]) [facility] ([facility]) [address] [place] [address] Lactateon 05-11-2024 Lactate [Moles/Vol] 0.8 mmol/L Normal 0.4-2.0 [facility] Comment on above: Order Comment: Venip uncture immediately after or during the administration of Metamizole may lead to falsely low results. Testing should be performed immediately prior to Metamizole dosing. Performed By: #### 2 524-7 #### ESPERANZA CABRERA ([id number]) [facility] ([facility]) [address] [place] [address] Manual differential performe d Ql (Bld)on 05-11-2024 Basophils (Bld) [#/Vol] 0.00 x10*3/uL Normal 0.00-0.10 [facility] Comment on above: Performed By: #### 5 0957-0 #### ESPERANZA CABRERA ([id number]) [facility] ([facility]) [address] [place], [place] [address] Basophils/100 WBC (Bld) 0.0 % Normal 0.0-2.[address] [facility] Comment on above: Performed By: #### 5 0957-0 #### ESPERANZA CABRERA ([id number]) [facility] ([facility]) [address] [place] [address] Cells Counted Total (Bld) [#] 100 Normal [facility] Comment on above: Performed By: #### 5 0957-0 #### ESPERANZA CABRERA ([id number]) [facility] ([facility]) [address] [place] [address] Eosinophils (Bld) [#/Vol] 0.27 x10*3/uL Normal 0.00-0.70 [facility] Comment on above: Performed By: #### 5 0957-0 #### ESPERANZA CABRERA ([id number]) [facility] ([facility]) [address] [place] [address] 28999 Eosinophils/100 WBC (Bld) 3.0 % Normal 0.0-6.0 [facility] Comment on above: Performed By: #### 5 57-0 #### ESPERANZA CABRERA ([id number]) [facility] ([facility]) [address] [place] [address] 84791 Lymphocytes (Bld) [#/Vol] 2.09 x10*3/uL Normal 1.20-4.80 [facility] Comment on above: Performed By: #### 5 57-0 #### ESPERANZA CABRERA ([id number]) [facility] ([facility]) [address] [place] [address] 94813 Lymphocytes/100 WBC (Bld) 23.0 % Normal 13.0-44.0 [facility] Comment on above: Performed By: #### 5 57-0 #### ESPERANZA CABRERA ([id number]) [facility] ([facility]) [address] [place] [address] 87887 Monocytes (Bld) [#/Vol] 0.36 x10*3/uL Normal 0.10-1.00 [facility] Comment on above: Performed By: #### 5 57-0 #### ESPERANZA CABRERA ([id number]) [facility] ([facility]) [address] [place] [address] 28586 Monocytes/100 WBC (Bld) 4.0 % Normal 2.0-10.[address] [facility] Comment on above: Performed By: #### 5 57-0 #### ESPERANZA CABRERA ([id number]) [facility] ([facility]) [address] [place] [address] 29346 RBC morphology finding Nom (Bld) No significant RBC morphology present Normal [facility] Comment on above: Performed By: #### 5 57-0 #### ESPERANZA CABRERA ([id number]) [facility] ([facility]) [address] [place] [address] 19190 Segmented neutrophils (Bld) [#/Vol] 6.28 x10*3/uL Normal 1.20-7.00 [facility] Comment on above: Performed By: #### 5 0957-0 #### ESPERANZA CABRERA ([id number]) [facility] ([facility]) [address] [place] [address] 20113 Segmented neutrophils/100 WBC (Bld) 69.0 % Normal 40.0-80.0 [facility] Comment on above: Result Comment: Perc ent differential counts (%) should be interpreted in the context of the absolute cell counts (cells/uL). Performed By: #### 5 0957-0 #### ESPERANZA CABRERA ([id number]) [facility] ([facility]) [address] [place] [address] Variant lymphocytes (Bld) [#/Vol] 0.09 x10*3/uL Normal 0.00-0.50 [facility] Comment on above: Performed By: #### 5 0957-0 #### ESPERANZA CABRERA ([id number]) [facility] ([facility]) [address] [place] [address] 82989 Variant lymphocytes/100 WBC (Bld) 1.0 % Normal 0.0-2.0 [facility] Comment on above: Performed By: #### 5 0957-0 #### ESPERANZA CABRERA ([id number]) [facility] ([facility]) [address] [place], [place] [address] Triacylglycerol lipaseon Lipase [Catalytic activity/Vol] 12 U/L Normal 9-82 [facility] Comment on above: Order Comment: Venip uncture immediately after or during the administration of Metamizole may lead to falsely low results. Testing should be performed immediately prior to Metamizole dosing. Performed By: #### 3 040-3 #### ESPERANZA CABRERA ([id number]) [facility] ([facility]) [address] [place], [place] [address] Urinalysis complete W Reflex Culture panel (U)on 05-11-2024 Appearance (U) Clear Normal Clear [facility] Comment on above: Performed By: #### 5 8077-9 #### ESPERANZA CABRERA ([id number]) [facility] ([facility]) [address] [place] [address] Bilirubin (U) [Mass/Vol] Negative Normal NEGATIVE [facility] Comment on above: Performed By: #### 5 8077-9 #### ESPERANZA CABRERA ([id number]) [facility] ([facility]) [address] [place], [place] [address] Color (U) Colorless Normal Light-[place] ow, Yellow, Dark-Yello w [facility] Comment on above: Performed By: #### 5 8077-9 #### ESPERANZA CABRERA ([id number]) [facility] ([facility]) [address] [place], [place] [address] Glucose Auto test strip (U) [Mass/Vol] Normal Normal Normal [facility] Comment on above: Performed By: #### 5 8077-9 #### ESPERANZA CABRERA ([id number]) [facility] ([facility]) [address] [place], [place] [address] Ketones (U) [Mass/Vol] Negative Normal NEGATIVE Un [facility] Comment on above: Performed By: #### 5 8077-9 #### ESPERANZA CABRERA ([id number]) [facility] ([facility]) [address] [place] [address] 99009 Leukocyte esterase Auto test strip Ql (U) Negative Normal NEGATIVE [facility] Comment on above: Performed By: #### 5 8077-9 #### ESPERANZA CABRERA ([id number]) [facility] ([facility]) [address] [place] [address] 54394 Nitrite Auto test strip Ql (U) Negative Normal NEGATIVE [facility] Comment on above: Performed By: #### 5 8077-9 #### ESPERANZA CABRERA ([id number]) [facility] ([facility]) [address] [place] [address] 04636 pH (U) 7.0 [pH] Normal 5.0, 5.5, 6.0, 6.5, 7.0, 7.5, 8.0 [facility] Comment on above: Performed By: #### 5 8077-9 #### ESPERANZA CABRERA ([id number]) [facility] ([facility]) [address] [place] [address] Protein (U) [Mass/Vol] Negative Normal NEGAT JEISON, 10 (TRACE), 20 (TRACE) [facility] Comment on above: Performed By: #### 5 8077-9 #### ESPERANZA CABRERA ([id number]) [facility] ([facility]) [address] [place] [address] RBC (U) [#/Vol] Negative Normal NEGATIVE [facility] Comment on above: Performed By: #### 5 8077-9 #### ESPERANZA CABRERA ([id number]) [facility] ([facility]) [address] [place] [address] Specific gravity (U) [Rel density] 1.016 Normal 1.005-1.[address] [place] [address] Comment on above: Performed By: #### 5 8077-9 #### ESPERANAZ CABRERA ([id number]) [facility] ([facility]) [address] [place] [address] Urobilinogen (U) [Mass/Vol] Normal Normal Normal [facility] Comment on above: Performed By: #### 5 8077-9 #### ESPERANZA CABRERA ([id number]) [facility] ([facility]) [address] [place] [address] 12 Lead EKGon 03-27-2024 12 Lead EKG [facility] [address] [place] [address] 12 Lead EKG 03/27/24 1538 MR#: [id number] Acct: [id number] Name: JOANNA SCHUSTER Rep #: [id number] : 2000 23 From: Taye Pizarro MD Attending Dr: Status: DEP ER Ordering Dr: Maurice Shoemaker DO Date: 03/27/24 Location: ED Sex: F C Admitted: Test Reason : Blood Pressure : / mmHG Vent. Rate : 078 BPM Atrial Rate : 078 BPM P-R Int : 150 ms QRS Dur : 094 ms QT Int : 360 ms P-R-T Axes : 020 028 014 degrees QTc Int : 410 ms Normal sinus rhythm Incomplete right bundle branch block Borderline ECG Confirmed by DYLLAN CUI, TAYE ([id number]), editor trade journal DIRK GOLDSTEIN ([id number]) on 03/29/2024 8:21:09 AM Referred By: Confirmed By:TAYE PIZARRO MD 03/29/24820 Date Taye Pizarro MD CC: Dr. Ko Del Toro MD; Dr. Maurice Shoemaker DO Signed Normal [facility] Basic Metabolic Profile (BMP )on 03-27-2024 BUN/CRE 15.7 RATIO Normal 10-20 [facility] Comment on above: Order Comment: 'TROP ' Serial specimen #1, #2 or #3: 1 Performed By: #### L 100.0100, L501.4020, L300.8000, L500.2500 #### [facility] [address] [place], [address] CA,Total 9.2 mg/dL Normal 8.5-10.1 [facility] Comment on above: Order Comment: 'TROP ' Serial specimen #1, #2 or #3: 1 Performed By: #### L 100.0100, L501.4020, L300.8000, L500.2500 #### [facility] [address] [place], [address] Chloride [Moles/Vol] 106 mmol/L Normal 98-107 [facility] Comment on above: Order Comment: 'TROP ' Serial specimen #1, #2 or #3: 1 Performed By: #### L 100.0100, L501.4020, L300.8000, L500.2500 #### [facility] [address] [place], [address] CO2 [Moles/Vol] 28.0 mmol/L Normal 21.0-32.0 [facility] Comment on above: Order Comment: 'TROP ' Serial specimen #1, #2 or #3: 1 Performed By: #### L 100.0100, L501.4020, L300.8000, L500.2500 #### [facility] [address] [place], [address] Creatinine [Mass/Vol] 0.70 mg/dL Normal 0.55-1.02 [facility] Comment on above: Order Comment: 'TROP ' Serial specimen #1, #2 or #3: 1 Result Comment: The validity of the calculated GFR GFRAA in patients over 70 years has not been determined. Clinical correlation is essential. Performed By: #### L 100.0100, L501.4020, L300.8000, L500.2500 #### [facility] [address] [place], [address] ECRCL 148.05 ml/min Normal [facility] Comment on above: Order Comment: 'TROP ' Serial specimen #1, #2 or #3: 1 Performed By: #### L 100.0100, L501.4020, L300.8000, L500.2500 #### [facility] [address] [place], [address] EST GFR - AA 135 mL/min Normal >60 [facility] Comment on above: Order Comment: 'TROP ' Serial specimen #1, #2 or #3: 1 Result Comment: Afri can Australian GFR Calc Performed By: #### L 100.0100, L501.4020, L300.8000, L500.2500 #### [facility] [address] [place], [address] GAP 4 Low 5-15 [facility] Comment on above: Order Comment: 'TROP ' Serial specimen #1, #2 or #3: 1 Performed By: #### L 100.0100, L501.4020, L300.8000, L500.2500 #### [facility] [address] [place], [address] GFR/1.73 sq M.predicted among non-blacks MDRD (S/P/Bld) [Vol rate/Area] 112 mL/min/{1.73_m2} Normal >60 [facility] Comment on above: Order Comment: 'TROP ' Serial specimen #1, #2 or #3: 1 Result Comment: Non- GFR Calc Performed By: #### L 100.0100, L501.4020, L300.8000, L500.2500 #### [facility] [address] [place], [address] Glucose [Mass/Vol] 100 mg/dL Normal 74-106 [facility] Comment on above: Order Comment: 'TROP ' Serial specimen #1, #2 or #3: 1 Result Comment: Fast ing Glucose result from 100 to 125 mg/dL suggests IMPAIRED HOMEOSTASIS per A.D.A. criteria. Performed By: #### L 100.0100, L501.4020, L300.8000, L500.2500 #### [facility] [address] [place], [address] Potassium [Moles/Vol] 3.7 mmol/L Normal 3.5-5.1 [facility] Comment on above: Order Comment: 'TROP ' Serial specimen #1, #2 or #3: 1 Performed By: #### L 100.0100, L501.4020, L300.8000, L500.2500 #### [facility] [address] [place], [address] Sodium [Moles/Vol] 138 mmol/L Normal 136-145 [facility] Comment on above: Order Comment: 'TROP ' Serial specimen #1, #2 or #3: 1 Performed By: #### L 100.0100, L501.4020, L300.8000, L500.2500 #### [facility] [address] [place], [address] Urea nitrogen [Mass/Vol] 11 mg/dL Normal 7-18 [facility] Comment on above: Order Comment: 'TROP ' Serial specimen #1, #2 or #3: 1 Performed By: #### L 100.0100, L501.4020, L300.8000, L500.2500 #### [facility] [address] [place], [address] CBC W/Diff, Automatedon 03-10 8-2023 Absolute Lymph 2.11 X10 3/uL Normal 0.83-4.51 [facility] Comment on above: Performed By: #### L 100.0100, L501.4020, L300.8000, L500.2500 #### [facility] [address] [place], [address] Absolute Neut 8.9 X10 3/uL High 2.0-7.7 [facility] Comment on above: Performed By: #### L 100.0100, L501.4020, L300.8000, L500.2500 #### [facility] [address] [place], [address] Basophils/100 WBC (Bld) 0.3 % Normal 0-1 [facility] Comment on above: Performed By: #### L 100.0100, L501.4020, L300.8000, L500.2500 #### [facility] [address] [place], [address] Eosinophils/100 WBC (Bld) 1.1 % Normal 0-5 [facility] Comment on above: Performed By: #### L 100.0100, L501.4020, L300.8000, L500.2500 #### [facility] [address] [place], [address] Erythrocyte distribution width (RBC) [Ratio] 13.8 % Normal 11.6-14.6 [facility] Comment on above: Performed By: #### L 100.0100, L501.4020, L300.8000, L500.2500 #### [facility] [address] [place], [address] Hematocrit (Bld) [Volume fraction] 41.7 % Normal 37-47 [facility] Comment on above: Performed By: #### L 100.0100, L501.4020, L300.8000, L500.2500 #### [facility] [address] [place], [address] Hemoglobin (Bld) [Mass/Vol] 13.1 g/dL Normal 12.0-15.0 [facility]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 malaise, nonproductive cough, chest discomfort specially when she coughs. She has had some minor wheezing and has used her albuterol inhaler a couple times, she denies any severe dyspnea, consistent with her asthma. She denies any fevers or chills. She has been around several people workup been sick as well. She went to urgent care yesterday and had a negative COVID/influenza/RSV swab, and concerned because she feels like she is getting worse due to the wheezing and asthma involvement now. ROS ROS ED Constitutional Constitutional ED: Reports body ache(s), headache(s) and malaise; Denies chills or fever(s) ENT ENT ED: Reports ear pain bilateral, nasal congestion, rhinorrhea and sore throat Cardiovascular Cardiovascular: Reports chest pain; Denies palpitations Respiratory/Chest Respiratory/Chest: Reports cough, dyspnea and wheezing Gastrointestinal Gastrointestinal: Denies abdominal pain, diarrhea, nausea or vomiting Genitourinary Genitourinary ED: Denies dysuria or hematuria Musculoskeletal Musculoskeletal: Denies myalgias or neck pain Integumentary Denies abscess or rash Neurologic Neurologic: Reports headache(s); Denies paresthesias or weakness Psychiatric Psychiatric: Denies depression or suicidal thoughts Endocrine Endocrinology: Denies polydipsia or polyuria [facility] Medical History Asthma Home Medications albuterol sulfate 2.5 mg/3 mL (0.083 %) solution for nebulization 2.5 mg (3 mL) inhalation Q4H PRN #25 vials 11/07/23 [Rx Last Taken Unknown] albuterol sulfate 90 mcg/actuation aerosol inhaler (Proventil HFA) 2 inh inhalation Q4H PRN shortness of breath or wheezing #8.5 grams 11/07/23 [Rx Last Taken Unknown] ondansetron 4 mg disintegrating tablet 4 mg PO Q8H PRN PRN Nausea #14 tabs 12/10/23 [Rx Last Taken Unknown] amoxicillin 875 mg-potassium clavulanate 125 mg tablet 875 mg (0.875 x 875-125 mg) PO Q12H #20 TABLETS 12/27/23 [Rx Last Taken Unknown] prednisone 20 mg tablet 40 mg (2 x 20 mg) PO DAILY #10 TABLETS 12/27/23 [Rx Last Taken Unknown] Allergy/AdvReac Type Severity Reaction Status Date / Time No Known Allergies Allergy Verified 12/27/23 20:38 Surgical History History of tonsillectomy and adenoidectomy Social History household members: family Smoking Status: Never smoker substance use type: does not use EXAM Physical Exam Const Vital Signs: 12/27/23 20:38 12/27/23 22:39 Temperature 97.9 F Temperature Source Temporal Pulse Rate 103 H Respiratory Rate 18 Respiratory Effort Normal Non-Labored Respiratory Pattern Normal Blood Pressure 121/86 H Blood Pressure Mean 97 Pulse Ox 95 Positive well nourished and well developed General Appearance ED: well developed and NAD HEENT Reports moist mucous membranes HEENT Narrative: No trismus. No palpable lymphadenopathy. No sinus tenderness. Right TM and EAC are normal. The left EAC is normal, but the left tympanic membrane is erythematous. There is no bulging yet. normocephalic and atraumatic Throat: Negative for posterior oropharynx abnormal Eyes PERRL and EOMs intact bilaterally Neck no lymphadenopathy, supple and no meningeal signs Resp normal respiratory effort and clear to auscultation bilaterally Resp Narrative: Bronchitic cough. No respiratory distress. Speaking full sentences. Cardio no murmurs Rate: regular rate Rhythm: regular rhythm GI non-tender and non-distended Neuro oriented x3, CN's II-XII intact bilaterally and no sensory deficits noted Sensorium / Orientation: alert Motor Exam: strength 5/5 throughout Skin Lesions: no lesions Rashes: no rashes MDM MDM MDM Narrative Medical decision making narrative: Due to mild tachycardia 2 view chest x-ray was obtained to evaluate for possibility of pneumonia. My interpretation it is negative for acute consolidation/infiltrate. I reviewed the radiology interpretation, which is for possibly retrocardiac left airspace disease, this may indicate atelectasis, her lungs are clear and she is not hypoxic and treating her for ear infection anyway so I think it is academic but advised to follow-up if she does not g (more content not included)... Normal [facility] Emergency Department Summary on 12-10-2023 Emergency Department Summary [facility] Medical Records Department [address] [place] [address] Emergency Department Summary 12/10/23 MR#: [id number] Acct: [id number] Name: JOANNA SCHUSTER Rep #: [id number] : 2000 23 From: Jd Arteaga DO PCP: Dr. Ko Del Toro MD Status:DEP ER Location: ED HPI HPI - GI History of Present Illness Chief Complaint: Nausea/Vomiting/Diarrhea Narrative Narrative: 23-year-old female with nausea, vomiting, diarrhea since . 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 Patient states he has some abdominal cramping. She has not had a fever but also states her thermometer does not work. She has not a cough or shortness of breath. She states she has been able to drink fluids but anytime she tries to eat she vomits. Otherwise she states she is healthy. [facility] Medical History Asthma Home Medications albuterol sulfate 2.5 mg/3 mL (0.083 %) solution for nebulization 2.5 mg (3 mL) inhalation Q4H PRN #25 vials 11/07/23 [Rx Last Taken Unknown] albuterol sulfate 90 mcg/actuation aerosol inhaler (Proventil HFA) 2 inh inhalation Q4H PRN shortness of breath or wheezing #8.5 grams 11/07/23 [Rx Last Taken Unknown] ondansetron 4 mg disintegrating tablet 4 mg PO Q8H PRN PRN Nausea #14 tabs 12/10/23 [Rx Last Taken Unknown] Allergy/AdvReac Type Severity Reaction Status Date / Time No Known Allergies Allergy Verified 12/10/23 18:24 Surgical History History of tonsillectomy and adenoidectomy Social History household members: family Smoking Status: Never smoker substance use type: does not use ROS ROS ED Constitutional Constitutional ED: Reports chills; Denies fever(s) or sweats Eyes Eyes: Denies blurry vision or change in vision ENT ENT ED: Denies ear pain or sore throat Cardiovascular Cardiovascular: Denies chest pain, palpitations or racing heartbeat Respiratory/Chest Respiratory/Chest: Denies cough, dyspnea or sputum Gastrointestinal Gastrointestinal: Reports abdominal pain, diarrhea, nausea and vomiting; Denies constipation Genitourinary Genitourinary ED: Denies dysuria, hematuria or urinary frequency Musculoskeletal Musculoskeletal: Denies arthralgias, myalgias or neck pain Integumentary Denies abscess, Abrasions or rash Neurologic Neurologic: Denies headache(s), paresthesias or weakness Psychiatric Psychiatric: Denies anxiety, depression, suicidal ideation or suicidal thoughts Endocrine Endocrinology: Denies polydipsia or polyuria EXAM Physical Exam Const Vital Signs: 12/10/23 18:24 Temperature 97.8 F Temperature Source Temporal Pulse Rate 99 Respiratory Rate 18 Blood Pressure 111/80 Blood Pressure Mean 90 Pulse Ox 98 Oxygen Delivery Method Room Air Positive well nourished General Appearance ED: NAD HEENT Reports moist mucous membranes normocephalic and atraumatic Eyes PERRL and EOMs intact bilaterally Resp normal respiratory effort Cardio regular rate and regular rhythm GI non-tender and non-distended Neuro CN's II-XII intact bilaterally and moves all extremities Sensorium / Orientation: alert Psych mental status grossly normal and thought process normal Skin no wounds MDM MDM MDM Narrative Medical decision making narrative: Patient presenting with symptoms of a suspected viral nature. Discussed with the patient. She is offered testing but declines. She states she just wants to feel better. She is given Zofran and Bentyl. Will reevaluate. Patient feeling improved after treatment. She is medication. Return precautions discussed. Impression: 1 viral Discharge Plan Triage Chief Complaint: Nausea/Vomiting/Diarrhea ED Provider: Jd Arteaga Dx/Rx/DC Orders Instructions: ED Gastroenteritis, Viral (Adult) Prescriptions: New ondansetron 4 mg tablet,disintegrating 4 mg PO Q8H PRN PRN (Reason: Nausea) Qty: 14 0RF No Action albuterol sulfate [Proventil HFA] 90 mcg/actuation HFA aerosol inhaler 2 inh inhalation Q4H PRN (Reason: shortness of breath or wheezing) Qty: 8.5 1RF albuterol sulfate 2.5 mg /3 mL (0.083 %) solution for nebulization 2.5 mg inhalation Q4H PRN Qty: 25 0RF Rx Instructions: Use q4 hours and PRN for wheezing Stand Alone Forms: ED Work / School Excuse Primary Care Provider: Ko Del Toro Referrals: Ko Del Toro MD [Primary Care Provider] - Disposition Disposition: Home, Self Care Discharge Date/Time: 12/10/23 20:41 What to do if you have Problems For any increased pain, shortness of breath, bleeding, nausea or vomiting, chest pain, or any unexpected problems, cont (more content not included)... Normal [facility] 11-26-2023 [facility] ----- JOANNA SCHUSTER ([id number]) 4 F Date Time Provider Department 11/26/23 ALVARO VILLARREAL [facility] During your visit today, we recorded the following information about you: Alvaro Villarreal APRN.[facility] 11/26/2023 8:10 AM Signed Please call and notify patient that urine culture did not grow any bacteria. If patient's symptoms are not improving patient needs to follow-up with either PCP or SHIPPING LEAD PERSON. Jennifer Tinsley MA 11/26/2023 1:42 PM Signed Left message for pt to call back. CURLY Causey Melissa 11/27/2023 12:09 PM Signed Patient given results and verbalized understanding of instructions given. Breanna Ely Allergies As of Date: 11/26/2023 (No Known Allergies) Date Reviewed: 11/24/2023 Reviewed by: Ko Dotson APRN.[employer] - Fully Assessed Reason for Visit: Results [95] Prescriptions as of 11/27/2023 - fluticasone (FLONASE) 50 mcg/actuation nasal spray Use 2 Sprays in each nostril once daily. Rinse mouth after use. - albuterol HFA (PROVENTIL HFA, VENTOLIN HFA) 90 mcg/actuation inhaler Inhale 2 Puffs as instructed. - fluticasone (FLOVENT) 110 mcg/actuation inhaler Inhale 1 Puff as instructed twice daily. Problem List As Of Date: 11/26/2023 (None) Encounter Status:Closed by BREANNA ELY on 11/27/23 Normal [facility] Bacteria Ur Culton 4 Bacteria identified Cx Nom (U) CULTURE, URINE: No growth (<1,000 CFU/ml) Normal [facility] Comment on above: Performed By: #### 6 30-4 ####[facility] LAB[facility] [id number] [place] [id number] [place] CNOVon 11-24-2023 CNOV Office Visit (UCWSTR ) ----- JOANNA SCHUSTER ([id number]) 4 F Date Time Provider Department 11/24/23 7:45 PM KO DOTSON [facility] During your visit today, we recorded the following information about you: Temperature Pulse Respiration Blood pressure 99 degrees 109/minute 18/minute 103/76 Weight Last Period 97.1 kg 11/17/23 CristiKo craft, TELEPHONE SOLICITOR SUPERVISOR.[employer] 11/24/2023 8:14 PM Signed Subjective HPI Nontoxic-appearing female presents urgent care [...] for any new, worsening, or symptoms lasting (more content not included)... Normal [facility] UA DIP, URINE (POC)on 2023 BILIRUBIN UA (POCT) Negative Negative [facility] CLARITY UA (POCT) Clear [facility] COLOR UA (POCT) Yellow [facility] GLUCOSE UA (POCT) Negative Negative mg/dL [facility] Hemoglobin Ql (U) Negative [facility] KETONE UA (POCT) Negative Negative mg/dL [facility] LEUKOCYTES UA (POCT) Negative Negative [facility] NITRITE UA (POCT) Negative [facility] PH UA (POCT) 6.5 4.5 - 8.0 [facility] Protein Ql (U) Negative Negative mg/dL [facility] SPECIFIC GRAVITY UA (POCT) 1.025 1.005 - 1.030 [facility] UROBILINOGEN UA (POCT) 0.2 E.U./dL Ines l E.U./dL [facility] Laboratory - Microbiology an d Antimicrobial susceptibilityOrdered By: Ramone Tomas on 11-07-2023 SARS-CoV-2 (COVID-19) RNA ABRAHAM+probe Ql (Unsp spec) RSV [facility] SARS-CoV-2 (COVID-19) RNA ABRAHAM+probe Ql (Unsp spec) RSV [facility] STREP A MOLECULAR (POC)on Procedural Control Valid [facility] Strep A (POCT) Negative Negative [facility] Absolute lymphocyte countOrd ered By: Ramone Tomas on 05-01-2023 Lymphocytes Auto (Unsp spec) [#/Vol] 1.98 10*3/uL 0.83-4.51 [facility] Basophil percentageOrdered B y: Ramone Tomas on 05-01-2023 Basophil percentage 0 SEEN /hpf 0-5 [facility] Basophils/100 WBC (Bld) 0.3 % 0-1 [facility] Bilirubin [Mass/Vol] 0.30 mg/dL 0.20-1.00 [facility] Comment on above: For patients on eltr ombopag therapy, use of Dimension [place] TBIL is not recommended. Chloride [Moles/Vol] 107 mmol/L 98-107 [facility] Eosinophils/100 WBC (Bld) 0.5 % 0-5 [facility] Glucose [Mass/Vol] 84 mg/dL 74-106 [facility] Neutrophils (Bld) [#/Vol] 10.3 10*3/uL 2.0-7.7 [facility] Neutrophils/100 WBC (Bld) 77.1 % 47-70 [facility] Potassium [Moles/Vol] 3.8 mmol/L 3.5-5.1 [facility] Protein [Mass/Vol] 7.4 g/dL 6.4-8.2 [facility] Sodium [Moles/Vol] 139 mmol/L 136-145 [facility] WBC (Bld) [#/Vol] 13.4 10*3/uL 4.4-11.0 [facility] Beta hCG serum qualOrdered B y: Ramone Tomas on 05-01-2023 Beta HCG ( test) Ql Negative [facility] Bilirubin Test strip Ql (U)O rdered By: Ramone Tomas on 05-01-2023 Bilirubin Ql (U) Negative Negative [facility] Blood erythrocytes count (nu mber/volume)Ordered By: Ramone Tomas on 05-01-2023 RBC (Bld) [#/Vol] 4.69 10*6/uL 4.2-5.4 [facility] Blood hemoglobin measurement (mass/volume)Ordered By: Ramone Tomas on 05-01-2023 Hemoglobin (Bld) [Mass/Vol] 12.7 g/dL 12.0-15.0 [facility] Blood lymphocytes/100 leukoc ytesOrdered By: Ramone Tomas on 05-01-2023 Lymphocytes/100 WBC (Bld) 14.8 % 19-41 [facility] Blood monocytes/100 leukocyt esOrdered By: Ramone Tomas on 05-01-2023 Monocytes/100 WBC (Bld) 6.9 % 0-10 [facility] Blood platelet mean volumeOr dered By: Ramone Tomas on 05-01-2023 Platelet mean volume (Bld) [Entitic vol] 9.6 fL 6.2-12.0 [facility] Determination of erythrocyte mean corpuscular volume (MCV)Ordered By: Ramone Tomas on 05-01-2023 MCV (RBC) [Entitic vol] 84.9 fL 81-99 [facility] Hematocrit Auto (Bld) [Volum e fraction]Ordered By: Ramone Tomas on 05-01-2023 Hematocrit (Bld) [Volume fraction] 39.8 % 37-47 [facility] Ketones Test strip Ql (U)Ord ered By: Ramone Tomas on 05-01-2023 Ketones Ql (U) Negative Negative [facility] Laboratory - Chemistry and C hemistry - challengeOrdered By: Ramone Tomas on 05-01-2023 ALP [Catalytic activity/Vol] 79 U/L 45-117 [facility] ALT [Catalytic activity/Vol] 34 U/L 13-56 [facility] CO2 [Moles/Vol] 28.0 mmol/L 21.0-32.0 [facility] Globulin (S) [Mass/Vol] 4.1 g/dL 2.2-4.2 [facility] Lipase [Catalytic activity/Vol] 21 U/L 13-75 [facility] Comment on above: Please note:LIPASE r evised reference range effective 23. New Lipase methodology. Expected to produce lower values than the previous assay method. NEW Reference Range: 13 - 75 U/L Urea nitrogen/Creatinine [Mass ratio] 8.6 mg/mg 10-20 [facility] Laboratory - Hematology and Cell countsOrdered By: Ramone Tomas on 05-01-2023 Erythrocyte distribution width (RBC) [Entitic vol] 43.5 fL 35.1-43.9 [facility] Erythrocyte distribution width (RBC) [Ratio] 14.1 % 11.6-14.6 [facility] Immature granulocytes/100 WBC (Bld) 0.400 % 0.0-0.9 [facility] Comment on above: IG% - Immature Granu locytes (promyelocytes, myelocytes and metamyelocytes) > 1% indicates that a LEFT SHIFT is Present. MCH (RBC) [Entitic mass] 27.1 pg 27.0-32.0 [facility] Nucleated RBC/100 WBC (Bld) [Ratio] 0 % 0-5 [facility] MCHC Auto (RBC) [Mass/Vol]Or dered By: Ramone Tomas on 05-01-2023 MCHC (RBC) [Mass/Vol] 31.9 g/dL 32-36 [facility] Mucus LM Ql (Urine sed)Order ed By: Ramone Tomas on 05-01-2023 Mucus Ql (Urine sed) 0 SEEN /hpf [facility] Nitrite Test strip Ql (U)Ord ered By: Ramone Tomas on 05-01-2023 Nitrite Ql (U) Negative Negative [facility] No Panel InformationOrdered By: Ramone Tomas on 05-01-2023 Estimated Creatinine Clearance Calc 99.69 ml/min [facility] Estimated GFR (MDRD) Amer 115 mL/min >60 [facility] Comment on above: GFR Calc Estimated GFR (MDRD) Non-Af Amer 95 mL/min >60 [facility] Comment on above: Non- GFR Calc Platelets bldOrdered By: Gil Tomas on 05-01-2023 Platelets (Bld) [#/Vol] 375 10*3/uL 150-450 [facility] Protein Test strip Ql (U)Ord ered By: Ramone Tomas on 05-01-2023 Protein Ql (U) Negative Negative [facility] Serum or plasma albumin marion urement (mass/volume)Ordered By: Ramone Tomas on 05-01-2023 Albumin [Mass/Vol] 3.3 g/dL 3.2-5.0 [facility] Serum or plasma albumin/glob ulin mass ratioOrdered By: Ramone Tomas on 05-01-2023 Albumin/Globulin [Mass ratio] 0.8 {ratio} 0.9-2.4 [facility] Serum or plasma calcium marion urement (mass/volume)Ordered By: Ramone Tomas on 05-01-2023 Calcium [Mass/Vol] 8.7 mg/dL 8.5-10.1 [facility] Serum or plasma creatinine m easurement (mass/volume)Ordered By: Ramone Tomas on 05-01-2023 Creatinine [Mass/Vol] 0.81 mg/dL 0.55-1.02 [facility] Comment on above: The validity of the calculated GFR & GFRAA in patients over 70 years has not been determined. Clinical correlation is essential. Serum or plasma urea nitroge n measurement (mass/volume)Ordered By: Ramone Tomas on 05-01-2023 Urea nitrogen [Mass/Vol] 7 mg/dL 7-18 [facility] Squamous epithelial cells de tection in urine sediment by light microscopyOrdered By: Ramone Tomas on 05-01-2023 Epithelial cells.squamous LM Ql (Urine sed) 5-10 SEEN /hpf 5-10 [facility] Thin prep Papanicolaou smear with manual screeningOrdered By: Ramone Tomas on 05-01-2023 Thin prep Papanicolaou smear with manual screening 10 U/L 15-37 [facility] Thin prep Papanicolaou smear with manual screening 4 5-15 [facility] Urine blood detectionOrdered By: Ramone Tomas on 05-01-2023 RBC Ql (U) Negative Negative [facility] RBC Ql (U) 0 SEEN /hpf 0-5 [facility] Urine clarityOrdered By: Gil Tomas on 05-01-2023 Clarity (U) Sl. Cloudy Clear [facility] Urine color determinationOrd ered By: Ramone Tomas on 05-01-2023 Color (U) Yellow Yellow [facility] Urine glucose detectionOrder ed By: Ramone Tomas on 05-01-2023 Glucose Ql (U) Normal mg/dl Normal [facility] Urine leukocyte esterase det ection by dipstickOrdered By: Ramone Tomas on 05-01-2023 Leukocyte esterase Test strip Ql (U) Negative Negative [facility] Urine pHOrdered By: Ramone Santa ghrebekah on 05-01-2023 pH (U) 7.0 [pH] 5.0 - 8.0 [facility] Urine sediment bacteria coun t by microscopy (number/high power field)Ordered By: Ramone Tomas on 05-01-2023 Bacteria LM.HPF (Urine sed) [#/Area] 0 /[HPF] None Seen [facility] Urine specific gravity measu rementOrdered By: Ramone Tomas on 05-01-2023 Specific gravity (U) [Rel density] 1.010 1.002-1.03 0 [facility] Urobilinogen Auto test strip Ql (U)Ordered By: Ramone Tomas on 05-01-2023 Urobilinogen Ql (U) Normal mg/dl Normal [facility] Absolute lymphocyte countOrd ered By: Tom Hein on 04-12-2023 Lymphocytes Auto (Unsp spec) [#/Vol] 1.86 10*3/uL 0.83-4.51 [facility] Basophil percentageOrdered B y: Tom Hein on 04-12-2023 Basophils/100 WBC (Bld) 0.3 % 0-1 [facility] Chloride [Moles/Vol] 107 mmol/L 98-107 [facility] Eosinophils/100 WBC (Bld) 0.4 % 0-5 [facility] Glucose [Mass/Vol] 83 mg/dL 74-106 [facility] Neutrophils (Bld) [#/Vol] 12.7 10*3/uL 2.0-7.7 [facility] Neutrophils/100 WBC (Bld) 81.5 % 47-70 [facility] Potassium [Moles/Vol] 3.8 mmol/L 3.5-5.1 [facility] Sodium [Moles/Vol] 137 mmol/L 136-145 [facility] WBC (Bld) [#/Vol] 15.6 10*3/uL 4.4-11.0 [facility] Blood erythrocytes count (nu mber/volume)Ordered By: Tom Hein on 04-12-2023 RBC (Bld) [#/Vol] 4.48 10*6/uL 4.2-5.4 [facility] Blood hemoglobin measurement (mass/volume)Ordered By: Tom Hein on 04-12-2023 Hemoglobin (Bld) [Mass/Vol] 12.0 g/dL 12.0-15.0 [facility] Blood lymphocytes/100 leukoc ytesOrdered By: Tom Hein on 04-12-2023 Lymphocytes/100 WBC (Bld) 11.9 % 19-41 [facility] Blood monocytes/100 leukocyt esOrdered By: Tom Hein on 04-12-2023 Monocytes/100 WBC (Bld) 5.6 % 0-10 [facility] Blood platelet mean volumeOr dered By: Tom Hein on 04-12-2023 Platelet mean volume (Bld) [Entitic vol] 10.0 fL 6.2-12.0 [facility] Determination of erythrocyte mean corpuscular volume (MCV)Ordered By: Tom Hein on 04-12-2023 MCV (RBC) [Entitic vol] 85.3 fL 81-99 [facility] Hematocrit Auto (Bld) [Volum e fraction]Ordered By: Tom Hein on 04-12-2023 Hematocrit (Bld) [Volume fraction] 38.2 % 37-47 [facility] - Chemistry and C hemistry - challengeOrdered By: Tom Hein on 04-12-2023 HCG ( test) Ql (U) Negative [facility] Comment on above: Very dilute urine sp ecimens, as indicated by a low specificgravity, may not contain fundraising sale representative levels of hCG. If is still suspected, a first morning urinespecimen should be collected 48 hours later and tested. CO2 [Moles/Vol] 25.0 mmol/L 21.0-32.0 [facility] Natriuretic peptide B (Bld) [Mass/Vol] 14.1 pg/mL 0-100 [facility] Urea nitrogen/Creatinine [Mass ratio] 11.5 mg/mg 10-20 [facility] - Hematology and Cell countsOrdered By: Tom Hein on 04-12-2023 Erythrocyte distribution width (RBC) [Entitic vol] 45.5 fL 35.1-43.9 [facility] Erythrocyte distribution width (RBC) [Ratio] 14.6 % 11.6-14.6 [facility] Immature granulocytes/100 WBC (Bld) 0.300 % 0.0-0.9 [facility] Comment on above: IG% - Immature Granu locytes (promyelocytes, myelocytes and metamyelocytes) > 1% indicates that a LEFT SHIFT is Present. MCH (RBC) [Entitic mass] 26.8 pg 27.0-32.0 [facility] Nucleated RBC/100 WBC (Bld) [Ratio] 0 % 0-5 [facility] MCHC Auto (RBC) [Mass/Vol]Or dered By: Tom Hein on 04-12-2023 MCHC (RBC) [Mass/Vol] 31.4 g/dL 32-36 [facility] No Panel InformationOrdered By: Tom Hein on 04-12-2023 Troponin I High Sensitivity 15 pg/mL 3.0-54.0 [facility] Comment on above: Please Note: New Maddie t Units and Gender Specific Reference Ranges. For more information see Policy Stat Procedure [place] High Sensitivity Troponin (TNIH) and attachments. D-Dimer Quantitative (PE/DVT) 0.44 FEU/ug/m 0.27-0.49 [facility] Comment on above: NORMAL D-Dimer level (<0.50) indicates no DVT or PE. Estimated Creatinine Clearance Calc 103.53 ml/min [facility] Estimated GFR (MDRD) Amer 120 mL/min >60 [facility] Comment on above: GFR Calc Estimated GFR (MDRD) Non-Af Amer 100 mL/min >60 [facility] Comment on above: Non- GFR Calc Platelets bldOrdered By: Cata Hein on 04-12-2023 Platelets (Bld) [#/Vol] 317 10*3/uL 150-450 [facility] Serum or plasma calcium marion urement (mass/volume)Ordered By: Tom Hein on 04-12-2023 Calcium [Mass/Vol] 8.9 mg/dL 8.5-10.1 [facility] Serum or plasma creatinine m easurement (mass/volume)Ordered By: Tom Hein on 04-12-2023 Creatinine [Mass/Vol] 0.78 mg/dL 0.55-1.02 [facility] Comment on above: The validity of the calculated GFR & GFRAA in patients over 70 years has not been determined. Clinical correlation is essential. Serum or plasma urea nitroge n measurement (mass/volume)Ordered By: Tom Hein on 04-12-2023 Urea nitrogen [Mass/Vol] 9 mg/dL 7-18 [facility] Thin prep Papanicolaou smear with manual screeningOrdered By: Tom Hein on 04-12-2023 Thin prep Papanicolaou smear with manual screening 5 5-15 [facility] STREP A MOLECULAR (POC)on Procedural Control Valid [facility] Strep A (POCT) Negative Negative [facility] Absolute lymphocyte countOrd ered By: Dr. Jeffries on 12-18-2022 Lymphocytes Auto (Unsp spec) [#/Vol] 1.68 10*3/uL 0.83-4.51 [facility] Basophil percentageOrdered B y: Dr. Jeffries on 12-18-2022 Basophils/100 WBC (Bld) 0.2 % 0-1 [facility] Chloride [Moles/Vol] 109 mmol/L 98-107 [facility] Eosinophils/100 WBC (Bld) 1.2 % 0-5 [facility] Glucose [Mass/Vol] 96 mg/dL 74-106 [facility] Neutrophils (Bld) [#/Vol] 10.2 10*3/uL 2.0-7.7 [facility] Neutrophils/100 WBC (Bld) 78.5 % 47-70 [facility] Potassium [Moles/Vol] 4.0 mmol/L 3.5-5.1 [facility] Sodium [Moles/Vol] 141 mmol/L 136-145 [facility] WBC (Bld) [#/Vol] 13.0 10*3/uL 4.4-11.0 [facility] Blood erythrocytes count (nu mber/volume)Ordered By: Dr. Jeffries on 12-18-2022 RBC (Bld) [#/Vol] 4.51 10*6/uL 4.2-5.4 [facility] Blood hemoglobin measurement (mass/volume)Ordered By: Dr. Jeffries on 12-18-2022 Hemoglobin (Bld) [Mass/Vol] 11.9 g/dL 12.0-15.0 [facility] Blood lymphocytes/100 leukoc ytesOrdered By: Dr. Jeffries on 12-18-2022 Lymphocytes/100 WBC (Bld) 13.0 % 19-41 [facility] Blood monocytes/100 leukocyt esOrdered By: Dr. Jeffries on 12-18-2022 Monocytes/100 WBC (Bld) 6.5 % 0-10 [facility] Blood platelet mean volumeOr dered By: Dr. Jeffries on 12-18-2022 Platelet mean volume (Bld) [Entitic vol] 9.3 fL 6.2-12.0 [facility] Determination of erythrocyte mean corpuscular volume (MCV)Ordered By: Dr. Jeffries on 12-18-2022 MCV (RBC) [Entitic vol] 84.7 fL 81-99 [facility] Hematocrit Auto (Bld) [Volum e fraction]Ordered By: Dr. Jeffries on 12-18-2022 Hematocrit (Bld) [Volume fraction] 38.2 % 37-47 [facility] - Chemistry and C hemistry - challengeOrdered By: Dr. Jeffries on 12-18-2022 HCG ( test) Ql (U) Negative [facility] Comment on above: Very dilute urine sp ecimens, as indicated by a low specificgravity, may not contain fundraising sale representative levels of hCG. If is still suspected, a first morning urinespecimen should be collected 48 hours later and tested. CO2 [Moles/Vol] 25.0 mmol/L 21.0-32.0 [facility] Urea nitrogen/Creatinine [Mass ratio] 9.3 mg/mg 10-20 [facility] - Hematology and Cell countsOrdered By: Dr. Jeffries on 12-18-2022 Erythrocyte distribution width (RBC) [Entitic vol] 48.2 fL 35.1-43.9 [facility] Erythrocyte distribution width (RBC) [Ratio] 15.5 % 11.6-14.6 [facility] Immature granulocytes/100 WBC (Bld) 0.600 % 0.0-0.9 [facility] Comment on above: IG% - Immature Granu locytes (promyelocytes, myelocytes and metamyelocytes) > 1% indicates that a LEFT SHIFT is Present. MCH (RBC) [Entitic mass] 26.4 pg 27.0-32.0 [facility] Nucleated RBC/100 WBC (Bld) [Ratio] 0 % 0-5 [facility] MCHC Auto (RBC) [Mass/Vol]Or dered By: Dr. Jeffries on 12-18-2022 MCHC (RBC) [Mass/Vol] 31.2 g/dL 32-36 [facility] No Panel InformationOrdered By: Dr. Jeffries on 12-18-2022 D-Dimer Quantitative (PE/DVT) 0.45 FEU/ug/m 0.27-0.49 [facility] Comment on above: NORMAL D-Dimer level (<0.50) indicates no DVT or PE. Estimated Creatinine Clearance Calc 124.23 ml/min [facility] Estimated GFR (MDRD) Amer 150 mL/min >60 [facility] Comment on above: GFR Calc Estimated GFR (MDRD) Non-Af Amer 124 mL/min >60 [facility] Comment on above: Non- GFR Calc Thyroid Stimulating Hormone (TSH) 2.81 uIU/mL 0.358-3.74 [facility] Troponin I High Sensitivity < 3 pg/mL 3.0-54.0 [facility] Comment on above: Please Note: New Maddie t Units and Gender Specific Reference Ranges. For more information see Policy Stat Procedure [place] High Sensitivity Troponin (TNIH) and attachments. Platelets bldOrdered By: Dr. Jeffries on 12-18-2022 Platelets (Bld) [#/Vol] 310 10*3/uL 150-450 [facility] Serum or plasma calcium marion urement (mass/volume)Ordered By: Dr. Jeffries on 12-18-2022 Calcium [Mass/Vol] 9.1 mg/dL 8.5-10.1 [facility] Serum or plasma creatinine m easurement (mass/volume)Ordered By: Dr. Jeffries on 12-18-2022 Creatinine [Mass/Vol] 0.65 mg/dL 0.55-1.02 [facility] Comment on above: The validity of the calculated GFR & GFRAA in patients over 70 years has not been determined. Clinical correlation is essential. Serum or plasma urea nitroge n measurement (mass/volume)Ordered By: Dr. Jeffries on 12-18-2022 Urea nitrogen [Mass/Vol] 6 mg/dL 7-18 [facility] Thin prep Papanicolaou smear with manual screeningOrdered By: Dr. Jeffries on 12-18-2022 Thin prep Papanicolaou smear with manual screening 7 5-15 [facility] Influenza virus A and B and SARS-CoV-2 (COVID-19) Ag panel - Upper respiratory specimOrdered By: Randall Jacobs on 12-16-2022 SARS-CoV-2 (COVID-19) RNA ABRAHAM+probe Ql (Resp) [facility] Influenza virus A and B and SARS-CoV-2 (COVID-19) Ag panel - Upper respiratory specimOrdered By: Randall Jacobs on 12-15-2022 SARS-CoV-2 (COVID-19) RNA ABRAHAM+probe Ql (Resp) [facility] EBV (VCA) IgG Abon 2 EBV VCA IgG, Qualitative Positive Normal [facility] Comment on above: Order Comment: Relea se to patient->Automatic [id number]&Blood Result Comment: Refe rence Range: Negative The result suggests recent or past EBV infection. The final interpretation should be done in the context of other EBV serology panel results. Testing Performed: [facility] [address] [place] [phone] Performed By: #### E BVIG #### [address] [address] EBV (VCA) IgM Abon 2 EBV (VCA) IgM Qualitative Negative Normal [facility] Comment on above: Order Comment: Relea se to patient->Automatic 56394&Blood Result Comment: Refe rence Range: Negative No serological evidence of recent EBV infection. Testing Performed: [facility] [address] [place] [phone] Performed By: #### E BVIM #### [address] [address] Comp Metabolic Panelon 09-17 Protein [Mass/Vol] 8.3 g/dL Normal 5.9-8.4 [facility] Comment on above: Order Comment: Relea se to patient->Automatic 12721&Blood Performed By: #### C MP #### [address] [address] Urea nitrogen [Mass/Vol] 9 mg/dL Normal 4-19 [facility] Comment on above: Order Comment: Relea se to patient->Automatic 93983&Blood Performed By: #### C MP #### [address] [address] Albumin [Mass/Vol] 4.0 g/dL Normal 3.5-5.0 [facility] Comment on above: Order Comment: Relea se to patient->Automatic 39520&Blood Performed By: #### C MP #### [address] [address] ALP [Catalytic activity/Vol] 80 U/L Normal 35-104 [facility] Comment on above: Order Comment: Relea se to patient->Automatic 31228&Blood Performed By: #### C MP #### [address] [address] ALT [Catalytic activity/Vol] 30 U/L Normal 0-34 [facility] Comment on above: Order Comment: Relea se to patient->Automatic 21746&Blood Performed By: #### C MP #### [address] [address] AST [Catalytic activity/Vol] 12 U/L Normal 0-31 [facility] Comment on above: Order Comment: Relea se to patient->Automatic 51293&Blood Performed By: #### C MP #### [address] [address] Bili,Total 0.3 mg/dL Normal 0.0-1.0 [facility] Comment on above: Order Comment: Relea se to patient->Automatic 39023&Blood Performed By: #### C MP #### [address] [address] Calcium [Mass/Vol] 9.6 mg/dL Normal 7.6-11.0 [facility] Comment on above: Order Comment: Relea se to patient->Automatic 57206&Blood Performed By: #### C MP #### [address] [address] CO2 [Moles/Vol] 24.4 mmol/L Normal 22.0-29.0 [facility] Comment on above: Order Comment: Relea se to patient->Automatic 55900&Blood Performed By: #### C MP #### [address] [address] Creatinine [Mass/Vol] 0.69 mg/dL Normal 0.50-1.00 [facility] Comment on above: Order Comment: Relea se to patient->Automatic 14296&Blood Performed By: #### C MP #### [address] [address] Glucose [Mass/Vol] 87 mg/dL Normal 70-99 [facility] Comment on above: Order Comment: Relea se to patient->Automatic 43784&Blood Result Comment: Iza wang for Diagnosis of Diabetes: Fasting Specimen (no caloric intake for at least 8 hours): <100 mg/dL Normal 100-125 mg/dL Increased risk for Diabetes >125 mg/dL Diagnostic for Diabetes Random Glucose (any time of day without regard to last meal): > or = 200 mg/dL plus Classic Symptoms of Diabetes Performed By: #### C MP #### [place] [address] Chloride [Moles/Vol] 103 mmol/L Normal 96-108 [facility] Comment on above: Order Comment: Relea se to patient->Automatic 98720&Blood Performed By: #### C MP #### [place] [address] Potassium [Moles/Vol] 4.1 mmol/L Normal 3.3-5.1 [facility] Comment on above: Order Comment: Relea se to patient->Automatic 66483&Blood Performed By: #### C MP #### [address] [address] Sodium [Moles/Vol] 140 mmol/L Normal 133-145 [facility] Comment on above: Order Comment: Relea se to patient->Automatic 92230&Blood Performed By: #### C MP #### [address] [address] Complete Blood Counton 09-17 Differential Complete Manual Normal [facility] Comment on above: Order Comment: Relea se to patient->Automatic 02872&Blood Performed By: #### C BC #### [address] [address] Erythrocyte distribution width (RBC) [Ratio] 14.3 % Normal 0.0-14.4 [facility] Comment on above: Order Comment: Relea se to patient->Automatic 16618&Blood Performed By: #### C BC #### [place] [address] Hematocrit (Bld) [Volume fraction] 40.5 % Normal 36.0-44.0 [facility] Comment on above: Order Comment: Relea se to patient->Automatic 29810&Blood Performed By: #### C BC #### [place] [address] Hemoglobin (Bld) [Mass/Vol] 12.8 g/dL Normal 12.0-15.0 [facility] Comment on above: Order Comment: Relea se to patient->Automatic 08542&Blood Performed By: #### C BC #### [place] [address] Immature granulocytes/100 WBC (Bld) 0.60 % Normal [facility] Comment on above: Order Comment: Relea se to patient->Automatic 03574&Blood Result Comment: Zenaida ture Granulocyte Percent includes promyelocytes, myelocytes, and metamyelocytes. IG% > 1.0 indicates a left shift is present. With automated differentials, bands are included in the neutrophil count and not in the Immature Granulocyte Percent. Performed By: #### C BC #### [place] [address] MCH (RBC) [Entitic mass] 25.8 pg Low 26.0-34.0 [facility] Comment on above: Order Comment: Relea se to patient->Automatic 97107&Blood Performed By: #### C BC #### [place] [address] MCHC 31.6 % Normal 31.0-37.0 [facility] Comment on above: Order Comment: Relea se to patient->Automatic 31651&Blood Performed By: #### C BC #### [address] [address] MCV (RBC) [Entitic vol] 81.5 fL Normal 80.0-100.0 [facility] Comment on above: Order Comment: Relea se to patient->Automatic 08356&Blood Performed By: #### C BC #### [address] [address] Nucleated RBC/100 WBC (Bld) [Ratio] 0.0 % Normal -1.0-0.0 [facility] Comment on above: Order Comment: Relea se to patient->Automatic 27074&Blood Performed By: #### C BC #### [address] [address] Platelet mean volume (Bld) [Entitic vol] 9.9 fL Normal [facility] Comment on above: Order Comment: Relea se to patient->Automatic 10611&Blood Result Comment: MPV is platelet range and age dependent Performed By: #### C BC #### [address] [address] Platelets (Bld) [#/Vol] 394 10*3/uL Normal 150-450 [facility] Comment on above: Order Comment: Relea se to patient->Automatic 74381&Blood Performed By: #### C BC #### [address] [address] RBC 4.97 10E12/L High 4.00-4.90 [facility] Comment on above: Order Comment: Relea se to patient->Automatic 68076&Blood Performed By: #### C BC #### [address] [address] WBC (Bld) [#/Vol] 10.8 10*3/uL Normal 4.5-11.0 [facility] Comment on above: Order Comment: Relea se to patient->Automatic 17606&Blood Performed By: #### C #### [place] [id number] Complete Blood Count with Di fferentialon 09-17-2022 Differential Complete Manual [facility] Erythrocyte distribution width (RBC) [Ratio] 14.3 % 0.0 - 14.4 % [facility] Hematocrit (Bld) [Volume fraction] 40.5 % 36.0 - 44.0 % [facility] Hemoglobin (Bld) [Mass/Vol] 12.8 g/dL 12.0 - 15.0 g/dl [facility] Immature granulocytes/100 WBC (Bld) 0.6 % [facility] Comment on above: Immature Granulocyte Percent includes promyelocytes, myelocytes, and metamyelocytes. IG% > 1.0 indicates a left shift is present. With automated differentials, bands are included in the neutrophil count and not in the Immature Granulocyte Percent. MCH (RBC) [Entitic mass] 25.8 pg Low 26. 0 - 34.0 pg [facility] MCHC 31.6 % 31.0 - 37.0 % [facility] MCV (RBC) [Entitic vol] 81.5 fL 80.0 - 100.0 fl [facility] Nucleated RBC/100 WBC (Bld) [Ratio] 0 % -1.0 - 0.0 % [facility] Platelet mean volume (Bld) [Entitic vol] 9.9 fL [facility] Comment on above: MPV is platelet range and age dependent Platelets (Bld) [#/Vol] 394 10*3/uL [facility] RBC (Bld) [#/Vol] 4.97 10*6/uL High [facility] WBC (Bld) [#/Vol] 10.8 10*3/uL [facility] Comprehensive metabolic pane l (Lab Collect)on 09-17-2022 Albumin [Mass/Vol] 4.0 g/dL 3.5 - 5.0 g/dL [facility] ALP [Catalytic activity/Vol] 80 U/L 35 - 104 U/L [facility] ALT [Catalytic activity/Vol] 30 U/L 0 - 34 U/L [facility] AST [Catalytic activity/Vol] 12 U/L 0 - 31 U/L [facility] Bilirubin [Mass/Vol] 0.3 mg/dL 0.0 - 1 .0 mg/dL [facility] Calcium [Mass/Vol] 9.6 mg/dL 7.6 - 11. 0 mg/dL [facility] Chloride [Moles/Vol] 103 mmol/L 96 - 10 8 mmol/L [facility] CO2 [Moles/Vol] 24.4 mmol/L 22.0 - 29.0 mmol/L [facility] Creatinine [Mass/Vol] 0.69 mg/dL 0.50 - 1.00 mg/dL [facility] Glucose [Mass/Vol] 87 mg/dL 70 - 99 mg/dL [facility] Comment on above: Criteria for Diagnos is of Diabetes: Fasting Specimen (no caloric intake for at least 8 hours): <100 mg/dL Normal 100-125 mg/dL Increased risk for Diabetes >125 mg/dL Diagnostic for Diabetes Random Glucose (any time of day without regard to last meal): > or = 200 mg/dL plus Classic Symptoms of Diabetes Potassium [Moles/Vol] 4.1 mmol/L 3.3 - 5.1 mmol/L [facility] Protein [Mass/Vol] 8.3 g/dL 5.9 - 8.4 g/dL [facility] Sodium [Moles/Vol] 140 mmol/L 133 - 145 mmol/L [facility] Urea nitrogen [Mass/Vol] 9 mg/dL 4 - 19 mg/dL [facility] Release to patient->Automatic [facility] Manual Differentialon 2021 Absolute Neutrophil No. 7.7 10E3/uL High 2.0-7.2 [facility] Comment on above: Order Comment: Relea se to patient->Automatic 34358&Blood Performed By: #### M DIFF #### [place] [address] Band Neutrophils 8 % Normal 5-11 [facility] Comment on above: Order Comment: Relea se to patient->Automatic 12429&Blood Performed By: #### M DIFF #### [address] [address] Lymphocytes 24 % Normal 24-44 [facility] Comment on above: Order Comment: Relea se to patient->Automatic 77768&Blood Performed By: #### M DIFF #### [address] [address] Metamyelocytes 0 % Normal 0-0 [facility] Comment on above: Order Comment: Relea se to patient->Automatic 71764&Blood Performed By: #### M DIFF #### [address] [address] Monocytes 5 % Normal 3-6 [facility] Comment on above: Order Comment: Relea se to patient->Automatic 81500&Blood Performed By: #### M DIFF #### [address] [address] Myelocytes 0 % Normal 0-0 [facility] Comment on above: Order Comment: Relea se to patient->Automatic 35005&Blood Performed By: #### M DIFF #### [address] [address] Promyelocytes 0 % Normal 0-0 [facility] Comment on above: Order Comment: Relea se to patient->Automatic 13601&Blood Performed By: #### M DIFF #### [address] [address] Segmented Neutrophils 63 % Normal 35-66 [facility] Comment on above: Order Comment: Relea se to patient->Automatic 95575&Blood Performed By: #### M DIFF #### [address] [address] % Metamyelocytes 0 % 0 - 0 % [facility] % Monocytes 5 % 3 - 6 % [facility] % Myelocytes 0 % 0 - 0 % [facility] % Promyelocytes 0 % 0 - 0 % [facility] Absolute Neutrophil No. 7.7 High A [facility] Band Neutrophil 8 % 5 - 11 % [facility] Lymphocytes 24 % 24 - 44 % [facility] Segmented Neutrophils 63 % 35 - 66 % [facility] Center No Panel Informationon 09-17 Interpretation and review of laboratory results Abnormal [facility] Release to patient->Automatic ACH LAB [facility] Progress Noteon 09-17-2022 Security Threat Analyst Authentication Interface Message Text Patient ID: Joanna Schuster is a 21 y.o. female. Her chief complaint(s) include: ED Follow Up Assessment 1. Pain of upper abdomen 2. Gastroesophageal reflux disease without esophagitis 3. Mild intermittent asthma without complication Plan Joanna was seen today for ed follow up. Diagnoses and associated orders for this visit: Pain of upper abdomen - Complete Blood Count with Differential; Future - Comprehensive metabolic panel (Lab Collect); Future - Isaac-Aguilar virus VCA, IgG (Lab Collect); Future - Isaac-Aguilar virus VCA, IgM (Lab Collect); Future Gastroesophageal reflux disease without esophagitis - omeprazole (PRILOSEC) 20 MG capsule; Take 1 Capsule (20 mg) by mouth daily Mild intermittent asthma without complication - albuterol (VENTOLIN) (2.5 MG/3ML) 0.083% nebulizer solution; Use 3 mL (2.5 mg) by nebulization every 4 hours as needed for Wheezing or Shortness of Breath Patient with upper abdominal pain. Lab work done earlier this week had elevated WBC count. Will repeat labs to make sure no worsening results and to make sure liver enzymes and electrolytes are normal. Will also obtain EBV titers to assess for possible mononucleosis causing the discomfort. In the meantime, will start patient on some prilosec to see if that will help settle some of the stomach issues. Instructed to start with bland diet and monitor for worsening pain. No sign of ear infection and lungs sounded clear. Refilled the albuterol to use as needed. To monitor closely for worsening symptoms or concerns. To continue with the levoquin for now. Return if symptoms worsen or fail to improve, for schedule for blood draw. Subjective She is accompanied by her mother. Independent history obtained from mother (and patient). ED Follow Up The patient was discharged 5 days ago. The patient was treated at [facility]. Her diagnosis was abdominal pain (had a CT scan of abdomen, CXR, blood work and urine, strep test). I have reviewed the discharge summary. Additional Parental Concerns: Patient hasn't been eating much over the last couple of days. Has been drinking fluids. Patient nervous about eating because it may cause worsening of abdominal pain. No fever in last 24 to 48 hours. Still with sore throat. Feels a lot postnasal drainage. Still having ear pain. Patient has been using the albuterol neb treatment. Sleeping in a recliner. Still tight in the chest. Primary Care Review of Systems Objective Vital Signs 09/17/22 1200 Temp: 36.5 C (97.7 F) TempSrc: Temporal Weight: (!) 104.2 kg There is no height or weight on file to calculate BMI. Physical Exam Constitutional: She appears well. She is active. No distress. HENT: Head: Atraumatic. Ears: Right Ear: Tympanic membrane normal. Left Ear: Tympanic membrane normal. Nose: Nasal discharge (clear nasal drainage) present. Mouth/Throat: Mucous membranes are moist. Pharynx erythema (minimal erythema) present. Eyes: Conjunctivae are normal. Cardiovascular: Normal rate and regular rhythm. Heart murmur not heard. Pulmonary/Chest: Breath sounds normal. There is normal air entry. Abdominal: Soft. Bowel sounds are normal. There is abdominal tenderness (mild discomfort with palpation of upper abdomen). Neurological: She is alert. Vitals reviewed: Temperature 36.5 C (97.7 F), temperature source Temporal, weight (!) 104.2 kg, last menstrual period 08/02/2022. Normal [facility] Progress Noteon 09-15-2022 Security Threat Analyst Authentication Interface Message Text Patient ID: Joanna Schuster is a 21 y.o. female. Her chief complaint(s) include: ED Follow Up Assessment 1. Viral illness 2. Dehydration Plan Joanna was seen today for ed follow up. Diagnoses and associated orders for this visit: Viral illness Dehydration Rest and fluids Call for any questions/concerns/proble ms/changes or wrsening of sx. Return recheck Tuesday [address] Anguiano. Subjective She is unaccompanied. ED Follow Up The patient was discharged 2 days ago. Her diagnosis was fever. [facility] FOR VIRAL ILLNESS COUGH NASAL CONGESTION AND FEVER TO 101 NOTED TAKING FLUIDS BETTER TODAY nO v/d OR RASHES nO BREATHING CONCERNS FEELING BETTER TODAY PER PT Primary Care Review of Systems Objective Vital Signs 09/15/22 1626 BP: 122/78 Pulse: 95 Temp: 36.1 C (97 F) TempSrc: Temporal Weight: (!) 105.9 kg There is no height or weight on file to calculate BMI. Physical Exam Nursing note reviewed. Constitutional: She appears well. She is active. No distress. HENT: Head: Atraumatic. Ears: Right Ear: Tympanic membrane normal. Left Ear: Tympanic membrane normal. Nose: Nasal discharge present. Mouth/Throat: Mucous membranes are moist. Eyes: Conjunctivae are normal. Cardiovascular: Normal rate and regular rhythm. Pulmonary/Chest: Breath sounds normal. There is normal air entry. Neurological: She is alert. Vitals reviewed: Blood pressure 122/78, pulse 95, temperature 36.1 C (97 F), temperature source Temporal, weight (!) 105.9 kg. Normal [facility] Throat Streptococcus pyogene s antigen detection by immunofluorescenceOrdered By: Dr. Arteaga on 09-14-2022 S. pyogenes Ag IF Ql (Throat) [facility] Absolute lymphocyte countOrd ered By: ED PROVIDER on 09-13-2022 Lymphocytes Auto (Unsp spec) [#/Vol] 2.01 10*3/uL 0.83-4.51 [facility] Basophil percentageOrdered B y: ED PROVIDER on 09-13-2022 Basophils/100 WBC (Bld) 0.2 % 0-1 [facility] Chloride [Moles/Vol] 107 mmol/L 98-107 [facility] Eosinophils/100 WBC (Bld) 0.1 % 0-5 [facility] Glucose [Mass/Vol] 100 mg/dL 74-106 [facility] Comment on above: Fasting Glucose resu lt from 100 to 125 mg/dL suggests IMPAIRED HOMEOSTASIS per A.D.A. criteria. Neutrophils (Bld) [#/Vol] 20.4 10*3/uL 2.0-7.7 [facility] Neutrophils/100 WBC (Bld) 84.1 % 47-70 [facility] Potassium [Moles/Vol] 3.7 mmol/L 3.5-5.1 [facility] Sodium [Moles/Vol] 136 mmol/L 136-145 [facility] WBC (Bld) [#/Vol] 24.3 10*3/uL 4.4-11.0 [facility] Basophil percentageOrdered B y: Dr. Arteaga on 09-13-2022 Bilirubin [Mass/Vol] 0.50 mg/dL 0.20-1.00 [facility] Comment on above: For patients on eltr ombopag therapy, use of Dimension [place] TBIL is not recommended. Protein [Mass/Vol] 8.2 g/dL 6.4-8.2 [facility] Beta hCG serum qualOrdered B y: ED PROVIDER on 09-13-2022 Beta HCG ( test) Ql Negative [facility] Blood erythrocytes count (nu mber/volume)Ordered By: ED PROVIDER on 09-13-2022 RBC (Bld) [#/Vol] 4.61 10*6/uL 4.2-5.4 [facility] Blood hemoglobin measurement (mass/volume)Ordered By: ED PROVIDER on 09-13-2022 Hemoglobin (Bld) [Mass/Vol] 12.2 g/dL 12.0-15.0 [facility] Blood lymphocytes/100 leukoc ytesOrdered By: ED PROVIDER on 09-13-2022 Lymphocytes/100 WBC (Bld) 8.3 % 19-41 [facility] Blood manual differential co mment interpretation (narrative result)Ordered By: ED PROVIDER on 09-13-2022 Manual differential comment Gustavo (Bld) [Interp] SEE COMMENTS [facility] Comment on above: MONOCYTOSIS NOTEDNEU TROPHILIA NOTED Blood monocytes/100 leukocyt esOrdered By: ED PROVIDER on 09-13-2022 Monocytes/100 WBC (Bld) 6.7 % 0-10 [facility] Blood platelet adequacy dete ction by light microscopyOrdered By: ED PROVIDER on 09-13-2022 Platelets LM Ql (Bld) ADEQUATE ADEQ [facility] Blood platelet mean volumeOr dered By: ED PROVIDER on 09-13-2022 Platelet mean volume (Bld) [Entitic vol] 9.6 fL 6.2-12.0 [facility] Determination of erythrocyte mean corpuscular volume (MCV)Ordered By: ED PROVIDER on 09-13-2022 MCV (RBC) [Entitic vol] 82.4 fL 81-99 [facility] Direct bilirubinOrdered By: Dr. Arteaga on 09-13-2022 Bilirubin.direct [Mass/Vol] 0.19 mg/dL 0.00-0.30 [facility] Hematocrit Auto (Bld) [Volum e fraction]Ordered By: ED PROVIDER on 09-13-2022 Hematocrit (Bld) [Volume fraction] 38.0 % 37-47 [facility] Laboratory - Chemistry and C hemistry - challengeOrdered By: ED PROVIDER on 09-13-2022 CO2 [Moles/Vol] 24.0 mmol/L 21.0-32.0 [facility] Urea nitrogen/Creatinine [Mass ratio] 8.7 mg/mg 10-20 [facility] Laboratory - Chemistry and C hemistry - challengeOrdered By: Dr. Arteaga on 09-13-2022 ALP [Catalytic activity/Vol] 85 U/L 45-117 [facility] ALT [Catalytic activity/Vol] 32 U/L 13-56 [facility] Globulin (S) [Mass/Vol] 5.0 g/dL 2.2-4.2 [facility] Lipase [Catalytic activity/Vol] 49 U/L 73-393 [facility] Laboratory - Hematology and Cell countsOrdered By: ED PROVIDER on 09-13-2022 Anisocytosis Ql (Bld) RARE [facility] Erythrocyte distribution width (RBC) [Entitic vol] 42.4 fL 35.1-43.9 [facility] Erythrocyte distribution width (RBC) [Ratio] 14.3 % 11.6-14.6 [facility] Immature granulocytes/100 WBC (Bld) 0.600 % 0.0-0.9 [facility] Comment on above: IG% - Immature Granu locytes (promyelocytes, myelocytes and metamyelocytes) > 1% indicates that a LEFT SHIFT is Present. MCH (RBC) [Entitic mass] 26.5 pg 27.0-32.0 [facility] Nucleated RBC/100 WBC (Bld) [Ratio] 0 % 0-5 [facility] MCHC Auto (RBC) [Mass/Vol]Or dered By: ED PROVIDER on 09-13-2022 MCHC (RBC) [Mass/Vol] 32.1 g/dL 32-36 [facility] No Panel InformationOrdered By: ED PROVIDER on 09-13-2022 Estimated Creatinine Clearance Calc 101.78 ml/min [facility] Estimated GFR (MDRD) Amer 117 mL/min >60 [facility] Comment on above: GFR Calc Estimated GFR (MDRD) Non-Af Amer 97 mL/min >60 [facility] Comment on above: Non- GFR Calc Platelets bldOrdered By: ED PROVIDER on 09-13-2022 Platelets (Bld) [#/Vol] 305 10*3/uL 150-450 [facility] RBC morphologyOrdered By: ED PROVIDER on 09-13-2022 RBC morphology finding Nom (Bld) N CHROM NORMAL NORM C&C [facility] Review by pathologiston Pathologist review Gustavo (Unsp spec) [Interp] February page [facility] Work Phone: Review by pathologistOrdered By: ED PROVIDER on 09-13-2022 Pathologist review Gustavo (Unsp spec) [Interp] Reviewed [facility] Comment on above: Previous reported re sult: Alessandra page Edited by: RGOLUCY on 09/15/22:0935Neutrophilic leukocytosis.Clinical correlation necessary.Dav Moody M.D. 09/15/22 AMENDED REPORT 09/15/22 0935 PATH REV previously reported as: Alessandra abel Serum or plasma albumin marion urement (mass/volume)Ordered By: Dr. Arteaga on 09-13-2022 Albumin [Mass/Vol] 3.2 g/dL 3.2-5.0 [facility] Serum or plasma calcium marion urement (mass/volume)Ordered By: ED PROVIDER on 09-13-2022 Calcium [Mass/Vol] 9.1 mg/dL 8.5-10.1 [facility] Serum or plasma creatinine m easurement (mass/volume)Ordered By: ED PROVIDER on 09-13-2022 Creatinine [Mass/Vol] 0.80 mg/dL 0.55-1.02 [facility] Comment on above: The validity of the calculated GFR & GFRAA in patients over 70 years has not been determined. Clinical correlation is essential. Serum or plasma urea nitroge n measurement (mass/volume)Ordered By: ED PROVIDER on 09-13-2022 Urea nitrogen [Mass/Vol] 7 mg/dL 7-18 [facility] Thin prep Papanicolaou smear with manual screeningOrdered By: ED PROVIDER on 09-13-2022 Thin prep Papanicolaou smear with manual screening 5 5-15 [facility] Thin prep Papanicolaou smear with manual screeningOrdered By: Dr. Arteaga on 09-13-2022 Thin prep Papanicolaou smear with manual screening 8 U/L 15-37 [facility] Absolute lymphocyte countOrd ered By: Dr. Arteaga on 09-12-2022 Lymphocytes Auto (Unsp spec) [#/Vol] 1.09 10*3/uL 0.83-4.51 [facility] Basophil percentageOrdered B y: Dr. Arteaga on 09-12-2022 Basophil percentage 0 SEEN /hpf 0-5 [facility] Basophils/100 WBC (Bld) 0.2 % 0-1 [facility] Bilirubin [Mass/Vol] 0.60 mg/dL 0.20-1.00 [facility] Comment on above: For patients on eltr ombopag therapy, use of Dim[place] TBIL is not recommended. Chloride [Moles/Vol] 104 mmol/L 98-107 [facility] Eosinophils/100 WBC (Bld) 0.0 % 0-5 [facility] Glucose [Mass/Vol] 109 mg/dL 74-106 [facility] Comment on above: Fasting Glucose resu lt from 100 to 125 mg/dL suggests IMPAIRED HOMEOSTASIS per A.D.A. criteria. Neutrophils (Bld) [#/Vol] 22.9 10*3/uL 2.0-7.7 [facility] Neutrophils/100 WBC (Bld) 91.3 % 47-70 [facility] Potassium [Moles/Vol] 3.9 mmol/L 3.5-5.1 [facility] Comment on above: Slight Hemolysis, Re sult may be falsely increased. Protein [Mass/Vol] 8.0 g/dL 6.4-8.2 [facility] Sodium [Moles/Vol] 135 mmol/L 136-145 [facility] WBC (Bld) [#/Vol] 25.1 10*3/uL 4.4-11.0 [facility] Bilirubin Test strip Ql (U)O rdered By: Dr. Arteaga on 09-12-2022 Bilirubin Ql (U) Negative Negative [facility] Blood erythrocytes count (nu mber/volume)Ordered By: Dr. Arteaga on 09-12-2022 RBC (Bld) [#/Vol] 4.92 10*6/uL 4.2-5.4 [facility] Blood hemoglobin measurement (mass/volume)Ordered By: Dr. Arteaga on 09-12-2022 Hemoglobin (Bld) [Mass/Vol] 13.2 g/dL 12.0-15.0 [facility] Blood lymphocytes/100 leukoc ytesOrdered By: Dr. Arteaga on 09-12-2022 Lymphocytes/100 WBC (Bld) 4.3 % 19-41 [facility] Blood manual differential co mment interpretation (narrative result)Ordered By: Dr. Arteaga on 09-12-2022 Manual differential comment Gustavo (Bld) [Interp] SCANNED [facility] Blood monocytes/100 leukocyt esOrdered By: Dr. Arteaga on 09-12-2022 Monocytes/100 WBC (Bld) 3.7 % 0-10 [facility] Blood platelet mean volumeOr dered By: Dr. Arteaga on 09-12-2022 Platelet mean volume (Bld) [Entitic vol] 9.8 fL 6.2-12.0 [facility] Determination of erythrocyte mean corpuscular volume (MCV)Ordered By: Dr. Arteaga on 09-12-2022 MCV (RBC) [Entitic vol] 83.3 fL 81-99 [facility] Hematocrit Auto (Bld) [Volum e fraction]Ordered By: Dr. Arteaga on 09-12-2022 Hematocrit (Bld) [Volume fraction] 41.0 % 37-47 [facility] Ketones Test strip Ql (U)Ord ered By: Dr. Arteaga on 09-12-2022 Ketones Ql (U) 5 mg/dl Negative [facility] Laboratory - Chemistry and C hemistry - challengeOrdered By: Dr. Arteaga on 09-12-2022 HCG ( test) Ql (U) Negative [facility] Comment on above: Very dilute urine sp ecimens, as indicated by a low specificgravity, may not contain fundraising sale representative levels of hCG. If is still suspected, a first morning urinespecimen should be collected 48 hours later and tested. ALP [Catalytic activity/Vol] 85 U/L 45-117 [facility] ALT [Catalytic activity/Vol] 45 U/L 13-56 [facility] CO2 [Moles/Vol] 23.0 mmol/L 21.0-32.0 [facility] Globulin (S) [Mass/Vol] 4.6 g/dL 2.2-4.2 [facility] Lipase [Catalytic activity/Vol] 44 U/L 73-393 [facility] Urea nitrogen/Creatinine [Mass ratio] 8.8 mg/mg 10-20 [facility] Laboratory - Hematology and Cell countsOrdered By: Dr. Arteaga on 09-12-2022 Erythrocyte distribution width (RBC) [Entitic vol] 42.2 fL 35.1-43.9 [facility] Erythrocyte distribution width (RBC) [Ratio] 14.0 % 11.6-14.6 [facility] Immature granulocytes/100 WBC (Bld) 0.500 % 0.0-0.9 [facility] Comment on above: IG% - Immature Granu locytes (promyelocytes, myelocytes and metamyelocytes) > 1% indicates that a LEFT SHIFT is Present. MCH (RBC) [Entitic mass] 26.8 pg 27.0-32.0 [facility] Nucleated RBC/100 WBC (Bld) [Ratio] 0 % 0-5 [facility] MCHC Auto (RBC) [Mass/Vol]Or dered By: Dr. Arteaga on 09-12-2022 MCHC (RBC) [Mass/Vol] 32.2 g/dL 32-36 [facility] Mucus LM Ql (Urine sed)Order ed By: Dr. Arteaga on 09-12-2022 Mucus Ql (Urine sed) 0 SEEN /hpf [facility] Nitrite Test strip Ql (U)Ord ered By: Dr. Arteaga on 09-12-2022 Nitrite Ql (U) Negative Negative [facility] No Panel InformationOrdered By: Dr. Arteaga on 09-12-2022 Estimated Creatinine Clearance Calc 79.83 ml/min [facility] Estimated GFR (MDRD) Amer 89 mL/min >60 [facility] Comment on above: GFR Calc Estimated GFR (MDRD) Non-Af Amer 74 mL/min >60 [facility] Comment on above: Non- GFR Calc Platelets bldOrdered By: Dr. Arteaga on 09-12-2022 Platelets (Bld) [#/Vol] 377 10*3/uL 150-450 [facility] Protein Test strip Ql (U)Ord ered By: Dr. Arteaga on 09-12-2022 Protein Ql (U) Negative Negative [facility] Serum heterophile antibody d etectionOrdered By: Dr. Arteaga on 09-12-2022 Heterophile Ab Ql (S) Negative Negative [facility] Serum or plasma albumin marion urement (mass/volume)Ordered By: Dr. Arteaga on 09-12-2022 Albumin [Mass/Vol] 3.4 g/dL 3.2-5.0 [facility] Serum or plasma albumin/glob ulin mass ratioOrdered By: Dr. Arteaga on 09-12-2022 Albumin/Globulin [Mass ratio] 0.7 {ratio} 0.9-2.4 [facility] Serum or plasma calcium marion urement (mass/volume)Ordered By: Dr. Arteaga on 09-12-2022 Calcium [Mass/Vol] 8.8 mg/dL 8.5-10.1 [facility] Serum or plasma creatinine m easurement (mass/volume)Ordered By: Dr. Arteaga on 09-12-2022 Creatinine [Mass/Vol] 1.02 mg/dL 0.55-1.02 [facility] Comment on above: The validity of the calculated GFR & GFRAA in patients over 70 years has not been determined. Clinical correlation is essential. Serum or plasma urea nitroge n measurement (mass/volume)Ordered By: Dr. Arteaga on 09-12-2022 Urea nitrogen [Mass/Vol] 9 mg/dL 7-18 [facility] Squamous epithelial cells de tection in urine sediment by light microscopyOrdered By: Dr. Arteaga on 09-12-2022 Epithelial cells.squamous LM Ql (Urine sed) 0-5 SEEN /hpf 5-10 [facility] Thin prep Papanicolaou smear with manual screeningOrdered By: Dr. Arteaga on 09-12-2022 Thin prep Papanicolaou smear with manual screening 14 U/L 15-37 [facility] Comment on above: Slight Hemolysis, Re sult may be falsely increased. Thin prep Papanicolaou smear with manual screening 8 5-15 [facility] Urine blood detectionOrdered By: Dr. Arteaga on 09-12-2022 RBC Ql (U) 10 /ul Negative [facility] RBC Ql (U) 0-5 SEEN /hpf 0-5 [facility] Urine clarityOrdered By: Dr. Arteaga on 09-12-2022 Clarity (U) Sl. Cloudy Clear [facility] Urine color determinationOrd ered By: Dr. Arteaga on 09-12-2022 Color (U) Yellow Yellow [facility] Urine glucose detectionOrder ed By: Dr. Arteaga on 09-12-2022 Glucose Ql (U) Normal mg/dl Normal [facility] Urine leukocyte esterase det ection by dipstickOrdered By: Dr. Arteaga on 09-12-2022 Leukocyte esterase Test strip Ql (U) Negative Negative [facility] Urine pHOrdered By: Dr. Abdoul dill on 09-12-2022 pH (U) 7.0 [pH] 5.0 - 8.0 [facility] Urine sediment bacteria coun t by microscopy (number/high power field)Ordered By: Dr. Arteaga on 09-12-2022 Bacteria LM.HPF (Urine sed) [#/Area] 0 /[HPF] None Seen [facility] Urine specific gravity measu rementOrdered By: Dr. Arteaga on 09-12-2022 Specific gravity (U) [Rel density] 1.005 1.002-1.03 0 [facility] Urobilinogen Auto test strip Ql (U)Ordered By: Dr. Arteaga on 09-12-2022 Urobilinogen Ql (U) Normal mg/dl Normal [facility] Absolute lymphocyte countOrd ered By: Dr. Kevin on 08-24-2022 Lymphocytes Auto (Unsp spec) [#/Vol] 1.29 10*3/uL 0.83-4.51 [facility] Basophil percentageOrdered B y: Dr. Kevin on 08-24-2022 Basophils/100 WBC (Bld) 0.2 % 0-1 [facility] Bilirubin [Mass/Vol] 0.20 mg/dL 0.20-1.00 [facility] Comment on above: For patients on eltr ombopag therapy, use of Dimension [place] TBIL is not recommended. Chloride [Moles/Vol] 107 mmol/L 98-107 [facility] Eosinophils/100 WBC (Bld) 2.8 % 0-5 [facility] Glucose [Mass/Vol] 92 mg/dL 74-106 [facility] Neutrophils (Bld) [#/Vol] 6.4 10*3/uL 2.0-7.7 [facility] Neutrophils/100 WBC (Bld) 75.1 % 47-70 [facility] Potassium [Moles/Vol] 3.9 mmol/L 3.5-5.1 [facility] Protein [Mass/Vol] 6.8 g/dL 6.4-8.2 [facility] Sodium [Moles/Vol] 139 mmol/L 136-145 [facility] WBC (Bld) [#/Vol] 8.5 10*3/uL 4.4-11.0 [facility] Blood erythrocytes count (nu mber/volume)Ordered By: Dr. Kevin on 08-24-2022 RBC (Bld) [#/Vol] 4.66 10*6/uL 4.2-5.4 [facility] Blood hemoglobin measurement (mass/volume)Ordered By: Dr. Kevin on 08-24-2022 Hemoglobin (Bld) [Mass/Vol] 12.7 g/dL 12.0-15.0 [facility] Blood lymphocytes/100 leukoc ytesOrdered By: Dr. Kevin on 08-24-2022 Lymphocytes/100 WBC (Bld) 15.2 % 19-41 [facility] Blood monocytes/100 leukocyt esOrdered By: Dr. Kevin on 08-24-2022 Monocytes/100 WBC (Bld) 6.5 % 0-10 [facility] Blood platelet mean volumeOr dered By: Dr. Kevin on 08-24-2022 Platelet mean volume (Bld) [Entitic vol] 9.7 fL 6.2-12.0 [facility] Determination of erythrocyte mean corpuscular volume (MCV)Ordered By: Dr. Kevin on 08-24-2022 MCV (RBC) [Entitic vol] 85.4 fL 81-99 [facility] Hematocrit Auto (Bld) [Volum e fraction]Ordered By: Dr. Kevin on 08-24-2022 Hematocrit (Bld) [Volume fraction] 39.8 % 37-47 [facility] Laboratory - Chemistry and C hemistry - challengeOrdered By: Dr. Kevin on 08-24-2022 ALP [Catalytic activity/Vol] 67 U/L 45-117 [facility] ALT [Catalytic activity/Vol] 51 U/L 13-56 [facility] CO2 [Moles/Vol] 26.0 mmol/L 21.0-32.0 [facility] Globulin (S) [Mass/Vol] 3.7 g/dL 2.2-4.2 [facility] Lipase [Catalytic activity/Vol] 70 U/L 73-393 [facility] Urea nitrogen/Creatinine [Mass ratio] 11.8 mg/mg 10-20 [facility] Laboratory - Hematology and Cell countsOrdered By: Dr. Kevin on 08-24-2022 Erythrocyte distribution width (RBC) [Entitic vol] 42.5 fL 35.1-43.9 [facility] Erythrocyte distribution width (RBC) [Ratio] 13.8 % 11.6-14.6 [facility] Immature granulocytes/100 WBC (Bld) 0.200 % 0.0-0.9 [facility] Comment on above: IG% - Immature Granu locytes (promyelocytes, myelocytes and metamyelocytes) > 1% indicates that a LEFT SHIFT is Present. MCH (RBC) [Entitic mass] 27.3 pg 27.0-32.0 [facility] Nucleated RBC/100 WBC (Bld) [Ratio] 0 % 0-5 [facility] MCHC Auto (RBC) [Mass/Vol]Or dered By: Dr. Kevin on 08-24-2022 MCHC (RBC) [Mass/Vol] 31.9 g/dL 32-36 [facility] No Panel InformationOrdered By: Dr. Kevin on 08-24-2022 Estimated Creatinine Clearance Calc 119.74 ml/min [facility] Estimated GFR (MDRD) Amer 143 mL/min >60 [facility] Comment on above: GFR Calc Estimated GFR (MDRD) Non-Af Amer 118 mL/min >60 [facility] Comment on above: Non- GFR Calc Platelets bldOrdered By: Dr. Kevin on 08-24-2022 Platelets (Bld) [#/Vol] 293 10*3/uL 150-450 [facility] Serum or plasma albumin marion urement (mass/volume)Ordered By: Dr. Kevin on 08-24-2022 Albumin [Mass/Vol] 3.1 g/dL 3.2-5.0 [facility] Serum or plasma albumin/glob ulin mass ratioOrdered By: Dr. Kevin on 08-24-2022 Albumin/Globulin [Mass ratio] 0.8 {ratio} 0.9-2.4 [facility] Serum or plasma calcium marion urement (mass/volume)Ordered By: Dr. Kevin on 08-24-2022 Calcium [Mass/Vol] 8.5 mg/dL 8.5-10.1 [facility] Serum or plasma creatinine m easurement (mass/volume)Ordered By: Dr. Kevin on 08-24-2022 Creatinine [Mass/Vol] 0.68 mg/dL 0.55-1.02 [facility] Comment on above: The validity of the calculated GFR & GFRAA in patients over 70 years has not been determined. Clinical correlation is essential. Serum or plasma urea nitroge n measurement (mass/volume)Ordered By: Dr. Kevin on 08-24-2022 Urea nitrogen [Mass/Vol] 8 mg/dL 7-18 [facility] Thin prep Papanicolaou smear with manual screeningOrdered By: Dr. Kevin on 08-24-2022 Thin prep Papanicolaou smear with manual screening 16 U/L 15-37 [facility] Thin prep Papanicolaou smear with manual screening 6 5-15 [facility] Absolute lymphocyte counton 06-29-2022 Lymphocytes Auto (Unsp spec) [#/Vol] 3.46 10*3/uL 0.83-4.51 [facility] Work Phone: Basophil percentageon 2021 Basophil percentage 0 SEEN /hpf 0-5 [facility] Work Phone: Basophils/100 WBC (Bld) 0.3 % 0-1 [facility] Work Phone: Bilirubin [Mass/Vol] 0.10 mg/dL 0.20-1.00 [facility] Work Phone: Comment on above: For patients on eltr ombopag therapy, use of Dimension [place] TBIL is not recommended. Chloride [Moles/Vol] 107 mmol/L 98-107 [facility] Work Phone: Eosinophils/100 WBC (Bld) 0.8 % 0-5 [facility] Work Phone: Glucose [Mass/Vol] 91 mg/dL 74-106 [facility] Work Phone: Neutrophils (Bld) [#/Vol] 8.8 10*3/uL 2.0-7.7 [facility] Work Phone: Neutrophils/100 WBC (Bld) 65.6 % 47-70 [facility] Work Phone: Potassium [Moles/Vol] 3.6 mmol/L 3.5-5.1 [facility] Work Phone: Protein [Mass/Vol] 7.3 g/dL 6.4-8.2 [facility] Work Phone: Sodium [Moles/Vol] 141 mmol/L 136-145 [facility] Work Phone: WBC (Bld) [#/Vol] 13.4 10*3/uL 4.4-11.0 [facility] Work Phone: Beta hCG serum qualon 2021 Beta HCG ( test) Ql Negative [facility] Work Phone: Bilirubin Test strip Ql (U)o n 09-20-2022 Bilirubin Ql (U) Negative Negative [facility] Work Phone: Blood erythrocytes count (nu mber/volume)on 06-29-2022 RBC (Bld) [#/Vol] 4.35 10*6/uL 4.2-5.4 [facility] Work Phone: Blood hemoglobin measurement (mass/volume)on 06-29-2022 Hemoglobin (Bld) [Mass/Vol] 12.1 g/dL 12.0-15.0 [facility] Work Phone: Blood lymphocytes/100 leukoc yteson 06-29-2022 Lymphocytes/100 WBC (Bld) 25.8 % 19-41 [facility] Work Phone: Blood monocytes/100 leukocyt eson 06-29-2022 Monocytes/100 WBC (Bld) 7.1 % 0-10 [facility] Work Phone: Blood platelet mean volumeon 06-29-2022 Platelet mean volume (Bld) [Entitic vol] 9.7 fL 6.2-12.0 [facility] Work Phone: Determination of erythrocyte mean corpuscular volume (MCV)on 06-29-2022 MCV (RBC) [Entitic vol] 87.6 fL 81-99 [facility] Work Phone: Hematocrit Auto (Bld) [Volum e fraction]on 06-29-2022 Hematocrit (Bld) [Volume fraction] 38.1 % 37-47 [facility] Work Phone: Ketones Test strip Ql (U)on 06-29-2022 Ketones Ql (U) Negative Negative [facility] Work Phone: Laboratory - Chemistry and C hemistry - challengeon 06-29-2022 ALP [Catalytic activity/Vol] 76 U/L 45-117 [facility] Work Phone: ALT [Catalytic activity/Vol] 45 U/L 13-56 [facility] Work Phone: CO2 [Moles/Vol] 27.0 mmol/L 21.0-32.0 [facility] Work Phone: Globulin (S) [Mass/Vol] 4.1 g/dL 2.2-4.2 [facility] Work Phone: Urea nitrogen/Creatinine [Mass ratio] 15.6 mg/mg 10-20 [facility] Work Phone: Laboratory - Hematology and Cell countson 06-29-2022 Erythrocyte distribution width (RBC) [Entitic vol] 43.1 fL 35.1-43.9 [facility] Work Phone: Erythrocyte distribution width (RBC) [Ratio] 13.5 % 11.6-14.6 [facility] Work Phone: Immature granulocytes/100 WBC (Bld) 0.400 % 0.0-0.9 [facility] Work Phone: Comment on above: IG% - Immature Granu locytes (promyelocytes, myelocytes and metamyelocytes) > 1% indicates that a LEFT SHIFT is Present. MCH (RBC) [Entitic mass] 27.8 pg 27.0-32.0 [facility] Work Phone: Nucleated RBC/100 WBC (Bld) [Ratio] 0 % 0-5 [facility] Work Phone: MCHC Auto (RBC) [Mass/Vol]on 06-29-2022 MCHC (RBC) [Mass/Vol] 31.8 g/dL 32-36 [facility] Work Phone: Mucus LM Ql (Urine sed)on Mucus Ql (Urine sed) 0 SEEN /hpf [facility] Work Phone: Nitrite Test strip Ql (U)on 06-29-2022 Nitrite Ql (U) Negative Negative [facility] Work Phone: No Panel Informationon 06-29 Estimated Creatinine Clearance Calc 105.74 ml/min [facility] Work Phone: Estimated GFR (MDRD) Amer 124 mL/min >60 [facility] Work Phone: Comment on above: GFR Calc Estimated GFR (MDRD) Non-Af Amer 102 mL/min >60 [facility] Work Phone: Comment on above: Non- GFR Calc Platelets bldon 06-29-2022 Platelets (Bld) [#/Vol] 299 10*3/uL 150-450 [facility] Work Phone: Protein Test strip Ql (U)on 06-29-2022 Protein Ql (U) Negative Negative [facility] Work Phone: Serum or plasma albumin marion urement (mass/volume)on 06-29-2022 Albumin [Mass/Vol] 3.2 g/dL 3.2-5.0 [facility] Work Phone: Serum or plasma albumin/glob ulin mass ratioon 06-29-2022 Albumin/Globulin [Mass ratio] 0.8 {ratio} 0.9-2.4 [facility] Work Phone: Serum or plasma calcium marion urement (mass/volume)on 06-29-2022 Calcium [Mass/Vol] 9.0 mg/dL 8.5-10.1 [facility] Work Phone: Serum or plasma creatinine m easurement (mass/volume)on 06-29-2022 Creatinine [Mass/Vol] 0.77 mg/dL 0.55-1.02 [facility] Work Phone: Comment on above: The validity of the calculated GFR & GFRAA in patients over 70 years has not been determined. Clinical correlation is essential. Serum or plasma urea nitroge n measurement (mass/volume)on 06-29-2022 Urea nitrogen [Mass/Vol] 12 mg/dL 7-18 [facility] Work Phone: Squamous epithelial cells de tection in urine sediment by light microscopyon 06-29-2022 Epithelial cells.squamous LM Ql (Urine sed) 0-5 SEEN /hpf 5-10 [facility] Work Phone: Thin prep Papanicolaou smear with manual screeningon 06-29-2022 Thin prep Papanicolaou smear with manual screening 15 U/L 15-37 [facility] Work Phone: Thin prep Papanicolaou smear with manual screening 7 5-15 [facility] Work Phone: Urine blood detectionon 06-11-2021 RBC Ql (U) Negative Negative [facility] Work Phone: RBC Ql (U) 0 SEEN /hpf 0-5 [facility] Work Phone: Urine clarityon 06-29-2022 Clarity (U) Clear Clear [facility] Work Phone: Urine color determinationon 06-29-2022 Color (U) Straw Yellow [facility] Work Phone: Urine glucose detectionon Glucose Ql (U) Normal mg/dl Normal [facility] Work Phone: Urine leukocyte esterase det ection by dipstickon 06-29-2022 Leukocyte esterase Test strip Ql (U) Negative Negative [facility] Work Phone: Urine pHon 06-29-2022 pH (U) 6.5 [pH] 5.0 - 8.0 [facility] Work Phone: Urine sediment bacteria coun t by microscopy (number/high power field)on 06-29-2022 Bacteria LM.HPF (Urine sed) [#/Area] 1 /[HPF] None Seen [facility] Work Phone: Urine specific gravity measu rementon 06-29-2022 Specific gravity (U) [Rel density] 1.015 1.002-1.03 0 [facility] Work Phone: Urobilinogen Auto test strip Ql (U)on 06-29-2022 Urobilinogen Ql (U) Normal mg/dl Normal [facility] Work Phone: Aj 05-27-2022 ALT [Catalytic activity/Vol] 33 U/L Normal 0-34 [facility] Comment on above: Order Comment: Is th is specimen being sent to an external lab?->No Release to patient->Automatic [id number]&Blood^\S\^Venous&Venous Performed By: #### A LT #### [place] [address] Hemoglobin A1con 05-27-2022 HbA1c (Bld) [Mass fraction] 5.3 % Normal 0.0-5.6 [facility] Comment on above: Order Comment: Is th is specimen being sent to an external lab?->No Release to patient->Automatic [id number]&Blood^\S\^Venous&Venous Result Comment: Refe rence Interval: <5.7% 5.7-6.4% Prediabetes > or = 6.5% Diabetes Targets for diabetes management: Type I <7.5% Type II <7.0% Performed By: #### H BA1C #### [place] [address] Lipid Panelon 05-27-2022 Cholesterol in LDL [Mass/Vol] 102 mg/dL Normal 0-109 [facility] Comment on above: Order Comment: Is th is specimen being sent to an external lab?->No Release to patient->Automatic [id number]&Blood^\S\^Venous&Venous Performed By: #### L IPID #### [place] [address] Non-HDL Cholesterol 117 mg/dL Normal 0-119 [facility] Comment on above: Order Comment: Is th is specimen being sent to an external lab?->No Release to patient->Automatic [id number]&Blood^\S\^Venous&Venous Performed By: #### L IPID #### [place] [address] Cholesterol [Mass/Vol] 153 mg/dL Normal 0-169 [facility] Comment on above: Order Comment: Is th is specimen being sent to an external lab?->No Release to patient->Automatic [id number]&Blood^\S\^Venous&Venous Result Comment: Acce ptable (mg/dL): <170 Borderline-High (mg/dL): 170-199 High (mg/dL): > or = 200 Reference: Recommendations of the [place] [employer] (Pediatrics, Sep 2011, 128 (Supplement 5) O115-W977; DOI: 10.1542/peds.2008-7C). Performed By: #### L IPID #### [place] [address] Cholesterol in HDL [Mass/Vol] 36 mg/dL Normal [facility] Comment on above: Order Comment: Is th is specimen being sent to an external lab?->No Release to patient->Automatic [id number]&Blood^\S\^Venous&Venous Result Comment: Low (mg/dL): <40 Borderline-Low (mg/dL): 40-45 Acceptable (mg/dL): >45 Performed By: #### L IPID #### [place] [address] Triglyceride [Mass/Vol] 75 mg/dL Normal 0-89 [facility] Comment on above: Order Comment: Is th is specimen being sent to an external lab?->No Release to patient->Automatic 10012&Blood^\S\^Venous&Venous Performed By: #### L IPID #### [place] [address] Progress Noteon 05-27-2022 [employer]st Authentication Interface Message Text Patient ID: Joanna Schuster is a 21 y.o. female. Her chief complaint(s) include: 21 YEAR WELL CHILD Assessment 1. Routine general medical examination at a health care facility 2. Mild intermittent asthma without complication 3. Irregular menses 4. Abnormal weight gain 5. BMI (body mass index), pediatric, 95-99% for age 6. Anxiety with depression Plan Joanna was seen today for 21 year well child. Diagnoses and all orders for this visit: Routine general medical examination at a health care facility - PHQ9 Assessment With Score - Health Risk Assessment - CRAFFT Mild intermittent asthma without complication - albuterol 108 (90 Base) MCG/ACT inhaler; Inhale 2 Puffs into the lungs every 4 hours as needed for Shortness of Breath or Cough Use with spacer. Irregular menses - AMB Referral To Obstetrics/Gynecology; Future Abnormal weight gain - Venipuncture - POCT Glucose - Hemoglobin A1c - ALT - Lipid panel - TSH with Reflex to T4, Free (Clinic Collect) BMI (body mass index), pediatric, 95-99% for age - POCT Glucose - Hemoglobin A1c - ALT - Lipid panel - TSH with Reflex to T4, Free (Clinic Collect) Anxiety with depression Discussed diet and exercise. Will obtain laboratory studies to evaluate patient's weight. Will check TSH, lipid profile, ALT and Hgb A1c . Will refer patient to automotive window tinter for evaluation or irregular menses. Patient's asthma is borderline at this time. Refill on the albuterol sent since patient has had it for some time due to insurance issues. Instructed to call back if insurance denied coverage. Patient with anxiety and depression. Currently in counseling. Hasn't been taking the prozac due to not liking how it made her feel. Would like to just continue the counseling for now. To follow up if needed. Patient states she feels a slight lump below her left breast. I was unable to palpate anything. No signs of infection or erythema. Instructed patient to call if worsening or concerns/not resolving. Return in about 1 year (around 05/27/2023) for well check. Subjective She is unaccompanied. 21 YEAR WELL CHILD Home: Joanna eats meals with family (when able), has an adult to turn to for help, is permitted and able to make independent decisions and pays bills (cell phone). Joanna has no home risk identified. Education: Joanna is in the work force. (Hoping to start college in next year or so.). Eating: Joanna eats regular meals including fruits and vegetables, eats breakfast (sometimes), limits fast food, drinks non-sweetened liquids and has a calcium source. Activities & Sports: Joanna has a job and performs at least 1 hour of physical activity daily. Joanna engages in screen time more than 2 hours daily and does not have drivers license (permit). Drugs: Joanna does not use tobacco, does not use drugs, does not use alcohol and does not vape. Safety: Joanna has a violence free home and uses seat belt. Joanna does not use phone/text while driving. Suicidality: Joanna has ways to cope with stress, displays self-confidence, has depression (some depression but dealing with it without medication), has anxiety and is engaged in counseling. Joanna has no problems with sleep, does not have mood swings, has no suicidal ideation and has no homicidal ideation. PHQ-9 Score: 14 Menstruation (Menarche: age 13 LMP: 05/27/22) Menstruation: irregular periods and bloating Output Urine and Stool Pattern: Urine and Stool Pattern: Normal stool pattern, no constipation, normal urine pattern, no nocturnal enuresis. Stool Consistency: soft Sleep Sleeping Difficulty: no difficulty sleeping Hours of sleep at a time: 8 Teen Anticipatory Guidance The following anticipatory guidance was reviewed during the visit: Nutrition: limit junk food/fast food and soft drinks.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 [facility] 12-15-2022 22:35-0500 Respiratory rate 20 /min [facility] 12-15-2022 22:35-0500 Systolic blood pressure 125 mm[Hg] [facility] 09-13-2022 21:12-0500 Diastolic blood pressure 75 mm[Hg] [facility] 09-13-2022 21:12-0500 Heart rate 90 /min [facility] 09-13-2022 21:12-0500 Respiratory rate 15 /min [facility] 09-13-2022 21:12-0500 SaO2% (BldA) [Mass fraction] 99 % [facility] 09-13-2022 21:12-0500 Systolic blood pressure 128 mm[Hg] [facility] 09-13-2022 17:42-0500 Body height 165.1 cm [facility] Work Phone: 09-13-2022 17:42-0500 Body mass index (BMI) [Percentile] Per age and sex 96.7 % [facility] 09-13-2022 17:42-0500 Body mass index (BMI) [Ratio] 34.1 kg/m2 [facility] 09-13-2022 17:42-0500 Body temperature 98.3 [degF] [facility] 09-13-2022 17:42-0500 Body weight 92.98 kg [facility] 09-12-2022 21:36-0500 Body temperature 98.7 [degF] [facility] 09-12-2022 21:36-0500 Diastolic blood pressure 66 mm[Hg] [facility] 09-12-2022 21:36-0500 Heart rate 107 /min [facility] 09-12-2022 21:36-0500 Respiratory rate 16 /min [facility] 09-12-2022 21:36-0500 SaO2% (BldA) [Mass fraction] 97 % [facility] 09-12-2022 21:36-0500 Systolic blood pressure 100 mm[Hg] [facility] 09-12-2022 14:59-0500 Body height 165.1 cm [facility] Work Phone: 09-12-2022 14:59-0500 Body mass index (BMI) [Percentile] Per age and sex 96.7 % [facility] 09-12-2022 14:59-0500 Body mass index (BMI) [Ratio] 34.1 kg/m2 [facility] 09-12-2022 14:59-0500 Body weight 92.98 kg [facility] 08-24-2022 09:34-0500 Body height 165.1 cm [facility] Work Phone: 08-24-2022 09:34-0500 Body mass index (BMI) [Percentile] Per age and sex 98.3 % [facility] 08-24-2022 09:34-0500 Body mass index (BMI) [Ratio] 39.4 kg/m2 [facility] 08-24-2022 09:34-0500 Body temperature 97.1 [degF] [facility] 08-24-2022 09:34-0500 Body weight 107.7 kg [facility] 08-24-2022 09:34-0500 Diastolic blood pressure 83 mm[Hg] [facility] 08-24-2022 09:34-0500 Heart rate 92 /min [facility] 08-24-2022 09:34-0500 Respiratory rate 16 /min [facility] 08-24-2022 09:34-0500 SaO2% (BldA) [Mass fraction] 100 % [facility] 08-24-2022 09:34-0500 Systolic blood pressure 134 mm[Hg] [facility] 07-21-2022 11:24-0400 Body temperature 98.01 [degF] Adelso Richardson MD Work Phone: [facility] 07-21-2022 11:24-0400 Body weight 107.14 kg Adelso Richardson MD Work Phone: [facility] 07-21-2022 11:24-0400 Diastolic blood pressure 78 mm[Hg] Adelso Richardson MD Work Phone: [facility] 07-21-2022 11:24-0400 Heart rate 95 /min Adelso Richardson MD Work Phone: [facility] 07-21-2022 11:24-0400 Respiratory rate 21 /min Adelso Richardson MD Work Phone: [facility] 07-21-2022 11:24-0400 SaO2% (BldA) [Mass fraction] 97 % Adelso Richardson MD Work Phone: [facility] 07-21-2022 11:24-0400 Systolic blood pressure 120 mm[Hg] Adelso Richardson MD Work Phone: [facility] 06-29-2022 23:55-0400 Diastolic blood pressure 73 mm[Hg] [facility] Work Phone: 06-29-2022 23:55-0400 Heart rate 76 /min [facility] Work Phone: 06-29-2022 23:55-0400 Respiratory rate 16 /min [facility] Work Phone: 06-29-2022 23:55-0400 SaO2% (BldA) [Mass fraction] 99 % [facility] Work Phone: 06-29-2022 23:55-0400 Systolic blood pressure 102 mm[Hg] [facility] Work Phone: 06-29-2022 21:36-0400 Body height 165.1 cm [facility] Work Phone: 06-29-2022 21:36-0400 Body mass index (BMI) [Percentile] Per age and sex 98.3 % [facility] Work Phone: 06-29-2022 21:36-0400 Body mass index (BMI) [Ratio] 39.2 kg/m2 [facility] Work Phone: 06-29-2022 21:36-0400 Body temperature 97.4 [degF] [facility] Work Phone: 06-29-2022 21:36-0400 Body weight 107 kg [facility] Work Phone: 06-27-2022 11:25-0400 Body temperature 98.2 [degF] Ko Dotson TELEPHONE SOLICITOR SUPERVISOR.SHANKER OUT Work Phone: [facility] 06-27-2022 11:25-0400 Body weight 106.59 kg Ko Dotson TELEPHONE SOLICITOR SUPERVISOR.SHANKER OUT Work Phone: [facility] 06-27-2022 11:25-0400 Diastolic blood pressure 76 mm[Hg] Ko Dotson TELEPHONE SOLICITOR SUPERVISOR.SHANKER OUT Work Phone: [facility] 06-27-2022 11:25-0400 Heart rate 96 /min Ko Dotson TELEPHONE SOLICITOR SUPERVISOR.SHANKER OUT Work Phone: [facility] 06-27-2022 11:25-0400 Respiratory rate 16 /min Ko Dotson TELEPHONE SOLICITOR SUPERVISOR.SHANKER OUT Work Phone: [facility] 06-27-2022 11:25-0400 SaO2% (BldA) [Mass fraction] 97 % Ko Dotson TELEPHONE SOLICITOR SUPERVISOR.SHANKER OUT Work Phone: [facility] 06-27-2022 11:25-0400 Systolic blood pressure 120 mm[Hg] Ko Dotson TELEPHONE SOLICITOR SUPERVISOR.SHANKER OUT Work Phone: [facility] 07-11-2019 03:36-0400 Body surface area Derived from formula [facility] ([place]) Comment on above: Performed By: #### BSA #### [facility] [address] [place] [id number] Encounters Encounter Date Encounter Type Care Provider Facility Start: 06-07-2025 End: 06-07-2025 ambulatory Malcom Monet RN NURSE [employer] Comment on above: Nose Bleed Start: 11-14-2024 End: 11-14-2024 ambulatory KO SLAUGHTEREY Facility:[facility] Start: 11-14-2024 End: 11-14-2024 Patient encounter procedure Jenae Pettit APRN.SHANKER OUT Work Phone: [facility] Comment on above: URI, acute (Primary Dx); Viral illness Start: 11-14-2024 End: 11-14-2024 Chart abstracting Ko Del Toro MD Work Phone: [facility] Comment on above: ER Discharge Summary Start: 11-12-2024 End: 11-12-2024 Emergency department patient visit Ko [facility] Facility:[facility] Start: 10-01-2024 End: 10-11-2024 Telephone encounter Ko Del Toro MD Work Phone: [facility] Comment on above: Letter Start: 08-03-2024 End: 08-03-2024 ambulatory Ko Del Toro Facility[facility] Start: 05-11-2024 End: 05-11-2024 Emergency department patient visit JIL Ozuna [facility] Start: 05-11-2024 End: 05-11-2024 Patient encounter procedure Na BONILLA Work Phone: [facility] Comment on above: Lower abdominal pain (Primary Dx) Start: 05-11-2024 End: 05-11-2024 ambulatory KOANTWAN DEL TORO Facility:[facility] Start: 03-27-2024 End: 03-27-2024 Emergency department patient visit Ko Del Toro Facility:[facility] Start: 02-04-2024 Telephone encounter Alvaro Villarreal APRN.SHANKER OUT Work Phone: [facility] Comment on above: Results Start: 02-01-2024 End: 02-01-2024 ambulatory KO A [facility] Facility:[facility] Start: 02-01-2024 End: 02-01-2024 Patient encounter procedure Nirmala Menezes PA-C Work Phone: [facility] Comment on above: Insect bite of forea rm with local reaction, right, initial encounter (Primary Dx) Start: 01-19-2024 Chart abstracting Ko miranda MD Work Phone: [facility] Comment on above: External / XRay Start: 01-17-2024 End: 01-17-2024 [facility] Start: 01-17-2024 End: 01-17-2024 ambulatory [facility] Facility:[facility] Start: 01-17-2024 End: 01-17-[address] Dylan Lane APRN.SHANKER OUT Work Phone: [facility] Comment on above: Facial injury, initi al encounter (Primary Dx) Start: 12-28-2023 Chart abstracting Ko miranda MD Work Phone: [facility] Comment on above: ER Discharge Summary Start: 12-27-2023 End: 12-28-2023 [facility] Start: 12-14-2023 Chart abstracting Ko miranda MD Work Phone: [facility] Start: 12-10-2023 End: 12-10-2023 [facility] Department Work Phone: Start: 11-26-2023 Telephone encounter Alvaro Villarreal APRN.SHANKER OUT Work Phone: [facility] Comment on above: Results Start: 11-24-2023 End: 11-24-2023 ambulatory [facility] Facility:[facility] Start: 11-24-2023 End: 11-24-2023 Office outpatient visit 15 minutes Ko Dotson APRN.SHANKER OUT Work Phone: [facility] Comment on above: Burning with urinati on (Primary Dx); Viral illness Start: 11-09-2023 End: 11-09-2023 [facility] Start: 11-07-2023 End: 11-07-2023 [facility] Start: 09-10-2023 Telephone encounter Alvaro Villarreal APRN.SHANKER OUT Work Phone: [facility] Comment on above: Results Start: 09-09-2023 End: 09-09-2023 Patient encounter procedure Alvaro Villarreal APRN.SHANKER OUT Work Phone: [facility] Comment on above: Sore throat (Primary Dx); URI, acute Start: 08-19-2023 End: 08-19-2023 [facility] Start: 07-28-2023 Telephone encounter Enedelia quach APRN.SHANKER OUT Work Phone: [facility] Comment on above: Results Start: 07-26-2023 End: 07-26-2023 Patient encounter procedure Enedelia Isaacs APRN.SHANKER OUT Work Phone: [facility] Comment on above: Wellness examination (Primary Dx); Encounter for lipid screening for cardiovascular disease; Screening for diabetes mellitus; Mild intermittent asthma, uncomplicated Start: 07-26-2023 End: 07-26-2023 Patient encounter status Enedelia Isaacs APRN.SHANKER OUT Work Phone: [facility] Work Phone: Start: 06-19-2023 End: 06-19-2023 [facility] Start: 05-01-2023 End: 05-01-2023 Emergency department [facility] Work Phone: Start: 04-12-2023 End: 04-12-2023 Emergency department patient visit [facility] Work Phone: Start: 03-09-2023 End: 03-09-2023 Patient encounter procedure Nirmala Menezes PA-C Work Phone: [facility] Comment on above: Sore throat (Primary Dx); Acute conjunctivitis of right eye, unspecified acute conjunctivitis type Start: 03-02-2023 End: 03-02-2023 [facility] Start: 02-09-2023 End: 02-09-2023 Patient encounter procedure Na BONILLA Work Phone: [facility] Comment on above: Nausea and vomiting, unspecified vomiting type (Primary Dx) Start: 12-18-2022 End: 12-18-2022 [facility] Start: 12-15-2022 End: 12-16-2022 [facility] Start: 09-17-2022 End: 09-18-2022 [facility] Start: 09-17-2022 End: 09-17-2022 [facility] Start: 09-17-2022 End: 09-17-2022 Subsequent hospital visit by physician Jessica Anguiano MD Work Phone: [facility] [address] Comment on above: Pain of upper abdome n Start: 09-15-2022 End: 09-15-2022 [facility] Start: 09-13-2022 End: 09-13-2022 Emergency department [facility] visit [facility] Start: 09-12-2022 End: 09-12-2022 [facility] Start: 08-24-2022 End: 08-24-2022 [facility] Start: 07-21-2022 End: 07-21-2022 Patient encounter procedure Adelso Richardson MD Work Phone: [facility] Comment on above: Nausea and vomiting, unspecified vomiting type (Primary Dx) Start: 06-29-2022 End: 06-30-2022 [facility] Start: 06-27-2022 End: 06-27-2022 Patient encounter procedure Ko Dotson APRN.CNP Work Phone: [facility] Comment on above: Low back pain withou t sciatica, unspecified back pain laterality, unspecified chronicity (Primary Dx) Start: 05-27-2022 End: 05-27-2022 ambulatory JESSICA ANGUIANO [facility] Start: 09-04-2018 Patient encounter procedure Pk Leslie Facility:[facility] Start: 11-04-2017 End: 11-05-2017 Ambulatory Aneesh De Luna Facility:[facility] Procedures Date Procedure Procedure Detail Performing Clinician Start: 11-14-2024 STREP A MOLECULAR (POC) Jenae Pettit TELEPHONE SOLICITOR SUPERVISOR.SHANKER OUT Work Phone: Start: 11-14-2024 INFLUENZA A&B MOLECU LAR (POC) [facility] Provider Start: 01-17-2024 Radiography of mandible Start: 12-27-2023 Plain chest X-ray Start: 11-24-2023 Urnls dip stick/tabl et rgnt auto w/o microscopy Ko Dotson TELEPHONE SOLICITOR SUPERVISOR.SHANKER OUT Work Phone: Start: 11-09-2023 Plain chest X-ray Start: 11-07-2023 SARS-CoV-2, Influenz a & RSV (PCR) Start: 09-09-2023 STREP A MOLECULAR (POC) Ko Dotson TELEPHONE SOLICITOR SUPERVISOR.SHANKER OUT Work Phone: Start: 08-19-2023 Plain x-ray of wrist Start: 05-01-2023 Computed tomography of abdomen and pelvis with intravenous contrast Start: 04-12-2023 Plain chest X-ray Start: 03-09-2023 STREP A MOLECULAR (POC) Nirmala Menezes PA-C Work Phone: Start: 03-02-2023 Plain x-ray of hand Start: 12-18-2022 Plain chest X-ray Start: 12-15-2022 Plain chest X-ray Start: 12-15-2022 SARS-CoV-2 & FLU Ant igen (Rapid) Start: 09-17-2022 COMPLETE BLOOD COUNT WITH DIFFERENTIAL Jessica Anguiano MD Work Phone: Start: 09-17-2022 Comprehensive metabo lic 2000 panel - Serum or Plasma Jessica Anguiano MD Work Phone: Start: 09-17-2022 Manual Differential panel - Blood Jessica Anguiano MD Work Phone: Start: 09-12-2022 CT of chest without contrast Start: 09-12-2022 Plain chest X-ray Streptococcus pyogen es antigen assay Plan of Treatment Date Care Activity Detail Author Start: 06-10-2025 Influenza vaccination Influenza Vacc ine (#1) [facility] Start: 11-26-2024 Tetanus Diphtheria a nd Pertussis Vaccines (7 - Td or Tdap) Tetanus Diphtheria and Pertussis Vaccines (7 - Td or Tdap) [facility] Start: 11-26-2024 Urine microalbumin profile DTaP,Tdap,Td Vaccine (7 - Td or Tdap) [facility] Start: 11-14-2024 End: 02-13-2025 INFLUENZA A&B MOLECULAR (POC) INFLUENZA A&B MOLECULAR (POC) Microbiology Routine URI, acute Expected: 11/14/2024, Expires: 02/13/2025 [facility] Work Phone: Comment on above: Expected: 11/14/2024 , Expires: 02/13/2025 Start: 07-26-2024 Chlamydia Screening (18-24) Chlamydia Screening (18-24) [facility] Comment on above: Postponed from 11/21 (Declined at this time) Start: 07-26-2024 Covid-19 Vaccine (#1) Covid-19 Vacci ne (#1) [facility] Comment on above: Postponed from 05/21 (Declined at this time) Start: 07-26-2024 Covid-19 Vaccine (2022- season) Covid-19 Vaccine (2022- season) [facility] Comment on above: Postponed from 06/10 (Declined at this time) Start: 07-26-2024 GC (Gonorrhea) Scree gio (18-24) GC (Gonorrhea) Screening (18-24) [facility] Comment on above: Postponed from 11/21 (Declined at this time) Start: 07-26-2024 Hepatitis C Screening Hepatitis C [facility] Comment on above: Postponed from 11/21 (Declined at this time) Start: 07-26-2024 Hepatitis C screening Hepatitis C [facility] Comment on above: Postponed from 11/21 (Declined at this time) Start: 07-26-2024 HIV Screening HIV Screening [facility] Comment on above: Postponed from 11/21 (Declined at this time) Start: 07-26-2024 HIV screening HIV Screening [facility] Comment on above: Postponed from 11/21 (Declined at this time) Start: 07-26-2024 Screening for Chlamy dwayne trachomatis Chlamydia Screening () [facility] Comment on above: Postponed from 11/21 (Declined at this time) Start: 06-10-2024 Covid-19 Vaccine ( season) Covid-19 Vaccine () [facility] Start: 06-10-2024 Influenza vaccination [facility] Start: 04-08-2024 Influenza vaccination Influenza Vacc ine (#1) [facility] Comment on above: Postponed from 06/10 (Declined at this time) Start: 02-01-2024 End: 05-02-2024 Bacteria identified in Wound by Culture [facility] Work Phone: Comment on above: Expected: 02/01/2024 , Expires: 05/02/2024 Start: 01-17-2024 [facility] Start: 12-10-2023 [facility] Start: 2023 Screening for malign ant neoplasm of cervix [facility] Start: 11-09-2023 Respiratory secretio n precautions [facility] Start: 11-07-2023 [facility] Start: 10-10-2023 Behavioral Health Screening Behavioral Health Screening [facility] Start: 10-10-2023 Depression Assessment Depression Ass essment [facility] Start: 09-09-2023 End: 09-23-2023 COVID & INFLUENZA A/B & RSV NAAT, ROUTINE [facility] Work Phone: Comment on above: Expected: 09/09/2023 , Expires: 09/23/2023 Start: 08-19-2023 [facility] Start: 07-26-2023 End: 10-25-2023 CBC W Auto Differential panel - Blood [facility] Work Phone: Comment on above: Expected: 07/26/2023 , Expires: 10/25/2023 Start: 07-26-2023 End: 10-25-2023 Comprehensive metabolic 2000 panel - Serum or Plasma [facility] Work Phone: Comment on above: Expected: 07/26/2023 , Expires: 10/25/2023 Start: 07-26-2023 End: 10-25-2023 Hemoglobin A1c in Blood [facility] Work Phone: Comment on above: Expected: 07/26/2023 , Expires: 10/25/2023 Start: 07-26-2023 End: 10-25-2023 Lipid 1996 panel - Serum or Plasma [facility] Work Phone: Comment on above: Expected: 07/26/2023 , Expires: 10/25/2023 Start: 06-10-2023 Influenza vaccination INFLUENZ A (Season Ended) [facility] Start: 05-27-2023 Well Visit Well Visit [facility] Start: 04-12-2023 [facility] Start: 12-18-2022 [facility] Start: 12-15-2022 [facility] Start: 10-10-2022 DEPRESSION ASSESSMENT DEPRESSION ASS [facility] Start: 09-12-2022 [facility] Start: 06-10-2022 FLU (#1) FLU (#1) [facility] Start: 06-10-2022 Influenza vaccination INFLUENZA (#1) [facility] Start: 2021 Urine microalbumin profile DTAP,TDAP,TD (1 - Tdap) [facility] Start: 10-10-2021 DEPRESSION ASSESSMENT DEPRESSION ASS ESSMENT [facility] Start: 2020 Anxiety Screening Anxiety Screening [facility] Start: 2020 CHLAMYDIA SCREENING (18-24) CHLAMYDIA SCREENING (18-) [facility] Start: 2020 Depression Screening Depression Scre ening [facility] Start: 2020 GC (GONORRHEA) SCREE GIO (18-24) GC (GONORRHEA) SCREENING (18-24) [facility] Start: 2020 Hearing Screening Hearing Screening [facility] Start: 2020 HEPATITIS C SCREENING HEPATITIS C [facility] Start: 2020 Hepatitis C screening Hepatitis C [facility] Start: 2020 HIV SCREENING HIV SCREENING [facility] Start: 2020 HIV screening HIV Screening [facility] Start: 2020 Screening for Chlamy dwayne trachomatis Chlamydia Screening (18-24) [facility] Start: 2018 MenB (1 of 2 - MenB 2-Dose Series) MenB (1 of 2 - MenB 2-Dose Series) [facility] Start: 2018 Meningococcal B Vacc ine (1 of 2 - Standard) Meningococcal B Vaccine (1 of 2 - Standard) [facility] Start: 2018 Meningococcal B Vacc ine: Consider Based On Risk (1 of 2 - Patient Seeks Protection) Meningococcal B Vaccine: Consider Based On Risk (1 of 2 - Patient Seeks Protection) [facility] Start: 2017 HPV Vaccine (1 - 3-d ose series) HPV Vaccine (1 - 3-dose series) [facility] Start: 2016 PEDS TO ADULT TRANSI TION ANNUAL ASSESSMENT PEDS TO ADULT TRANSITION ANNUAL ASSESSMENT [facility] Start: 2014 Adult depression screening assessment DEPRESSION SCREENING [facility] Start: 2014 PEDS TO ADULT TRANSI TION INITIAL DISCUSSION PEDS TO ADULT TRANSITION INITIAL DISCUSSION [facility] Start: 2013 HPV (1 - 2-dose series) HPV (1 - 2-d ose series) [facility] Start: 2013 HPV VACCINE (1 - 2-d ose series) HPV VACCINE (1 - 2-dose series) [facility] Start: 2012 MENINGOCOCCAL B: Consider based on risk (1 of 2 - Risk Bexsero 2-dose series) MENINGOCOCCAL B: Consider based on risk (1 of 2 - Risk Bexsero 2-dose series) [facility] Start: 2011 HPV VACCINE (1 - 2-d ose series) HPV VACCINE (1 - 2-dose series) [facility] Start: 05-21-2003 COVID-19 (#1) COVID-19 (#1) [facility] Start: 05-21-2003 COVID-19 VACCINE (#1) COVID-19 VACCI NE (#1) [facility] Start: 2002 HEPATITIS B (1 of 3 - 3-dose series) HEPATITIS B (1 of 3 - 3-dose series) [facility] Bacteria identified in Urine by Culture URINE CULTURE Microbiology Routine Burning with urination Ordered: 11/24/2023 [facility] Work Phone: Comment on above: Ordered: 11/24/2023 End: 09-17-2022 Isaac-Aguilar virus VCA, IgG (Lab Collect) [facility] Work Phone: Comment on above: 1 Occurrences starti ng 09/17/2022 until 09/17/2022 End: 09-17-2022 Isaac-Aguilar virus VCA, IgM (Lab Collect) [facility] Comment on above: 1 Occurrences starti ng 09/17/2022 until 09/17/2022 Patient Education [facility] Work Phone: Patient referral [facility] Work Phone: Streptococcus pyogen es antigen assay Group A Streptococcus Rapid Screen [facility] Work Phone: Immunizations Immunization Date Immunization Notes Care Provider Fa [facility] 11-26-2014 meningococcal polysaccharide (groups A, C, Y and W-135) diphtheria toxoid conjugate vaccine (MCV4P) Jessica Anguiano MD Work Phone: [facility] 11-26-2014 tetanus toxoid, redu karley diphtheria toxoid, and acellular pertussis vaccine, adsorbed Jessica Anguiano MD Work Phone: [facility] 11-22-2012 influenza virus vacc ine, split virus (incl. purified surface antigen) Jessica Anguiano MD Work Phone: [facility] 11-22-2012 influenza, seasonal, injectable, preservative free Enedelia Isaacs APRN.SHANKER OUT Work Phone: [facility] 11-22-2012 influenza virus vacc ine, unspecified formulation Enedelia Knoble TELEPHONE SOLICITOR SUPERVISOR.SHANKER OUT Work Phone: [facility] 06-29-2011 influenza virus vacc ine, split virus (incl. purified surface antigen) Jessica Anguiano MD Work Phone: [facility] 06-29-2011 influenza, seasonal, injectable, preservative free Enedelia Knoble TELEPHONE SOLICITOR SUPERVISOR.SHANKER OUT Work Phone: [facility] 07-20-2010 influenza virus vacc ine, split virus (incl. purified surface antigen) Jessica Anguiano MD Work Phone: [facility] 07-20-2010 influenza, seasonal, injectable, preservative free Enedelia Knoble TELEPHONE SOLICITOR SUPERVISOR.SHANKER OUT Work Phone: [facility] 09-17-2009 influenza virus vacc ine, split virus (incl. purified surface antigen) Jessica Anguiano MD Work Phone: [facility] 09-17-2009 influenza, seasonal, injectable, preservative free Enedelia Knoble TELEPHONE SOLICITOR SUPERVISOR.SHANKER OUT Work Phone: [facility] 10-08-2008 influenza virus vacc ine, unspecified formulation Jessica Anguiano MD Work Phone: [facility] 10-08-2008 influenza virus vacc ine, whole virus Enedelia Knoble TELEPHONE SOLICITOR SUPERVISOR.SHANKER OUT Work Phone: [facility] 12-29-2007 diphtheria, tetanus toxoids and acellular pertussis vaccine Jessica Anguiano MD Work Phone: [facility] 12-29-2007 diphtheria, tetanus toxoids and acellular pertussis vaccine, unspecified formulation Enedelia Knoble TELEPHONE SOLICITOR SUPERVISOR.SHANKER OUT Work Phone: [facility] 12-29-2007 measles, mumps and rubella virus vaccine Jessica Anguiano MD Work Phone: [facility] 12-29-2007 poliovirus vaccine, inactivated Jessica Anguiano MD Work Phone: [facility] 12-29-2007 varicella virus vaccine Adonay Anguiano MD Work Phone: [facility] 08-14-2004 influenza virus vacc ine, unspecified formulation Jessica Anguiano MD Work Phone: [facility] 08-14-2004 influenza virus vacc ine, whole virus Enedelia Isaacs TELEPHONE SOLICITOR SUPERVISOR.SHANKER OUT Work Phone: [facility] 02-24-2004 diphtheria, tetanus toxoids and acellular pertussis vaccine Jessica Anguiano MD Work Phone: [facility] 02-24-2004 diphtheria, tetanus toxoids and acellular pertussis vaccine, unspecified formulation Enedelia Isaacs TELEPHONE SOLICITOR SUPERVISOR.SHANKER OUT Work Phone: [facility] 02-24-2004 varicella virus vaccine Adonay Anguiano MD Work Phone: [facility] 11-22-2003 haemophilus influenz ae type b conjugate and Hepatitis B vaccine Jessica Anguiano MD Work Phone: [facility] 11-22-2003 measles, mumps and rubella virus vaccine Jessica Anguiano MD Work Phone: [facility] 11-22-2003 poliovirus vaccine, inactivated Jessica Anguiano MD Work Phone: [facility] 08-27-2003 influenza virus vacc ine, unspecified formulation Jessica Anguiano MD Work Phone: [facility] 08-27-2003 influenza virus vacc ine, whole virus Enedelia Isaacs TELEPHONE SOLICITOR SUPERVISOR.SHANKER OUT Work Phone: [facility] 05-27-2003 diphtheria, tetanus toxoids and acellular pertussis vaccine Jessica Anguiano MD Work Phone: [facility] 05-27-2003 diphtheria, tetanus toxoids and acellular pertussis vaccine, unspecified formulation Enedelia Isaacs TELEPHONE SOLICITOR SUPERVISOR.SHANKER OUT Work Phone: [facility] 05-27-2003 haemophilus influenz ae type b vaccine, PRP-T conjugate Jessica Anguiano MD Work Phone: [facility] 05-27-2003 pneumococcal conjuga te vaccine, 7 valent Jessica Anguiano MD Work Phone: [facility] 03-26-2003 diphtheria, tetanus toxoids and acellular pertussis vaccine Jessica Anguiano MD Work Phone: [facility] 03-26-2003 diphtheria, tetanus toxoids and acellular pertussis vaccine, unspecified formulation Enedelia Isaacs APRN.SHANKER OUT Work Phone: [facility] 03-26-2003 haemophilus influenz ae type b vaccine, PRP-T conjugate Jessica Anguiano MD Work Phone: [facility] 03-26-2003 pneumococcal conjuga te vaccine, 7 valent Jessica Anguiano MD Work Phone: [facility] 03-26-2003 poliovirus vaccine, inactivated Jessica Anguiano MD Work Phone: [facility] 01-21-2003 diphtheria, tetanus toxoids and acellular pertussis vaccine Jessica Anguiano MD Work Phone: [facility] 01-21-2003 diphtheria, tetanus toxoids and acellular pertussis vaccine, unspecified formulation Enedelia Isaacs APRN.SHANKER OUT Work Phone: [facility] 01-21-2003 haemophilus influenz ae type b conjugate and Hepatitis B vaccine Jessica Anguiano MD Work Phone: [facility] 01-21-2003 pneumococcal conjuga te vaccine, 7 valent Jessica Anguiano MD Work Phone: [facility] 01-21-2003 poliovirus vaccine, inactivated Jessica Anguiano MD Work Phone: [facility] 2002 hepatitis B vaccine, pediatric or pediatric/adolescent dosage Jessica Anguiano MD Work Phone: [facility] Payers Date Payer Category Payer Unknown [id number] 2024 Unknown [id number] 2024 Unknown [id number] 2024 Unknown UNKNOWN 2023 Self-pay [id number] 2017 Medicaid [id number] 2015 Unknown [id number] 2015 Unknown [id number] 2006 Unknown 2002 Unknown [id number] 2.16. [id number] 2002 Unknown [id number] 2.16. [id number] 2002 Unknown [id number] 2.16. [id number] 2002 Unknown [id number] 2.16. [id number] Unknown [id number] 2.16.8 [id number] Unknown [id number] 2.16.8 [id number] Unknown [id number] 2.16.8 [id number] Unknown [id number] 2.16.8 [id number] Unknown [id number] 2.16.8 [id number] Unknown [id number] 2.16.8 [id number] Unknown [id number] 2.16.8 [id number] Social History Date Type Detail Facility Start: 06-27-2022 End: 09-15-2022 Tobacco smoking status NHIS Never smoked tobacco [facility] Work Phone: Start: 06-27-2022 End: 09-15-2022 Tobacco use and exposure Smokeless tobacco non-user [facility] Work Phone: Start: 2002 Sex Assigned At Not on file C [facility] Start: 06-29-2022 End: 01-17-2024 Tobacco smoking status NHIS Unknown if ever smoked [facility] Start: 2002 Sex Assigned At Female W [facility] Start: 07-11-2022 End: 09-17-2022 Exposure to SARS-CoV-2 (event) Not sure [facility] Start: 09-17-2022 Alcohol intake Current non-dr cloth shader of alcohol (finding) [facility] Start: 07-26-2023 End: 11-14-2024 Alcohol intake Lifetime non-drinker (finding) [facility] Start: 07-26-2023 End: 11-14-2024 History of Social function [facility] Work Phone: Start: 07-26-2023 End: 11-14-2024 Tobacco use panel [facility] Work Phone: Start: 09-10-2012 Adult Depression Screening Assessment 0 [facility] Work Phone: NEGATED: Highlighted rowStart: NINF History of tobacco use Passive smoker [facility] NEGATED: Highlighted row [facility] Mental Status Date Assessment Result Facility 01-17-2024 Cognitive function Level Of Cons ciousness Awake;Alert;Appropriate;Follow s Commands [facility] Work Phone: 12-27-2023 Cognitive function Level Of Cons ciousness Awake;Alert;Appropriate;Follow s Commands [facility] Work Phone: 09-12-2022 Cognitive function Level Of Cons ciousness Awake;Alert;Appropriate;Follow s Commands [facility] Work Phone: 06-29-2022 Cognitive function Level Of Cons ciousness Awake;Alert;Appropriate;Follow s Commands [facility] Work Phone: Clinical Notes 06-27-2022 to 06-07-2025 Telephone Encounter - Malcom Monet RN - 06/07/2025 5:52 PM EDTTelephone Encounter - Malcom Monet RN - 06/07/2025 5:52 PM EDTAddendum Note - Jenae Pettit APRN.SHANKER OUT - 11/14/2024 6:05 PM EST Note Date & Type Note Facility 06-07-2025 Telephone encounter Note Reason for Conversation Nose Bleed Background Nose bleed for 10-15 minutes with large clots, patient feeling very weak and like she might faint Disposition Go to ED Now Mother and patient verbalized an understanding and are agreeable to plan. Will be seen in [facility]. Patient concerned about cost of visit without insurance. Advised patient to speak with someone about financial assistance. Reason for Disposition Feeling weak or lightheaded (e.g., woozy, feeling like they might faint) No Initial Assessment on file. No Additional Information on file. Protocols Used [id number] [facility] 06-07-2025 Miscellaneous Notes Reason for Conversation Nose Bleed Background Nose bleed for 10-15 minutes with large clots, patient feeling very weak and like she might faint Disposition Go to ED Now Mother and patient verbalized an understanding and are agreeable to plan. Will be seen in [facility]. Patient concerned about cost of visit without insurance. Advised patient to speak with someone about financial assistance. Reason for Disposition Feeling weak or lightheaded (e.g., woozy, feeling like they might faint) No Initial Assessment on file. No Additional Information on file. Protocols Used [id number] documented in this encounter [facility] 11-14-2024 Note Addended by: JENAE PETTIT on: 11/14/2024 06:05 PM Modules accepted: Orders [facility] 11-14-2024 Miscellaneous Notes Addended by: JENAE PETTIT on: 11/14/2024 06:05 PM Modules accepted: Orders documented in this encounter [facility] 11-14-2024 Instructions Jenae Pettit APRN.CNP - 11/14/2024 5:40 PM EST Uri, acute (primary encounter diagnosis) Viral illness You have been diagnosed with an illness caused by a virus. Antibiotics do not cure viral infections. If given when not needed, antibiotics can be harmful. The treatments described below will help you feel better while your body's own defenses are fighting the virus. General Instructions: Drink extra water and juice. Use a cool mist vaporizer or saline nasal spray to relieve congestion. For Sore throats, use ice chips or sore throat spray; lozenges for older children and adults. Specific Medications: Fever, aches, ear pain: Use medicines according to the package instructions or as directed by your healthcare provider. Stop the medication when the symptoms get better. No follow-ups on file. documented in this encounter [facility] 11-14-2024 Note HNO ID: [id number] Author: JENAE PETTIT APRN.SHANKER OUT Service: ? Author Type: Nurse Practitioner Type: Progress Notes Filed: 11/14/2024 18:19 Note Text: This note was created using [employer]. Subjective Joanna Schuster is a 23 year old female. 23 year old female with PMH migraines presents for illness. Acute onset yesterday +nausea +headache +fever +sore throat, +vomiting + diarrhea +body aches +fatigue Denies eye or nose Denies CP Denies dyspnea Of note, was in the ED this past Tuesday Was evaluted for chest pain They checked it all out and it was okay The history is provided by the patient. No chief bank examiner was used. Flu Like Symptoms This is a new problem. The current episode started yesterday. The problem occurs constantly. The problem has been gradually worsening. Associated symptoms include anorexia, chills, congestion, coughing, fatigue, a fever, headaches, nausea, a sore throat, swollen glands and vomiting. Pertinent negatives include no abdominal pain, arthralgias, change in bowel habit, chest pain, diaphoresis, joint swelling, myalgias, neck pain, numbness, rash, urinary symptoms, vertigo, visual change or weakness. Nothing aggravates the symptoms. She has tried nothing for the symptoms. The treatment provided no relief. PAST MEDICAL HISTORY Diagnosis Date Intermittent asthma [...] Inhale 1 Puff as instructed twice daily. ondansetron orally disintegrating (ZOFRAN ODT) 4 mg disintegrating tablet Take 1 tablet by mouth every 6 hours as needed for nausea/vomiting. No family history on file. Social History Tobacco Use Smoking status: Never Smokeless tobacco: Never Substance Use Topics Alcohol use: Never Drug use: Never Review of Systems Constitutional: Positive for chills, fatigue and fever. Negative for diaphoresis. HENT: Positive for congestion, postnasal drip, sinus pressure, sinus pain and sore throat. Eyes: Negative for pain, discharge, redness and itching. Respiratory: Positive for cough. Negative for apnea, choking and chest tightness. Cardiovascular: Negative for chest pain. Gastrointestinal: Positive for anorexia, nausea and vomiting. Negative for abdominal pain and change in bowel habit. Musculoskeletal: Negative for arthralgias, joint swelling, myalgias and neck pain. Skin: Negative for color change, pallor and rash. Allergic/Immunologic: Negative for environmental allergies, food allergies and immunocompromised state. Neurological: Positive for headaches. Negative for dizziness, vertigo, facial asymmetry, weakness, light-headedness and numbness. Hematological: Negative for adenopathy. Does not bruise/bleed easily. Psychiatric/Behavioral: Negative for agitation and behavioral problems. Objective BP 106/68 Pulse 118 Temp 37.1 ?C (98.7 ?F) Resp 18 Wt 90.9 kg (200 lb 6.4 oz) LMP 11/17/2023 (Exact Date) SpO2 96% BMI 34.40 kg/m? Physical Exam Vitals and nursing note reviewed. Constitutional: General: She is not in acute distress. Appearance: Normal appearance. She is normal weight. She is not ill-appearing, toxic-appearing or diaphoretic. HENT: Head: Normocephalic and atraumatic. Right Ear: Ear canal and external ear normal. Left Ear: Ear canal and external ear normal. Nose: Congestion present. No rhinorrhea. Mouth/Throat: Mouth: Mucous membranes are moist. Pharynx: Posterior oropharyngeal erythema present. No oropharyngeal exudate. Eyes: General: Right eye: No discharge. Left eye: No discharge. Extraocular Movements: Extraocular movements intact. Conjunctiva/sclera: Conjunctivae normal. Pupils: Pupils are equal, round, and reactive to light. Cardiovascular: Rate and Rhythm: Regular rhythm. Pulses: Normal pulses. Heart sounds: Normal heart sounds. No murmur heard. No friction rub. Pulmonary: Effort: Pulmonary effort is normal. No respiratory distress. Breath sounds: Normal breath sounds. No stridor. No wheezing, rhonchi or rales. Chest: Chest wall: No tenderness. Abdominal: General: Abdomen is flat. There is no distension. Palpations: Abdomen is soft. There is no mass. Tenderness: There is no abdominal tenderness. There is no right CVA tenderness, left CVA tenderness, guarding or rebound. Hernia: No hernia is present. Musculoskeletal: General: No swelling, tenderness, deformity or signs of injury. Normal range of motion. Cervical back: Normal range of motion and neck supp (more content not included)... [facility] 11-14-2024 History of Presen t illness Narrative This note was created using [employer]. Subjective Joanna Garcia DeBoard is a 23 year old female. 23 year old female with PMH migraines presents for illness. Acute onset yesterday +nausea +headache +fever +sore throat, +vomiting + diarrhea +body aches +fatigue Denies eye or nose Denies CP Denies dyspnea Of note, was in the ED this past Tuesday Was evaluted for chest pain They checked it all out and it was okay The history is provided by the patient. No chief bank examiner was used. Flu Like Symptoms This is a new problem. The current episode started yesterday. The problem occurs constantly. The problem has been gradually worsening. Associated symptoms include anorexia, chills, congestion, coughing, fatigue, a fever, headaches, nausea, a sore throat, swollen glands and vomiting. Pertinent negatives include no abdominal pain, arthralgias, change in bowel habit, chest pain, diaphoresis, joint swelling, myalgias, neck pain, numbness, rash, urinary symptoms, vertigo, visual change or weakness. Nothing aggravates the symptoms. She has tried nothing for the symptoms. The treatment provided no relief. PAST MEDICAL HISTORY Diagnosis Date Intermittent asthma [...] Inhale 1 Puff as instructed twice daily. ondansetron orally disintegrating (ZOFRAN ODT) 4 mg disintegrating tablet Take 1 tablet by mouth every 6 hours as needed for nausea/vomiting. No family history on file. Social History Tobacco Use Smoking status: Never Smokeless tobacco: Never Substance Use Topics Alcohol use: Never Drug use: Never Review of Systems Constitutional: Positive for chills, fatigue and fever. Negative for diaphoresis. HENT: Positive for congestion, postnasal drip, sinus pressure, sinus pain and sore throat. Eyes: Negative for pain, discharge, redness and itching. Respiratory: Positive for cough. Negative for apnea, choking and chest tightness. Cardiovascular: Negative for chest pain. Gastrointestinal: Positive for anorexia, nausea and vomiting. Negative for abdominal pain and change in bowel habit. Musculoskeletal: Negative for arthralgias, joint swelling, myalgias and neck pain. Skin: Negative for color change, pallor and rash. Allergic/Immunologic: Negative for environmental allergies, food allergies and immunocompromised state. Neurological: Positive for headaches. Negative for dizziness, vertigo, facial asymmetry, weakness, light-headedness and numbness. Hematological: Negative for adenopathy. Does not bruise/bleed easily. Psychiatric/Behavioral: Negative for agitation and behavioral problems. Objective BP 106/68 Pulse 118 Temp 37.1 C (98.7 F) Resp 18 Wt 90.9 kg (200 lb 6.4 oz) LMP 11/17/2023 (Exact Date) SpO2 96% BMI 34.40 kg/m Physical Exam Vitals and nursing note reviewed. Constitutional: General: She is not in acute distress. Appearance: Normal appearance. She is normal weight. She is not ill-appearing, toxic-appearing or diaphoretic. HENT: Head: Normocephalic and atraumatic. Right Ear: Ear canal and external ear normal. Left Ear: Ear canal and external ear normal. Nose: Congestion present. No rhinorrhea. Mouth/Throat: Mouth: Mucous membranes are moist. Pharynx: Posterior oropharyngeal erythema present. No oropharyngeal exudate. Eyes: General: Right eye: No discharge. Left eye: No discharge. Extraocular Movements: Extraocular movements intact. Conjunctiva/sclera: Conjunctivae normal. Pupils: Pupils are equal, round, and reactive to light. Cardiovascular: Rate and Rhythm: Regular rhythm. Pulses: Normal pulses. Heart sounds: Normal heart sounds. No murmur heard. No friction rub. Pulmonary: Effort: Pulmonary effort is normal. No respiratory distress. Breath sounds: Normal breath sounds. No stridor. No wheezing, rhonchi or rales. Chest: Chest wall: No tenderness. Abdominal: General: Abdomen is flat. There is no distension. Palpations: Abdomen is soft. There is no mass. Tenderness: There is no abdominal tenderness. There is no right CVA tenderness, left CVA tenderness, guarding or rebound. Hernia: No hernia is present. Musculoskeletal: General: No swelling, tenderness, deformity or signs of injury. Normal range of motion. Cervical back: Normal range of motion and neck supple. No rigidity. Right lower leg: No edema. Left lower leg: No edema. Lymphadenopathy: Cervical: Cervical adenopathy present. Skin: General: Skin is warm and dry. Coloration: Skin is not jaundiced or pale. Findings: No bruising, erythema, lesion or rash. Neurological: General: No focal deficit present. Mental Status: She is alert and oriented to person, place, and time. Cranial Nerves: No cranial nerve deficit. Sensory: No sensory deficit. Motor: No weakness. Coordination: Coordination normal. Gait: Gait normal. Psychiatric: Mood and Affect: Mood normal. Behavior: Behavior normal. Thought Content: Thought content normal. Judgment: Judgment normal. Assessment and Plan ASSESSMENT/PLAN: 1. URI, acute - ICD9: 465.9, ICD10: J06.9 (primary diagnosis) X 1 day - Discussed viral etiology and rationale for treatment. - Symptomatic treatment with prn analgesia - Supportive care with fluids and rest - The patient may also use OTC cough and cold meds as needed, warm salt water gargles, throat lozenges and/or OTC throat spray as needed, and nasal saline gtts and suction prn. - Follow up in 3-5 days if symptoms persist or sooner if worsening of symptoms - INFLUENZA A&B MOLECULAR (POC) - STREP A MOLECULAR (POC)-negative 2. Viral illness - ICD9: 079.99, ICD10: B34.9 - Discussed viral etiology and rationale for treatment. - Symptomatic treatment with prn analgesia - Supportive care with fluids and rest Jenae Pettit APRN.SHANKER OUT documented in this encounter [facility] 11-14-2024 Note HNO ID: [id number] Author: BHAVESH STATON LPN Service: ? Author Type: LICENSED NURSE Type: Progress Notes Filed: 11/14/2024 06:59 Note Text: Scan on 11/14/2024 12:06 AM by ProviderJose Alfredo PA-C: Consultation - Emergency Medicine [facility] 11-14-2024 History of Presen t illness Narrative Scan on 11/14/2024 12:06 AM by Jose Alfredo Green PA-C: Consultation - Emergency Medicine documented in this encounter [facility] 10-11-2024 Telephone encounter Note Patient calls back and notified of provider response below. Patient voices understanding. Patient states that she will call back and set up appointment when she gets her work schedule. Mary Guzman RN [facility] 10-11-2024 Miscellaneous Notes Patient calls back and notified of provider response below. Patient voices understanding. Patient states that she will call back and set up appointment when she gets her work schedule. Mary Guzman RN Called and left a voicemail for the patient to call back and ask for a nurse to receive the providers message. Pt also needs an appt for her physical as last seen 07/2023. Left message for pt to contact office. Bhavesh Staton LPN Let patient know I do not write these letters for patient's that we have not developed a specific plan of care. She has no diagnosis of anxiety on her chart and has not been seen in the office since 07/26/2023 and even then there was no mention of her having anxiety as a past or on going problem. Her options are that she can go on line and purchase documentation for her pets that they are emotional support animals or find a appt complex that allows her to have pets. Pt calling stating that she has a history of anxiety. Pt advises that she has a cat and a dog that are emotional support animals for this. She is wanting to know if Dr Del Toro can write a letter stating that she has anxiety and needs to have these Emotional Support animals. (She is trying to get into an apartment) Pt mentioned that she sees a counselor related to her anxiety. Advised her she should also check with counselor to see if that person would be willing to write this letter for her since they would be more aware of the situation since pt is newer to Dr Del Toro. She advises that she has an appointment with counselor on and will check then. Advised her to contact office if counselor can provide letter. Please let pt know if Dr Del Toro can write this letter for her. She is aware he is out of the office until 10/15/24. If agreeable she will pick up man letter from [facility]. Bhavesh Staton LPN documented in this encounter [facility] 10-09-2024 Telephone encounter Note Called and left a voicemail for the patient to call back and ask for a nurse to receive the providers message. Pt also needs an appt for her physical as last seen 07/2023. [facility] 10-08-2024 Telephone encounter Note Left message for pt to contact office. Bhavesh Staton LPN [facility] 10-07-2024 Telephone encounter Note Let patient know I do not write these letters for patient's that we have not developed a specific plan of care. She has no diagnosis of anxiety on her chart and has not been seen in the office since 07/26/2023 and even then there was no mention of her having anxiety as a past or on going problem. Her options are that she can go on line and purchase documentation for her pets that they are emotional support animals or find a appt complex that allows her to have pets. [facility] Work Phone: 10-01-2024 Telephone encounter Note Pt calling stating that she has a history of anxiety. Pt advises that she has a cat and a dog that are emotional support animals for this. She is wanting to know if Dr Del Toro can write a letter stating that she has anxiety and needs to have these Emotional Support animals. (She is trying to get into an apartment) Pt mentioned that she sees a counselor related to her anxiety. Advised her she should also check with counselor to see if that person would be willing to write this letter for her since they would be more aware of the situation since pt is newer to Dr Del Toro. She advises that she has an appointment with counselor on and will check then. Advised her to contact office if counselor can provide letter. Please let pt know if Dr Del Toro can write this letter for her. She is aware he is out of the office until 10/15/24. If agreeable she will pick up man letter from [facility]. Bhavesh Staton LPN [facility] 05-11-2024 Note HNO ID: [id number] Author: NA DWYER PA Service: ? Author Type: Physician Pie Topper Type: Progress Notes Filed: 05/11/2024 10:10 Note Text: 23-year-old female presents for lower abdominal pain. Patient has been having lower abdominal pain for the past 4 days. States pain is a 7 out of 10. She does have tenderness on exam and states the pain is much worse with palpation. Did recommend evaluation in the emergency room due to abdominal pain. Patient's friend will take her now. [facility] 05-11-2024 History of Presen t illness Narrative 23-year-old female presents for lower abdominal pain. Patient has been having lower abdominal pain for the past 4 days. States pain is a 7 out of 10. She does have tenderness on exam and states the pain is much worse with palpation. Did recommend evaluation in the emergency room due to abdominal pain. Patient's friend will take her now. documented in this encounter [facility] 02-04-2024 Telephone encounter Note Talked to patient and she was confused to why I was calling about a urine culture. I then looked back at the charting and corrected the fact that was a abscess and wound culture. Alta Escudero [facility] 02-04-2024 Miscellaneous Notes Talked to patient and she was confused to why I was calling about a urine culture. I then looked back at the charting and corrected the fact that was a abscess and wound culture. [place]ud[place] Please call and let her know that no growth was noted on the urine culture. Patient should follow-up with primary care if symptoms persist. documented in this encounter [facility] 02-04-2024 Telephone encounter Note Please call and let her know that no growth was noted on the urine culture. Patient should follow-up with primary care if symptoms persist. [facility] Work Phone: 02-01-2024 Note HNO ID: [id number] Author: NIRMALA MENEZES PA-C Service: ? Author Type: Physician Pie Topper Type: Progress Notes Filed: 02/01/2024 16:05 Note Text: This note was created using [employer]. Quinn Schuster is a 23 year old female. HPI Patient presents with the chief complaint of a bee sting yesterday. She states that continue to get more red and swollen today so came in for evaluation. It is itchy and painful. She has been stung by bees before and not really had this reaction. She thinks it was a honeybee. No fever or chills. She did notice some drainage out of the center. No history of MRSA. She did put benadryl gel on it. No facial swelling, trouble breathing or wheezing. Review of Systems Constitutional: Negative. HENT: Negative. Respiratory: Negative. Cardiovascular: Negative. Gastrointestinal: Negative. Skin: Right forearm redness and swelling All other systems reviewed and are negative. PAST MEDICAL HISTORY Diagnosis Date Intermittent asthma Migraine headache Current Outpatient Medications Medication Sig Dispense Refill fluticasone (FLONASE) 50 mcg/actuation nasal spray Use 2 Sprays in each nostril once daily. Rinse mouth after use. 1 Bottle 11 albuterol HFA (PROVENTIL HFA, VENTOLIN HFA) 90 mcg/actuation inhaler Inhale 2 Puffs as instructed. fluticasone (FLOVENT) 110 mcg/actuation inhaler Inhale 1 Puff as instructed twice daily. cephALEXin (KEFLEX) 500 mg capsule Take 1 capsule by mouth three times a day for 7 days. 21 capsule 0 predniSONE (DELTASONE) 20 mg tablet Take 2 tablets by mouth once daily for 7 days. 14 tablet 0 cetirizine (ZYRTEC) 10 mg tablet Take 1 tablet by mouth once daily for 7 days. 7 tablet 0 No current facility-administered medications for this visit. PAST SURGICAL HISTORY Procedure Laterality Date ADENOIDECTOMY PRIMARY Adenoidectomy TONSILLECTOMY PRIMARY/SECONDARY Tonsillectomy No family history on file. Social History Tobacco Use Smoking status: Never Smokeless tobacco: Never Substance Use Topics Alcohol use: Never Drug use: Never Objective BP 117/77 Pulse 98 Temp 36.4 ?C (97.6 ?F) Resp 18 Wt 96.8 kg (213 lb 6.5 oz) LMP 11/17/2023 (Exact Date) SpO2 99% BMI 36.63 kg/m? Physical Exam Vitals reviewed. Constitutional: Appearance: Normal appearance. HENT: Head: Normocephalic and atraumatic. Skin: General: Skin is warm and dry. Findings: Rash present. Comments: Patient has erythema, mild swelling, warmth to the right ventral forearm with a central small pustule. No lymphangitic streaking. No sign of abscess. Neurological: Mental Status: She is alert. Assessment and Plan ASSESSMENT/PLAN: 1. Insect bite of forearm with local reaction, right, initial encounter - ICD9: 913.4, E906.4, ICD10: S50.861A, W57.XXXA Will cover patient with Keflex prednisone and zyrtec. May use hydrocortisone otc as well if itchy. - ABSCESS AND WOUND CULTURE WITH GRAM STAIN Nirmala Menezes PA-C [facility] 02-01-2024 History of Presen t illness Narrative Images from the original note were not included. This note was created using [employer]. Subjective Joanna Schuster is a 23 year old female. HPI Patient presents with the chief complaint of a bee sting yesterday. She states that continue to get more red and swollen today so came in for evaluation. It is itchy and painful. She has been stung by bees before and not really had this reaction. She thinks it was a honeybee. No fever or chills. She did notice some drainage out of the center. No history of MRSA. She did put benadryl gel on it. No facial swelling, trouble breathing or wheezing. Review of Systems Constitutional: Negative. HENT: Negative. Respiratory: Negative. Cardiovascular: Negative. Gastrointestinal: Negative. Skin: Right forearm redness and swelling All other systems reviewed and are negative. PAST MEDICAL HISTORY Diagnosis Date Intermittent asthma Migraine headache Current Outpatient Medications Medication Sig Dispense Refill fluticasone (FLONASE) 50 mcg/actuation nasal spray Use 2 Sprays in each nostril once daily. Rinse mouth after use. 1 Bottle 11 albuterol HFA (PROVENTIL HFA, VENTOLIN HFA) 90 mcg/actuation inhaler Inhale 2 Puffs as instructed. fluticasone (FLOVENT) 110 mcg/actuation inhaler Inhale 1 Puff as instructed twice daily. cephALEXin (KEFLEX) 500 mg capsule Take 1 capsule by mouth three times a day for 7 days. 21 capsule 0 predniSONE (DELTASONE) 20 mg tablet Take 2 tablets by mouth once daily for 7 days. 14 tablet 0 cetirizine (ZYRTEC) 10 mg tablet Take 1 tablet by mouth once daily for 7 days. 7 tablet 0 No current facility-administered medications for this visit. PAST SURGICAL HISTORY Procedure Laterality Date ADENOIDECTOMY PRIMARY <AGE 12 11/16 Adenoidectomy TONSILLECTOMY PRIMARY/SECONDARY <AGE 12 11/16 Tonsillectomy No family history on file. Social History Tobacco Use Smoking status: Never Smokeless tobacco: Never Substance Use Topics Alcohol use: Never Drug use: Never Objective BP 117/77 Pulse 98 Temp 36.4 C (97.6 F) Resp 18 Wt 96.8 kg (213 lb 6.5 oz) LMP 11/17/2023 (Exact Date) SpO2 99% BMI 36.63 kg/m Physical Exam Vitals reviewed. Constitutional: Appearance: Normal appearance. HENT: Head: Normocephalic and atraumatic. Skin: General: Skin is warm and dry. Findings: Rash present. Comments: Patient has erythema, mild swelling, warmth to the right ventral forearm with a central small pustule. No lymphangitic streaking. No sign of abscess. Neurological: Mental Status: She is alert. Assessment and Plan ASSESSMENT/PLAN: 1. Insect bite of forearm with local reaction, right, initial encounter - ICD9: 913.4, E906.4, ICD10: S50.861A, W57.XXXA Will cover patient with Keflex prednisone and zyrtec. May use hydrocortisone otc as well if itchy. - ABSCESS AND WOUND CULTURE WITH GRAM STAIN Nirmala Menezes PA-C documented in this encounter [facility] 01-19-2024 Note HNO ID: [id number] Author: MAYTE CID LPN Service: ? Author Type: LICENSED NURSE Type: Progress Notes Filed: 01/19/2024 13:30 Note Text: Scan on 01/17/2024 10:08 PM by Jose Alfredo Green PA-C: X-ray Scan on 01/17/2024 11:22 PM by Jose Alfredo Green PA-C: Consultation - Emergency Medicine [facility] 01-19-2024 History of Presen t illness Narrative Scan on 01/17/2024 10:08 PM by Jose Alfredo Green PA-C: X-ray Scan on 01/17/2024 11:22 PM by Jose Alfredo Green PA-C: Consultation - Emergency Medicine documented in this encounter [facility] 01-17-2024 Note HNO ID: [id number] Author: DYLAN LANE APRN.VJ Service: ? Author Type: Nurse Practitioner Type: Progress Notes Filed: 01/17/2024 18:43 Note Text: Patient triaged at [facility]. Here today with facial injury, attached with a calculator. Is now having ear pain and is unable to open jaw, right facial swelling. I will refer to Er. [facility] 01-17-2024 History of Presen t illness Narrative Patient triaged at [facility]. Here today with facial injury, attached with a calculator. Is now having ear pain and is unable to open jaw, right facial swelling. I will refer to Er. documented in this encounter [facility] 12-28-2023 Note HNO ID: [id number] Author: BHAVESH STATON LPN Service: ? Author Type: LICENSED NURSE Type: Progress Notes Filed: 12/28/2023 13:18 Note Text: Scan on 12/27/2023 11:30 PM by ProviderJose Alfredo PA-C: Consultation - Emergency Medicine Scan on 12/27/2023 11:17 PM by ProviderJose Alfredo PA-C: X-ray [facility] 12-28-2023 History of Presen t illness Narrative Scan on 12/27/2023 11:30 PM by Jose Alfredo Green PA-C: Consultation - Emergency Medicine Scan on 12/27/2023 11:17 PM by Jose Alfredo Green PA-C: X-ray documented in this encounter [facility] 12-27-2023 Discharge summary Note Date/Time December 27, 2023 10:51pm [facility] Medical Records Department [address] [place] [id number] Emergency Department Summary 12/27/23 MR#: [id number] Acct: [id number] Name: JOANNA SCHUSTER Rep #:[id number] : 2000 23 From: Dwayne Mena MD PCP: Dr. Ko Del Toro MD Status:REG ER Location: ED HPI HPI - URI History of Present Illness Chief Complaint: Cold Sx Informant: patient Narrative Narrative: Patient has had cold symptoms for the past 24-48 hours. She has had headache, body aches, malaise, nonproductive cough, chest discomfort specially when she coughs. She has had some minor wheezing and has used her albuterol inhaler a couple times, she denies any severe dyspnea, consistent with her asthma. She denies any fevers or chills. She has been around several people workup been sick as well. She went to urgent care yesterday and had a negative COVID/influenza/RSV swab, and concerned because she feels like she is getting worse due to the wheezing and asthma involvement now. ROS ROS ED Constitutional Constitutional ED: Reports body ache(s), headache(s) and malaise; Denies chills or fever(s) ENT ENT ED: Reports ear pain bilateral, nasal congestion, rhinorrhea and sore throat Cardiovascular Cardiovascular: Reports chest pain; Denies palpitations Respiratory/Chest Respiratory/Chest: Reports cough, dyspnea and wheezing Gastrointestinal Gastrointestinal: Denies abdominal pain, diarrhea, nausea or vomiting Genitourinary Genitourinary ED: Denies dysuria or hematuria Musculoskeletal Musculoskeletal: Denies myalgias or neck pain Integumentary Denies abscess or rash Neurologic Neurologic: Reports headache(s); Denies paresthesias or weakness Psychiatric Psychiatric: Denies depression or suicidal thoughts Endocrine Endocrinology: Denies polydipsia or polyuria [facility] Medical History Asthma Home Medications albuterol sulfate 2.5 mg/3 mL (0.083 %) solution for nebulization 2.5 mg (3 mL) inhalation Q4H PRN #25 vials 11/07/23 [Rx Last Taken Unknown] albuterol sulfate 90 mcg/actuation aerosol inhaler (Proventil HFA) 2 inh inhalation Q4H PRN shortness of breath or wheezing #8.5 grams 11/07/23 [Rx Last Taken Unknown] ondansetron 4 mg disintegrating tablet 4 mg PO Q8H PRN PRN Nausea #14 tabs 12/10/23 [Rx Last Taken Unknown] amoxicillin 875 mg-potassium clavulanate 125 mg tablet 875 mg (0.875 x 875-125 mg) PO Q12H #20 TABLETS 12/27/23 [Rx Last Taken Unknown] prednisone 20 mg tablet 40 mg (2 x 20 mg) PO DAILY #10 TABLETS 12/27/23 [Rx Last Taken Unknown] Allergy/AdvReac Type Severity Reaction Status Date / Time No Known Allergies Allergy Verified 12/27/23 20:38 Surgical History History of tonsillectomy and adenoidectomy Social History household members: family Smoking Status: Never smoker substance use type: does not use EXAM Physical Exam Const Vital Signs: 12/27/23 20:38 12/27/23 22:39 Temperature 97.9 F Temperature Source Temporal Pulse Rate 103 H Respiratory Rate 18 Respiratory Effort Normal Non-Labored Respiratory Pattern Normal Blood Pressure 121/86 H Blood Pressure Mean 97 Pulse Ox 95 Positive well nourished and well developed General Appearance ED: well developed and NAD HEENT Reports moist mucous membranes HEENT Narrative: No trismus. No palpable lymphadenopathy. No sinus tenderness. Right TM and EAC are normal. The left EAC is normal, but the left tympanic membrane is erythematous. There is no bulging yet. normocephalic and atraumatic Throat: Negative for posterior oropharynx abnormal Eyes PERRL and EOMs intact bilaterally Neck no lymphadenopathy, supple and no meningeal signs Resp normal respiratory effort and clear to auscultation bilaterally Resp Narrative: Bronchitic cough. No respiratory distress. Speaking full sentences. Cardio no murmurs Rate: regular rate Rhythm: regular rhythm GI non-tender and non-distended Neuro oriented x3, CN's II-XII intact bilaterally and no sensory deficits noted Sensorium / Orientation: alert Motor Exam: strength 5/5 throughout Skin Lesions: no lesions Rashes: no rashes MDM MDM MDM Narrative Medical decision making narrative: Due to mild tachycardia 2 view chest x-ray was obtained to evaluate for possibility of pneumonia. My interpretation it is negative for acute consolidation/infiltrate. I reviewed the radiology interpretation, which is forpossibly retrocardiac left airspace disease, this may indicate atelectasis, her lungs are clear and she is not hypoxic and treating her for ear infection anywayso I think it is academic but advised to follow-up if she does not get better. She is not currently wheezing but I think giving her a course steroids be reasonable, and antibiotics for the ear infection. I counseled her regarding the fact that her antibiotic may not likely solve the rest of this which is muchmore likely to be viral in etiology, given the history. 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 Radiography Diagnostic Testing: Clinical Impression(s) from Imaging Studies Chest X-Ray 12/27/23 22:40 IMPRESSION: Retrocardiac left basilar airspace disease. Findings may indicate atelectasis or pneumonia. Electronically Signed: Taye Vogel MD at 23:12 EDT , Discharge Plan Triage Chief Complaint: Cold Sx ED Provider: Dwayne Mena Dx/Rx/DC Orders Clinical Impression: Left acute otitis media, Acute viral syndrome, Acute asthma exacerbation Instructions: ED Otitis Media Adult Prescriptions: New prednisone 20 mg tablet 40 mg PO DAILY Qty: 10 0RF amoxicillin-pot clavulanate [amoxicillin-pot clavulanate] 875-125 mg tablet 875 mg PO Q12H Qty: 20 0RF No Action albuterol sulfate [Proventil HFA] 90 mcg/actuation HFA aerosol inhaler 2 inh inhalation Q4H PRN (Reason: shortness of breath or wheezing) Qty: 8.5 1RF albuterol sulfate 2.5 mg /3 mL (0.083 %) solution for nebulization 2.5 mg inhalation Q4H PRN Qty: 25 0RF Rx Instructions: Use q4 hours and PRN for wheezing ondansetron 4 mg tablet,disintegrating 4 mg PO Q8H PRN PRN (Reason: Nausea) Qty: 14 0RF Stand Alone Forms: ED Work / School Excuse Primary Care Provider: Ko Del Toro Referrals: Ko Del Toro MD [Primary Care Provider] - 1 Week if not improving Disposition Disposition: Home, Self Care What to do if you have Problems For any increased pain, shortness of breath, bleeding, nausea or vomiting, chestpain, or any unexpected problems, contact your Primary Care Provider. Call [facility] ([phone]) or report to the closest Emergency Room. Call 911 if necessary. 12/27/232323 <Electronically signed by Dwayne Mena MD> Cosigner Signature (if applicable): CC: Dr. Ko Del Toro MD ~ Signed [facility] Work Phone: 1(465) 844-306003-06-2024 NoteHNO ID: [id number] Author: BHAVESH STATON LPN Service: ? Author Type: LICENSED NURSE Type: Progress Notes Filed: 12/14/2023 15:27 Note Text: Scan on 12/14/2023 7:25 AM by Provider, NELY VelizC: [facility] History of Present illness Narrative* Bhavesh Staton LPN - 12/14/2023 3:23 PM EST Scan on 12/14/2023 7:25 AM by ProviderJose Alfredo PA-C: Consultation - Emergency Medicine [facility] Miscellaneous Notes* Telephone Encounter - Breanna Ely - 11/27/2023 12:09 PM EST Patient given results and verbalized understanding of instructions given. Breanna Ely * Telephone Encounter - Jennifer Tinsley MA - 11/26/2023 1:42 PM EST Left message for pt to call back. Jennifer Tinsley MA * Telephone Encounter - Alvaro Villarreal APRN.CNP - 11/26/2023 8:10 AM EST Please call and notify patient that urine culture did not grow any bacteria. If patient's symptoms are not improving patient needs to follow-up with either PCP or SHIPPING LEAD PERSON. [facility]24 NoteHNO ID: [id number] Author: KO DOTSON APRN.SHANKER OUT Service: ? Author Type: Nurse Practitioner Type: [...] was generated using (more content not included)... [facility]02-15-2024 History of Present illness Narrative* Ko Dotson APRN.SHANKER OUT - 11/24/2023 7:58 PM EST Subjective HPI Nontoxic-appearing female presents urgent care [...] as needed. Patient was instructed to immediately proceedto emergency room for any new, worsening, or symptoms lasting longer than anticipated. The patient's clinical presentation is otherwise unremarkable at this time. Based on exam and clinical finding, the patient is stable for discharge. Plan of care was discussed with patient. Patient verbalizes understanding and agrees to plan of care. This note was generated using Cross[employer] software. It may containerrors in wording, punctuation, or spelling. oK Dotson APRN.SHANKER OUT documented in this encounter[facility]01-29-[facility]24 Discharge summary Author Ramone Tomas [facility] November 07, 2023 6:42pm Note Date/Time November 07, 2023 6 :42pm [facility] Medical Records Department [address] [place] [address] Emergency Department Summary 11/07/23 MR#: [id number] Acct: [id number] Name: JOANNA SCHUSTER Rep #:[id number] : 2000 22 From: Ramone Tomas MD PCP: Dr. Ko Del Toro MD Status:PRE ER Location: ED HPI HPI - URI History of Present Illness Chief Complaint: Cough Detail of Chief Complaint: 22-year-old female history of asthma With URI symptoms. 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 URI symptoms since Tuesday. Fever 100.5. No vomiting or diarrhea. No hemoptysis. Prior similar symptoms: Yes Recent Illness/Hospitalization: No ROS ROS ED ROS Narrative Cough. Fever. Wheezing. Review of Systems ROS Unobtainable: Denies due to encephalopathy Constitutional Constitutional ED: Denies chills Eyes Eyes: Denies blurry vision ENT ENT ED: Denies ear pain or sore throat Cardiovascular Cardiovascular: Denies chest pain Respiratory/Chest Respiratory/Chest: Reports cough and dyspnea Gastrointestinal Gastrointestinal: Denies abdominal pain Genitourinary Genitourinary ED: Denies dysuria or hematuria Musculoskeletal Musculoskeletal: Denies arthralgias Integumentary Denies abscess or Abrasions Neurologic Neurologic: Denies headache(s) Psychiatric Psychiatric: Denies anxiety or depression Endocrine Endocrinology: Denies cold intolerance Hematologic/Lymphatic Hematologic/Lymphatic: Denies easy bleeding or easy bruising Allergic/Immunologic Allergic/Immunologic ED: Denies mouth swelling or tongue swelling PFSH PFSH Medical History Asthma Home Medications albuterol sulfate 90 mcg/actuation aerosol inhaler (Ventolin HFA) 2 puff inhalation Q4H PRN PRN ASTHMA 12/24/13 [History Last Taken 10/12/17] fluticasone propionate 50 mcg/actuation nasal spray,suspension 2 spray DAILY 10/26/16 [History Last Taken 02/28/18] fexofenadine 180 mg tablet (Fanta Allergy) 180 mg PO DAILY ALLERGIES 10/12/17 [History Last Taken 02/28/18] famotidine 20 mg tablet (Acid Controller) 20 mg PO BID #10 tabs 09/12/22 [Rx Last Taken Unknown] levofloxacin 500 mg tablet 500 mg PO DAILY #7 tabs 09/12/22 [Rx Last Taken Unknown] ondansetron 4 mg disintegrating tablet 4 mg PO Q8H PRN nausea and vomiting #20 tabs 09/12/22 [Rx Last Taken Unknown] benzonatate 200 mg capsule 200 mg PO TID PRN cough #14 caps 09/13/22 [Rx Last Taken Unknown] azelastine 137 mcg (0.1 %) nasal spray aerosol 2 spray intranasal BID #30 mL 12/16/22 [Rx Last Taken Unknown] benzonatate 200 mg capsule 200 mg PO TID PRN cough #30 caps 12/16/22 [Rx Last Taken Unknown] doxycycline hyclate 100 mg capsule 100 mg PO BID #14 caps 12/18/22 [Rx Last Taken Unknown] prednisone 10 mg tablets in a dose pack 10 mg PO DAILY #48 tabs 12/18/22 [Rx Last Taken Unknown] naproxen 500 mg tablet (Naprosyn) 500 mg PO BID PRN pain #20 tabs 03/02/23 [Rx Last Taken Unknown] albuterol sulfate 2.5 mg/3 mL (0.083 %) solution for nebulization 2.5 mg (3 mL) inhalation Q4H PRN #25 vials 11/07/23 [Rx Last Taken Unknown] albuterol sulfate 90 mcg/actuation aerosol inhaler (Proventil HFA) 2 inh inhalation Q4H PRN shortness of breath or wheezing #8.5 grams 11/07/23 [Rx Last Taken Unknown] prednisone 20 mg tablet 40 mg (2 x 20 mg) PO DAILY 7 days #14 tabs 11/07/23 [Rx Last Taken Unknown] Allergy/AdvReac Type Severity Reaction Status Date / Time No Known Allergies Allergy Verified 11/07/23 16:30 Surgical History History of tonsillectomy and adenoidectomy Social History household members: family Smoking Status: Never smoker substance use type: does not use EXAM Physical Exam Narrative Exam Narrative: 22-year-old female no acute distress. Vital signs stable afebrile. Pulse ox 90% on room air no signs hypoxia. HEENT exam normal. Moist with membranes. TMs normal. Neck nontender no lymphadenopathy. Lungs scattered expiratory wheezes. No rales or rhonchi. Dry cough. Heart tachycardic no murmur. Abdomen soft nontender. Moving all 4 extremities. Nontender no edema. Neurologically she is awake and alert. Const Vital Signs: 11/07/23 16:30 11/07/23 17:53 11/07/23 18:14 Temperature 98.5 F Temperature Source Temporal Pulse Rate 139 H 125 H Respiratory Rate 18 20 H Respiratory Effort Normal Non-Labored Respiratory Depth Normal Respiratory Pattern Normal Blood Pressure 133/80 H 107/77 Blood Pressure Mean 97 87 Pulse Ox 98 98 Oxygen Delivery Method Room Air Room Air Room Air 11/07/23 18:27 Temperature Temperature Source Pulse Rate 120 H Respiratory Rate 16 Respiratory Effort Respiratory Depth Respiratory Pattern Normal Blood Pressure Blood Pressure Mean Pulse Ox Oxygen Delivery Method Positive well nourished and well developed; Negative for obese, cachectic or contractures General Appearance ED: well developed and NAD; Negative for cachectic, contractures, cyanotic, diaphoretic or pallor Nutritional Appearance: Negative for cachectic or obese HEENT Reports moist mucous membranes; Denies dry mucous membranes normocephalic and atraumatic; Negative for scalp tenderness Face and Sinus: Negative for sinus tenderness Mouth ED: No dry mucous membranes Mouth: No dry mucous membranes Teeth and Gingiva: Negative for caries Throat: posterior oropharynx normal Eyes PERRL and EOMs intact bilaterally General Eye ED: Negative for pale conjunctiva, scleral icterus or other Neck no lymphadenopathy, supple, no meningeal signs and no JVD General: Negative for anterior neck swelling or lymphadenopathy Resp normal respiratory effort and No clear to auscultation bilaterally Effort and Inspection: Negative for retractions Auscultation: wheezes; Negative for rales or rhonchi Cardio S1 normal heart sound, S2 normal heart sound and no murmurs Rate: tachycardic Rhythm: regular rhythm GI non-tender, non-distended and no masses Inspection: Negative for abdominal distention Auscultation: normoactive bowel sounds Palpation: soft; Negative for tender or guarding Back/Spine no CVA tenderness and normal ROM General Back: Negative for CVA tenderness Cervical Spine: Negative for cervical spine tenderness Thoracic Spine / Upper Back: Negative for thoracic spinal tenderness Lumbar Spine / Lower Back: Negative for lumbar spinal tenderness Sacrum: Negative for tenderness Extremity normal to inspection and full ROM General Extremety ED: Negative for cyanosis, tenderness or other findings General Extremity: Negative for cyanosis or other findings Neuro oriented x3 and CN's II-XII intact bilaterally Sensorium / Orientation: alert, oriented to person, oriented to place and oriented to time; Negative for orientation impaired, lethargic or stuporous Motor Exam: strength 5/5 throughout Psych mental status grossly normal Appearance: Negative for other Attitude: No agitated Mood & Affect: Negative for depressed, anxious or tearful Skin General Skin Exam: Negative for jaundice or pallor Lesions: no lesions Rashes: no rashes Trauma: Negative for abrasion MDM MDM MDM Narrative Medical decision making narrative: 22-year-old with URI symptoms exacerbation of asthma. Treated with DuoNeb aerosol and oral prednisone. Her RSV was positive. She rewritten a prescription for prednisone for 7 days, Proventil inhaler and albuterol treatments for her nebulizer at home. They are comfortable not getting a chest x-ray. History & Record Review Discussion w/independent historian: Patient and Family Additional record(s) reviewed:: Prior inpatient record, Prior outpatient record and Prior ED visit Lab Data Attestation: I reviewed the patient's lab results. Lab results narrative: RSV positive. COVID and flu negative. Discharge Plan Triage Chief Complaint: Cough ED Provider: Ramone Tomas Dx/Rx/DC Orders Clinical Impression: RSV bronchitis, Acute asthma flare Instructions: RSV (Respiratory Syncytial Virus), Asthma Prescriptions: New prednisone 20 mg tablet 40 mg PO DAILY 7 Days Qty: 14 0RF albuterol sulfate [Proventil HFA] 90 mcg/actuation HFA aerosol inhaler 2 inh inhalation Q4H PRN (Reason: shortness of breath or wheezing) Qty: 8.5 1RF albuterol sulfate 2.5 mg /3 mL (0.083 %) solution for nebulization 2.5 mg inhalation Q4H PRN Qty: 25 0RF Rx Instructions: Use q4 hours and PRN for wheezing No Action albuterol sulfate [Ventolin HFA] 1 INHALER inhaler 2 puff inhalation Q4H PRN PRN (Reason: ASTHMA) fluticasone propionate 1 SPRAY spray,suspension 2 spray NASAL DAILY fexofenadine [Fanta Allergy] 180 MG tablet 180 mg PO DAILY levofloxacin 500 mg tablet 500 mg PO DAILY Qty: 7 0RF ondansetron 4 mg tablet,disintegrating 4 mg PO Q8H PRN (Reason: nausea and vomiting) Qty: 20 0RF famotidine [Acid Controller] 20 mg tablet 20 mg PO BID Qty: 10 0RF benzonatate 200 mg capsule 200 mg PO TID PRN (Reason: cough) Qty: 14 0RF azelastine 137 mcg (0.1 %) aerosol,spray 2 spray intranasal BID Qty: 30 0RF Rx Instructions: administer into each nostril benzonatate 200 mg capsule 200 mg PO TID PRN (Reason: cough) Qty: 30 0RF doxycycline hyclate 100 mg capsule 100 mg PO BID Qty: 14 0RF prednisone 10 mg tablets,dose pack 10 mg PO DAILY Qty: 48 0RF Rx Instructions: taper pack naproxen [Naprosyn] 500 mg tablet 500 mg PO BID PRN (Reason: pain) Qty: 20 0RF Primary Care Provider: Ko Del Toro Referrals: Ko Del Toro MD [Primary Care Provider] - 3-5 Days if not improving Activity Restrictions/Additional Instructions: Prednisone 40 mg a day for the next 7 days. Proventil inhaler as needed. Albuterol aerosol nebulizer treatments as needed. Follow-up with your doctor if not improving or return if worse. Disposition Disposition: Home, Self Care What to do if you have Problems For any increased pain, shortness of breath, bleeding, nausea or vomiting, chestpain, or any unexpected problems, contact your Primary Care Provider. Call [facility] ([phone]) or report to the closest Emergency Room. Call 911 if necessary. 11/07/232 <Electronically signed by Ramone Tomas MD> Cosigner Signature (if applicable): CC: Dr. Ko Del Toro MD ~ Signed [facility] Work Phone: 1(965) 514-628612-02-2023 Miscellaneous Notes* Telephone Encounter - Alvaro Villarreal APRN.CNP - 09/10/2023 8:15 AM EST Call patient notified of negative viral results. documented in this encounter[facility]12-[facility]23 History of Present illness Narrative* Alvaro Villarreal APRN.CNP - 09/09/2023 7:03 PM EST CC: Patient presents with: Sore Throat: Cough, head congestion and sore throat x 2 days HPI: Joanna Schuster is a 22 year old female who [...] 96.6 kg (213 lb) SpO2 100% BMI 36.56kg/m General appearance: alert, cooperative, pleasant, in no [...] symptoms occur. Patient agreeable to treatment plan. Alvaro Villarreal APRN.SHANKER OUT documented in this encounterGrant Hospital10-19-2023 Miscellaneous Notes* Telephone Encounter - Sophie Mccormick Cma - 07/28/2023 9:56 AM EDT Patient notified and verbalized understanding Sophie Mccormick Cma * Telephone Encounter - Enedelia Isaacs APRN.CNP - 07/28/2023 9:03 AM EDT Please let patient know her labs are normal. documented in this encounterGrant Hospital10-17-2023 History of Present illness Narrative* Enedelia Isaacs APRN.CNP - 07/26/2023 7:54 AM EDT Chief Complaint Patient presents with: [facility] HPI Joanna Schuster is a 22 year old female who presents here today for Above Complaints.. [facility]. Past medical history, appointments, medications, allergies [...] No history of dysuria, frequency or incontinence SHIPPING LEAD PERSON: Negative for abnormal vaginal bleeding, abnormal vaginal [...] 70 Resp 14 Ht 162.6 cm (5' 4) Wt 90.3 kg (199 lb) BMI 34.16 [...] diet of 1000 mg/day for under 50, 1200- 1500 mg/day for 50+ - Discussed need and [...] - Avoidance of triggers recommended Enedelia Isaacs APRN.SHANKER OUT documented in this encounterGrant Hospital05-31-2023 History of Present illness Narrative* Nirmala Menezes PA-C - 03/09/2023 5:33 PM EDT This note was created using [employer]. Subjective Joanna Schuster is a 22 year old female. HPI [...] not taking: Reported on 02/09/2023) FEXOFENADINE HCL (FANTA ORAL) Take by mouth. (Patient not taking: [...] visual changes, concerns or if symptoms persist. Nirmala Menezes PA-C documented in this encounterGrant Hospital05-03-2023 History of Present illness Narrative* IRENE Andujar - 02/09/2023 4:55 PM EDT This note was created using [employer]. Subjective Joanna Schuster is a 22 year old female. HPI 22-year-old female presents for nausea and vomiting. Patient states that she had an episode of vomiting yesterday. She has had intermittent nausea throughout the week. She states that she thoughtit may be stress related. She denies any history of anxiety or depression. No thoughts of harming herself or anybody else. She states that she has been stressed recently between jobs and occasionallygets nauseous. She does work at a daycare. She denies any cough or URI symptoms. She was recently treated for sinus and ear infection. She states that she still has a little bit of ear pain, but it is improved. She denies any concern for and declines test. No abdominal pain. No d iarrhea. No urinary symptoms. No fevers. No other [...] not taking: Reported on 02/09/2023) FEXOFENADINE HCL (FANTA ORAL) Take by mouth. (Patient not taking: [...] ER evaluation. IRENE Andujar documented in this encounterGrant Hospital03-10-2023 Hospital Discharge instructions Additional Instructions Your chest x-ray does not show signs of pneumonia. Your cardiac work-up is normal with no signs of heart stress. You do not have signs of a blood clot on your lungs. I suspect you have bronchitis which is continuing to cause your symptoms. It is possible he could be developing pneumonia given your fever yesterday. Your white blood cell count is minimally elevated at 13 which is nonspecific given your recent steroid course. I will place you back on a taper of steroids and start you on antibiotics. Continue using your nebulizer machine. Continue taking Tessalon Perles as well as myxi-ask-xmizuth cold and flu medicines. I recommend getting a home pulse oximeter to check your oxygen and make sure it is staying above 90%.[facility] Work Phone: [phone]) 711-347403-08-2023 Hospital Discharge instructions Additional Instructions Your work-up today is negative for COVID and influenza as well as pneumonia. This indicates that your congestion and cough are related to an upper respiratory infection. This is a viral infection that would typically take 18 to 21 days to resolve. Use the medication as directed to help control symptoms and return to the ER should you have any further concernsWKet[facility] Work Phone: [phone]) 758-597310-12-2022 History of Present illness Narrative* Adelso Richardson MD - 07/21/2022 11:25 AM EDT Patient presents with: Nausea & Vomiting: X [...] Puff as instructed twice daily. FEXOFENADINE HCL (FANTA ORAL) Take by mouth. (Patient not taking: [...] TABLET Adelso Richardson MD [facility] History of Present illness Narrative* Ko Doston, TELEPHONE SOLICITOR SUPERVISOR.SHANKER OUT - 06/27/2022 11:31 AM EDT Images from the original note were not included. Subjective HPI Nontoxic-appearing female presents urgent care chief complaint lower back pain. Duration of symptoms 1 week. Associated symptoms lower back pain radiating up into mid to upper back. History of back pain from her job similar to this. Has not used any OTC medications. Rates pain 6-7 out of 10. Statespain is worse with movement. Improved by rest. Did take Aleve yesterday this did help. States that her job she lifts 50 to 60 pounds on a regular basis. She does a lot of bending. Denies any specificinjury. No radiculopathy. Denies any saddle anesthesia or [...] daily. (Patient not taking: Reported on 06/27/2022) Uwedcvesrhuri-Iyuzgsmvqvino-ZN (TYLENOL COLD HEAD CONGEST SEVR) 5-325-200 mg tab Take 1 Dose by mouth as directed. (Patient not taking: Reported on 06/27/2022) FEXOFENADINE HCL (FANTA ORAL) Take by mouth. (Patient not taking: [...] unspecified back pain laterality, unspecified chronicity - ICD9:724.2, ICD10: M54.50 Patient diagnosed with lower back [...] clinical presentation is otherwise unremarkable at this time.Based on exam and clinical finding, the patient is stable for discharge. Plan of care was discussedwith patient. Patient verbalizes understanding and agrees to plan of care. This note was generated u tydy software. It may contain errors in wording, punctuation, or spelling. Ko Dotson APRN.VJ [facility]* Diagnosis Low back pain without sciatica, unspecified back pain laterality, unspecified chronicity- Primary documented in [facility] noteNo assessment information availableWKet[facility] Work Phone: Evaluation note* Diagnosis Nausea and vomiting, unspecified vomiting type- [facility] Pain of upper abdomen Abdominal pain, other specified site [facility] Diagnosis Nausea and vomiting, unspecified vomiting type- Primary [facility]* Diagnosis Sore throat- Primary Acute pharyngitis Acute conjunctivitis of right eye, unspecified acute conjunctivitis type [facility]* Diagnosis Wellness examination- Primary Encounter for lipid screening for cardiovascular disease Screening for lipoid disorders Screening for diabetes mellitus Mild intermittent asthma, uncomplicated Unspecified asthma [facility]* Diagnosis Sore throat- Primary Acute pharyngitis URI, acute Acute upper respiratory infections of unspecified site [facility]* Diagnosis Burning with urination- Primary Dysuria Viral illness Unspecified viral infection, in conditions classified elsewhere and of unspecified site [facility]* Diagnosis Facial injury, initial encounter- Primary [facility]* Diagnosis Insect bite of forearm with local reaction, right, initial encounter- Primary [facility]* Diagnosis Lower abdominal pain- Primary Abdominal pain, other specified site [facility]* Diagnosis URI, acute- Primary Acute upper respiratory infections of unspecified site Viral illness Unspecified viral infection, in conditions classified elsewhere and of unspecified site [facility] instructions Additional Instructions Thank you for trusting us with your care today! Please take Tylenol (2 pills, 650 mg), ibuprofen (2 pills, 400 mg) every 6 hours as needed for pain and fever control. Please return to the emergency department if your symptoms change or worsen. Specifically if you develop chest pain, you lose conscious, worsening shortness of breath, blue discoloration of your skin. Please follow with your primary care physician for further outpatient evaluation and management.[facility] Work Phone: Hospital Discharge instructions Additional Instructions Your labs and CAT scan were unremarkable. No specific diagnosis for your pain. Motrin and Tylenol for pain. Follow-up with your primary care physician if not improving.[facility] Work Phone: Hospital Discharge instructions Additional Instructions Please follow-up outpatient.[facility] Work Phone: Hospital Discharge instructions Additional Instructions Prednisone 40 mg a day for the next 7 days. Proventil inhaler as needed. Albuterol aerosol nebulizer treatments as needed. Follow-up with your doctor if not improving or return if worse.[facility] Work Phone: Summary Purpose Family History No Family History Records FoundNo Family History Records FoundNo Family History Records FoundNo Family History Records FoundNo Family History Records FoundNo Family History Records FoundNo Family History Records Found Advance Directives Advance Directive Response Recorded Date/ Time Advance Directives No November 02, 2017 6:46pm Living Will No June 29, 2022 9:52pm Power of Sugar Reprocess Operator Head No June 9:52pm Advance Directive Response Recorded Date/ Time Advance Directives No November 02, 2017 5:46pm Living Will No August 24, 9:54am Power of Sugar Reprocess Operator Head No August 24, 2022 9:54am Advance Directive Response Recorded Date/ Time Advance Directives No November 02, 2017 5:46pm Living Will No September 12 3:41pm Power of Sugar Reprocess Operator Head No September 12, 2022 3:41pm Advance Directive Response Recorded Date/ Time Advance Directives No November 02, 2017 5:46pm Living Will No September 13 7:33pm Power of Sugar Reprocess Operator Head No September 13, 2022 7:33pm Advance Directive Response Recorded Date/ Time Advance Directives No November 02, 2017 5:46pm Living Will No December 15, 2022 11:18pm Power of Sugar Reprocess Operator Head No December 15 11:18pm Advance Directive Response Recorded Date/ Time Advance Directives No November 02, 2017 5:46pm Living Will No December 18, 2022 10:38am Power of Sugar Reprocess Operator Head No December 18 10:38am Advance Directive Response Recorded Date/ Time Advance Directives No November 02, 2017 6:46pm Living Will No April 12, 2023 7 :19pm Power of Sugar Reprocess Operator Head No April 12, 2023 7:19pm Advance Directive Response Recorded Date/ Time Advance Directives No November 02, 2017 6:46pm Living Will No May 01, 2023 4:42pm Power of Sugar Reprocess Operator Head No May 01 4:42pm Advance Directive Response Recorded Date/ Time Advance Directives No November 02, 2017 6:46pm Living Will No June 19, 2023 6:27pm Power of Sugar Reprocess Operator Head No June 6:27pm Advance Directive Response Recorded Date/ Time Advance Directives No November 02, 2017 5:46pm Living Will No November 07 5:51pm Power of Sugar Reprocess Operator Head No November 07, 2023 5:51pm Advance Directive Response Recorded Date/ Time Advance Directives No November 02, 2017 5:46pm Living Will No December 10, 2023 7:14pm Power of Sugar Reprocess Operator Head No December 09 7:14pm Advance Directive Response Recorded Date/ Time Advance Directives No November 02, 2017 6:46pm Living Will No December 27, 2023 10:39pm Power of Sugar Reprocess Operator Head No December 26 10:39pm Advance Directive Response Recorded Date/ Time Advance Directives No November 02, 2017 6:46pm Living Will No January 17, 2024 8:52pm Power of Sugar Reprocess Operator Head No January 16 8:52pm Chief Complaint and Reason for Visit Chief Complaint PAIN OTHER Chief Complaint PAIN OTHER ABDOMINAL PAIN Chief Complaint PAIN OTHER ABDOMINAL PAIN GENERAL ILLNESS Chief Complaint PAIN OTHER ABDOMINAL PAIN GENERAL ILLNESS abd pain Chief Complaint ABDOMINAL PAIN GENERAL ILLNESS abd pain SOB Chief Complaint ABDOMINAL PAIN GENERAL ILLNESS abd pain SOB SOB/cough Chief Complaint SOB SOB/cough RIGHT THUMB INJURY SOB Chief Complaint RIGHT THUMB INJURY SOB abdominal pain Chief Complaint RIGHT THUMB INJURY SOB abdominal pain bee sting Chief Complaint HAND COUGH Chief Complaint HAND COUGH sob NAUSEA Chief Complaint COUGH sob NAUSEA COLD SX Chief Complaint COUGH sob NAUSEA COLD SX facial injury Health Concerns Infection Onset Date Last Indicated Resolved Time COVID-19 Rule-Out 09/09/2023 09/09/2023 Infection Onset Date Last Indicated Resolved Time COVID-19 Rule-Out 09/09/2023 09/09/2023 09/10/2023 2:52 AM EST Additional Source Comments INFORMATION SOURCE (unrecogn ized section and content) DATE CREATED AUTHOR 04/03/2018 [facility] DATE CREATED AUTHOR AUTHOR'S ORGANIZ ATION 09/18/2018 [facility] [place] DATE CREATED AUTHOR AUTHOR'S ORGANIZ ATION 08/27/2019 [facility] ([place]) DATE CREATED AUTHOR AUTHOR'S ORGANIZ ATION 09/21/2022 [facility] DATE CREATED AUTHOR AUTHOR'S ORGANIZ ATION 05/15/2024 [facility] DATE CREATED AUTHOR AUTHOR'S ORGANIZ ATION 11/16/2024 [facility] DATE CREATED AUTHOR AUTHOR'S ORGANIZ ATION 11/29/2024 [facility] Source Comments (unrecognize d section and content) In the event this informatio n is protected by the Federal Confidentiality of Alcohol and Drug Abuse Patient Records regulations: The Federal rules restrict any use of the information to criminally investigate or prosecute any alcohol or drug abuse patient.[facility] HospitalIn the event this information is protected by the Federal Confidentiality of Alcohol and Drug Abuse Patient Records regulations: The Federal rules restrict any use of the information to criminally investigate or prosecute any alcohol or drug abuse patient.[facility] HospitalIn the event this information is protected by the Federal Confidentiality of Alcohol and Drug Abuse Patient Records regulations: The Federal rules restrict any use of the information to criminally investigate or prosecute any alcohol or drug abuse patient.[facility] HospitalIn the event this information is protected by the Federal Confidentiality of Alcohol and Drug Abuse Patient Records regulations: The Federal rules restrict any use of the information to criminally investigate or prosecute any alcohol or drug abuse patient.[facility] HospitalIn the event this information is protected by the Federal Confidentiality of Alcohol and Drug Abuse Patient Records regulations: The Federal rules restrict any use of the information to criminally investigate or prosecute any alcohol or drug abuse patient.[facility] HospitalIn the event this information is protected by the Federal Confidentiality of Alcohol and Drug Abuse Patient Records regulations: The Federal rules restrict any use of the information to criminally investigate or prosecute any alcohol or drug abuse patient.[facility] HospitalIn the event this information is protected by the Federal Confidentiality of Alcohol and Drug Abuse Patient Records regulations: The Federal rules restrict any use of the information to criminally investigate or prosecute any alcohol or drug abuse patient.[facility] HospitalIn the event this information is protected by the Federal Confidentiality of Alcohol and Drug Abuse Patient Records regulations: The Federal rules restrict any use of the information to criminally investigate or prosecute any alcohol or drug abuse patient.[facility] HospitalIn the event this information is protected by the Federal Confidentiality of Alcohol and Drug Abuse Patient Records regulations: The Federal rules restrict any use of the information to criminally investigate or prosecute any alcohol or drug abuse patient.[facility] HospitalIn the event this information is protected by the Federal Confidentiality of Alcohol and Drug Abuse Patient Records regulations: The Federal rules restrict any use of the information to criminally investigate or prosecute any alcohol or drug abuse patient.[facility] HospitalIn the event this information is protected by the Federal Confidentiality of Alcohol and Drug Abuse Patient Records regulations: The Federal rules restrict any use of the information to criminally investigate or prosecute any alcohol or drug abuse patient.[facility] HospitalIn the event this information is protected by the Federal Confidentiality of Alcohol and Drug Abuse Patient Records regulations: The Federal rules restrict any use of the information to criminally investigate or prosecute any alcohol or drug abuse patient.[facility] HospitalIn the event this information is protected by the Federal Confidentiality of Alcohol and Drug Abuse Patient Records regulations: The Federal rules restrict any use of the information to criminally investigate or prosecute any alcohol or drug abuse patient.[facility] HospitalIn the event this information is protected by the Federal Confidentiality of Alcohol and Drug Abuse Patient Records regulations: The Federal rules restrict any use of the information to criminally investigate or prosecute any alcohol or drug abuse patient.[facility] HospitalIn the event this information is protected by the Federal Confidentiality of Alcohol and Drug Abuse Patient Records regulations: The Federal rules restrict any use of the information to criminally investigate or prosecute any alcohol or drug abuse patient.[facility] HospitalIn the event this information is protected by the Federal Confidentiality of Alcohol and Drug Abuse Patient Records regulations: The Federal rules restrict any use of the information to criminally investigate or prosecute any alcohol or drug abuse patient.[facility] HospitalIn the event this information is protected by the Federal Confidentiality of Alcohol and Drug Abuse Patient Records regulations: The Federal rules restrict any use of the information to criminally investigate or prosecute any alcohol or drug abuse patient.[facility] HospitalIn the event this information is protected by the Federal Confidentiality of Alcohol and Drug Abuse Patient Records regulations: The Federal rules restrict any use of the information to criminally investigate or prosecute any alcohol or drug abuse patient.[facility] HospitalIn the event this information is protected by the Federal Confidentiality of Alcohol and Drug Abuse Patient Records regulations: The Federal rules restrict any use of the information to criminally investigate or prosecute any alcohol or drug abuse patient.[facility] HospitalIn the event this information is protected by the [facility] Confidentiality of Alcohol and Drug Abuse Patient Records regulations: The Federal rules restrict any use of the information to criminally investigate or prosecute any alcohol or drug abuse patient.[facility] HospitalIn the event this information is protected by the Federal Confidentiality of Alcohol and Drug Abuse Patient Records regulations: The Federal rules restrict any use of the information to criminally investigate or prosecute any alcohol or drug abuse patient.[facility] Reason for Visit (unrecogniz ed section and content) Reason Comments Back Pain low back into upper left back into arm x 1 week Reason Comments Nausea & Vomiting X 4 [...] urinati on, low abd cramping x day Reason Comments ER Discharge Summary Reason Comments External / XRay Reason Comments Insect Bite Bee sting R inner bi cep x1 day Reason Comments Letter Reason Comments Cough headache, fever, sor e throat, vomiting and diarrhea x last night Reason Comments Nose Bleed Care Teams (unrecognized sec tion and content) Fiber Optics Technician Relationship Specialty Start Date End Date Jessica Anguiano PCP - General 11/04/06 Fiber Optics Technician Relationship Specialty Start Date End Date Jessica Anguiano PCP - General 11/04/06 Fiber Optics Technician Relationship Specialty Start Date End Date Jessica Anguiano MD [address] [place] [address] PCP - General 06/15/17 ([place]), [facility]ly [facility] [address] [place] [address] 01/08/11 Team Status: Active Member Role Status Dates Dr. Jessica Anguiano MD Family Provider Active Dr. Jessica Anguiano MD Primary Care Provider Active Team Status: Inactive Member Role Status Dates Dr. Jessica Anguiano MD Primary Care Provider Active Dr. Sanjeev Kevin MD Attending Provider, Emergency Provi susy Active Team Status: Inactive Member Role Status Dates Dr. Jessica Anguiano MD Primary Care Provider Active Dr. Jd Arteaga DO Attending Provider, Emergency Provider Active Team Status: Inactive Member Role Status Dates Dr. Jessica Anguiano MD Primary Care Provider Active Dr. Randall Jacobs DO Emergency Provider Active Team Status: Inactive Member Role Status Dates Dr. Jessica Anguiano MD Primary Care Provider Active Dr. Palak Jeffries DO Emergency Provider Active Fiber Optics Technician Relationship Specialty Start Date End Date PrakashJessica Katia PCP - General 11/04/06 Team Status: Inactive Member Role Status Dates Dr. Jessica Anguiano MD Primary Care Provider Active Dr. Randall Jacobs DO Attending Provider, Emergency Pr ovider Active Team Status: Inactive Member Role Status Dates Dr. Jessica Anguiano MD Primary Care Provider Active Dr. Palak Jeffries DO Attending Provider, Emergency P rovider Active Team Status: Inactive Member Role Status Dates Dr. Jessica Anguiano MD Primary Care Provider Active Dr. Tala Germain MD Attending Provider, Emergency Provider Active Team Status: Inactive Member Role Status Dates Dr. Jessica Anguiano MD Primary Care Provider Active Dr. Tom Hein DO Emergency Provider Active Team Status: Inactive Member Role Status Dates Dr. Jessica Anguiano MD Primary Care Provider Active Dr. Tom Hein DO Attending Provider, Emergency P rovider Active Team Status: Inactive Member Role Status Dates Dr. Jessica Anguiano MD Primary Care Provider Active Dr. Ramone Tomas MD Emergency Provider Active Team Status: Inactive Member Role Status Dates Dr. Jessica Anguiano MD Primary Care Provider Active Dr. Ramone Tomas MD Attending Provider, Emergency Pro vider Active Fiber Optics Technician Relationship Specialty Start Date End Date Ko Del Toro MD [address] [place] [address] PCP - General Family Medicine 07/19/23 Fiber Optics Technician Relationship Specialty Start Date End Date Ko Del Toro MD [address] [place] [address] PCP - General Family Medicine 07/19/23 Fiber Optics Technician Relationship Specialty Start Date End Date Ko Del Toro MD [address] [place] [address] PCP - General Family Medicine 07/19/23 Fiber Optics Technician Relationship Specialty Start Date End Date Ko Del Toro MD [address] [place] [address] PCP - General Family Medicine 07/19/23 Team Status: Active Member Role Status Dates Dr. Jessica Anguiano MD Family Provider Active Dr. Ko Del Toro MD Primary Care Provider Active Team Status: Inactive Member Role Status Dates Dr. Ko Del Toro MD Primary Care Provider Active Dr. Ramone Tomas MD Emergency Provider Active Team Status: Inactive Member Role Status Dates Dr. Alex Farias DO Attending Provider, Emergency P rovider Active Dr. Ko Del Toro MD Primary Care Provider Active Fiber Optics Technician Relationship Specialty Start Date End Date Ko Del Toro MD [address] [place] [address] PCP - General Family Medicine 07/19/23 Fiber Optics Technician Relationship Specialty Start Date End Date Ko Del Toro MD [address] [place] [address] PCP - General Family Medicine 07/19/23 Team Status: Inactive Member Role Status Dates Dr. Ko Del Toro MD Primary Care Provider Active Dr. Ramone Tomas MD Attending Provider, Emergency Pro vider Active Team Status: Inactive Member Role Status Dates Dr. Ko Del Toro MD Primary Care Provider Active Dr. Jd Arteaga DO Emergency Provider Active Fiber Optics Technician Relationship Specialty Start Date End Date Ko Del Toro MD [address] [place] [address] PCP - General Family Medicine 07/19/23 Team Status: Inactive Member Role Status Dates Dr. Ko Del Toro MD Primary Care Provider Active Dr. Jd Arteaga DO Attending Provider, Emergency Provider Active Team Status: Inactive Member Role Status Dates Dr. Ko Del Toro MD Primary Care Provider Active Dr. Dwayne Mena MD Emergency Provider Active Team Status: Inactive Member Role Status Dates Dr. Ko Del Toro MD Primary Care Provider Active Dr. Dwayne Mena MD Attending Provider, Emergency Provider Active Fiber Optics Technician Relationship Specialty Start Date End Date Ko Del Toro MD [address] [place] [address] PCP - General Family Medicine 07/19/23 Fiber Optics Technician Relationship Specialty Start Date End Date Ko Del Toro MD [address] [place] [address] PCP - General Family Medicine 07/19/23 Fiber Optics Technician Relationship Specialty Start Date End Date Ko Del Toro MD [address] [place] [address] PCP - General Family Medicine 07/19/23 Enedelia Isaacs, TELEPHONE SOLICITOR SUPERVISOR.SHANKER OUT [address] [place] [address] Furniture Cleaner Family Medicine 09/15/24 Marylin Soto PA-C [address] [place] [address] Furniture Cleaner Family Medicine 09/15/24 Fiber Optics Technician Relationship Specialty Start Date End Date Ko Del Toro MD [address] [place] [address] PCP - General Family Medicine 07/19/23 Enedelia Isaacs, JAEL.SHANKER OUT [address] [place] [address] Furniture Cleaner Family Medicine 09/15/24 Marylin Soto PA-C [address] [place] [address] Furniture Cleaner Family Medicine 09/15/24 Fiber Optics Technician Relationship Specialty Start Date End Date Ko Del Toro MD [address] [place] [address] PCP - General Family Medicine 07/19/23 Enedelia Isaacs, TELEPHONE SOLICITOR SUPERVISOR.SHANKER OUT [address] [place] [address] Furniture Cleaner Family Medicine 09/15/24 Marylin Soto PA-C [address] [place] [address] Furniture Cleaner Family Medicine 09/15/24 Fiber Optics Technician Relationship Specialty Start Date End Date Ko Del Toro MD [address] [place] [address] PCP - General Family Medicine 07/19/23 Enedelia Isaacs APRN.CNP [address] [place], [place] [id number] Furniture Cleaner Family [facility] 03/11/25 Marylin Soto PA-C [address] [place] [address] [facility]ly [facility] 03/11/25 Goals (unrecognized section and content) Goals may be documented in a n alternate sectionGoals may be documented in an alternate sectionGoals may be documented in an alternate sectionGoals may be documented in an alternate sectionGoals may be documented in an alternate sectionGoals may be documented in an alternate sectionGoals may be documented in an alternate sectionGoals may be documented in an alternate sectionGoals may be documented in an alternate sectionGoals may be documented in an alternate sectionGoals may be documented in an alternate sectionGoals may be documented in an alternate sectionGoals may be documented in an alternate section FOR RECORDS PERTAINING TO PATIENTS WHO ARE [...] BE BASED ON THE PRIMARY CLINICAL RECORDS. [employer] [facility]. provides no warranty or guarantee of the accuracy or completeness of information in this document.
== END 2025-06-08 00:17 | disposition home or self-care (01) ==
LOC: ED 06-08 00:16
PROVIDERS: Emergency Provider Emergency Medicine; PCP Family Medicine; Visit Provider Emergency Medicine
DX: R04.0 Epistaxis (principal)
CPT/HCPCS: 99282